=== PATIENT | female | born 1950 | race African-American/Black ===

== ENCOUNTER 2020-04-11 02:46 | Inpatient (IN) | payer MEDICARE, OTHER ==
[~2020-04-11] VITALS: Ht 170.2 cm; Wt 105.5 kg
[2020-04-11] VITALS (34 sets, daily range): BP systolic 41–246; BP diastolic 31–94
[2020-04-11] MEDS ORDERED: fentaNYL PF VIAL 100 MCG/2 ML VIAL ONE (02:53)
[2020-04-11] MEDS ORDERED: HYDROmorphone 2 MG/ML VIAL ONE (02:57)
[2020-04-11] MEDS ORDERED: PROPOFOL 100 ML IV ONE (03:14)
[2020-04-11] MEDS ORDERED: EPINEPHrine VIAL 5 MG in IV NORMAL SALINE 250ML 250 ML IV PRN (03:15)
[2020-04-11] MEDS ORDERED: MIDAZOLAM 100mg/100ml NS BAG 100 ML IV ONE (03:45)
[2020-04-11] MEDS ORDERED: metroNIDAZOLE 500mg PREMIX 500 MG/100 ML BAG IV ONE (04:00)
[2020-04-11] MEDS ORDERED: PIP/TAZO PER PHARMACY MC PRN (04:00)
[2020-04-11] MEDS ORDERED: VANCOMYCIN PER PHARMACY MC PRN (04:00)
[2020-04-11] MEDS ORDERED: FUROSEMIDE 100 MG/10 ML VIAL. IVP ONE (04:15)
[2020-04-11] MEDS ORDERED: MAGNESIUM SULFATE 2GM 50 ML IV ONE (04:30)
[2020-04-11] MEDS ORDERED: DEXAMETHASONE SOD PHOS 20 MG/5 ML VIAL. IV ONE (04:30)
[2020-04-11 04:33] LABS: BASO # 0.1 x10^3/uL (0.0-0.2); BASO % 1 % (0-3); EOS # 0.1 x10^3/uL (0.0-0.7); EOS % 1 % (0-3); HEMATOCRIT 37.7 % (36.0-47.0); HEMOGLOBIN 12.2 g/dL (12.0-15.5); LYMPH # 3.7 x10^3/uL (1.0-4.8); LYMPH % 25 % (24-48); MEAN CORPUSCULAR HEMOGLOBIN 28 pg (25-35); MEAN CORPUSCULAR HGB CONC 33 g/dL (31-37); MEAN CORPUSCULAR VOLUME 87 fL (79-100); MONO # 0.7 x10^3/uL (0.0-1.1); MONO % 5 % (0-9); NEUT # 10.3 x10^3/uL (1.8-7.7); NEUT % 69 % (31-73); PLATELET COUNT 240 x10^3/uL (140-400); RED BLOOD COUNT 4.32 x10^6/uL (3.50-5.40); RED CELL DISTRIBUTION WIDTH 14.2 % (11.5-14.5); WHITE BLOOD COUNT 14.9 x10^3/uL (4.0-11.0)
--- NOTE | 2020-04-11 04:39 | RAD ---
EXAM: XR CHEST 1V 04/11/2020 3:49 AM CLINICAL INDICATION: Status post intubation, post code COMPARISON: None TECHNIQUE: AP supine view the chest FINDINGS: Endotracheal tube terminates 4.5 cm above the ioana. Nasogastric tube terminates in the g astric fundus with the sidehole in the distal esophagus heart is normal in size. There are bilateral consolidative airspace opacities, greatest in the lung bases and greater on the right. No pneumothora x. No acute osseous abnormality. Surgical clips are in the left chest wall. IMPRESSION: 1. Appropriate position of nasogastric tube. 2. High termination of nasogastric tube with sidehole in the distal esophagus, consider advancing 5 c m. 3. Bilateral consolidations throughout the lungs, greater on the right. Small right pleural effusion also possible. Electronically signed by: Henrietta Wood MD (04/11/2020 4:36 AM) [id number]
[2020-04-11 04:40] LABS: PROTHROMBIN TIME PATIENT 15.9 SEC (11.7-14.0)
[2020-04-11 04:45] LABS: ACETAMIN < 2 mcg/ml (10-30); SALIC < 2.8 mg/dL (2.8-20.0)
[2020-04-11 04:52] LABS: CALCIUM 8.7 mg/dL (8.5-10.1); CREATININE 1.8 mg/dL (0.6-1.0); GFR 33.8; POTASSIUM 3.7 mmol/L (3.5-5.1)
[2020-04-11 04:58] LABS: BILIRUBIN,URINE NEGATIVE (NEG); CLARITY,URINE CLEAR; COLOR,URINE YELLOW; NITRITE,URINE NEGATIVE (NEG); PROTEIN,URINE NEGATIVE (NEG-TRACE); UROBILINOGEN,URINE 0.2 mg/dL (0.2 mg/dL)
[2020-04-11 05:00] LABS: BASE EXCESS COOX -8 mmol/L (-3-3); CORRECTED PCO2 COOX 52 mmHg; CORRECTED PH COOX 7.21; CORRECTED PO2 COOX 47 mmHg; HCO3 COOX 21 mmol/L (21-28); METHEMOGLOBIN 0.4 % (0.0-1.9); OXYHEMOGLOBIN 73.1 %; SAT O2 COOX 73 % (92-99)
[2020-04-11] MEDS ORDERED: VANCOMYCIN 1.75 GM in IV NORMAL SALINE 500ML BAG 500 ML IV ONE (05:00)
[2020-04-11] MEDS ORDERED: PIPERACILLIN/TAZOBACTAM 3.375 GM in IV NORMAL SALINE 50ML 50 ML IV ONE (05:00)
[2020-04-11 05:01] LABS: PCO2 COOX 54 mmHg (35-46); PO2 COOX 49 mmHg (65-108)
[2020-04-11 05:04] LABS: AMORPHOUS SEDIMENT,UR PRESENT /HPF; BACTERIA,URINE 0 /HPF (0-FEW); BARBITURATES NEG (NEG); BENZODIAZEPINES NEG (NEG); CANNABINOIDS NEG (NEG); COCAINE NEG (NEG); METHADONE NEG (NEG); OPIATES NEG (NEG); PHENCYCLIDINE NEG (NEG); RBC,URINE RARE /HPF (0-2); WBC,URINE OCC /HPF (0-4)
[2020-04-11 05:05] LABS: AMPHETAMINE/METHAMPHETAMINE NEG (NEG)
[2020-04-11 05:08] LABS: ALBUMIN 2.8 g/dL (3.4-5.0); DIRECT BILIRUBIN 0.4 mg/dL (0.0-0.2); MAGNESIUM 2.1 mg/dL (1.8-2.4); TOTAL PROTEIN 5.8 g/dL (6.4-8.2)
[2020-04-11] MEDS ORDERED: SUCCINYLCHOLINE 200 MG/10 ML VIAL. IV ONE (06:15)
[2020-04-11] MEDS ORDERED: fentaNYL PF VIAL 100 MCG/2 ML VIAL IVP ONE (06:15)
[2020-04-11] MEDS ORDERED: ETOMIDATE 20 MG/10 ML VIAL. IV ONE (06:15)
[2020-04-11] MEDS ORDERED: HYDROmorphone 2 MG/ML VIAL IVP ONE (06:15)
[2020-04-11 06:16] LABS: BASE EXCESS ABG -5 mmol/L (-3-3); CORRECTED PCO2 ABG 45 mmHg; CORRECTED PO2 ABG 76 mmHg; HCO3 ABG 22 mmol/L (21-28); PCO2 ABG 47 mmHg (35-46); PO2 ABG 81 mmHg (65-108); SAT O2 ABG 94 % (92-99)
[2020-04-11 06:17] LABS: FIO2 ABG 100
[2020-04-11] MEDS ORDERED: POLYVINYL ALCOHOL 1.4% OPHTH SOLUTION 15ML BOTTLE. OU PRN (07:00)
[2020-04-11] MEDS ORDERED: fentaNYL PF VIAL 100 MCG/2 ML VIAL IV ONE ×2 (07:00→07:15)
[2020-04-11] MEDS ORDERED: PROPOFOL 100 ML IV PRN ×2 (07:00→07:15)
[2020-04-11] MEDS ORDERED: MIDAZOLAM 100mg/100ml NS BAG 100 ML IV PRN ×2 (07:15→17:30)
[2020-04-11] MEDS ORDERED: NOREPINEPHRINE VIAL 32 MG in IV D5W 250ML IV PRN (07:15)
--- NOTE | 2020-04-11 07:29 | RAD ---
STUDY: CT head and cervical spine without contrast INDICATION: Cardiopulmonary resuscitation. COMPARISON: None. TECHNIQUE: Axial CT imaging through the head and cervical spine without the use of intravenous contra st. Sagittal and coronal reformats were obtained. One or more of the following individualized dose reduction techniques were utilized for this examinat ion: 1. Automated exposure control 2. Adjustment of the mA and/or kV according to patient size 3. Use of iterative reconstruction technique. FINDINGS: CT head: Mild study degradation on account of motion. Interpretation is also made difficult due to a generaliz ed thick calvarium. No acute intracranial hemorrhage is identified. No large area of ahn-white matter differentiation lo ss is readily apparent taking the above into consideration. Symmetric lateral ventricles without vent riculomegaly. No midline shift. There is the suggestion of patchy white matter hypoattenuation which is nonspecific but most frequent ly seen in the setting of chronic microvascular ischemic change. Diffusely thickened calvarium without a superimposed focal osseous abnormality or depressed calvarial fracture. No layering fluid within the visualized paranasal sinuses. CT cervical spine: Endotracheal and orogastric intubation. Mild motion degradation as well as beam attenuation related t o patient body habitus. No acute fracture is identified or traumatic malalignment. Straightening of cervical lordosis. Grade 1 anterolisthesis of C4 on C5. Multilevel discogenic arthro sis and prominent ventral osteophyte formation. Uncovertebral joint hypertrophy, disc osteophyte comp osmar formation and facet arthrosis to varying extent of multiple levels. Facet arthrosis is most prono unced on the right at C2-C3 and C3-C4 and on the left at C4-C5. At least moderate central canal steno sis at several levels felt to be greatest at C6-C7. Osseous neural foraminal encroachment ranging fro m mild to severe. Asymmetric prominence of the left thyroid lobe which exhibits ill-defined hypoattenuation relative to the right. It is difficult to discretely measure a nodule but presumable a nodule or nodules measuri ng greater than 1.5 cm. Infiltrates at the lung apices. IMPRESSION: CT head: 1. Motion degradation as well as beam attenuation from a generalized thick calvarium. Taking this in to consideration no acute intracranial abnormality by CT. 2. Nonspecific white matter findings no most often on account of chronic microvascular ischemic monique ge. CT cervical spine: 1. No acute fracture or traumatic malalignment. 2. Advanced multilevel degenerative changes with at least moderate central canal stenosis at several levels, appearing greatest at C6-C7, and osseous neural foraminal encroachment throughout ranging fr om mild to severe. 3. Subsolid infiltrates at both lung apices with relative subpleural sparing. The appearance is nons pecific but based on the small portion of the lungs that are imaged, alveolar edema is the leading co nsideration. 4. Asymmetric prominence of the left thyroid lobe presumably with a nodule or nodules measuring over 1.5 cm. Eventual nonemergent ultrasound would allow for better characterization. Electronically signed by: GUIDO ATKINS MD (04/11/2020 7:27 AM) [id number]
[2020-04-11] MEDS ORDERED: EPINEPHrine VIAL 10 MG in IV NORMAL SALINE 250ML IV PRN (07:30)
[2020-04-11] MEDS ORDERED: MAGNESIUM SULFATE 1GM 100 ML IV ONE (07:30)
[2020-04-11 07:45] LABS: BASE EXCESS ABG -5 mmol/L (-3-3); HCO3 ABG 24 mmol/L (21-28); PO2 ABG 71 mmHg (65-108); SAT O2 ABG 88 % (92-99)
[2020-04-11 07:46] LABS: PCO2 ABG 62 mmHg (35-46)
[2020-04-11 07:47] LABS: FIO2 ABG 100
[2020-04-11] MEDS: busPIRone 10 MG TABLET. NG SCH ×2 (08:00→15:30)
--- NOTE | 2020-04-11 08:13 | EKG ---
[facility] [address] [place] [address] Test Date: 2020-04-11 Test Time: 08:07:18 Pat Name: CHELSEY MASTERS Department: Room: 114 1 Gender: F Family Services Specialist: KAMILAH : 1950 Requested By: TRAVIS WATKINS Order Number: [id number] Reading MD: Jacob Pollard Measurements Intervals [place] Rate: 77 P: 64 OK: 226 QRS: 121 QRSD: 176 T: -14 QT: 410 QTc: 466 Interpretive Statements SINUS RHYTHM PROLONGED OK INTERVAL LEFT ATRIAL ABNORMALITY ABNORMAL RIGHT AXIS DEVIATION RIGHT BUNDLE BRANCH BLOCK ABNORMAL ECG RI6.02 No previous ECG available for comparison Electronically Signed On 04-11-2020 9:22:48 STAFF DEVELOPMENT COORDINATOR RN by Jacob Pollard
[2020-04-11 08:14] LABS: BASO % 0 % (0-3); EOS % 0 % (0-3); HEMATOCRIT 38.9 % (36.0-47.0); HEMOGLOBIN 12.8 g/dL (12.0-15.5); LYMPH % 6 % (24-48); MEAN CORPUSCULAR HEMOGLOBIN 28 pg (25-35); MEAN CORPUSCULAR HGB CONC 33 g/dL (31-37); MEAN CORPUSCULAR VOLUME 86 fL (79-100); MONO # 0.8 x10^3/uL (0.0-1.1); MONO % 4 % (0-9); NEUT # 16.3 x10^3/uL (1.8-7.7); NEUT % 90 % (31-73); PLATELET COUNT 251 x10^3/uL (140-400); RED BLOOD COUNT 4.52 x10^6/uL (3.50-5.40); RED CELL DISTRIBUTION WIDTH 14.2 % (11.5-14.5); WHITE BLOOD COUNT 18.2 x10^3/uL (4.0-11.0)
--- NOTE | 2020-04-11 08:51 | RAD ---
EXAM: CT Chest without IV contrast INDICATION: Reason: s/p cpr / Spl. Instructions: / History: TECHNIQUE: Multi-detector row CT images were acquired from the thoracic inlet through the upper abdo men without the use of IV contrast. Sagittal and coronal images were acquired from the transaxial anjel a. All CT scans performed at this facility utilize dose optimization techniques as appropriate to the exam, including the following: Automated exposure control and adjustment of the mA and/or KV accordi ng to patient size (this includes techniques or standardized protocols for targeted exams where dose is indication/reason for exam). COMPARISON: 04/11/2020 chest x-ray FINDINGS: The absence of IV contrast limits evaluation of soft tissue pathology. CARDIOVASCULAR: Unremarkable MEDIASTINUM & YUSUF: Patient is intubated with the ET tube terminating 2.9 cm above the ioana. Enteri c tube passes below the diaphragms. Mild reactive lymph nodes are present including 9 mm prevascular node. No bulky adenopathy or mass identified. LUNGS: Near confluent consolidation in the bilateral lower lobes and patchy consolidation in the bila teral upper lobes with subpleural sparing is apparent. PLEURAL SPACE: No pleural effusions or pneumothorax. OSSEOUS & SOFT TISSUE: Postsurgical changes from a left lumpectomy and left axillary raffi dissection or present. There is cortical interruption in the sternal body that could reflect motion artifact gi tera similar offset at the skin surface but below that is a lucency through the sternal body that coul d represent a nondisplaced sternal fracture. ABDOMEN: The visualized portions of the upper abdomen are unremarkable. IMPRESSION: 1. Satisfactory endotracheal intubation with no pneumothorax. 2. Near confluent bilateral airspace opacities with subpleural sparing at the apices. Query pulmonary edema or ARDS. 3. Nondisplaced acute sternal fracture. Electronically signed by: Aleena Kirk MD (04/11/2020 8:48 AM) [id number]
[2020-04-11] MEDS ORDERED: PANTOPRAZOLE IV PUSH 40 MG VIAL. IVP SCH (09:00)
--- NOTE | 2020-04-11 09:14 | PDOC2 ---
NEUROLOGY CONSULT Date of Service DOS: DATE: 04/11/20 TIME: 09:08 Reason for Consult Reason for Consult: Anoxic encephalopathy Referring Physician Referring Physician: Dr. Littlejohn Source Source: Caregiver (Son), Chart review History of Present Illness History of Present Illness The patient is a 70-year-old right-handed female who became unresponsive this morning. She was found to be in third-degree atrioventricular block. She was intubated and that was on hypothermia. She was just in [facility] for heart problems, they were going to put an event monitor in, the son says. She has never had a stroke, seizure, or head injury. At baseline she lives with her son and [id number], cannot drive, but prefers not to, does a little bit of cooking and cleaning and takes care of her finances. She sometimes uses a cane. She has had some loss of memory over the last few years. Past Medical History Cardiovascular: CAD, HTN, Hyperlipidemia Past Surgical History Past Surgical History: No pertinent history Family History Family History: No pertinent hx Social History Social History , no tobacco, occasional alcohol, retired Current Medications Current Medications Current Medications Fentanyl Citrate (Fentanyl 2ml Vial) 100 mcg STK-MED ONCE .ROUTE ; Start 04/11/20 at 02:53; Stop 04/11/20 at 02:53; Status DC Hydromorphone HCl (Dilaudid) 2 mg STK-MED ONCE .ROUTE ; Start 04/11/20 at 02:57; Stop 04/11/20 at 02:57; Status DC Epinephrine HCl 5 mg/Sodium Chloride 255 ml @ 22.208 mls/ hr CONT PRN IV SEE I/O RECORD; Start 04/11/20 at 03:15; Stop 04/11/20 at 09:00; Status DC Propofol 100 ml @ As Directed STK-MED ONCE IV ; Start 04/11/20 at 03:14; Stop 04/11/20 at 03:14; Status DC Midazolam HCl 100 ml @ 1 mls/hr 1X ONCE IV ; Start 04/11/20 at 03:45; Stop 04/15/20 at 07:44 Piperacillin Sod/ Tazobactam Sod (Zosyn Per Pharmacy) 1 each PRN DAILY PRN MC SEE COMMENTS; Start 04/11/20 at 04:00 Vancomycin HCl (Vanco Per Pharmacy) 1 each PRN DAILY PRN MC SEE COMMENTS; Start 04/11/20 at 04:00 Metronidazole 100 ml @ 100 mls/hr 1X ONCE IV ; Start 04/11/20 at 04:30; Stop 04/11/20 at 05:29; Status DC Dexamethasone Sodium Phosphate (Decadron) 10 mg 1X ONCE IV Last administered on 04/11/20at 04:54; Start 04/11/20 at 04:30; Stop 04/11/20 at 04:31; Status DC Magnesium Sulfate 50 ml @ 25 mls/hr 1X ONCE IV Last administered on 04/11/20at 04:58; Start 04/11/20 at 04:30; Stop 04/11/20 at 06:30; Status DC Furosemide (Lasix) 100 mg 1X ONCE IVP Last administered on 04/11/20at 04:32; Start 04/11/20 at 04:15; Stop 04/11/20 at 04:27; Status DC Vancomycin HCl 1.75 gm/Sodium Chloride 500 ml @ 250 mls/hr 1X ONCE IV ; Start 04/11/20 at 05:00; Stop 04/11/20 at 06:59; Status DC Piperacillin Sod/ Tazobactam Sod 3.375 gm/Sodium Chloride 50 ml @ 100 mls/hr 1X ONCE IV Last administered on 04/11/20at 05:43; Start 04/11/20 at 05:00; Stop 04/11/20 at 05:29; Status DC Dopamine HCl/ Dextrose 250 ml @ 19.561 mls/ hr CONT PRN IV SEE I/O RECORD Last administered on 04/11/20at 03:30; Start 04/11/20 at 06:15 Hydromorphone HCl (Dilaudid) 2 mg 1X ONCE IVP ; Start 04/11/20 at 06:15; Stop 04/11/20 at 06:27; Status DC Fentanyl Citrate (Fentanyl 2ml Vial) 100 mcg 1X ONCE IVP ; Start 04/11/20 at 06:15; Stop 04/11/20 at 06:27; Status DC Etomidate (Amidate) 20 mg 1X ONCE IV Last administered on 04/11/20at 03:12; St art 04/11/20 at 06:15; Stop 04/11/20 at 06:27; Status DC Succinylcholine Chloride (Anectine) 100 mg 1X ONCE IV Last administered on 04/11/20at 03:13; Start 04/11/20 at 06:15; Stop 04/11/20 at 06:27; Status DC Piperacillin Sod/ Tazobactam Sod 2.25 gm/Sodium Chloride 50 ml @ 100 mls/hr Q6HRS IV ; Start 04/11/20 at 12:00 Fentanyl Citrate (Fentanyl 2ml Vial) 100 mcg 1X ONCE IV ; Start 04/11/20 at 07:00; Stop 04/11/20 at 07:30; Status DC Magnesium Sulfate/ Dextrose 100 ml @ 100 mls/hr 1X ONCE IV ; Start 04/11/20 at 07:30; Stop 04/11/20 at 08:29; Status DC Buspirone HCl (Buspar) 30 mg Q8H NG ; Start 04/11/20 at 08:00; Stop 04/13/20 at 00:01 Acetaminophen (Tylenol) 650 mg Q4H NG ; Start 04/11/20 at 07:00 Glycerin/ Hypromellose/ Polyethylene (Artificial Tears) 1 drop Q6HRS OU ; Start 04/11/20 at 12:00 Glycerin/ Hypromellose/ Polyethylene (Artificial Tears) 1 drop PRN Q15MIN PRN OU DRY EYE; Start 04/11/20 at 07:00 Pantoprazole Sodium (PROTONIX VIAL for IV PUSH) 40 mg DAILY IVP ; Start 04/11/20 at 09:00; Stop 04/11/20 at 07:31; Status DC Fentanyl Citrate 30 ml @ 2.5 mls/hr CONT PRN IV PER PROTOCOL.; Start 04/11/20 at 07:00 Propofol 100 ml @ 6.258 mls/ hr CONT PRN IV PER PROTOCOL.; Start 04/11/20 at 07:00 Norepinephrine Bitartrate 32 mg/ Dextrose 250 ml @ 4.889 mls/ hr CONT PRN IV SEE I/O RECORD; Start 04/11/20 at 07:15 Fentanyl Citrate (Fentanyl 2ml Vial) 100 mcg 1X ONCE IV ; Start 04/11/20 at 07:15; Stop 04/11/20 at 07:30; Status DC Heparin Sodium (Porcine) (Heparin Sodium) 5,000 unit BID SQ ; Start 04/11/20 at 09:00 Pantoprazole Sodium (PROTONIX VIAL for IV PUSH) 40 mg DAILY IVP ; Start 04/11/20 at 09:00 Fentanyl Citrate 30 ml @ 0 mls/hr CONT PRN IV PER PROTOCOL.; Start 04/11/20 at 07:15; Stop 04/11/20 at 07:31; Status DC Propofol 100 ml @ 0 mls/hr CONT PRN IV PER PROTOCOL.; Start 04/11/20 at 07:15; Stop 04/11/20 at 07:31; Status DC Midazolam HCl 100 ml @ 2 mls/hr CONT PRN IV PER PROTOCOL; Start 04/11/20 at 07:15 Epinephrine HCl 10 mg/Sodium Chloride 250 ml @ 15.645 mls/ hr CONT PRN IV SEE I/O RECORD; Start 04/11/20 at 07:30 Metronidazole (FLAGYL 500Mmg PREMIX) 500 mg STK-MED ONCE IV ; Start 04/11/20 at 04:00; Stop 04/11/20 at 08:43; Status DC Allergies Allergies: Coded Allergies: Unable to Assess (Unverified , 04/11/20) ROS Review of System Negative for fever, chills, weight loss, shortness of breath, chest pain, indigestion, hematochezia, melena, and dysuria. Full 14-point review of systems is negative. Physical Exam Physical Examination General: Well-developed, well-nourished black female in no acute distress HEENT: Normocephalic andatraumatic. Temporal arteriespulsatile and nontender. Neck: Supple without bruit, no meningismus Musculoskeletal: Stability:see neurologic. Gait exam:see neurologic. Tone:see neurologic.Strength:see neurologic. Neurological: Mental Status:Intubated and sedated on hypothermia, not responsive. Cranial Nerves:Pupils reactive reactive to light, slight spontaneous movement of the left eye, otherwise no extraocular movements. There is no facial asymmetry. All other cranial related problems are negative except as mentioned before.Reflexes:1+ and symmetric with silent plantar responses. Motor:No response to pain. Coordination and gait:Untestable. Sensory:Untestable. Vitals VITALS Vital Signs Date Time Temp Pulse Resp B/P (MAP) Pulse Ox O2 Delivery O2 Flow Rate FiO2 04/11/20 03:59 81 Ventilator 04/11/20 02:50 97.1 66 168/108 (128) 15.0 97.1 Labs Labs Laboratory Tests Test 04/11/20 03:26 04/11/20 03:50 04/11/20 04:20 04/11/20 04:25 Glucose (Fingerstick) 126 mg/dL (70-99) O2 Saturation 73 % (92-99) Arterial Blood pH 7.20 (7.35-7.45) Arterial Blood pH (Temp corrected) 7.21 Arterial Blood pCO2 at Patient Temp 54 mmHg (35-46) Arterial Blood pCO2 (Temp correct) 52 mmHg Arterial Blood pO2 at Patient Temp 49 mmHg (65-108) Arterial Blood pO2 (Temp corrected) 47 mmHg Arterial Blood HCO3 21 mmol/L (21-28) Arterial Blood Base Excess -8 mmol/L (-3-3) Oxyhemoglobin 73.1 % Methemoglobin 0.4 % (0.0-1.9) Carbon Monoxide, Quantitative 0.0 % (0.0-1.9) FiO2 100 White Blood Count 14.9 x10^3/uL (4.0-11.0) Red Blood Count 4.32 x10^6/uL (3.50-5.40) Hemoglobin 12.2 g/dL (12.0-15.5) Hematocrit 37.7 % (36.0-47.0) Mean Corpuscular Volume 87 fL (79-100) Mean Corpuscular Hemoglobin 28 pg (25-35) Mean Corpuscular Hemoglobin Concent 33 g/dL (31-37) Red Cell Distribution Width 14.2 % (11.5-14.5) Platelet Count 240 x10^3/uL (140-400) Neutrophils (%) (Auto) 69 % (31-73) Lymphocytes (%) (Auto) 25 % (24-48) Monocytes (%) (Auto) 5 % (0-9) Eosinophils (%) (Auto) 1 % (0-3) Basophils (%) (Auto) 1 % (0-3) Neutrophils # (Auto) 10.3 x10^3/uL (1.8-7.7) Lymphocytes # (Auto) 3.7 x10^3/uL (1.0-4.8) Monocytes # (Auto) 0.7 x10^3/uL (0.0-1.1) Eosinophils # (Auto) 0.1 x10^3/uL (0.0-0.7) Basophils # (Auto) 0.1 x10^3/uL (0.0-0.2) Prothrombin Time 15.9 SEC (11.7-14.0) Prothromb Time International Ratio 1.3 (0.8-1.1) Activated Partial Thromboplast Time 37 SEC (24-38) Sodium Level 150 mmol/L (136-145) Potassium Level 3.7 mmol/L (3.5-5.1) Chloride Level 109 mmol/L (98-107) Carbon Dioxide Level 27 mmol/L (21-32) Anion Gap 14 (6-14) Blood Urea Nitrogen 19 mg/dL (7-20) Creatinine 1.8 mg/dL (0.6-1.0) Estimated GFR (Cockcroft-Gault) 33.8 Glucose Level 215 mg/dL (70-99) Lactic Acid Level 5.0 mmol/L (0.4-2.0) Calcium Level 8.7 mg/dL (8.5-10.1) Phosphorus Level 6.6 mg/dL (2.6-4.7) Magnesium Level 2.1 mg/dL (1.8-2.4) Total Bilirubin 1.0 mg/dL (0.2-1.0) Direct Bilirubin 0.4 mg/dL (0.0-0.2) Aspartate Amino Transf (AST/SGOT) 504 U/L (15-37) Alanine Aminotransferase (ALT/SGPT) 336 U/L (14-59) Alkaline Phosphatase 96 U/L (46-116) Ammonia < 10 mcmol/L (11-34) Creatine Kinase 169 U/L (26-192) Troponin I Quantitative 0.047 ng/mL (0.000-0.055) TI-[id number]-Type Natriuretic Peptide 4134 pg/mL (0-124) Total Protein 5.8 g/dL (6.4-8.2) Albumin 2.8 g/dL (3.4-5.0) Thyroid Stimulating Hormone (TSH) 3.523 uIU/mL (0.358-3.74) Salicylates Level < 2.8 mg/dL (2.8-20.0) Salicylate Last Dose Date Salicylate Last Dose Time Acetaminophen Level < 2 mcg/ml (10-30) Acetaminophen Last Dose Date Acetaminophen Last Dose Time Urine Collection Type Unknown Urine Color Yellow Urine Clarity Clear Urine pH 6.0 (<5.0-8.0) Urine Specific [place] 1.015 (1.000-1.030) Urine Protein Negative mg/dL (NEG-TRACE) Urine Glucose (UA) Negative mg/dL (NEG) Urine Ketones (Stick) Negative mg/dL (NEG) Urine Blood Negative (NEG) Urine Nitrite Negative (NEG) Urine Bilirubin Negative (NEG) Urine Urobilinogen Dipstick 0.2 mg/dL (0.2 mg/dL) Urine Leukocyte Esterase Negative (NEG) Urine RBC Rare /HPF (0-2) Urine WBC Occ /HPF (0-4) Urine Squamous Epithelial Cells Few /LPF Urine Amorphous Sediment Present /HPF Urine Bacteria 0 /HPF (0-FEW) Urine Mucus Slight /LPF Urine Opiates Screen Neg (NEG) Urine Methadone Screen Neg (NEG) Urine Barbiturates Neg (NEG) Urine Phencyclidine Screen Neg (NEG) Urine Amphetamine/Methamphetamine Neg (NEG) Urine Benzodiazepines Screen Neg (NEG) Urine Cocaine Screen Neg (NEG) Urine Cannabinoids Screen Neg (NEG) Urine Ethyl Alcohol Neg (NEG) Test 04/11/20 05:28 04/11/20 05:30 04/11/20 07:30 04/11/20 07:50 O2 Saturation 94 % (92-99) 88 % (92-99) Arterial Blood pH 7.29 (7.35-7.45) 7.21 (7.35-7.45) Arterial Blood pH (Temp corrected) 7.30 Arterial Blood pCO2 at Patient Temp 47 mmHg (35-46) 62 mmHg (35-46) Arterial Blood pCO2 (Temp correct) 45 mmHg Arterial Blood pO2 at Patient Temp 81 mmHg (65-108) 71 mmHg (65-108) Arterial Blood pO2 (Temp corrected) 76 mmHg Arterial Blood HCO3 22 mmol/L (21-28) 24 mmol/L (21-28) Arterial Blood Base Excess -5 mmol/L (-3-3) -5 mmol/L (-3-3) FiO2 100 100 SARS-CoV-2 Antigen (Rapid) Negative (NEGATIVE) White Blood Count 18.2 x10^3/uL (4.0-11.0) Red Blood Count 4.52 x10^6/uL (3.50-5.40) Hemoglobin 12.8 g/dL (12.0-15.5) Hematocrit 38.9 % (36.0-47.0) Mean Corpuscular Volume 86 fL (79-100) Mean Corpuscular Hemoglobin 28 pg (25-35) Mean Corpuscular Hemoglobin Concent 33 g/dL (31-37) Red Cell Distribution Width 14.2 % (11.5-14.5) Platelet Count 251 x10^3/uL (140-400) Neutrophils (%) (Auto) 90 % (31-73) Lymphocytes (%) (Auto) 6 % (24-48) Monocytes (%) (Auto) 4 % (0-9) Eosinophils (%) (Auto) 0 % (0-3) Basophils (%) (Auto) 0 % (0-3) Neutrophils # (Auto) 16.3 x10^3/uL (1.8-7.7) Lymphocytes # (Auto) 1.0 x10^3/uL (1.0-4.8) Monocytes # (Auto) 0.8 x10^3/uL (0.0-1.1) Eosinophils # (Auto) 0.0 x10^3/uL (0.0-0.7) Basophils # (Auto) 0.0 x10^3/uL (0.0-0.2) Lactic Acid Level 3.4 mmol/L (0.4-2.0) Troponin I Quantitative 0.255 ng/mL (0.000-0.055) Laboratory Tests Test 04/11/20 03:26 04/11/20 03:50 04/11/20 04:20 04/11/20 04:25 Glucose (Fingerstick) 126 mg/dL (70-99) O2 Saturation 73 % (92-99) Arterial Blood pH 7.20 (7.35-7.45) Arterial Blood pH (Temp corrected) 7.21 Arterial Blood pCO2 at Patient Temp 54 mmHg (35-46) Arterial Blood pCO2 (Temp correct) 52 mmHg Arterial Blood pO2 at Patient Temp 49 mmHg (65-108) Arterial Blood pO2 (Temp corrected) 47 mmHg Arterial Blood HCO3 21 mmol/L (21-28) Arterial Blood Base Excess -8 mmol/L (-3-3) Oxyhemoglobin 73.1 % Methemoglobin 0.4 % (0.0-1.9) Carbon Monoxide, Quantitative 0.0 % (0.0-1.9) FiO2 100 White Blood Count 14.9 x10^3/uL (4.0-11.0) Red Blood Count 4.32 x10^6/uL (3.50-5.40) Hemoglobin 12.2 g/dL (12.0-15.5) Hematocrit 37.7 % (36.0-47.0) Mean Corpuscular Volume 87 fL (79-100) Mean Corpuscular Hemoglobin 28 pg (25-35) Mean Corpuscular Hemoglobin Concent 33 g/dL (31-37) Red Cell Distribution Width 14.2 % (11.5-14.5) Platelet Count 240 x10^3/uL (140-400) Neutrophils (%) (Auto) 69 % (31-73) Lymphocytes (%) (Auto) 25 % (24-48) Monocytes (%) (Auto) 5 % (0-9) Eosinophils (%) (Auto) 1 % (0-3) Basophils (%) (Auto) 1 % (0-3) Neutrophils # (Auto) 10.3 x10^3/uL (1.8-7.7) Lymphocytes # (Auto) 3.7 x10^3/uL (1.0-4.8) Monocytes # (Auto) 0.7 x10^3/uL (0.0-1.1) Eosinophils # (Auto) 0.1 x10^3/uL (0.0-0.7) Basophils # (Auto) 0.1 x10^3/uL (0.0-0.2) Prothrombin Time 15.9 SEC (11.7-14.0) Prothromb Time International Ratio 1.3 (0.8-1.1) Activated Partial Thromboplast Time 37 SEC (24-38) Sodium Level 150 mmol/L (136-145) Potassium Level 3.7 mmol/L (3.5-5.1) Chloride Level 109 mmol/L (98-107) Carbon Dioxide Level 27 mmol/L (21-32) Anion Gap 14 (6-14) Blood Urea Nitrogen 19 mg/dL (7-20) Creatinine 1.8 mg/dL (0.6-1.0) Estimated GFR (Cockcroft-Gault) 33.8 Glucose Level 215 mg/dL (70-99) Lactic Acid Level 5.0 mmol/L (0.4-2.0) Calcium Level 8.7 mg/dL (8.5-10.1) Phosphorus Level 6.6 mg/dL (2.6-4.7) Magnesium Level 2.1 mg/dL (1.8-2.4) Total Bilirubin 1.0 mg/dL (0.2-1.0) Direct Bilirubin 0.4 mg/dL (0.0-0.2) Aspartate Amino Transf (AST/SGOT) 504 U/L (15-37) Alanine Aminotransferase (ALT/SGPT) 336 U/L (14-59) Alkaline Phosphatase 96 U/L (46-116) Ammonia < 10 mcmol/L (11-34) Creatine Kinase 169 U/L (26-192) Troponin I Quantitative 0.047 ng/mL (0.000-0.055) XM-[id number]-Type Natriuretic Peptide 4134 pg/mL (0-124) Total Protein 5.8 g/dL (6.4-8.2) Albumin 2.8 g/dL (3.4-5.0) Thyroid Stimulating Hormone (TSH) 3.523 uIU/mL (0.358-3.74) Salicylates Level < 2.8 mg/dL (2.8-20.0) Salicylate Last Dose Date Salicylate Last Dose Time Acetaminophen Level < 2 mcg/ml (10-30) Acetaminophen Last Dose Date Acetaminophen Last Dose Time Urine Collection Type Unknown Urine Color Yellow Urine Clarity Clear Urine pH 6.0 (<5.0-8.0) Urine Specific [place] 1.015 (1.000-1.030) Urine Protein Negative mg/dL (NEG-TRACE) Urine Glucose (UA) Negative mg/dL (NEG) Urine Ketones (Stick) Negative mg/dL (NEG) Urine Blood Negative (NEG) Urine Nitrite Negative (NEG) Urine Bilirubin Negative (NEG) Urine Urobilinogen Dipstick 0.2 mg/dL (0.2 mg/dL) Urine Leukocyte Esterase Negative (NEG) Urine RBC Rare /HPF (0-2) Urine WBC Occ /HPF (0-4) Urine Squamous Epithelial Cells Few /LPF Urine Amorphous Sediment Present /HPF Urine Bacteria 0 /HPF (0-FEW) Urine Mucus Slight /LPF Urine Opiates Screen Neg (NEG) Urine Methadone Screen Neg (NEG) Urine Barbiturates Neg (NEG) Urine Phencyclidine Screen Neg (NEG) Urine Amphetamine/Methamphetamine Neg (NEG) Urine Benzodiazepines Screen Neg (NEG) Urine Cocaine Screen Neg (NEG) Urine Cannabinoids Screen Neg (NEG) Urine Ethyl Alcohol Neg (NEG) Test 04/11/20 05:28 04/11/20 05:30 04/11/20 07:30 04/11/20 07:50 O2 Saturation 94 % (92-99) 88 % (92-99) Arterial Blood pH 7.29 (7.35-7.45) 7.21 (7.35-7.45) Arterial Blood pH (Temp corrected) 7.30 Arterial Blood pCO2 at Patient Temp 47 mmHg (35-46) 62 mmHg (35-46) Arterial Blood pCO2 (Temp correct) 45 mmHg Arterial Blood pO2 at Patient Temp 81 mmHg (65-108) 71 mmHg (65-108) Arterial Blood pO2 (Temp corrected) 76 mmHg Arterial Blood HCO3 22 mmol/L (21-28) 24 mmol/L (21-28) Arterial Blood Base Excess -5 mmol/L (-3-3) -5 mmol/L (-3-3) FiO2 100 100 SARS-CoV-2 Antigen (Rapid) Negative (NEGATIVE) White Blood Count 18.2 x10^3/uL (4.0-11.0) Red Blood Count 4.52 x10^6/uL (3.50-5.40) Hemoglobin 12.8 g/dL (12.0-15.5) Hematocrit 38.9 % (36.0-47.0) Mean Corpuscular Volume 86 fL (79-100) Mean Corpuscular Hemoglobin 28 pg (25-35) Mean Corpuscular Hemoglobin Concent 33 g/dL (31-37) Red Cell Distribution Width 14.2 % (11.5-14.5) Platelet Count 251 x10^3/uL (140-400) Neutrophils (%) (Auto) 90 % (31-73) Lymphocytes (%) (Auto) 6 % (24-48) Monocytes (%) (Auto) 4 % (0-9) Eosinophils (%) (Auto) 0 % (0-3) Basophils (%) (Auto) 0 % (0-3) Neutrophils # (Auto) 16.3 x10^3/uL (1.8-7.7) Lymphocytes # (Auto) 1.0 x10^3/uL (1.0-4.8) Monocytes # (Auto) 0.8 x10^3/uL (0.0-1.1) Eosinophils # (Auto) 0.0 x10^3/uL (0.0-0.7) Basophils # (Auto) 0.0 x10^3/uL (0.0-0.2) Lactic Acid Level 3.4 mmol/L (0.4-2.0) Troponin I Quantitative 0.255 ng/mL (0.000-0.055) Images Images STUDY: CT head and cervical spine without contrast CT head: Mild study degradation on account of motion. Interpretation is also made difficult due to a generalized thick calvarium. No acute intracranial hemorrhage is identified. No large area of ahn-white matter differentiation loss is readily apparent taking the above into consideration. Symmetric lateral ventricles without ventriculomegaly. No midline shift. There is the suggestion of patchy white matter hypoattenuation which is nonspecific but most frequently seen in the setting of chronic microvascular ischemic change. Diffusely thickened calvarium without a superimposed focal osseous abnormality or depressed calvarial fracture. No layering fluid within the visualized paranasal sinuses. CT cervical spine: Endotracheal and orogastric intubation. Mild motion degradation as well as beam attenuation related to patient body habitus. No acute fracture is identified or traumatic malalignment. Straightening of cervical lordosis. Grade 1 anterolisthesis of C4 on C5. Multilevel discogenic arthrosis and prominent ventral osteophyte formation. Uncovertebral joint hypertrophy, disc osteophyte complex formation and facet arthrosis to varying extent of multiple levels. Facet arthrosis is most pronounced on the right at C2-C3 and C3-C4 and on the left at C4-C5. At least moderate central canal stenosis at several levels felt to be greatest at C6-C7. Osseous neural foraminal encroachment ranging from mild to severe. Asymmetric prominence of the left thyroid lobe which exhibits ill-defined hypoattenuation relative to the right. It is difficult to discretely measure a nodule but presumable a nodule or nodules measuring greater than 1.5 cm. Infiltrates at the lung apices. IMPRESSION: CT head: 1. Motion degradation as well as beam attenuation from a generalized thick calvarium. Taking this into consideration no acute intracranial abnormality by CT. 2. Nonspecific white matter findings no most often on account of chronic microvascular ischemic change. CT cervical spine: 1. No acute fracture or traumatic malalignment. 2. Advanced multilevel degenerative changes with at least moderate central canal stenosis at several levels, appearing greatest at C6-C7, and osseous neural foraminal encroachment throughout ranging from mild to severe. 3. Subsolid infiltrates at both lung apices with relative subpleural sparing. The appearance is nonspecific but based on the small portion of the lungs that are imaged, alveolar edema is the leading consideration. 4. Asymmetric prominence of the left thyroid lobe presumably with a nodule or nodules measuring over 1.5 cm. Eventual nonemergent ultrasound would allow for better characterization. Assessment/Plan Assessment/Plan Impression: Anoxic encephalopathy, still in the midst of hypothermia protocol, cannot comment on any prognosis. Third-degree atrioventricular block Recommendations: She will not be rewarmed until tomorrow morning, there will probably not be a valid neurological exam until 04/13, I will have Dr. Metcalf check the patient then. Discussed with patient's son. Thank you for letting me help with the patient's care. CAMDEN TUCKER MD Apr 11, 2020 09:14
[2020-04-11 09:29] LABS: ALBUMIN 3.1 g/dL (3.4-5.0); CALCIUM 8.9 mg/dL (8.5-10.1); CREATININE 2.1 mg/dL (0.6-1.0); GFR 28.3; MAGNESIUM 2.8 mg/dL (1.8-2.4); PHOSPHORUS 7.3 mg/dL (2.6-4.7); POTASSIUM 3.4 mmol/L (3.5-5.1); TOTAL BILIRUBIN 1.3 mg/dL (0.2-1.0); TOTAL PROTEIN 6.2 g/dL (6.4-8.2)
--- NOTE | 2020-04-11 09:45 | PDOC2 ---
EBER CANALES OFFICE EQUIPMENT MECHANIC 04/11/20 0945: CARDIAC CONSULT DATE OF CONSULT Date of Consult DATE: 04/11/20 TIME: 09:21 REASON FOR CONSULT Reason for Consult: 3RD DEGREE HEART BLOCK REFERRING PHYSICIAN Referring Physician: [facility] SOURCE Source: Caregiver (son), Chart review HISTORY OF PRESENT ILLNESS HISTORY OF PRESENT ILLNESS This is a 70 yo female admitted for dizziness and fall. Pt was in the bathroom and was dizzy, fell but no apparent injury. She was able to crawl and call 911 and was noted with HR in the 20s at home on 3rd degree heart block. External pacer was then initiated. She was in ER and was still able to communicate with staff when she went to asystole and was given epi, HCO3, and Calcium. 7 min to ROSC. Her rhythm was 3rd degree heart block after ROSC at 30-40s. She is currently intubated with vent and her BP is in the 200 with dopamine and epinephrine and currently and back to SR. I talked to her son but the history is limited. He did tell me that he had passing out spells before and sometimes waking up and she is already on the floor. She just moved from [place] with her son and was being seen by [facility] cardiology and holter was pending for next week. She takes metoprolol along with norvasc and losartan as her BP meds. Other meds are unknown at this time. She is also a [employer]. There was no reported complains of chest pain or shortness of breath but just intermittent dizziness. No past hx of CAD, CVA, VTE nor any known arrhythmias. No DM. PAST MEDICAL HISTORY Past Medical History HTN, syncope, multiple presyncopal events, breast CA PAST SURGICAL HISTORY Past Surgical History: Other (lumpectomy) FAMILY HISTORY Family History: Family History Unknown SOCIAL HISTORY Smoke: No ALCOHOL: none Drugs: None Lives: with Family CURRENT MEDICATIONS CURRENT MEDICATIONS Current Medications Medications (Trade) Dose Ordered Sig/Marlyn Route PRN Reason Start Time Stop Time Status Last Admin Dose Admin Dexamethasone Sodium Phosphate (Decadron) 10 mg 1X ONCE IV 04/11/20 04:30 04/11/20 04:31 DC 04/11/20 04:54 Magnesium Sulfate 50 ml @ 25 mls/hr 1X ONCE IV 04/11/20 04:30 04/11/20 06:30 DC 04/11/20 04:58 Furosemide (Lasix) 100 mg 1X ONCE IVP 04/11/20 04:15 04/11/20 04:27 DC 04/11/20 04:32 Piperacillin Sod/ Tazobactam Sod 3.375 gm/Sodium Chloride 50 ml @ 100 mls/hr 1X ONCE IV 04/11/20 05:00 04/11/20 05:29 DC 04/11/20 05:43 Dopamine HCl/ Dextrose 250 ml @ 19.561 mls/ hr CONT PRN IV SEE I/O RECORD 04/11/20 06:15 04/11/20 03:30 Etomidate (Amidate) 20 mg 1X ONCE IV 04/11/20 06:15 04/11/20 06:27 DC 04/11/20 03:12 Succinylcholine Chloride (Anectine) 100 mg 1X ONCE IV 04/11/20 06:15 04/11/20 06:27 DC 04/11/20 03:13 ALLERGIES ALLERGIES: Coded Allergies: Unable to Assess (Unverified , 04/11/20) ROS Review of System unreliable, see HPI PHYSICAL EXAM General: Other (sedated) HEENT: Atraumatic, Mucous membr. moist/pink Lungs: Other (intubated with vent) Heart: Regular rate (SR with RBBB and first degree AV block) Abdomen: Soft, Other (obese) Skin: No breakdown, No significant lesion Psych/Mental Status: Other (sedated) MUSCULOSKELETAL: Osteoarthritic changes both hands VITALS/I&O VITALS/I&O: Vital Signs Date Time Temp Pulse Resp B/P (MAP) Pulse Ox O2 Delivery O2 Flow Rate FiO2 04/11/20 03:59 81 Ventilator 04/11/20 02:50 97.1 66 168/108 (128) 15.0 97.1 I & O 04/10/20 04/10/20 04/11/20 15:00 23:00 07:00 Intake Total 100 ml Balance 100 ml LABS Lab: Laboratory Tests Test 04/11/20 03:26 04/11/20 03:50 04/11/20 04:20 04/11/20 04:25 Glucose (Fingerstick) 126 mg/dL (70-99) H O2 Saturation 73 % (92-99) L Arterial Blood pH 7.20 (7.35-7.45) *L Arterial Blood pH (Temp corrected) 7.21 Arterial Blood pCO2 at Patient Temp 54 mmHg (35-46) H Arterial Blood pCO2 (Temp correct) 52 mmHg Arterial Blood pO2 at Patient Temp 49 mmHg (65-108) *L Arterial Blood pO2 (Temp corrected) 47 mmHg Arterial Blood HCO3 21 mmol/L (21-28) Arterial Blood Base Excess -8 mmol/L (-3-3) L Oxyhemoglobin 73.1 % Methemoglobin 0.4 % (0.0-1.9) Carbon Monoxide, Quantitative 0.0 % (0.0-1.9) FiO2 100 White Blood Count 14.9 x10^3/uL (4.0-11.0) H Red Blood Count 4.32 x10^6/uL (3.50-5.40) Hemoglobin 12.2 g/dL (12.0-15.5) Hematocrit 37.7 % (36.0-47.0) Mean Corpuscular Volume 87 fL (79-100) Mean Corpuscular Hemoglobin 28 pg (25-35) Mean Corpuscular Hemoglobin Concent 33 g/dL (31-37) Red Cell Distribution Width 14.2 % (11.5-14.5) Platelet Count 240 x10^3/uL (140-400) Neutrophils (%) (Auto) 69 % (31-73) Lymphocytes (%) (Auto) 25 % (24-48) Monocytes (%) (Auto) 5 % (0-9) Eosinophils (%) (Auto) 1 % (0-3) Basophils (%) (Auto) 1 % (0-3) Neutrophils # (Auto) 10.3 x10^3/uL (1.8-7.7) H Lymphocytes # (Auto) 3.7 x10^3/uL (1.0-4.8) Monocytes # (Auto) 0.7 x10^3/uL (0.0-1.1) Eosinophils # (Auto) 0.1 x10^3/uL (0.0-0.7) Basophils # (Auto) 0.1 x10^3/uL (0.0-0.2) Prothrombin Time 15.9 SEC (11.7-14.0) H Prothrombin Time INR 1.3 (0.8-1.1) H Activated Partial Thromboplast Time 37 SEC (24-38) Sodium Level 150 mmol/L (136-145) H Potassium Level 3.7 mmol/L (3.5-5.1) Chloride Level 109 mmol/L (98-107) H Carbon Dioxide Level 27 mmol/L (21-32) Anion Gap 14 (6-14) Blood Urea Nitrogen 19 mg/dL (7-20) Creatinine 1.8 mg/dL (0.6-1.0) H Estimated GFR (Cockcroft-Gault) 33.8 Glucose Level 215 mg/dL (70-99) H Lactic Acid Level 5.0 mmol/L (0.4-2.0) *H Calcium Level 8.7 mg/dL (8.5-10.1) Phosphorus Level 6.6 mg/dL (2.6-4.7) H Magnesium Level 2.1 mg/dL (1.8-2.4) Total Bilirubin 1.0 mg/dL (0.2-1.0) Direct Bilirubin 0.4 mg/dL (0.0-0.2) H Aspartate Amino Transferase (AST) 504 U/L (15-37) H Alanine Aminotransferase (ALT) 336 U/L (14-59) H Alkaline Phosphatase 96 U/L (46-116) Ammonia < 10 mcmol/L (11-34) L Creatine Kinase 169 U/L (26-192) Troponin I Quantitative 0.047 ng/mL (0.000-0.055) SP-Cdg-S-Type Natriuretic Peptide 4134 pg/mL (0-124) H Total Protein 5.8 g/dL (6.4-8.2) L Albumin 2.8 g/dL (3.4-5.0) L Thyroid Stimulating Hormone (TSH) 3.523 uIU/mL (0.358-3.74) Salicylates Level < 2.8 mg/dL (2.8-20.0) L Salicylate Last Dose Date Salicylate Last Dose Time Acetaminophen Level < 2 mcg/ml (10-30) L Acetaminophen Last Dose Date Acetaminophen Last Dose Time Urine Collection Type Unknown Urine Color Yellow Urine Clarity Clear Urine pH 6.0 (<5.0-8.0) Urine Specific [place] 1.015 (1.000-1.030) Urine Protein Negative mg/dL (NEG-TRACE) Urine Glucose (UA) Negative mg/dL (NEG) Urine Ketones (Stick) Negative mg/dL (NEG) Urine Blood Negative (NEG) Urine Nitrite Negative (NEG) Urine Bilirubin Negative (NEG) Urine Urobilinogen Dipstick 0.2 mg/dL (0.2 mg/dL) Urine Leukocyte Esterase Negative (NEG) Urine RBC Rare /HPF (0-2) Urine WBC Occ /HPF (0-4) Urine Squamous Epithelial Cells Few /LPF Urine Amorphous Sediment Present /HPF Urine Bacteria 0 /HPF (0-FEW) Urine Mucus Slight /LPF Urine Opiates Screen Neg (NEG) Urine Methadone Screen Neg (NEG) Urine Barbiturates Neg (NEG) Urine Phencyclidine Screen Neg (NEG) Urine Amphetamine/Methamphetamine Neg (NEG) Urine Benzodiazepines Screen Neg (NEG) Urine Cocaine Screen Neg (NEG) Urine Cannabinoids Screen Neg (NEG) Urine Ethyl Alcohol Neg (NEG) Test 04/11/20 05:28 04/11/20 05:30 04/11/20 07:30 04/11/20 07:50 O2 Saturation 94 % (92-99) 88 % (92-99) L Arterial Blood pH 7.29 (7.35-7.45) L 7.21 (7.35-7.45) L Arterial Blood pH (Temp corrected) 7.30 Arterial Blood pCO2 at Patient Temp 47 mmHg (35-46) H 62 mmHg (35-46) *H Arterial Blood pCO2 (Temp correct) 45 mmHg Arterial Blood pO2 at Patient Temp 81 mmHg (65-108) 71 mmHg (65-108) Arterial Blood pO2 (Temp corrected) 76 mmHg Arterial Blood HCO3 22 mmol/L (21-28) 24 mmol/L (21-28) Arterial Blood Base Excess -5 mmol/L (-3-3) L -5 mmol/L (-3-3) L FiO2 100 100 SARS-CoV-2 Antigen (Rapid) Negative (NEGATIVE) White Blood Count 18.2 x10^3/uL (4.0-11.0) H Red Blood Count 4.52 x10^6/uL (3.50-5.40) Hemoglobin 12.8 g/dL (12.0-15.5) Hematocrit 38.9 % (36.0-47.0) Mean Corpuscular Volume 86 fL (79-100) Mean Corpuscular Hemoglobin 28 pg (25-35) Mean Corpuscular Hemoglobin Concent 33 g/dL (31-37) Red Cell Distribution Width 14.2 % (11.5-14.5) Platelet Count 251 x10^3/uL (140-400) Neutrophils (%) (Auto) 90 % (31-73) H Lymphocytes (%) (Auto) 6 % (24-48) L Monocytes (%) (Auto) 4 % (0-9) Eosinophils (%) (Auto) 0 % (0-3) Basophils (%) (Auto) 0 % (0-3) Neutrophils # (Auto) 16.3 x10^3/uL (1.8-7.7) H Lymphocytes # (Auto) 1.0 x10^3/uL (1.0-4.8) Monocytes # (Auto) 0.8 x10^3/uL (0.0-1.1) Eosinophils # (Auto) 0.0 x10^3/uL (0.0-0.7) Basophils # (Auto) 0.0 x10^3/uL (0.0-0.2) Platelet Estimate Pending Lactic Acid Level 3.4 mmol/L (0.4-2.0) H Troponin I Quantitative 0.255 ng/mL (0.000-0.055) Laboratory Tests 04/11/20 04:20 04/11/20 07:50 Laboratory Tests 04/11/20 04:20 ASSESSMENT/PLAN ASSESSMENT/PLAN 1. Presyncope with fall: due to bradyarrhythmia. Rapid covid-19 is negative 2. Third degree heart block: now back in SR with RBBB, first degree AV block 3. Cardiopulmonary arrest: occurred in ED noted with asystole, received ACLS. 7 min to ROSK 4. Nondisplaced sternal fracture: likely from CPR 5. HTN urgency 6. ANA 7. Shock liver 8. Acute CHF with possible diastolic dysfunction 9. Acute respiratory failure due to above 10. Protestant 11. NSTEMI: 0.2, demand mediated with above culprits 12. Obesity 13. Hyperglycemia Recommendations 1. Pt apparently has been having syncopal spells before and has been intermittent presyncopal event due for holter next week at [facility]. She takes metoprolol at home. Will obtain records to [facility] and [facility] 2. No pacing needed currently. Will DC epinephrine given her high BP and will continue low dose dopamine. 3. No AV raffi blocking agents. Obtain TTE. Recheck lytes. 4. Will need PPM possibly COMMAND AND CONTROL SYSTEMS INTEGRATOR-P pending TTE. Await echo. Discussed with son risks and benefits in regards to PPM and agreeable to proceed 5. Vent support per pulmonary 6. No need for lasix at this time currently having significant UOP. 7. Will provide with hydralazine if BP remains elevated LILIBETH VÁZQUEZ MD 04/12/20 0919: CARDIAC CONSULT ASSESSMENT/PLAN ASSESSMENT/PLAN Patient seen and examined 04/11/20. Agree with SURGICAL INSTRUMENTS INSPECTOR's assessment and plan. Patient with recurrent syncope found to be in complete heart block and TCP'd She is presently in SR, intubated. Rapid covid negative. Agree with continuing low dose dopamine for chronotropic support and wean epineph off 2D echo showed normal LV systolic function Slight trop elevation prob demand ischemia - will consider ischemic eval as outpatient Plan permanent pacemaker implantation on tuesday Thank you for your consultation EBER CANALES APRN Apr 11, 2020 09:45 LILIBETH VÁZQUEZ MD Apr 12, 2020 09:19
[2020-04-11 09:56] LABS: CALCIUM 9.4 mg/dL (8.5-10.1); CREATININE 1.7 mg/dL (0.6-1.0); GFR 36.1; POTASSIUM 3.6 mmol/L (3.5-5.1)
[2020-04-11] MEDS ORDERED: POTASSIUM CHLORIDE 20MEQ 100 ML IV ONE (10:00)
[2020-04-11 10:04] LABS: % BANDS 1 % (0-9); % LYMPHS 9 % (24-48); % MONOS 5 % (0-10); % SEGS 85 % (35-66); PLT ESTIMATE ADEQUATE (ADEQUATE)
--- NOTE | 2020-04-11 10:36 | PDOC1 ---
History and Physical Date of Admission Date of Admission DATE: 04/11/20 TIME: 10:33 Identification/Chief Complaint Chief Complaint cardiac arrest Source Source: Caregiver, Chart review History of Present Illness History of Present Illness Ms. Javed is a 70-year-old female, that collapsed at home and brought to the ER. Coded in EMS, complete heart block in ER, resusication and now hypothermia protocol, She was at [facility] for heart problems, this week, some event monit or planned, no pacer planned, poss 2nd degree block or other. At baseline she lives with her son and [id number], cannot drive, but prefers not to, does a little bit of cooking and cleaning and takes care of her finances. some cognitive decline noted previously Past Medical History Cardiovascular: CAD, HTN, Hyperlipidemia Past Surgical History Past Surgical History: Other (lumpectomy) Family History Family History: Family History Unknown Social History Smoke: No ALCOHOL: none Drugs: None Current Medications Current Medications Current Medications Fentanyl Citrate (Fentanyl 2ml Vial) 100 mcg STK-MED ONCE .ROUTE ; Start 04/11/20 at 02:53; Stop 04/11/20 at 02:53; Status DC Hydromorphone HCl (Dilaudid) 2 mg STK-MED ONCE .ROUTE ; Start 04/11/20 at 02:57; Stop 04/11/20 at 02:57; Status DC Epinephrine HCl 5 mg/Sodium Chloride 255 ml @ 22.208 mls/ hr CONT PRN IV SEE I/O RECORD; Start 04/11/20 at 03:15; Stop 04/11/20 at 09:00; Status DC Propofol 100 ml @ As Directed STK-MED ONCE IV ; Start 04/11/20 at 03:14; Stop 04/11/20 at 03:14; Status DC Midazolam HCl 100 ml @ 1 mls/hr 1X ONCE IV ; Start 04/11/20 at 03:45; Stop 04/15/20 at 07:44 Piperacillin Sod/ Tazobactam Sod (Zosyn Per Pharmacy) 1 each PRN DAILY PRN MC SEE COMMENTS; Start 04/11/20 at 04:00 Vancomycin HCl (Vanco Per Pharmacy) 1 each PRN DAILY PRN MC SEE COMMENTS; Start 04/11/20 at 04:00 Metronidazole 100 ml @ 100 mls/hr 1X ONCE IV ; Start 04/11/20 at 04:30; Stop 04/11/20 at 05:29; Status DC Dexamethasone Sodium Phosphate (Decadron) 10 mg 1X ONCE IV Last administered on 04/11/20at 04:54; Start 04/11/20 at 04:30; Stop 04/11/20 at 04:31; Status DC Magnesium Sulfate 50 ml @ 25 mls/hr 1X ONCE IV Last administered on 04/11/20at 04:58; Start 04/11/20 at 04:30; Stop 04/11/20 at 06:30; Status DC Furosemide (Lasix) 100 mg 1X ONCE IVP Last administered on 04/11/20at 04:32; Start 04/11/20 at 04:15; Stop 04/11/20 at 04:27; Status DC Vancomycin HCl 1.75 gm/Sodium Chloride 500 ml @ 250 mls/hr 1X ONCE IV ; Start 04/11/20 at 05:00; Stop 04/11/20 at 06:59; Status DC Piperacillin Sod/ Tazobactam Sod 3.375 gm/Sodium Chloride 50 ml @ 100 mls/hr 1X ONCE IV Last administered on 04/11/20at 05:43; Start 04/11/20 at 05:00; Stop 04/11/20 at 05:29; Status DC Dopamine HCl/ Dextrose 250 ml @ 19.561 mls/ hr CONT PRN IV SEE I/O RECORD Last administered on 04/11/20at 03:30; Start 04/11/20 at 06:15 Hydromorphone HCl (Dilaudid) 2 mg 1X ONCE IVP ; Start 04/11/20 at 06:15; Stop 04/11/20 at 06:27; Status DC Fentanyl Citrate (Fentanyl 2ml Vial) 100 mcg 1X ONCE IVP ; Start 04/11/20 at 06 :15; Stop 04/11/20 at 06:27; Status DC Etomidate (Amidate) 20 mg 1X ONCE IV Last administered on 04/11/20at 03:12; Start 04/11/20 at 06:15; Stop 04/11/20 at 06:27; Status DC Succinylcholine Chloride (Anectine) 100 mg 1X ONCE IV Last administered on at 03:13; Start 04/11/20 at 06:15; Stop 04/11/20 at 06:27; Status DC Piperacillin Sod/ Tazobactam Sod 2.25 gm/Sodium Chloride 50 ml @ 100 mls/hr Q6HRS IV ; Start 04/11/20 at 12:00 Fentanyl Citrate (Fentanyl 2ml Vial) 100 mcg 1X ONCE IV ; Start 04/11/20 at 07:00; Stop 04/11/20 at 07:30; Status DC Magnesium Sulfate/ Dextrose 100 ml @ 100 mls/hr 1X ONCE IV ; Start 04/11/20 at 07:30; Stop 04/11/20 at 08:29; Status DC Buspirone HCl (Buspar) 30 mg Q8H NG ; Start 04/11/20 at 08:00; Stop 04/13/20 at 00:01 Acetaminophen (Tylenol) 650 mg Q4H NG ; Start 04/11/20 at 07:00 Glycerin/ Hypromellose/ Polyethylene (Artificial Tears) 1 drop Q6HRS OU ; Start 04/11/20 at 12:00 Glycerin/ Hypromellose/ Polyethylene (Artificial Tears) 1 drop PRN Q15MIN PRN OU DRY EYE; Start 04/11/20 at 07:00 Pantoprazole Sodium (PROTONIX VIAL for IV PUSH) 40 mg DAILY IVP ; Start 04/11/20 at 09:00; Stop 04/11/20 at 07:31; Status DC Fentanyl Citrate 30 ml @ 2.5 mls/hr CONT PRN IV PER PROTOCOL.; Start 04/11/20 at 07:00 Propofol 100 ml @ 6.258 mls/ hr CONT PRN IV PER PROTOCOL.; Start 04/11/20 at 07:00 Norepinephrine Bitartrate 32 mg/ Dextrose 250 ml @ 4.889 mls/ hr CONT PRN IV SEE I/O RECORD; Start 04/11/20 at 07:15 Fentanyl Citrate (Fentanyl 2ml Vial) 100 mcg 1X ONCE IV ; Start 04/11/20 at 07:15; Stop 04/11/20 at 07:30; Status DC Heparin Sodium (Porcine) (Heparin Sodium) 5,000 unit BID SQ ; Start 04/11/20 at 09:00 Pantoprazole Sodium (PROTONIX VIAL for IV PUSH) 40 mg DAILY IVP ; Start 04/11/20 at 09:00 Fentanyl Citrate 30 ml @ 0 mls/hr CONT PRN IV PER PROTOCOL.; Start 04/11/20 at 07:15; Stop 04/11/20 at 07:31; Status DC Propofol 100 ml @ 0 mls/hr CONT PRN IV PER PROTOCOL.; Start 04/11/20 at 07:15; Stop 04/11/20 at 07:31; Status DC Midazolam HCl 100 ml @ 2 mls/hr CONT PRN IV PER PROTOCOL; Start 04/11/20 at 07:15 Epinephrine HCl 10 mg/Sodium Chloride 250 ml @ 15.645 mls/ hr CONT PRN IV SEE I/O RECORD; Start 04/11/20 at 07:30 Metronidazole (FLAGYL 500Mmg PREMIX) 500 mg STK-MED ONCE IV ; Start 04/11/20 at 04:00; Stop 04/11/20 at 08:43; Status DC Sodium Chloride 1,000 ml @ 75 mls/hr [id number] IV ; Start 04/11/20 at 09:15 Potassium Chloride/Water 100 ml @ 100 mls/hr 1X ONCE IV ; Start 04/11/20 at 10:00; Stop 04/11/20 at 10:59 Allergies Allergies: Coded Allergies: Unable to Assess (Unverified , 04/11/20) ROS Review of System intubated, sedated, unable Physical Exam General: Other (intubated, sedated, on vent, ) HEENT: Atraumatic, PERRLA Lungs: Clear to auscultation Heart: RRR, no murmurs Abdomen: Soft Extremities: No cyanosis, No edema Skin: No significant lesion Neuro: Other Psych/Mental Status: Other Vitals Vitals Vital Signs Date Time Temp Pulse Resp B/P (MAP) Pulse Ox O2 Delivery O2 Flow Rate FiO2 04/11/20 06:51 70 238/168 (191) Ventilator 04/11/20 05:17 43 04/11/20 04:46 93 04/11/20 04:27 97.1 97.1 04/11/20 02:50 15.0 Labs Labs Laboratory Tests Test 04/11/20 03:26 04/11/20 03:50 04/11/20 04:20 04/11/20 04:25 Glucose (Fingerstick) 126 mg/dL (70-99) O2 Saturation 73 % (92-99) Arterial Blood pH 7.20 (7.35-7.45) Arterial Blood pH (Temp corrected) 7.21 Arterial Blood pCO2 at Patient Temp 54 mmHg (35-46) Arterial Blood pCO2 (Temp correct) 52 mmHg Arterial Blood pO2 at Patient Temp 49 mmHg (65-108) Arterial Blood pO2 (Temp corrected) 47 mmHg Arterial Blood HCO3 21 mmol/L (21-28) Arterial Blood Base Excess -8 mmol/L (-3-3) Oxyhemoglobin 73.1 % Methemoglobin 0.4 % (0.0-1.9) Carbon Monoxide, Quantitative 0.0 % (0.0-1.9) FiO2 100 White Blood Count 14.9 x10^3/uL (4.0-11.0) Red Blood Count 4.32 x10^6/uL (3.50-5.40) Hemoglobin 12.2 g/dL (12.0-15.5) Hematocrit 37.7 % (36.0-47.0) Mean Corpuscular Volume 87 fL (79-100) Mean Corpuscular Hemoglobin 28 pg (25-35) Mean Corpuscular Hemoglobin Concent 33 g/dL (31-37) Red Cell Distribution Width 14.2 % (11.5-14.5) Platelet Count 240 x10^3/uL (140-400) Neutrophils (%) (Auto) 69 % (31-73) Lymphocytes (%) (Auto) 25 % (24-48) Monocytes (%) (Auto) 5 % (0-9) Eosinophils (%) (Auto) 1 % (0-3) Basophils (%) (Auto) 1 % (0-3) Neutrophils # (Auto) 10.3 x10^3/uL (1.8-7.7) Lymphocytes # (Auto) 3.7 x10^3/uL (1.0-4.8) Monocytes # (Auto) 0.7 x10^3/uL (0.0-1.1) Eosinophils # (Auto) 0.1 x10^3/uL (0.0-0.7) Basophils # (Auto) 0.1 x10^3/uL (0.0-0.2) Prothrombin Time 15.9 SEC (11.7-14.0) Prothromb Time International Ratio 1.3 (0.8-1.1) Activated Partial Thromboplast Time 37 SEC (24-38) Sodium Level 149 mmol/L (136-145) Potassium Level 3.6 mmol/L (3.5-5.1) Chloride Level 110 mmol/L (98-107) Carbon Dioxide Level 26 mmol/L (21-32) Anion Gap 13 (6-14) Blood Urea Nitrogen 21 mg/dL (7-20) Creatinine 1.7 mg/dL (0.6-1.0) Estimated GFR (Cockcroft-Gault) 36.1 Glucose Level 217 mg/dL (70-99) Lactic Acid Level 5.0 mmol/L (0.4-2.0) Calcium Level 9.4 mg/dL (8.5-10.1) Phosphorus Level 6.6 mg/dL (2.6-4.7) Magnesium Level 2.1 mg/dL (1.8-2.4) Total Bilirubin 1.0 mg/dL (0.2-1.0) Direct Bilirubin 0.4 mg/dL (0.0-0.2) Aspartate Amino Transf (AST/SGOT) 504 U/L (15-37) Alanine Aminotransferase (ALT/SGPT) 336 U/L (14-59) Alkaline Phosphatase 96 U/L (46-116) Ammonia < 10 mcmol/L (11-34) Creatine Kinase 169 U/L (26-192) Troponin I Quantitative 0.047 ng/mL (0.000-0.055) WI-Pvi-[id number]-Type Natriuretic Peptide 4134 pg/mL (0-124) Total Protein 5.8 g/dL (6.4-8.2) Albumin 2.8 g/dL (3.4-5.0) Thyroid Stimulating Hormone (TSH) 3.523 uIU/mL (0.358-3.74) Salicylates Level < 2.8 mg/dL (2.8-20.0) Salicylate Last Dose Date Salicylate Last Dose Time Acetaminophen Level < 2 mcg/ml (10-30) Acetaminophen Last Dose Date Acetaminophen Last Dose Time Urine Collection Type Unknown Urine Color Yellow Urine Clarity Clear Urine pH 6.0 (<5.0-8.0) Urine Specific [place] 1.015 (1.000-1.030) Urine Protein Negative mg/dL (NEG-TRACE) Urine Glucose (UA) Negative mg/dL (NEG) Urine Ketones (Stick) Negative mg/dL (NEG) Urine Blood Negative (NEG) Urine Nitrite Negative (NEG) Urine Bilirubin Negative (NEG) Urine Urobilinogen Dipstick 0.2 mg/dL (0.2 mg/dL) Urine Leukocyte Esterase Negative (NEG) Urine RBC Rare /HPF (0-2) Urine WBC Occ /HPF (0-4) Urine Squamous Epithelial Cells Few /LPF Urine Amorphous Sediment Present /HPF Urine Bacteria 0 /HPF (0-FEW) Urine Mucus Slight /LPF Urine Opiates Screen Neg (NEG) Urine Methadone Screen Neg (NEG) Urine Barbiturates Neg (NEG) Urine Phencyclidine Screen Neg (NEG) Urine Amphetamine/Methamphetamine Neg (NEG) Urine Benzodiazepines Screen Neg (NEG) Urine Cocaine Screen Neg (NEG) Urine Cannabinoids Screen Neg (NEG) Urine Ethyl Alcohol Neg (NEG) Test 04/11/20 05:28 04/11/20 05:30 04/11/20 07:30 04/11/20 07:50 O2 Saturation 94 % (92-99) 88 % (92-99) Arterial Blood pH 7.29 (7.35-7.45) 7.21 (7.35-7.45) Arterial Blood pH (Temp corrected) 7.30 Arterial Blood pCO2 at Patient Temp 47 mmHg (35-46) 62 mmHg (35-46) Arterial Blood pCO2 (Temp correct) 45 mmHg Arterial Blood pO2 at Patient Temp 81 mmHg (65-108) 71 mmHg (65-108) Arterial Blood pO2 (Temp corrected) 76 mmHg Arterial Blood HCO3 22 mmol/L (21-28) 24 mmol/L (21-28) Arterial Blood Base Excess -5 mmol/L (-3-3) -5 mmol/L (-3-3) FiO2 100 100 SARS-CoV-2 Antigen (Rapid) Negative (NEGATIVE) White Blood Count 18.2 x10^3/uL (4.0-11.0) Red Blood Count 4.52 x10^6/uL (3.50-5.40) Hemoglobin 12.8 g/dL (12.0-15.5) Hematocrit 38.9 % (36.0-47.0) Mean Corpuscular Volume 86 fL (79-100) Mean Corpuscular Hemoglobin 28 pg (25-35) Mean Corpuscular Hemoglobin Concent 33 g/dL (31-37) Red Cell Distribution Width 14.2 % (11.5-14.5) Platelet Count 251 x10^3/uL (140-400) Neutrophils (%) (Auto) 90 % (31-73) Lymphocytes (%) (Auto) 6 % (24-48) Monocytes (%) (Auto) 4 % (0-9) Eosinophils (%) (Auto) 0 % (0-3) Basophils (%) (Auto) 0 % (0-3) Neutrophils # (Auto) 16.3 x10^3/uL (1.8-7.7) Lymphocytes # (Auto) 1.0 x10^3/uL (1.0-4.8) Monocytes # (Auto) 0.8 x10^3/uL (0.0-1.1) Eosinophils # (Auto) 0.0 x10^3/uL (0.0-0.7) Basophils # (Auto) 0.0 x10^3/uL (0.0-0.2) Segmented Neutrophils % 85 % (35-66) Band Neutrophils % 1 % (0-9) Lymphocytes % 9 % (24-48) Monocytes % 5 % (0-10) Platelet Estimate Adequate (ADEQUATE) Sodium Level 149 mmol/L (136-145) Potassium Level 3.4 mmol/L (3.5-5.1) Chloride Level 109 mmol/L (98-107) Carbon Dioxide Level 25 mmol/L (21-32) Anion Gap 15 (6-14) Blood Urea Nitrogen 22 mg/dL (7-20) Creatinine 2.1 mg/dL (0.6-1.0) Estimated GFR (Cockcroft-Gault) 28.3 BUN/Creatinine Ratio 10 (6-20) Glucose Level 173 mg/dL (70-99) Lactic Acid Level 3.4 mmol/L (0.4-2.0) Calcium Level 8.9 mg/dL (8.5-10.1) Phosphorus Level 7.3 mg/dL (2.6-4.7) Magnesium Level 2.8 mg/dL (1.8-2.4) Total Bilirubin 1.3 mg/dL (0.2-1.0) Aspartate Amino Transf (AST/SGOT) 624 U/L (15-37) Alanine Aminotransferase (ALT/SGPT) 407 U/L (14-59) Alkaline Phosphatase 94 U/L (46-116) Creatine Kinase 243 U/L (26-192) Troponin I Quantitative 0.255 ng/mL (0.000-0.055) Total Protein 6.2 g/dL (6.4-8.2) Albumin 3.1 g/dL (3.4-5.0) Albumin/Globulin Ratio 1.0 (1.0-1.7) Laboratory Tests Test 04/11/20 03:26 04/11/20 03:50 04/11/20 04:20 04/11/20 04:25 Glucose (Fingerstick) 126 mg/dL (70-99) O2 Saturation 73 % (92-99) Arterial Blood pH 7.20 (7.35-7.45) Arterial Blood pH (Temp corrected) 7.21 Arterial Blood pCO2 at Patient Temp 54 mmHg (35-46) Arterial Blood pCO2 (Temp correct) 52 mmHg Arterial Blood pO2 at Patient Temp 49 mmHg (65-108) Arterial Blood pO2 (Temp corrected) 47 mmHg Arterial Blood HCO3 21 mmol/L (21-28) Arterial Blood Base Excess -8 mmol/L (-3-3) Oxyhemoglobin 73.1 % Methemoglobin 0.4 % (0.0-1.9) Carbon Monoxide, Quantitative 0.0 % (0.0-1.9) FiO2 100 White Blood Count 14.9 x10^3/uL (4.0-11.0) Red Blood Count 4.32 x10^6/uL (3.50-5.40) Hemoglobin 12.2 g/dL (12.0-15.5) Hematocrit 37.7 % (36.0-47.0) Mean Corpuscular Volume 87 fL (79-100) Mean Corpuscular Hemoglobin 28 pg (25-35) Mean Corpuscular Hemoglobin Concent 33 g/dL (31-37) Red Cell Distribution Width 14.2 % (11.5-14.5) Platelet Count 240 x10^3/uL (140-400) Neutrophils (%) (Auto) 69 % (31-73) Lymphocytes (%) (Auto) 25 % (24-48) Monocytes (%) (Auto) 5 % (0-9) Eosinophils (%) (Auto) 1 % (0-3) Basophils (%) (Auto) 1 % (0-3) Neutrophils # (Auto) 10.3 x10^3/uL (1.8-7.7) Lymphocytes # (Auto) 3.7 x10^3/uL (1.0-4.8) Monocytes # (Auto) 0.7 x10^3/uL (0.0-1.1) Eosinophils # (Auto) 0.1 x10^3/uL (0.0-0.7) Basophils # (Auto) 0.1 x10^3/uL (0.0-0.2) Prothrombin Time 15.9 SEC (11.7-14.0) Prothromb Time International Ratio 1.3 (0.8-1.1) Activated Partial Thromboplast Time 37 SEC (24-38) Sodium Level 149 mmol/L (136-145) Potassium Level 3.6 mmol/L (3.5-5.1) Chloride Level 110 mmol/L (98-107) Carbon Dioxide Level 26 mmol/L (21-32) Anion Gap 13 (6-14) Blood Urea Nitrogen 21 mg/dL (7-20) Creatinine 1.7 mg/dL (0.6-1.0) Estimated GFR (Cockcroft-Gault) 36.1 Glucose Level 217 mg/dL (70-99) Lactic Acid Level 5.0 mmol/L (0.4-2.0) Calcium Level 9.4 mg/dL (8.5-10.1) Phosphorus Level 6.6 mg/dL (2.6-4.7) Magnesium Level 2.1 mg/dL (1.8-2.4) Total Bilirubin 1.0 mg/dL (0.2-1.0) Direct Bilirubin 0.4 mg/dL (0.0-0.2) Aspartate Amino Transf (AST/SGOT) 504 U/L (15-37) Alanine Aminotransferase (ALT/SGPT) 336 U/L (14-59) Alkaline Phosphatase 96 U/L (46-116) Ammonia < 10 mcmol/L (11-34) Creatine Kinase 169 U/L (26-192) Troponin I Quantitative 0.047 ng/mL (0.000-0.055) PU-[id number]-Type Natriuretic Peptide 4134 pg/mL (0-124) Total Protein 5.8 g/dL (6.4-8.2) Albumin 2.8 g/dL (3.4-5.0) Thyroid Stimulating Hormone (TSH) 3.523 uIU/mL (0.358-3.74) Salicylates Level < 2.8 mg/dL (2.8-20.0) Salicylate Last Dose Date Salicylate Last Dose Time Acetaminophen Level < 2 mcg/ml (10-30) Acetaminophen Last Dose Date Acetaminophen Last Dose Time Urine Collection Type Unknown Urine Color Yellow Urine Clarity Clear Urine pH 6.0 (<5.0-8.0) Urine Specific [place] 1.015 (1.000-1.030) Urine Protein Negative mg/dL (NEG-TRACE) Urine Glucose (UA) Negative mg/dL (NEG) Urine Ketones (Stick) Negative mg/dL (NEG) Urine Blood Negative (NEG) Urine Nitrite Negative (NEG) Urine Bilirubin Negative (NEG) Urine Urobilinogen Dipstick 0.2 mg/dL (0.2 mg/dL) Urine Leukocyte Esterase Negative (NEG) Urine RBC Rare /HPF (0-2) Urine WBC Occ /HPF (0-4) Urine Squamous Epithelial Cells Few /LPF Urine Amorphous Sediment Present /HPF Urine Bacteria 0 /HPF (0-FEW) Urine Mucus Slight /LPF Urine Opiates Screen Neg (NEG) Urine Methadone Screen Neg (NEG) Urine Barbiturates Neg (NEG) Urine Phencyclidine Screen Neg (NEG) Urine Amphetamine/Methamphetamine Neg (NEG) Urine Benzodiazepines Screen Neg (NEG) Urine Cocaine Screen Neg (NEG) Urine Cannabinoids Screen Neg (NEG) Urine Ethyl Alcohol Neg (NEG) Test 04/11/20 05:28 04/11/20 05:30 04/11/20 07:30 04/11/20 07:50 O2 Saturation 94 % (92-99) 88 % (92-99) Arterial Blood pH 7.29 (7.35-7.45) 7.21 (7.35-7.45) Arterial Blood pH (Temp corrected) 7.30 Arterial Blood pCO2 at Patient Temp 47 mmHg (35-46) 62 mmHg (35-46) Arterial Blood pCO2 (Temp correct) 45 mmHg Arterial Blood pO2 at Patient Temp 81 mmHg (65-108) 71 mmHg (65-108) Arterial Blood pO2 (Temp corrected) 76 mmHg Arterial Blood HCO3 22 mmol/L (21-28) 24 mmol/L (21-28) Arterial Blood Base Excess -5 mmol/L (-3-3) -5 mmol/L (-3-3) FiO2 100 100 SARS-CoV-2 Antigen (Rapid) Negative (NEGATIVE) White Blood Count 18.2 x10^3/uL (4.0-11.0) Red Blood Count 4.52 x10^6/uL (3.50-5.40) Hemoglobin 12.8 g/dL (12.0-15.5) Hematocrit 38.9 % (36.0-47.0) Mean Corpuscular Volume 86 fL (79-100) Mean Corpuscular Hemoglobin 28 pg (25-35) Mean Corpuscular Hemoglobin Concent 33 g/dL (31-37) Red Cell Distribution Width 14.2 % (11.5-14.5) Platelet Count 251 x10^3/uL (140-400) Neutrophils (%) (Auto) 90 % (31-73) Lymphocytes (%) (Auto) 6 % (24-48) Monocytes (%) (Auto) 4 % (0-9) Eosinophils (%) (Auto) 0 % (0-3) Basophils (%) (Auto) 0 % (0-3) Neutrophils # (Auto) 16.3 x10^3/uL (1.8-7.7) Lymphocytes # (Auto) 1.0 x10^3/uL (1.0-4.8) Monocytes # (Auto) 0.8 x10^3/uL (0.0-1.1) Eosinophils # (Auto) 0.0 x10^3/uL (0.0-0.7) Basophils # (Auto) 0.0 x10^3/uL (0.0-0.2) Segmented Neutrophils % 85 % (35-66) Band Neutrophils % 1 % (0-9) Lymphocytes % 9 % (24-48) Monocytes % 5 % (0-10) Platelet Estimate Adequate (ADEQUATE) Sodium Level 149 mmol/L (136-145) Potassium Level 3.4 mmol/L (3.5-5.1) Chloride Level 109 mmol/L (98-107) Carbon Dioxide Level 25 mmol/L (21-32) Anion Gap 15 (6-14) Blood Urea Nitrogen 22 mg/dL (7-20) Creatinine 2.1 mg/dL (0.6-1.0) Estimated GFR (Cockcroft-Gault) 28.3 BUN/Creatinine Ratio 10 (6-20) Glucose Level 173 mg/dL (70-99) Lactic Acid Level 3.4 mmol/L (0.4-2.0) Calcium Level 8.9 mg/dL (8.5-10.1) Phosphorus Level 7.3 mg/dL (2.6-4.7) Magnesium Level 2.8 mg/dL (1.8-2.4) Total Bilirubin 1.3 mg/dL (0.2-1.0) Aspartate Amino Transf (AST/SGOT) 624 U/L (15-37) Alanine Aminotransferase (ALT/SGPT) 407 U/L (14-59) Alkaline Phosphatase 94 U/L (46-116) Creatine Kinase 243 U/L (26-192) Troponin I Quantitative 0.255 ng/mL (0.000-0.055) Total Protein 6.2 g/dL (6.4-8.2) Albumin 3.1 g/dL (3.4-5.0) Albumin/Globulin Ratio 1.0 (1.0-1.7) VTE Prophylaxis Ordered VTE Prophylaxis Devices: No VTE Pharmacological Prophylaxi: Yes Assessment/Plan Assessment/Plan cardiac arrest in complete heart block admit to ICU, intubated, sedated CV consult consider pacer, in irreg afib, rate about 70 now, more stable acute renal failure, vasomotor admit to ICU, about 30 minutes Justifications for Admission Other Justification NEL HDEZ MD Apr 11, 2020 10:36
[2020-04-11] MEDS ORDERED: POTASSIUM CHLORIDE 20 MEQ TABLET.ER. PO SCH (10:45)
[2020-04-11] MEDS ORDERED: ELECTROLYTE (ICU) PROTOCOL. MC PRN (10:45)
[2020-04-11] MEDS ORDERED: POTASSIUM CHLORIDE 20 MEQ TABLET.ER. PO ONE (10:45)
[2020-04-11] MEDS ORDERED: FUROSEMIDE 40 MG/4 ML VIAL. IVP ONE (11:00)
--- NOTE | 2020-04-11 11:09 | CARD ---
MR#: [id number] Date of Study: 04/11/2020 Ordering Physician: EBER CANALES, Referring Physician: EBER CANALES, Tech: Adelia Cueva APPROVED REPORT EXAM: Two-dimensional and M-mode echocardiogram with Doppler and color Doppler. Other Information Quality : GoodHR: 66bpm INDICATION Cardiac Arrest 2D DIMENSIONS RVDd2.5 (2.9-3.5cm)Left Atrium(2D)3.1 (1.6-4.0cm) IVSd1.3 (0.7-1.1cm)Aortic Root(2D)2.8 (2.0-3.7cm) LVDd4.6 (3.9-5.9cm)LVOT Diameter2.0 (1.8-2.4cm) PWd1.1 (0.7-1.1cm)LVDs2.7 (2.5-4.0cm) FS (%) 41.1 %SV69.8 ml LVEF(%)72.0 (>50%) Aortic Valve AoV Peak Moise.137.3cm/sAoV VTI25.1cm AO Peak GR.7.5mmHgLVOT VTI 20.27cm AO Mean GR.4mmHgAI P 1/2 Mera034gd Mitral Valve MV E Iepsdbve60.5cm/sMV E Peak Gr.3mmHg MV DECEL [id number] A Wemaashs77.3cm/s MV E Mean Gr.2mmHgE/A Ratio0.8 TDI Lateral E' P. V6.44cm/sMedial E' P. V4.12cm/s E/Lateral E'10.2E/Medial E'15.9 Tricuspid Valve TR P. [id number]/sRAP [id number] TR Peak Gr.[id number] Pulmonary Vein S1 Jktodbtt45.1cm/sS2 Puikojlk90.81cm/s D2 Gordbnax58.8cm/s LEFT VENTRICLE The left ventricle is normal size. There is mild to moderate concentric left ventricular hypertrophy. The left ventricular systolic function is normal. The Ejection Fraction is 50-55%. Septal motion con sistent with conduction abnormality. Transmitral Doppler flow pattern is Grade I-abnormal relaxation pattern. RIGHT VENTRICLE The right ventricle is borderline dilated. There is normal right ventricular wall thickness. The righ t ventricular systolic function is normal. ATRIA The left atrium size is normal. The right atrium size is normal. The interatrial septum is intact wit h no evidence for an atrial septal defect or patent foramen ovale as noted on 2-D or Doppler imaging. AORTIC VALVE The aortic valve is thickened but opens well. Doppler and Color Flow revealed mild aortic regurgitati on. There is no significant aortic valvular stenosis. Calculated aortic valve area is 2.26 cm2 with m aximum pressure gradient of 9 mmHg and mean pressure gradient of 5 mmHg. MITRAL VALVE The mitral valve is normal in structure and function. There is no evidence of mitral valve prolapse. There is no mitral valve stenosis. Doppler and Color Flow revealed no mitral valve regurgitation note d. TRICUSPID VALVE The tricuspid valve is normal in structure and function. Doppler and Color Flow revealed trace tricus pid regurgitation with an estimated PAP of 31 mmHg. There is no tricuspid valve stenosis. PULMONIC VALVE The pulmonic valve is not well visualized. Doppler and Color Flow revealed trace pulmonic valvular re gurgitation. GREAT VESSELS The aortic root is normal in size. The IVC is normal in size and collapses >50% with inspiration. PERICARDIAL EFFUSION There is no evidence of significant pericardial effusion. Critical Notification Critical Value: No <Conclusion> The left ventricular systolic function is normal. The Ejection Fraction is 50-55%. Transmitral Doppler flow pattern is Grade I-abnormal relaxation pattern. Mild aortic regurgitation. Trace tricuspid regurgitation with an estimated PAP of 31 mmHg. There is no evidence of significant pericardial effusion. Signed by : Jacob Pollard, Electronically Approved : 04/11/2020 11:09:17
--- NOTE | 2020-04-11 11:10 | NUR ---
[id number] 70 y/o post arrest from ER to ICU 114. Hypothermia initiated w ice pacs from ER removed. Reported to be in 3 degree block in the ER then PEA w external pacer placed prior to transport to ICU. Set on demand 80 w MA 100 . 100% functioning pacer on life-lisa observed. ON palpation per Yossi RN only every 2nd or 3rd beat is palpable . Hypotensive on monitor w SBP 140 initially then dropped to 50 per auto NBP after transfer /monitoring. Epinephrine max at 0.7 mcg/kg min (210ml/H0 after weight adjustment .Levo ( quadruple strength) started at 0.5 mcg/kg/min -23.7 ml/H . Dopamine restarted 7mcg/kg/min See flow sheet fro specifics. STAT a-line placement per Dr Ray-accurate readings w titration of pressors as indicated . Blood glucose monitoring initiated. No insulin drip at this time Dr Pollard to unit. Transfer report lacked pertinent information. elephant keeper Yossi w open line of communication and connection for ER and Atul . Vasquez Ty to unit w visit per protocol until PCR Covid resulted ( note 'rapid" was negative). Son assisted w admission questions. He is uncertain of current meds -will check ER for patient med list Dr Allen in/ Vent changes per order after blood gas review. K replaced #2 bag Mg not given per this RN -Result are 2.8. Specifics continued on flow sheets.
--- NOTE | 2020-04-11 11:10 | CONS ---
DATE OF CONSULTATION: 04/11/2020 PULMONARY CONSULTATION ATTENDING PHYSICIAN: Boyd Villar MD REASON FOR CONSULTATION: Respiratory failure, cardiac arrest. HISTORY OF PRESENT ILLNESS: The patient is a 70-year-old female who has a history of multiple presyncopal events in the past, history of breast cancer. She was found in the bathroom after she felt dizzy and fell. There was no obvious injury. She was able to crawl and called 911. When the EMS arrived, her heart rate was in the 20s. She was noted to be in third-degree heart block. External pacemaker was initiated. In the ER, she was able to communicate, but then went into asystole and given epinephrine, bicarbonate, calcium, and also had CPR. She had 7 minutes of ACLS before she had return of spontaneous circulation. The patient was intubated. She initially was started on dopamine and epi; however, her blood pressure went significantly high as a result it was discontinued. The patient underwent CT of the chest, which was reviewed by me. There were diffuse alveolar infiltrates. No significant pleural effusion. There was nondisplaced acute sternal fracture. No pneumothorax seen. She is currently on assist control mode. Her ABGs showed a pH of 7.21, pCO2 of 62 and a pO2 of 71 on 100% FiO2. I have been asked to see her for further evaluation. She is on hypothermic protocol. PAST MEDICAL HISTORY: Hypertension, syncope, multiple presyncopal events and breast cancer. PAST SURGICAL HISTORY: Lumpectomy. FAMILY HISTORY: Unknown. SOCIAL HISTORY: Nonsmoker. ALLERGIES: Not available. CURRENT MEDICATIONS: Include Zosyn, PPI, heparin for DVT prophylaxis. She is also on vancomycin. PHYSICAL EXAMINATION: GENERAL: She is intubated and sedated. VITAL SIGNS: Blood pressure had been as high as 238 and now in the 160s. Pulse ox is 96%. Afebrile. NECK: Supple. LUNGS: With diminished breath sounds. CARDIOVASCULAR: With a regular rate. ABDOMEN: Soft. EXTREMITIES: With trace pitting edema. LABORATORY DATA: Reviewed. COVID negative. Toxicology screen negative. INR 1.3. White cell count 18.2, hemoglobin 12.8 and platelets are 251. IMPRESSION: 1. Acute hypoxic and hypercapnic respiratory failure secondary to cardiac arrest with complete heart block. She also has diffuse bilateral alveolar infiltrates, likely cardiogenic pulmonary edema, but cannot exclude aspiration pneumonia. 2. COVID negative. 3. Abnormal CT chest with diffuse alveolar infiltrates highly likely cardiogenic pulmonary edema. 4. Status post cardiac arrest with 7 minutes of ACLS protocol. She had complete heart block, now has an external pacemaker. 5. Acute kidney injury. 6. Abnormal liver function tests, likely from shock liver. 7. COVID-19 negative. 8. Leukocytosis, likely reactive, but currently on empiric antibiotics. 9. Hypernatremia. RECOMMENDATIONS: 1. We will continue with present assist control mode. I will increase the PEEP to 8 and slowly wean FiO2. 2. P.r.n. IV Lasix to see an improvement in oxygenation. 3. Continue empiric antibiotics. 4. Cardiology recommendation. 5. Deep venous thrombosis prophylaxis with heparin. 6. Stress ulcer prophylaxis. 7. Follow the hypothermic protocol. 8. Prognosis is guarded. Total critical care time of 39 minutes including review of the chart, labs values and imaging studies. Discussed with RN and RT. RODNEY MICHEL MD DR: BRIDGET/brian JOB#: [id number] / [id number]
[2020-04-11] MEDS ORDERED: POLYVINYL ALCOHOL 1.4% OPHTH SOLUTION 15ML BOTTLE. OU SCH (12:00)
[2020-04-11] MEDS ORDERED: SODIUM BICARB ADULT 8.4% 50 MEQ/50 ML DISP.SYRIN. ONE (12:00)
[2020-04-11] MEDS ORDERED: DOPamine 400MG/250ML PREMIX 400 MG/250 ML BAG IV ONE (12:00)
[2020-04-11] MEDS ORDERED: EPINEPHrine SYRINGE 1 MG/10 ML SYRINGE ONE (12:00)
[2020-04-11] MEDS ORDERED: CALCIUM CHLORIDE 1,000 MG/10 ML DISP.SYRIN ONE (12:00)
[2020-04-11] MEDS: IV 1/2 NORMAL SALINE 1,000 ML IV SCH (13:00)
--- NOTE | 2020-04-11 13:13 | NUR ---
Juliet carbajal placed in the ER prior to transport Addendum: 04/11/20 at 1314 by Emelina Landaverde RN Amended: Links added.
[2020-04-11] MEDS: PIPERACILLIN/TAZOBACTAM 2.25 GM in IV NORMAL SALINE 50ML 50 ML IV SCH ×3 (13:30→23:44)
[2020-04-11] MEDS: HEPARIN for SUB-Q USE 5,000 UNIT/ML VIAL. SQ SCH ×2 (13:31→20:37)
[2020-04-11] MEDS: ACETAMINOPHEN 650 MG/20.3 ML SOLUTION. NG SCH ×3 (13:36→15:29)
[2020-04-11] MEDS: PANTOPRAZOLE IV PUSH 40 MG VIAL. IVP SCH (13:37)
--- NOTE | 2020-04-11 14:11 | NUR ---
SS following for discharge planning. SS reviewed pt chart and discussed with pt RN. Pt is from home with son and is currently on the vent at 90%. Pt on IV Zosyn and IV Zyvox. Dopamine and Lasix. COVID19 negative. Pt on Hypothermia protocol. Not stable. SS will continue to follow for discharge planning.
[2020-04-11] MEDS ORDERED: METOPROLOL IV PUSH 5 MG/5 ML VIAL. IVP PRN (14:45)
[2020-04-11] MEDS ORDERED: METOPROLOL IV PUSH 5 MG/5 ML VIAL. IVP ONE (14:45)
[2020-04-11] MEDS ORDERED: ENALAPRILAT 1.25 MG/ML VIAL. IVP PRN (15:15)
[2020-04-11] MEDS: hydrALAZINE 20 MG/ML VIAL. IVP PRN ×2 (18:53→23:06)
--- NOTE | 2020-04-11 19:07 | NUR ---
[id number] meds from ER non administered by this nurse. Hypn eligio at shift leeanna pickens givesn per order
--- NOTE | 2020-04-11 19:14 | NUR ---
1900 Hydralazine w overt decrease in BPsuccessful in bringing pressure down
[2020-04-12] VITALS (28 sets, daily range): BP systolic 96–214; BP diastolic 40–83
[2020-04-12] MEDS: MIDAZOLAM 100mg/100ml NS BAG 100 ML IV PRN (01:30)
[2020-04-12 05:01] LABS: BASE EXCESS ABG 10 mmol/L (-3-3); HCO3 ABG 30 mmol/L (21-28); PCO2 ABG 27 mmHg (35-46); PO2 ABG 246 mmHg (65-108); SAT O2 ABG 99 % (92-99)
[2020-04-12 05:02] LABS: FIO2 ABG 50
--- NOTE | 2020-04-12 05:27 | PDOC ---
PULMONARY PROGRESS NOTES DATE: 04/12/20 TIME: 05:23 Subjective on vent sedated fentanyl versed off sedation follows commands mod ett secretion Vitals Vital Signs Date Time Temp Pulse Resp B/P (MAP) Pulse Ox O2 Delivery O2 Flow Rate FiO2 04/12/20 04:15 100 04/12/20 04:10 Ventilator 04/12/20 04:00 99.1 80 26 145/63 (90) 99.1 Comments sedated pn vent HEENT: Other Lungs: Crackles Cardiovascular: S1, S2 Abdomen: Soft, Non-tender Extremities: Other Skin: Warm Labs Laboratory Tests Test 04/11/20 03:26 04/11/20 03:50 04/11/20 04:20 04/11/20 04:25 Glucose (Fingerstick) 126 mg/dL (70-99) O2 Saturation 73 % (92-99) Arterial Blood pH 7.20 (7.35-7.45) Arterial Blood pH (Temp corrected) 7.21 Arterial Blood pCO2 at Patient Temp 54 mmHg (35-46) Arterial Blood pCO2 (Temp correct) 52 mmHg Arterial Blood pO2 at Patient Temp 49 mmHg (65-108) Arterial Blood pO2 (Temp corrected) 47 mmHg Arterial Blood HCO3 21 mmol/L (21-28) Arterial Blood Base Excess -8 mmol/L (-3-3) Oxyhemoglobin 73.1 % Methemoglobin 0.4 % (0.0-1.9) Carbon Monoxide, Quantitative 0.0 % (0.0-1.9) FiO2 100 White Blood Count 14.9 x10^3/uL (4.0-11.0) Red Blood Count 4.32 x10^6/uL (3.50-5.40) Hemoglobin 12.2 g/dL (12.0-15.5) Hematocrit 37.7 % (36.0-47.0) Mean Corpuscular Volume 87 fL (79-100) Mean Corpuscular Hemoglobin 28 pg (25-35) Mean Corpuscular Hemoglobin Concent 33 g/dL (31-37) Red Cell Distribution Width 14.2 % (11.5-14.5) Platelet Count 240 x10^3/uL (140-400) Neutrophils (%) (Auto) 69 % (31-73) Lymphocytes (%) (Auto) 25 % (24-48) Monocytes (%) (Auto) 5 % (0-9) Eosinophils (%) (Auto) 1 % (0-3) Basophils (%) (Auto) 1 % (0-3) Neutrophils # (Auto) 10.3 x10^3/uL (1.8-7.7) Lymphocytes # (Auto) 3.7 x10^3/uL (1.0-4.8) Monocytes # (Auto) 0.7 x10^3/uL (0.0-1.1) Eosinophils # (Auto) 0.1 x10^3/uL (0.0-0.7) Basophils # (Auto) 0.1 x10^3/uL (0.0-0.2) Prothrombin Time 15.9 SEC (11.7-14.0) Prothromb Time International Ratio 1.3 (0.8-1.1) Activated Partial Thromboplast Time 37 SEC (24-38) Sodium Level 149 mmol/L (136-145) Potassium Level 3.6 mmol/L (3.5-5.1) Chloride Level 110 mmol/L (98-107) Carbon Dioxide Level 26 mmol/L (21-32) Anion Gap 13 (6-14) Blood Urea Nitrogen 21 mg/dL (7-20) Creatinine 1.7 mg/dL (0.6-1.0) Estimated GFR (Cockcroft-Gault) 36.1 Glucose Level 217 mg/dL (70-99) Lactic Acid Level 5.0 mmol/L (0.4-2.0) Calcium Level 9.4 mg/dL (8.5-10.1) Phosphorus Level 6.6 mg/dL (2.6-4.7) Magnesium Level 2.1 mg/dL (1.8-2.4) Total Bilirubin 1.0 mg/dL (0.2-1.0) Direct Bilirubin 0.4 mg/dL (0.0-0.2) Aspartate Amino Transf (AST/SGOT) 504 U/L (15-37) Alanine Aminotransferase (ALT/SGPT) 336 U/L (14-59) Alkaline Phosphatase 96 U/L (46-116) Ammonia < 10 mcmol/L (11-34) Creatine Kinase 169 U/L (26-192) Troponin I Quantitative 0.047 ng/mL (0.000-0.055) TT-Ocn-G-Type Natriuretic Peptide 4134 pg/mL (0-124) Total Protein 5.8 g/dL (6.4-8.2) Albumin 2.8 g/dL (3.4-5.0) Thyroid Stimulating Hormone (TSH) 3.523 uIU/mL (0.358-3.74) Salicylates Level < 2.8 mg/dL (2.8-20.0) Salicylate Last Dose Date Salicylate Last Dose Time Acetaminophen Level < 2 mcg/ml (10-30) Acetaminophen Last Dose Date Acetaminophen Last Dose Time Urine Collection Type Unknown Urine Color Yellow Urine Clarity Clear Urine pH 6.0 (<5.0-8.0) Urine Specific [place] 1.015 (1.000-1.030) Urine Protein Negative mg/dL (NEG-TRACE) Urine Glucose (UA) Negative mg/dL (NEG) Urine Ketones (Stick) Negative mg/dL (NEG) Urine Blood Negative (NEG) Urine Nitrite Negative (NEG) Urine Bilirubin Negative (NEG) Urine Urobilinogen Dipstick 0.2 mg/dL (0.2 mg/dL) Urine Leukocyte Esterase Negative (NEG) Urine RBC Rare /HPF (0-2) Urine WBC Occ /HPF (0-4) Urine Squamous Epithelial Cells Few /LPF Urine Amorphous Sediment Present /HPF Urine Bacteria 0 /HPF (0-FEW) Urine Mucus Slight /LPF Urine Opiates Screen Neg (NEG) Urine Methadone Screen Neg (NEG) Urine Barbiturates Neg (NEG) Urine Phencyclidine Screen Neg (NEG) Urine Amphetamine/Methamphetamine Neg (NEG) Urine Benzodiazepines Screen Neg (NEG) Urine Cocaine Screen Neg (NEG) Urine Cannabinoids Screen Neg (NEG) Urine Ethyl Alcohol Neg (NEG) Test 04/11/20 04:53 04/11/20 05:28 04/11/20 05:30 04/11/20 07:30 Coronavirus (PCR) Not detected (Not Detected) O2 Saturation 94 % (92-99) 88 % (92-99) Arterial Blood pH 7.29 (7.35-7.45) 7.21 (7.35-7.45) Arterial Blood pH (Temp corrected) 7.30 Arterial Blood pCO2 at Patient Temp 47 mmHg (35-46) 62 mmHg (35-46) Arterial Blood pCO2 (Temp correct) 45 mmHg Arterial Blood pO2 at Patient Temp 81 mmHg (65-108) 71 mmHg (65-108) Arterial Blood pO2 (Temp corrected) 76 mmHg Arterial Blood HCO3 22 mmol/L (21-28) 24 mmol/L (21-28) Arterial Blood Base Excess -5 mmol/L (-3-3) -5 mmol/L (-3-3) FiO2 100 100 SARS-CoV-2 Antigen (Rapid) Negative (NEGATIVE) Test 04/11/20 07:50 04/11/20 09:50 04/11/20 10:32 04/11/20 18:30 White Blood Count 18.2 x10^3/uL (4.0-11.0) Red Blood Count 4.52 x10^6/uL (3.50-5.40) Hemoglobin 12.8 g/dL (12.0-15.5) Hematocrit 38.9 % (36.0-47.0) Mean Corpuscular Volume 86 fL (79-100) Mean Corpuscular Hemoglobin 28 pg (25-35) Mean Corpuscular Hemoglobin Concent 33 g/dL (31-37) Red Cell Distribution Width 14.2 % (11.5-14.5) Platelet Count 251 x10^3/uL (140-400) Neutrophils (%) (Auto) 90 % (31-73) Lymphocytes (%) (Auto) 6 % (24-48) Monocytes (%) (Auto) 4 % (0-9) Eosinophils (%) (Auto) 0 % (0-3) Basophils (%) (Auto) 0 % (0-3) Neutrophils # (Auto) 16.3 x10^3/uL (1.8-7.7) Lymphocytes # (Auto) 1.0 x10^3/uL (1.0-4.8) Monocytes # (Auto) 0.8 x10^3/uL (0.0-1.1) Eosinophils # (Auto) 0.0 x10^3/uL (0.0-0.7) Basophils # (Auto) 0.0 x10^3/uL (0.0-0.2) Segmented Neutrophils % 85 % (35-66) Band Neutrophils % 1 % (0-9) Lymphocytes % 9 % (24-48) Monocytes % 5 % (0-10) Platelet Estimate Adequate (ADEQUATE) Sodium Level 149 mmol/L (136-145) Potassium Level 3.4 mmol/L (3.5-5.1) Chloride Level 109 mmol/L (98-107) Carbon Dioxide Level 25 mmol/L (21-32) Anion Gap 15 (6-14) Blood Urea Nitrogen 22 mg/dL (7-20) Creatinine 2.1 mg/dL (0.6-1.0) Estimated GFR (Cockcroft-Gault) 28.3 BUN/Creatinine Ratio 10 (6-20) Glucose Level 173 mg/dL (70-99) Lactic Acid Level 3.4 mmol/L (0.4-2.0) Calcium Level 8.9 mg/dL (8.5-10.1) Phosphorus Level 7.3 mg/dL (2.6-4.7) Magnesium Level 2.8 mg/dL (1.8-2.4) Total Bilirubin 1.3 mg/dL (0.2-1.0) Aspartate Amino Transf (AST/SGOT) 624 U/L (15-37) Alanine Aminotransferase (ALT/SGPT) 407 U/L (14-59) Alkaline Phosphatase 94 U/L (46-116) Creatine Kinase 243 U/L (26-192) Troponin I Quantitative 0.255 ng/mL (0.000-0.055) Total Protein 6.2 g/dL (6.4-8.2) Albumin 3.1 g/dL (3.4-5.0) Albumin/Globulin Ratio 1.0 (1.0-1.7) Glucose (Fingerstick) 115 mg/dL (70-99) 109 mg/dL (70-99) 131 mg/dL (70-99) Test 04/12/20 03:49 O2 Saturation 99 % (92-99) Arterial Blood pH 7.67 (7.35-7.45) Arterial Blood pCO2 at Patient Temp 27 mmHg (35-46) Arterial Blood pO2 at Patient Temp 246 mmHg (65-108) Arterial Blood HCO3 30 mmol/L (21-28) Arterial Blood Base Excess 10 mmol/L (-3-3) FiO2 50 Laboratory Tests Test 04/11/20 05:28 04/11/20 05:30 04/11/20 07:30 04/11/20 07:50 O2 Saturation 94 % (92-99) 88 % (92-99) Arterial Blood pH 7.29 (7.35-7.45) 7.21 (7.35-7.45) Arterial Blood pH (Temp corrected) 7.30 Arterial Blood pCO2 at Patient Temp 47 mmHg (35-46) 62 mmHg (35-46) Arterial Blood pCO2 (Temp correct) 45 mmHg Arterial Blood pO2 at Patient Temp 81 mmHg (65-108) 71 mmHg (65-108) Arterial Blood pO2 (Temp corrected) 76 mmHg Arterial Blood HCO3 22 mmol/L (21-28) 24 mmol/L (21-28) Arterial Blood Base Excess -5 mmol/L (-3-3) -5 mmol/L (-3-3) FiO2 100 100 SARS-CoV-2 Antigen (Rapid) Negative (NEGATIVE) White Blood Count 18.2 x10^3/uL (4.0-11.0) Red Blood Count 4.52 x10^6/uL (3.50-5.40) Hemoglobin 12.8 g/dL (12.0-15.5) Hematocrit 38.9 % (36.0-47.0) Mean Corpuscular Volume 86 fL (79-100) Mean Corpuscular Hemoglobin 28 pg (25-35) Mean Corpuscular Hemoglobin Concent 33 g/dL (31-37) Red Cell Distribution Width 14.2 % (11.5-14.5) Platelet Count 251 x10^3/uL (140-400) Neutrophils (%) (Auto) 90 % (31-73) Lymphocytes (%) (Auto) 6 % (24-48) Monocytes (%) (Auto) 4 % (0-9) Eosinophils (%) (Auto) 0 % (0-3) Basophils (%) (Auto) 0 % (0-3) Neutrophils # (Auto) 16.3 x10^3/uL (1.8-7.7) Lymphocytes # (Auto) 1.0 x10^3/uL (1.0-4.8) Monocytes # (Auto) 0.8 x10^3/uL (0.0-1.1) Eosinophils # (Auto) 0.0 x10^3/uL (0.0-0.7) Basophils # (Auto) 0.0 x10^3/uL (0.0-0.2) Segmented Neutrophils % 85 % (35-66) Band Neutrophils % 1 % (0-9) Lymphocytes % 9 % (24-48) Monocytes % 5 % (0-10) Platelet Estimate Adequate (ADEQUATE) Sodium Level 149 mmol/L (136-145) Potassium Level 3.4 mmol/L (3.5-5.1) Chloride Level 109 mmol/L (98-107) Carbon Dioxide Level 25 mmol/L (21-32) Anion Gap 15 (6-14) Blood Urea Nitrogen 22 mg/dL (7-20) Creatinine 2.1 mg/dL (0.6-1.0) Estimated GFR (Cockcroft-Gault) 28.3 BUN/Creatinine Ratio 10 (6-20) Glucose Level 173 mg/dL (70-99) Lactic Acid Level 3.4 mmol/L (0.4-2.0) Calcium Level 8.9 mg/dL (8.5-10.1) Phosphorus Level 7.3 mg/dL (2.6-4.7) Magnesium Level 2.8 mg/dL (1.8-2.4) Total Bilirubin 1.3 mg/dL (0.2-1.0) Aspartate Amino Transf (AST/SGOT) 624 U/L (15-37) Alanine Aminotransferase (ALT/SGPT) 407 U/L (14-59) Alkaline Phosphatase 94 U/L (46-116) Creatine Kinase 243 U/L (26-192) Troponin I Quantitative 0.255 ng/mL (0.000-0.055) Total Protein 6.2 g/dL (6.4-8.2) Albumin 3.1 g/dL (3.4-5.0) Albumin/Globulin Ratio 1.0 (1.0-1.7) Test 04/11/20 09:50 04/11/20 10:32 04/11/20 18:30 04/12/20 03:49 Glucose (Fingerstick) 115 mg/dL (70-99) 109 mg/dL (70-99) 131 mg/dL (70-99) O2 Saturation 99 % (92-99) Arterial Blood pH 7.67 (7.35-7.45) Arterial Blood pCO2 at Patient Temp 27 mmHg (35-46) Arterial Blood pO2 at Patient Temp 246 mmHg (65-108) Arterial Blood HCO3 30 mmol/L (21-28) Arterial Blood Base Excess 10 mmol/L (-3-3) FiO2 [address] of chest reviewed 1. Satisfactory endotracheal intubation with no pneumothorax. 2. Near confluent bilateral airspace opacities with subpleural sparing at the apices. Query pulmonary edema or ARDS. 3. Nondisplaced acute sternal fracture. Impression . IMPRESSION: 1. Acute hypoxic and hypercapnic respiratory failure secondary to cardiac arrest with complete heart block. She also has diffuse bilateral alveolar infiltrates, likely cardiogenic pulmonary edema, but cannot exclude aspiration pneumonia. 2. COVID negative. 3. Abnormal CT chest with diffuse alveolar infiltrates highly likely cardiogenic pulmonary edema. 4. Status post cardiac arrest with 7 minutes of ACLS protocol. She had complete heart block, now has an external pacemaker. 5. Acute kidney injury. 6. Abnormal liver function tests, likely from shock liver. 7. COVID-19 negative. 8. Leukocytosis, likely reactive, but currently on empiric antibiotics. 9. Hypernatremia. Plan . RECOMMENDATIONS: 1. cont vent support setting reviewed abg reviewed rr to 18 peep to 5 fi02 40% decrease sedation sbt when awake 2. P.r.n. IV Lasix to see an improvement in oxygenation. 3. Continue empiric antibiotics. covid19 neg 4. Cardiology recommendation. 5. Deep venous thrombosis prophylaxis with heparin. 6. Stress ulcer prophylaxis. 7. no hypothermia protocol as she was awake discussed w rn rt critically ill cct 30 min no overlap DAGOBERTO CAZARES MD Apr 12, 2020 05:27
[2020-04-12] MEDS: PIPERACILLIN/TAZOBACTAM 2.25 GM in IV NORMAL SALINE 50ML 50 ML IV SCH ×4 (05:51→23:50)
[2020-04-12] MEDS: PANTOPRAZOLE IV PUSH 40 MG VIAL. IVP SCH (07:45)
[2020-04-12] MEDS: hydrALAZINE 20 MG/ML VIAL. IVP PRN ×2 (07:45→23:13)
[2020-04-12] MEDS: IV 1/2 NORMAL SALINE 1,000 ML IV SCH (08:08)
[2020-04-12 08:44] LABS: BASE EXCESS ABG 6 mmol/L (-3-3); HCO3 ABG 27 mmol/L (21-28); PCO2 ABG 31 mmHg (35-46); PO2 ABG 145 mmHg (65-108); SAT O2 ABG 99 % (92-99)
[2020-04-12 08:48] LABS: FIO2 ABG 40
[2020-04-12] MEDS ORDERED: MAGNESIUM SULFATE 4GM 100 ML IV SCH (09:00)
--- NOTE | 2020-04-12 14:05 | PDOC ---
PROGRESS NOTES Date of Service: DATE: 04/12/20 TIME: 14:00 Chief Complaint Chief Complaint syncope and fall, , was pulseless in complete heart block asystolic the ER, CPR for 7 min intubated, sedated now in afib, acute diastolic CHF acute renal failure, vasomotor HTN urgency Obesity, BMI 33 History of Present Illness History of Present Illness CV following, no b-blockers HTN emergency yesterday afternooon vent support CV team discussing pacemaker placemetn with [facility], plan PPM tuesday Vitals Vitals Vital Signs Date Time Temp Pulse Resp B/P (MAP) Pulse Ox O2 Delivery O2 Flow Rate FiO2 04/12/20 13:03 87 184/54 04/12/20 12:34 99 Ventilator 04/12/20 10:30 26 04/12/20 09:00 98.4 98.4 Physical Exam General: Other (intubated, sedated, on vent, ) Heart: Regular rate (SR with RBBB and first degree AV block) Abdomen: Soft Extremities: No cyanosis, No edema Skin: No rashes, No breakdown, No significant lesion Labs LABS Laboratory Tests Test 04/11/20 15:19 04/11/20 18:30 04/12/20 03:49 04/12/20 08:40 Glucose (Fingerstick) 148 mg/dL (70-99) 131 mg/dL (70-99) O2 Saturation 99 % (92-99) 99 % (92-99) Arterial Blood pH 7.67 (7.35-7.45) 7.57 (7.35-7.45) Arterial Blood pCO2 at Patient Temp 27 mmHg (35-46) 31 mmHg (35-46) Arterial Blood pO2 at Patient Temp 246 mmHg (65-108) 145 mmHg (65-108) Arterial Blood HCO3 30 mmol/L (21-28) 27 mmol/L (21-28) Arterial Blood Base Excess 10 mmol/L (-3-3) 6 mmol/L (-3-3) FiO2 50 40 Assessment and Plan Assessmemt and Plan ECHO <Conclusion> The left ventricular systolic function is normal. The Ejection Fraction is 50-55%. Transmitral Doppler flow pattern is Grade I-abnormal relaxation pattern. Mild aortic regurgitation. Trace tricuspid regurgitation with an estimated PAP of 31 mmHg. There is no evidence of significant pericardial effusion. Comment Review of Relevant I have reviewed the following items donn (where applicable) has been applied. Labs Laboratory Tests Test 04/11/20 03:26 04/11/20 03:50 04/11/20 04:20 04/11/20 04:25 Glucose (Fingerstick) 126 mg/dL (70-99) O2 Saturation 73 % (92-99) Arterial Blood pH 7.20 (7.35-7.45) Arterial Blood pH (Temp corrected) 7.21 Arterial Blood pCO2 at Patient Temp 54 mmHg (35-46) Arterial Blood pCO2 (Temp correct) 52 mmHg Arterial Blood pO2 at Patient Temp 49 mmHg (65-108) Arterial Blood pO2 (Temp corrected) 47 mmHg Arterial Blood HCO3 21 mmol/L (21-28) Arterial Blood Base Excess -8 mmol/L (-3-3) Oxyhemoglobin 73.1 % Methemoglobin 0.4 % (0.0-1.9) Carbon Monoxide, Quantitative 0.0 % (0.0-1.9) FiO2 100 White Blood Count 14.9 x10^3/uL (4.0-11.0) Red Blood Count 4.32 x10^6/uL (3.50-5.40) Hemoglobin 12.2 g/dL (12.0-15.5) Hematocrit 37.7 % (36.0-47.0) Mean Corpuscular Volume 87 fL (79-100) Mean Corpuscular Hemoglobin 28 pg (25-35) Mean Corpuscular Hemoglobin Concent 33 g/dL (31-37) Red Cell Distribution Width 14.2 % (11.5-14.5) Platelet Count 240 x10^3/uL (140-400) Neutrophils (%) (Auto) 69 % (31-73) Lymphocytes (%) (Auto) 25 % (24-48) Monocytes (%) (Auto) 5 % (0-9) Eosinophils (%) (Auto) 1 % (0-3) Basophils (%) (Auto) 1 % (0-3) Neutrophils # (Auto) 10.3 x10^3/uL (1.8-7.7) Lymphocytes # (Auto) 3.7 x10^3/uL (1.0-4.8) Monocytes # (Auto) 0.7 x10^3/uL (0.0-1.1) Eosinophils # (Auto) 0.1 x10^3/uL (0.0-0.7) Basophils # (Auto) 0.1 x10^3/uL (0.0-0.2) Prothrombin Time 15.9 SEC (11.7-14.0) Prothromb Time International Ratio 1.3 (0.8-1.1) Activated Partial Thromboplast Time 37 SEC (24-38) Sodium Level 149 mmol/L (136-145) Potassium Level 3.6 mmol/L (3.5-5.1) Chloride Level 110 mmol/L (98-107) Carbon Dioxide Level 26 mmol/L (21-32) Anion Gap 13 (6-14) Blood Urea Nitrogen 21 mg/dL (7-20) Creatinine 1.7 mg/dL (0.6-1.0) Estimated GFR (Cockcroft-Gault) 36.1 Glucose Level 217 mg/dL (70-99) Lactic Acid Level 5.0 mmol/L (0.4-2.0) Calcium Level 9.4 mg/dL (8.5-10.1) Phosphorus Level 6.6 mg/dL (2.6-4.7) Magnesium Level 2.1 mg/dL (1.8-2.4) Total Bilirubin 1.0 mg/dL (0.2-1.0) Direct Bilirubin 0.4 mg/dL (0.0-0.2) Aspartate Amino Transf (AST/SGOT) 504 U/L (15-37) Alanine Aminotransferase (ALT/SGPT) 336 U/L (14-59) Alkaline Phosphatase 96 U/L (46-116) Ammonia < 10 mcmol/L (11-34) Creatine Kinase 169 U/L (26-192) Troponin I Quantitative 0.047 ng/mL (0.000-0.055) FW-Dyu-P-Type Natriuretic Peptide 4134 pg/mL (0-124) Total Protein 5.8 g/dL (6.4-8.2) Albumin 2.8 g/dL (3.4-5.0) Thyroid Stimulating Hormone (TSH) 3.523 uIU/mL (0.358-3.74) Salicylates Level < 2.8 mg/dL (2.8-20.0) Salicylate Last Dose Date Salicylate Last Dose Time Acetaminophen Level < 2 mcg/ml (10-30) Acetaminophen Last Dose Date Acetaminophen Last Dose Time Urine Collection Type Unknown Urine Color Yellow Urine Clarity Clear Urine pH 6.0 (<5.0-8.0) Urine Specific Lynn 1.015 (1.000-1.030) Urine Protein Negative mg/dL (NEG-TRACE) Urine Glucose (UA) Negative mg/dL (NEG) Urine Ketones (Stick) Negative mg/dL (NEG) Urine Blood Negative (NEG) Urine Nitrite Negative (NEG) Urine Bilirubin Negative (NEG) Urine Urobilinogen Dipstick 0.2 mg/dL (0.2 mg/dL) Urine Leukocyte Esterase Negative (NEG) Urine RBC Rare /HPF (0-2) Urine WBC Occ /HPF (0-4) Urine Squamous Epithelial Cells Few /LPF Urine Amorphous Sediment Present /HPF Urine Bacteria 0 /HPF (0-FEW) Urine Mucus Slight /LPF Urine Opiates Screen Neg (NEG) Urine Methadone Screen Neg (NEG) Urine Barbiturates Neg (NEG) Urine Phencyclidine Screen Neg (NEG) Urine Amphetamine/Methamphetamine Neg (NEG) Urine Benzodiazepines Screen Neg (NEG) Urine Cocaine Screen Neg (NEG) Urine Cannabinoids Screen Neg (NEG) Urine Ethyl Alcohol Neg (NEG) Test 04/11/20 04:53 04/11/20 05:28 04/11/20 05:30 04/11/20 07:30 Coronavirus (PCR) Not detected (Not Detected) O2 Saturation 94 % (92-99) 88 % (92-99) Arterial Blood pH 7.29 (7.35-7.45) 7.21 (7.35-7.45) Arterial Blood pH (Temp corrected) 7.30 Arterial Blood pCO2 at Patient Temp 47 mmHg (35-46) 62 mmHg (35-46) Arterial Blood pCO2 (Temp correct) 45 mmHg Arterial Blood pO2 at Patient Temp 81 mmHg (65-108) 71 mmHg (65-108) Arterial Blood pO2 (Temp corrected) 76 mmHg Arterial Blood HCO3 22 mmol/L (21-28) 24 mmol/L (21-28) Arterial Blood Base Excess -5 mmol/L (-3-3) -5 mmol/L (-3-3) FiO2 100 100 SARS-CoV-2 Antigen (Rapid) Negative (NEGATIVE) Test 04/11/20 07:50 04/11/20 09:50 04/11/20 10:32 04/11/20 15:19 White Blood Count 18.2 x10^3/uL (4.0-11.0) Red Blood Count 4.52 x10^6/uL (3.50-5.40) Hemoglobin 12.8 g/dL (12.0-15.5) Hematocrit 38.9 % (36.0-47.0) Mean Corpuscular Volume 86 fL (79-100) Mean Corpuscular Hemoglobin 28 pg (25-35) Mean Corpuscular Hemoglobin Concent 33 g/dL (31-37) Red Cell Distribution Width 14.2 % (11.5-14.5) Platelet Count 251 x10^3/uL (140-400) Neutrophils (%) (Auto) 90 % (31-73) Lymphocytes (%) (Auto) 6 % (24-48) Monocytes (%) (Auto) 4 % (0-9) Eosinophils (%) (Auto) 0 % (0-3) Basophils (%) (Auto) 0 % (0-3) Neutrophils # (Auto) 16.3 x10^3/uL (1.8-7.7) Lymphocytes # (Auto) 1.0 x10^3/uL (1.0-4.8) Monocytes # (Auto) 0.8 x10^3/uL (0.0-1.1) Eosinophils # (Auto) 0.0 x10^3/uL (0.0-0.7) Basophils # (Auto) 0.0 x10^3/uL (0.0-0.2) Segmented Neutrophils % 85 % (35-66) Band Neutrophils % 1 % (0-9) Lymphocytes % 9 % (24-48) Monocytes % 5 % (0-10) Platelet Estimate Adequate (ADEQUATE) Sodium Level 149 mmol/L (136-145) Potassium Level 3.4 mmol/L (3.5-5.1) Chloride Level 109 mmol/L (98-107) Carbon Dioxide Level 25 mmol/L (21-32) Anion Gap 15 (6-14) Blood Urea Nitrogen 22 mg/dL (7-20) Creatinine 2.1 mg/dL (0.6-1.0) Estimated GFR (Cockcroft-Gault) 28.3 BUN/Creatinine Ratio 10 (6-20) Glucose Level 173 mg/dL (70-99) Lactic Acid Level 3.4 mmol/L (0.4-2.0) Calcium Level 8.9 mg/dL (8.5-10.1) Phosphorus Level 7.3 mg/dL (2.6-4.7) Magnesium Level 2.8 mg/dL (1.8-2.4) Total Bilirubin 1.3 mg/dL (0.2-1.0) Aspartate Amino Transf (AST/SGOT) 624 U/L (15-37) Alanine Aminotransferase (ALT/SGPT) 407 U/L (14-59) Alkaline Phosphatase 94 U/L (46-116) Creatine Kinase 243 U/L (26-192) Troponin I Quantitative 0.255 ng/mL (0.000-0.055) Total Protein 6.2 g/dL (6.4-8.2) Albumin 3.1 g/dL (3.4-5.0) Albumin/Globulin Ratio 1.0 (1.0-1.7) Glucose (Fingerstick) 115 mg/dL (70-99) 109 mg/dL (70-99) 148 mg/dL (70-99) Test 04/11/20 18:30 04/12/20 03:49 04/12/20 08:40 Glucose (Fingerstick) 131 mg/dL (70-99) O2 Saturation 99 % (92-99) 99 % (92-99) Arterial Blood pH 7.67 (7.35-7.45) 7.57 (7.35-7.45) Arterial Blood pCO2 at Patient Temp 27 mmHg (35-46) 31 mmHg (35-46) Arterial Blood pO2 at Patient Temp 246 mmHg (65-108) 145 mmHg (65-108) Arterial Blood HCO3 30 mmol/L (21-28) 27 mmol/L (21-28) Arterial Blood Base Excess 10 mmol/L (-3-3) 6 mmol/L (-3-3) FiO2 50 40 Laboratory Tests Test 04/11/20 15:19 04/11/20 18:30 04/12/20 03:49 04/12/20 08:40 Glucose (Fingerstick) 148 mg/dL (70-99) 131 mg/dL (70-99) O2 Saturation 99 % (92-99) 99 % (92-99) Arterial Blood pH 7.67 (7.35-7.45) 7.57 (7.35-7.45) Arterial Blood pCO2 at Patient Temp 27 mmHg (35-46) 31 mmHg (35-46) Arterial Blood pO2 at Patient Temp 246 mmHg (65-108) 145 mmHg (65-108) Arterial Blood HCO3 30 mmol/L (21-28) 27 mmol/L (21-28) Arterial Blood Base Excess 10 mmol/L (-3-3) 6 mmol/L (-3-3) FiO2 50 40 Microbiology 04/11/20 Blood Culture - Preliminary, Resulted NO GROWTH AFTER 1 DAY Medications Current Medications Fentanyl Citrate (Fentanyl 2ml Vial) 100 mcg STK-MED ONCE .ROUTE ; Start 04/11/20 at 02:53; Stop 04/11/20 at 02:53; Status DC Hydromorphone HCl (Dilaudid) 2 mg STK-MED ONCE .ROUTE ; Start 04/11/20 at 02:57; Stop 04/11/20 at 02:57; Status DC Epinephrine HCl 5 mg/Sodium Chloride 255 ml @ 22.208 mls/ hr CONT PRN IV SEE I/O RECORD; Start 04/11/20 at 03:15; Stop 04/11/20 at 09:00; Status DC Propofol 100 ml @ As Directed STK-MED ONCE IV ; Start 04/11/20 at 03:14; Stop 04/11/20 at 03:14; Status DC Midazolam HCl 100 ml @ 1 mls/hr 1X ONCE IV Last administered on 04/11/20at 11: 04; Start 04/11/20 at 03:45; Stop 04/12/20 at 00:39; Status DC Piperacillin Sod/ Tazobactam Sod (Zosyn Per Pharmacy) 1 each PRN DAILY PRN MC SEE COMMENTS; Start 04/11/20 at 04:00 Vancomycin HCl (Vanco Per Pharmacy) 1 each PRN DAILY PRN MC SEE COMMENTS; Start 04/11/20 at 04:00; Stop 04/11/20 at 13:35; Status DC Metronidazole 100 ml @ 100 mls/hr 1X ONCE IV ; Start 04/11/20 at 04:30; Stop 04/11/20 at 05:29; Status DC Dexamethasone Sodium Phosphate (Decadron) 10 mg 1X ONCE IV Last administered on 04/11/20at 04:54; Start 04/11/20 at 04:30; Stop 04/11/20 at 04:31; Status DC Magnesium Sulfate 50 ml @ 25 mls/hr 1X ONCE IV Last administered on 04/11/20at 04:58; Start 04/11/20 at 04:30; Stop 04/11/20 at 19:14; Status DC Furosemide (Lasix) 100 mg 1X ONCE IVP Last administered on 04/11/20at 04:32; Start 04/11/20 at 04:15; Stop 04/11/20 at 04:27; Status DC Vancomycin HCl 1.75 gm/Sodium Chloride 500 ml @ 250 mls/hr 1X ONCE IV ; Start 04/11/20 at 05:00; Stop 04/11/20 at 06:59; Status DC Piperacillin Sod/ Tazobactam Sod 3.375 gm/Sodium Chloride 50 ml @ 100 mls/hr 1X ONCE IV Last administered on 04/11/20at 05:43; Start 04/11/20 at 05:00; Stop 04/11/20 at 05:29; Status DC Dopamine HCl/ Dextrose 250 ml @ 19.561 mls/ hr CONT PRN IV SEE I/O RECORD Last administered on 04/12/20at 06:09; Start 04/11/20 at 06:15 Hydromorphone HCl (Dilaudid) 2 mg 1X ONCE IVP ; Start 04/11/20 at 06:15; Stop 04/11/20 at 06:27; Status DC Fentanyl Citrate (Fentanyl 2ml Vial) 100 mcg 1X ONCE IVP ; Start 04/11/20 at 06:15; Stop 04/11/20 at 06:27; Status DC Etomidate (Amidate) 20 mg 1X ONCE IV Last administered on 04/11/20at 03:12; Start 04/11/20 at 06:15; Stop 04/11/20 at 06:27; Status DC Succinylcholine Chloride (Anectine) 100 mg 1X ONCE IV Last administered on 04/11/20at 03:13; Start 04/11/20 at 06:15; Stop 04/11/20 at 06:27; Status DC Piperacillin Sod/ Tazobactam Sod 2.25 gm/Sodium Chloride 50 ml @ 100 mls/hr Q6HRS IV Last administered on 04/12/20at 13:01; Start 04/11/20 at 12:00 Fentanyl Citrate (Fentanyl 2ml Vial) 100 mcg 1X ONCE IV ; Start 04/11/20 at 07:00; Stop 04/11/20 at 19:40; Status DC Magnesium Sulfate/ Dextrose 100 ml @ 100 mls/hr 1X ONCE IV ; Start 04/11/20 at 07:30; Stop 04/11/20 at 14:52; Status DC Buspirone HCl (Buspar) 30 mg Q8H NG Last administered on 04/11/20at 15:30; Start 04/11/20 at 08:00; Stop 04/11/20 at 19:40; Status DC Acetaminophen (Tylenol) 650 mg Q4H NG Last administered on 04/11/20at 15:29; Start 04/11/20 at 07:00; Stop 04/11/20 at 19:40; Status DC Glycerin/ Hypromellose/ Polyethylene (Artificial Tears) 1 drop Q6HRS OU Last administered on 04/11/20at 13:30; Start 04/11/20 at 12:00; Stop 04/11/20 at 19:40; Status DC Glycerin/ Hypromellose/ Polyethylene (Artificial Tears) 1 drop PRN Q15MIN PRN OU DRY EYE; Start 04/11/20 at 07:00; Stop 04/11/20 at 19:40; Status DC Pantoprazole Sodium (PROTONIX VIAL for IV PUSH) 40 mg DAILY IVP ; Start 04/11/20 at 09:00; Stop 04/11/20 at 07:31; Status DC Fentanyl Citrate 30 ml @ 2.5 mls/hr CONT PRN IV PER PROTOCOL. Last administered on 04/12/20at 03:47; Start 04/11/20 at 07:00 Propofol 100 ml @ 6.258 mls/ hr CONT PRN IV PER PROTOCOL.; Start 04/11/20 at 07:00 Norepinephrine Bitartrate 32 mg/ Dextrose 250 ml @ 4.889 mls/ hr CONT PRN IV SEE I/O RECORD; Start 04/11/20 at 07:15 Fentanyl Citrate (Fentanyl 2ml Vial) 100 mcg 1X ONCE IV ; Start 04/11/20 at 07:15; Stop 04/11/20 at 07:30; Status DC Heparin Sodium (Porcine) (Heparin Sodium) 5,000 unit BID SQ Last administered on 04/11/20at 20:37; Start 04/11/20 at 09:00 Pantoprazole Sodium (PROTONIX VIAL for IV PUSH) 40 mg DAILY IVP Last administered on 04/12/20at 07:45; Start 04/11/20 at 09:00 Fentanyl Citrate 30 ml @ 0 mls/hr CONT PRN IV PER PROTOCOL.; Start 04/11/20 at 07:15; Stop 04/11/20 at 07:31; Status DC Propofol 100 ml @ 0 mls/hr CONT PRN IV PER PROTOCOL.; Start 04/11/20 at 07:15; Stop 04/11/20 at 07:31; Status DC Midazolam HCl 100 ml @ 2 mls/hr CONT PRN IV PER PROTOCOL; Start 04/11/20 at 07:15; Status Cancel Epinephrine HCl 10 mg/Sodium Chloride 250 ml @ 15.645 mls/ hr CONT PRN IV SEE I/O RECORD; Start 04/11/20 at 07:30 Metronidazole (FLAGYL 500Mmg PREMIX) 500 mg STK-MED ONCE IV ; Start 04/11/20 at 04:00; Stop 04/11/20 at 08:43; Status DC Sodium Chloride 1,000 ml @ 10 mls/hr Q24H IV Last administered on 04/12/20at 08:08; Start 04/11/20 at 09:15 Potassium Chloride/Water 100 ml @ 100 mls/hr 1X ONCE IV Last administered on 04/11/20at 13:27; Start 04/11/20 at 10:00; Stop 04/11/20 at 10:59; Status DC Potassium Chloride (Klor-Con) 40 meq 1X ONCE PO ; Start 04/11/20 at 10:45; Stop 04/11/20 at 10:46; Status UNV Potassium Chloride (Klor-Con) 40 meq Q2H PO ; Start 04/11/20 at 10:45; Stop 04/11/20 at 12:46; Status UNV Magnesium Sulfate 100 ml @ 50 mls/hr DAILY IV ; Start 04/12/20 at 09:00; Stop 04/15/20 at 08:59; Status UNV Info (Icu Electrolyte Protocol) 1 ea CONT PRN PRN MC PER PROTOCOL; Start 04/11/20 at 10:45 Furosemide (Lasix) 40 mg 1X ONCE IVP Last administered on 04/11/20at 13:29; Start 04/11/20 at 11:00; Stop 04/11/20 at 11:01; Status DC Linezolid/Dextrose 300 ml @ 300 mls/hr Q12HR IV Last administered on 04/12/20at 07:46; Start 04/11/20 at 14:00 Metoprolol Tartrate (Lopressor Vial) 5 mg 1X ONCE IVP ; Start 04/11/20 at 14: 45; Stop 04/11/20 at 14:52; Status DC Metoprolol Tartrate (Lopressor Vial) 5 mg PRN Q5MIN PRN IVP TACHYCARDIA; Start 04/11/20 at 14:45; Stop 04/11/20 at 14:52; Status DC Enalaprilat (Vasotec Inj) 1.25 mg PRN Q6HRS PRN IVP HYPERTENSION; Start 04/11/20 at 15:15; Stop 04/11/20 at 19:14; Status DC Amlodipine Besylate (Norvasc) 5 mg DAILY PO Last administered on 04/12/20at 13:03; Start 04/12/20 at 09:00 Amlodipine Besylate (Norvasc) 5 mg 1X ONCE PO ; Start 04/11/20 at 15:15; Stop 04/11/20 at 15:16; Status Cancel Amlodipine Besylate (Norvasc) 10 mg 1X ONCE NG Last administered on 04/11/20at 15:28; Start 04/11/20 at 15:15; Stop 04/11/20 at 15:18; Status DC Calcium Chloride (Calcium Chloride) 1,000 mg STK-MED ONCE .ROUTE ; Start 04/11/20 at 12:00; Stop 04/11/20 at 16:17; Status DC Epinephrine HCl (EPINEPHrine SYRINGE) 2 mg STK-MED ONCE .ROUTE ; Start 04/11/20 at 12:00; Stop 04/11/20 at 16:17; Status DC Sodium Bicarbonate (Sodium Bicarb Adult 8.4% Syr) 100 meq STK-MED ONCE .ROUTE ; Start 04/11/20 at 12:00; Stop 04/11/20 at 16:17; Status DC Dopamine HCl/ Dextrose (DOPamine 400MG/ 250ML PREMIX) 400 mg STK-MED ONCE IV ; Start 04/11/20 at 12:00; Stop 04/11/20 at 16:17; Status DC Midazolam HCl 100 ml @ 0 mls/hr CONT PRN IV SEE I/O RECORD; Start 04/11/20 at 17:30; Status Cancel Hydralazine HCl (Apresoline Inj) 10 mg PRN Q4HRS PRN IVP ELEVATED BP, SEE COMMENTS Last administered on 04/12/20at 07:45; Start 04/11/20 at 18:45 Midazolam HCl 100 ml @ 1 mls/hr CONT PRN IV SEE I/O RECORD Last administered on 04/12/20at 01:30; Start 04/12/20 at 00:30 Vitals/I & O Vital Sign - Last 24 Hours 04/11/20 04/11/20 04/11/20 04/11/20 14:30 15:00 15:28 15:30 Temp 97.0 97.0 Pulse 68 72 67 66 Resp B/P (MAP) 214/88 (130) 246/94 (144) 200/83 212/82 (125) 198/86 (123) 199/89 (125) Pulse Ox 100 100 100 04/11/20 04/11/20 04/11/20 04/11/20 16:00 16:11 16:30 16:45 Temp 97.0 97.0 Pulse 64 62 60 Resp B/P (MAP) 204/80 (121) 202/80 (120) 110/60 (77) 178/83 (114) 196/83 (120) 99/52 (68) Pulse Ox 100 96 100 100 O2 Delivery Ventilator 04/11/20 04/11/20 04/11/20 04/11/20 16:57 17:29 17:30 18:00 Temp 97.7 97.0 97.7 97.0 Pulse 60 62 Resp B/P (MAP) 162/70 (100) 202/78 (119) 208/81 (123) 157/66 (96) 163/74 (103) 192/76 (114) Pulse Ox 100 90 100 100 04/11/20 04/11/20 04/11/20 04/11/20 18:53 19:00 20:00 20:11 Temp 97.0 96.6 97.0 96.6 Pulse 61 63 66 B/P (MAP) 200/73 148/55 (86) 157/61 (93) Pulse Ox 100 100 100 O2 Delivery Ventilator Ventilator Ventilator 04/11/20 04/11/20 04/11/20 04/11/20 21:00 22:00 23:00 23:06 Temp 96.8 97.0 97.3 96.8 97.0 97.3 Pulse 63 64 72 70 Resp B/P (MAP) 166/63 (97) 163/64 (97) 186/76 (112) 186/76 Pulse Ox 100 100 100 O2 Delivery Ventilator Ventilator Ventilator 04/12/20 04/12/20 04/12/20 04/12/20 00:00 00:00 01:00 02:00 Temp 97.8 97.8 Pulse 74 71 73 Resp B/P (MAP) 132/43 (72) 128/49 (75) 139/54 (82) Pulse Ox 100 100 100 100 O2 Delivery Ventilator Ventilator Ventilator Ventilator 04/12/20 04/12/20 04/12/20 04/12/20 03:00 04:00 04:10 04:15 Temp 99.1 99.1 Pulse 74 80 B/P (MAP) 130/53 (78) 145/63 (90) Pulse Ox 100 100 100 100 O2 Delivery Ventilator Ventilator Ventilator 04/12/20 04/12/20 04/12/20 04/12/20 05:00 06:00 07:00 07:30 Temp 98.2 98.2 Pulse 76 75 87 72 Resp B/P (MAP) 167/61 (96) 105/45 (65) 201/69 (113) 194/68 (110) 180/72 (108) Pulse Ox 100 100 100 100 O2 Delivery Ventilator Ventilator Ventilator Ventilator 04/12/20 04/12/20 04/12/20 04/12/20 07:45 07:49 08:00 08:30 Pulse 70 77 88 86 B/P (MAP) 181/65 191/76 185/72 (109) 96/40 (58) Pulse Ox 100 100 O2 Delivery Ventilator Ventilator 04/12/20 04/12/20 04/12/20 04/12/20 08:35 09:00 09:30 10:00 Temp 98.4 98.4 Pulse 90 90 91 Resp B/P (MAP) 164/52 (89) 186/60 (102) 190/62 (104) 172/83 (112) Pulse Ox 99 98 98 99 O2 Delivery Ventilator Ventilator Ventilator Ventilator 04/12/20 04/12/20 04/12/20 10:30 12:34 13:03 Pulse 92 87 Resp B/P (MAP) 174/70 (104) 184/54 Pulse Ox 100 99 O2 Delivery Ventilator Ventilator Intake and Output 04/11/20 04/11/20 04/12/20 15:00 23:00 07:00 Intake Total 0 ml 0 ml 203.7 ml Output Total 3500 ml 4715 ml 445 ml Balance -3500 ml -4715 ml -241.3 ml Justicifation of Admission Dx: Justifications for Admission: Justification of Admission Dx: Yes (cardiac arrest) NEL HDEZ MD Apr 12, 2020 14:05
[2020-04-12] MEDS: HEPARIN for SUB-Q USE 5,000 UNIT/ML VIAL. SQ SCH ×2 (14:53→21:09)
--- NOTE | 2020-04-12 15:00 | PDOC ---
PROGRESS NOTES Date of Service DATE: 04/12/20 TIME: 14:57 Subjective Subjective Patient seen and examined Objective Objective Vital Signs Date Time Temp Pulse Resp B/P (MAP) Pulse Ox O2 Delivery O2 Flow Rate FiO2 04/12/20 13:59 90 24 176/64 (101) 99 Ventilator 04/12/20 13:00 97.9 97.9 04/11/20 02:50 15.0 Intake and Output 04/12/20 07:00 Intake Total 203.7 ml Output Total 8660 ml Balance -8456.3 ml Intake Oral 0 ml IV Total 203.7 ml Output Urine Total 8660 ml Physical Exam Abdomen: Normal bowel sounds Heart: Regular rate General: Other (Intubated) Lungs: Other (Mildly decreased breath sounds) Assessment Assessment 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 Tentatively plan pacemaker on Tuesday. Cardiopulmonary arrest: occurred in ED noted with asystole, received ACLS. 7 min to ROSK Nondisplaced sternal fracture: likely from CPR HTN urgency. Improving today. ANA. Monitoring lab Acute CHF with possible diastolic dysfunction. Echo with intact LV systolic function. Acute respiratory failure. Remains on a ventilator. Followed by pulmonary. NSTEMI: 0.2, demand mediated with above culprits Comment Review of Relevant I have reviewed the following items donn (where applicable) has been applied. Labs Laboratory Tests Test 04/11/20 03:26 04/11/20 03:50 04/11/20 04:20 04/11/20 04:25 Glucose (Fingerstick) 126 mg/dL (70-99) O2 Saturation 73 % (92-99) Arterial Blood pH 7.20 (7.35-7.45) Arterial Blood pH (Temp corrected) 7.21 Arterial Blood pCO2 at Patient Temp 54 mmHg (35-46) Arterial Blood pCO2 (Temp correct) 52 mmHg Arterial Blood pO2 at Patient Temp 49 mmHg (65-108) Arterial Blood pO2 (Temp corrected) 47 mmHg Arterial Blood HCO3 21 mmol/L (21-28) Arterial Blood Base Excess -8 mmol/L (-3-3) Oxyhemoglobin 73.1 % Methemoglobin 0.4 % (0.0-1.9) Carbon Monoxide, Quantitative 0.0 % (0.0-1.9) FiO2 100 White Blood Count 14.9 x10^3/uL (4.0-11.0) Red Blood Count 4.32 x10^6/uL (3.50-5.40) Hemoglobin 12.2 g/dL (12.0-15.5) Hematocrit 37.7 % (36.0-47.0) Mean Corpuscular Volume 87 fL (79-100) Mean Corpuscular Hemoglobin 28 pg (25-35) Mean Corpuscular Hemoglobin Concent 33 g/dL (31-37) Red Cell Distribution Width 14.2 % (11.5-14.5) Platelet Count 240 x10^3/uL (140-400) Neutrophils (%) (Auto) 69 % (31-73) Lymphocytes (%) (Auto) 25 % (24-48) Monocytes (%) (Auto) 5 % (0-9) Eosinophils (%) (Auto) 1 % (0-3) Basophils (%) (Auto) 1 % (0-3) Neutrophils # (Auto) 10.3 x10^3/uL (1.8-7.7) Lymphocytes # (Auto) 3.7 x10^3/uL (1.0-4.8) Monocytes # (Auto) 0.7 x10^3/uL (0.0-1.1) Eosinophils # (Auto) 0.1 x10^3/uL (0.0-0.7) Basophils # (Auto) 0.1 x10^3/uL (0.0-0.2) Prothrombin Time 15.9 SEC (11.7-14.0) Prothromb Time International Ratio 1.3 (0.8-1.1) Activated Partial Thromboplast Time 37 SEC (24-38) Sodium Level 149 mmol/L (136-145) Potassium Level 3.6 mmol/L (3.5-5.1) Chloride Level 110 mmol/L (98-107) Carbon Dioxide Level 26 mmol/L (21-32) Anion Gap 13 (6-14) Blood Urea Nitrogen 21 mg/dL (7-20) Creatinine 1.7 mg/dL (0.6-1.0) Estimated GFR (Cockcroft-Gault) 36.1 Glucose Level 217 mg/dL (70-99) Lactic Acid Level 5.0 mmol/L (0.4-2.0) Calcium Level 9.4 mg/dL (8.5-10.1) Phosphorus Level 6.6 mg/dL (2.6-4.7) Magnesium Level 2.1 mg/dL (1.8-2.4) Total Bilirubin 1.0 mg/dL (0.2-1.0) Direct Bilirubin 0.4 mg/dL (0.0-0.2) Aspartate Amino Transf (AST/SGOT) 504 U/L (15-37) Alanine Aminotransferase (ALT/SGPT) 336 U/L (14-59) Alkaline Phosphatase 96 U/L (46-116) Ammonia < 10 mcmol/L (11-34) Creatine Kinase 169 U/L (26-192) Troponin I Quantitative 0.047 ng/mL (0.000-0.055) [id number]-Type Natriuretic Peptide 4134 pg/mL (0-124) Total Protein 5.8 g/dL (6.4-8.2) Albumin 2.8 g/dL (3.4-5.0) Thyroid Stimulating Hormone (TSH) 3.523 uIU/mL (0.358-3.74) Salicylates Level < 2.8 mg/dL (2.8-20.0) Salicylate Last Dose Date Salicylate Last Dose Time Acetaminophen Level < 2 mcg/ml (10-30) Acetaminophen Last Dose Date Acetaminophen Last Dose Time Urine Collection Type Unknown Urine Color Yellow Urine Clarity Clear Urine pH 6.0 (<5.0-8.0) Urine Specific Fitzpatrick 1.015 (1.000-1.030) Urine Protein Negative mg/dL (NEG-TRACE) Urine Glucose (UA) Negative mg/dL (NEG) Urine Ketones (Stick) Negative mg/dL (NEG) Urine Blood Negative (NEG) Urine Nitrite Negative (NEG) Urine Bilirubin Negative (NEG) Urine Urobilinogen Dipstick 0.2 mg/dL (0.2 mg/dL) Urine Leukocyte Esterase Negative (NEG) Urine RBC Rare /HPF (0-2) Urine WBC Occ /HPF (0-4) Urine Squamous Epithelial Cells Few /LPF Urine Amorphous Sediment Present /HPF Urine Bacteria 0 /HPF (0-FEW) Urine Mucus Slight /LPF Urine Opiates Screen Neg (NEG) Urine Methadone Screen Neg (NEG) Urine Barbiturates Neg (NEG) Urine Phencyclidine Screen Neg (NEG) Urine Amphetamine/Methamphetamine Neg (NEG) Urine Benzodiazepines Screen Neg (NEG) Urine Cocaine Screen Neg (NEG) Urine Cannabinoids Screen Neg (NEG) Urine Ethyl Alcohol Neg (NEG) Test 04/11/20 04:53 04/11/20 05:28 04/11/20 05:30 04/11/20 07:30 Coronavirus (PCR) Not detected (Not Detected) O2 Saturation 94 % (92-99) 88 % (92-99) Arterial Blood pH 7.29 (7.35-7.45) 7.21 (7.35-7.45) Arterial Blood pH (Temp corrected) 7.30 Arterial Blood pCO2 at Patient Temp 47 mmHg (35-46) 62 mmHg (35-46) Arterial Blood pCO2 (Temp correct) 45 mmHg Arterial Blood pO2 at Patient Temp 81 mmHg (65-108) 71 mmHg (65-108) Arterial Blood pO2 (Temp corrected) 76 mmHg Arterial Blood HCO3 22 mmol/L (21-28) 24 mmol/L (21-28) Arterial Blood Base Excess -5 mmol/L (-3-3) -5 mmol/L (-3-3) FiO2 100 100 SARS-CoV-2 Antigen (Rapid) Negative (NEGATIVE) Test 04/11/20 07:50 04/11/20 09:50 04/11/20 10:32 04/11/20 15:19 White Blood Count 18.2 x10^3/uL (4.0-11.0) Red Blood Count 4.52 x10^6/uL (3.50-5.40) Hemoglobin 12.8 g/dL (12.0-15.5) Hematocrit 38.9 % (36.0-47.0) Mean Corpuscular Volume 86 fL (79-100) Mean Corpuscular Hemoglobin 28 pg (25-35) Mean Corpuscular Hemoglobin Concent 33 g/dL (31-37) Red Cell Distribution Width 14.2 % (11.5-14.5) Platelet Count 251 x10^3/uL (140-400) Neutrophils (%) (Auto) 90 % (31-73) Lymphocytes (%) (Auto) 6 % (24-48) Monocytes (%) (Auto) 4 % (0-9) Eosinophils (%) (Auto) 0 % (0-3) Basophils (%) (Auto) 0 % (0-3) Neutrophils # (Auto) 16.3 x10^3/uL (1.8-7.7) Lymphocytes # (Auto) 1.0 x10^3/uL (1.0-4.8) Monocytes # (Auto) 0.8 x10^3/uL (0.0-1.1) Eosinophils # (Auto) 0.0 x10^3/uL (0.0-0.7) Basophils # (Auto) 0.0 x10^3/uL (0.0-0.2) Segmented Neutrophils % 85 % (35-66) Band Neutrophils % 1 % (0-9) Lymphocytes % 9 % (24-48) Monocytes % 5 % (0-10) Platelet Estimate Adequate (ADEQUATE) Sodium Level 149 mmol/L (136-145) Potassium Level 3.4 mmol/L (3.5-5.1) Chloride Level 109 mmol/L (98-107) Carbon Dioxide Level 25 mmol/L (21-32) Anion Gap 15 (6-14) Blood Urea Nitrogen 22 mg/dL (7-20) Creatinine 2.1 mg/dL (0.6-1.0) Estimated GFR (Cockcroft-Gault) 28.3 BUN/Creatinine Ratio 10 (6-20) Glucose Level 173 mg/dL (70-99) Lactic Acid Level 3.4 mmol/L (0.4-2.0) Calcium Level 8.9 mg/dL (8.5-10.1) Phosphorus Level 7.3 mg/dL (2.6-4.7) Magnesium Level 2.8 mg/dL (1.8-2.4) Total Bilirubin 1.3 mg/dL (0.2-1.0) Aspartate Amino Transf (AST/SGOT) 624 U/L (15-37) Alanine Aminotransferase (ALT/SGPT) 407 U/L (14-59) Alkaline Phosphatase 94 U/L (46-116) Creatine Kinase 243 U/L (26-192) Troponin I Quantitative 0.255 ng/mL (0.000-0.055) Total Protein 6.2 g/dL (6.4-8.2) Albumin 3.1 g/dL (3.4-5.0) Albumin/Globulin Ratio 1.0 (1.0-1.7) Glucose (Fingerstick) 115 mg/dL (70-99) 109 mg/dL (70-99) 148 mg/dL (70-99) Test 04/11/20 18:30 04/12/20 03:49 04/12/20 08:40 Glucose (Fingerstick) 131 mg/dL (70-99) O2 Saturation 99 % (92-99) 99 % (92-99) Arterial Blood pH 7.67 (7.35-7.45) 7.57 (7.35-7.45) Arterial Blood pCO2 at Patient Temp 27 mmHg (35-46) 31 mmHg (35-46) Arterial Blood pO2 at Patient Temp 246 mmHg (65-108) 145 mmHg (65-108) Arterial Blood HCO3 30 mmol/L (21-28) 27 mmol/L (21-28) Arterial Blood Base Excess 10 mmol/L (-3-3) 6 mmol/L (-3-3) FiO2 50 40 Laboratory Tests Test 04/11/20 15:19 04/11/20 18:30 04/12/20 03:49 04/12/20 08:40 Glucose (Fingerstick) 148 mg/dL (70-99) 131 mg/dL (70-99) O2 Saturation 99 % (92-99) 99 % (92-99) Arterial Blood pH 7.67 (7.35-7.45) 7.57 (7.35-7.45) Arterial Blood pCO2 at Patient Temp 27 mmHg (35-46) 31 mmHg (35-46) Arterial Blood pO2 at Patient Temp 246 mmHg (65-108) 145 mmHg (65-108) Arterial Blood HCO3 30 mmol/L (21-28) 27 mmol/L (21-28) Arterial Blood Base Excess 10 mmol/L (-3-3) 6 mmol/L (-3-3) FiO2 50 40 Microbiology 04/11/20 Blood Culture - Preliminary, Resulted NO GROWTH AFTER 1 DAY Medications Current Medications Fentanyl Citrate (Fentanyl 2ml Vial) 100 mcg STK-MED ONCE .ROUTE ; Start 04/11/20 at 02:53; Stop 04/11/20 at 02:53; Status DC Hydromorphone HCl (Dilaudid) 2 mg STK-MED ONCE .ROUTE ; Start 04/11/20 at 02:57; Stop 04/11/20 at 02:57; Status DC Epinephrine HCl 5 mg/Sodium Chloride 255 ml @ 22.208 mls/ hr CONT PRN IV SEE I /O RECORD; Start 04/11/20 at 03:15; Stop 04/11/20 at 09:00; Status DC Propofol 100 ml @ As Directed STK-MED ONCE IV ; Start 04/11/20 at 03:14; Stop 04/11/20 at 03:14; Status DC Midazolam HCl 100 ml @ 1 mls/hr 1X ONCE IV Last administered on 04/11/20at 11:04; Start 04/11/20 at 03:45; Stop 04/12/20 at 00:39; Status DC Piperacillin Sod/ Tazobactam Sod (Zosyn Per Pharmacy) 1 each PRN DAILY PRN MC SEE COMMENTS; Start 04/11/20 at 04:00 Vancomycin HCl (Vanco Per Pharmacy) 1 each PRN DAILY PRN MC SEE COMMENTS; Start 04/11/20 at 04:00; Stop 04/11/20 at 13:35; Status DC Metronidazole 100 ml @ 100 mls/hr 1X ONCE IV ; Start 04/11/20 at 04:30; Stop 04/11/20 at 05:29; Status DC Dexamethasone Sodium Phosphate (Decadron) 10 mg 1X ONCE IV Last administered on 04/11/20at 04:54; Start 04/11/20 at 04:30; Stop 04/11/20 at 04:31; Status DC Magnesium Sulfate 50 ml @ 25 mls/hr 1X ONCE IV Last administered on 04/11/20at 04:58; Start 04/11/20 at 04:30; Stop 04/11/20 at 19:14; Status DC Furosemide (Lasix) 100 mg 1X ONCE IVP Last administered on 04/11/20at 04:32; Start 04/11/20 at 04:15; Stop 04/11/20 at 04:27; Status DC Vancomycin HCl 1.75 gm/Sodium Chloride 500 ml @ 250 mls/hr 1X ONCE IV ; Start 04/11/20 at 05:00; Stop 04/11/20 at 06:59; Status DC Piperacillin Sod/ Tazobactam Sod 3.375 gm/Sodium Chloride 50 ml @ 100 mls/hr 1X ONCE IV Last administered on 04/11/20at 05:43; Start 04/11/20 at 05:00; Stop 04/11/20 at 05:29; Status DC Dopamine HCl/ Dextrose 250 ml @ 19.561 mls/ hr CONT PRN IV SEE I/O RECORD Last administered on 04/12/20at 06:09; Start 04/11/20 at 06:15 Hydromorphone HCl (Dilaudid) 2 mg 1X ONCE IVP ; Start 04/11/20 at 06:15; Stop 04/11/20 at 06:27; Status DC Fentanyl Citrate (Fentanyl 2ml Vial) 100 mcg 1X ONCE IVP ; Start 04/11/20 at 06:15; Stop 04/11/20 at 06:27; Status DC Etomidate (Amidate) 20 mg 1X ONCE IV Last administered on 04/11/20at 03:12; Start 04/11/20 at 06:15; Stop 04/11/20 at 06:27; Status DC Succinylcholine Chloride (Anectine) 100 mg 1X ONCE IV Last administered on 04/11/20at 03:13; Start 04/11/20 at 06:15; Stop 04/11/20 at 06:27; Status DC Piperacillin Sod/ Tazobactam Sod 2.25 gm/Sodium Chloride 50 ml @ 100 mls/hr Q6HRS IV Last administered on 04/12/20at 13:01; Start 04/11/20 at 12:00 Fentanyl Citrate (Fentanyl 2ml Vial) 100 mcg 1X ONCE IV ; Start 04/11/20 at 07:00; Stop 04/11/20 at 19:40; Status DC Magnesium Sulfate/ Dextrose 100 ml @ 100 mls/hr 1X ONCE IV ; Start 04/11/20 at 07:30; Stop 04/11/20 at 14:52; Status DC Buspirone HCl (Buspar) 30 mg Q8H NG Last administered on 04/11/20at 15:30; Start 04/11/20 at 08:00; Stop 04/11/20 at 19:40; Status DC Acetaminophen (Tylenol) 650 mg Q4H NG Last administered on 04/11/20at 15:29; Start 04/11/20 at 07:00; Stop 04/11/20 at 19:40; Status DC Glycerin/ Hypromellose/ Polyethylene (Artificial Tears) 1 drop Q6HRS OU Last administered on 04/11/20at 13:30; Start 04/11/20 at 12:00; Stop 04/11/20 at 19:40; Status DC Glycerin/ Hypromellose/ Polyethylene (Artificial Tears) 1 drop PRN Q15MIN PRN OU DRY EYE; Start 04/11/20 at 07:00; Stop 04/11/20 at 19:40; Status DC Pantoprazole Sodium (PROTONIX VIAL for IV PUSH) 40 mg DAILY IVP ; Start 04/11/20 at 09:00; Stop 04/11/20 at 07:31; Status DC Fentanyl Citrate 30 ml @ 2.5 mls/hr CONT PRN IV PER PROTOCOL. Last administered on 04/12/20at 03:47; Start 04/11/20 at 07:00 Propofol 100 ml @ 6.258 mls/ hr CONT PRN IV PER PROTOCOL.; Start 04/11/20 at 07:00 Norepinephrine Bitartrate 32 mg/ Dextrose 250 ml @ 4.889 mls/ hr CONT PRN IV SEE I/O RECORD; Start 04/11/20 at 07:15 Fentanyl Citrate (Fentanyl 2ml Vial) 100 mcg 1X ONCE IV ; Start 04/11/20 at 07:15; Stop 04/11/20 at 07:30; Status DC Heparin Sodium (Porcine) (Heparin Sodium) 5,000 unit BID SQ Last administered on 04/12/20at 14:53; Start 04/11/20 at 09:00 Pantoprazole Sodium (PROTONIX VIAL for IV PUSH) 40 mg DAILY IVP Last administered on 04/12/20at 07:45; Start 04/11/20 at 09:00 Fentanyl Citrate 30 ml @ 0 mls/hr CONT PRN IV PER PROTOCOL.; Start 04/11/20 at 07:15; Stop 04/11/20 at 07:31; Status DC Propofol 100 ml @ 0 mls/hr CONT PRN IV PER PROTOCOL.; Start 04/11/20 at 07:15; Stop 04/11/20 at 07:31; Status DC Midazolam HCl 100 ml @ 2 mls/hr CONT PRN IV PER PROTOCOL; Start 04/11/20 at 07:15; Status Cancel Epinephrine HCl 10 mg/Sodium Chloride 250 ml @ 15.645 mls/ hr CONT PRN IV SEE I/O RECORD; Start 04/11/20 at 07:30 Metronidazole (FLAGYL 500Mmg PREMIX) 500 mg STK-MED ONCE IV ; Start 04/11/20 at 04:00; Stop 04/11/20 at 08:43; Status DC Sodium Chloride 1,000 ml @ 10 mls/hr Q24H IV Last administered on 04/12/20at 08:08; Start 04/11/20 at 09:15 Potassium Chloride/Water 100 ml @ 100 mls/hr 1X ONCE IV Last administered on 04/11/20at 13:27; Start 04/11/20 at 10:00; Stop 04/11/20 at 10:59; Status DC Potassium Chloride (Klor-Con) 40 meq 1X ONCE PO ; Start 04/11/20 at 10:45; Stop 04/11/20 at 10:46; Status UNV Potassium Chloride (Klor-Con) 40 meq Q2H PO ; Start 04/11/20 at 10:45; Stop 04/11/20 at 12:46; Status UNV Magnesium Sulfate 100 ml @ 50 mls/hr DAILY IV ; Start 04/12/20 at 09:00; Stop 04/15/20 at 08:59; Status UNV Info (Icu Electrolyte Protocol) 1 ea CONT PRN PRN MC PER PROTOCOL; Start 04/11/20 at 10:45 Furosemide (Lasix) 40 mg 1X ONCE IVP Last administered on 04/11/20at 13:29; Start 04/11/20 at 11:00; Stop 04/11/20 at 11:01; Status DC Linezolid/Dextrose 300 ml @ 300 mls/hr Q12HR IV Last administered on 04/12/20at 07:46; Start 04/11/20 at 14:00 Metoprolol Tartrate (Lopressor Vial) 5 mg 1X ONCE IVP ; Start 04/11/20 at 14:45; Stop 04/11/20 at 14:52; Status DC Metoprolol Tartrate (Lopressor Vial) 5 mg PRN Q5MIN PRN IVP TACHYCARDIA; Start 04/11/20 at 14:45; Stop 04/11/20 at 14:52; Status DC Enalaprilat (Vasotec Inj) 1.25 mg PRN Q6HRS PRN IVP HYPERTENSION; Start 1 at 15:15; Stop 04/11/20 at 19:14; Status DC Amlodipine Besylate (Norvasc) 5 mg DAILY PO Last administered on 04/12/20at 13:03; Start 04/12/20 at 09:00 Amlodipine Besylate (Norvasc) 5 mg 1X ONCE PO ; Start 04/11/20 at 15:15; Stop 04/11/20 at 15:16; Status Cancel Amlodipine Besylate (Norvasc) 10 mg 1X ONCE NG Last administered on 04/11/20at 15:28; Start 04/11/20 at 15:15; Stop 04/11/20 at 15:18; Status DC Calcium Chloride (Calcium Chloride) 1,000 mg STK-MED ONCE .ROUTE ; Start 04/11/20 at 12:00; Stop 04/11/20 at 16:17; Status DC Epinephrine HCl (EPINEPHrine SYRINGE) 2 mg STK-MED ONCE .ROUTE ; Start 04/11/20 at 12:00; Stop 04/11/20 at 16:17; Status DC Sodium Bicarbonate (Sodium Bicarb Adult 8.4% Syr) 100 meq STK-MED ONCE .ROUTE ; Start 04/11/20 at 12:00; Stop 04/11/20 at 16:17; Status DC Dopamine HCl/ Dextrose (DOPamine 400MG/ 250ML PREMIX) 400 mg STK-MED ONCE IV ; Start 04/11/20 at 12:00; Stop 04/11/20 at 16:17; Status DC Midazolam HCl 100 ml @ 0 mls/hr CONT PRN IV SEE I/O RECORD; Start 04/11/20 at 17:30; Status Cancel Hydralazine HCl (Apresoline Inj) 10 mg PRN Q4HRS PRN IVP ELEVATED BP, SEE COMMENTS Last administered on 04/12/20at 07:45; Start 04/11/20 at 18:45 Midazolam HCl 100 ml @ 1 mls/hr CONT PRN IV SEE I/O RECORD Last administered on 04/12/20at 01:30; Start 04/12/20 at 00:30 Vitals/I & O Vital Sign - Last 24 Hours 04/11/20 04/11/20 04/11/20 04/11/20 15:00 15:28 15:30 16:00 Temp 97.0 97.0 97.0 97.0 Pulse 72 67 66 64 Resp B/P (MAP) 246/94 (144) 200/83 212/82 (125) 204/80 (121) 198/86 (123) 199/89 (125) 178/83 (114) Pulse Ox 100 100 100 04/11/20 04/11/20 04/11/20 04/11/20 16:11 16:30 16:45 16:57 Temp 97.7 97.7 Pulse 62 60 60 Resp B/P (MAP) 202/80 (120) 110/60 (77) 162/70 (100) 196/83 (120) 99/52 (68) 157/66 (96) Pulse Ox 96 100 100 100 O2 Delivery Ventilator 04/11/20 04/11/20 04/11/20 04/11/20 17:29 17:30 18:00 18:53 Temp 97.0 97.0 Pulse 62 61 B/P (MAP) 202/78 (119) 208/81 (123) 200/73 163/74 (103) 192/76 (114) Pulse Ox 90 100 100 04/11/20 04/11/20 04/11/20 04/11/20 19:00 20:00 20:11 21:00 Temp 97.0 96.6 96.8 97.0 96.6 96.8 Pulse 63 66 63 B/P (MAP) 148/55 (86) 157/61 (93) 166/63 (97) Pulse Ox 100 100 100 100 O2 Delivery Ventilator Ventilator Ventilator Ventilator 04/11/20 04/11/20 04/11/20 04/12/20 22:00 23:00 23:06 00:00 Temp 97.0 97.3 97.8 97.0 97.3 97.8 Pulse 64 72 70 74 Resp B/P (MAP) 163/64 (97) 186/76 (112) 186/76 132/43 (72) Pulse Ox 100 100 100 O2 Delivery Ventilator Ventilator Ventilator 04/12/20 04/12/20 04/12/20 04/12/20 00:00 01:00 02:00 03:00 Pulse 71 73 74 Resp B/P (MAP) 128/49 (75) 139/54 (82) 130/53 (78) Pulse Ox 100 100 100 100 O2 Delivery Ventilator Ventilator Ventilator Ventilator 04/12/20 04/12/20 04/12/20 04/12/20 04:00 04:10 04:15 05:00 Temp 99.1 99.1 Pulse 80 76 Resp B/P (MAP) 145/63 (90) 167/61 (96) Pulse Ox 100 100 100 100 O2 Delivery Ventilator Ventilator Ventilator 04/12/20 04/12/20 04/12/20 04/12/20 06:00 07:00 07:30 07:45 Temp 98.2 98.2 Pulse 75 87 72 70 Resp B/P (MAP) 105/45 (65) 201/69 (113) 194/68 (110) 181/65 180/72 (108) Pulse Ox 100 100 100 O2 Delivery Ventilator Ventilator Ventilator 04/12/20 04/12/20 04/12/20 04/12/20 07:49 08:00 08:30 08:35 Pulse 77 88 86 B/P (MAP) 191/76 185/72 (109) 96/40 (58) Pulse Ox 100 100 99 O2 Delivery Ventilator Ventilator Ventilator 04/12/20 04/12/20 04/12/20 04/12/20 09:00 09:30 10:00 10:30 Temp 98.4 98.4 Pulse 90 90 91 92 Resp B/P (MAP) 164/52 (89) 186/60 (102) 190/62 (104) 174/70 (104) 172/83 (112) Pulse Ox 98 98 99 100 O2 Delivery Ventilator Ventilator Ventilator Ventilator 04/12/20 04/12/20 04/12/20 04/12/20 11:00 12:00 12:34 13:00 Temp 97.9 97.9 Pulse 86 88 86 Resp B/P (MAP) 198/60 (106) 214/66 (115) 188/54 (98) Pulse Ox 100 100 99 99 O2 Delivery Ventilator Ventilator Ventilator Ventilator 04/12/20 04/12/20 13:03 13:59 Pulse 87 90 Resp B/P (MAP) 184/54 176/64 (101) Pulse Ox 99 O2 Delivery Ventilator Intake and Output 04/11/20 04/11/20 04/12/20 15:00 23:00 07:00 Intake Total 0 ml 0 ml 203.7 ml Output Total 3500 ml 4715 ml 445 ml Balance -3500 ml -4715 ml -241.3 ml Justifications for Admission Other Justification GEENA WILL MD Apr 12, 2020 15:00
[2020-04-13] VITALS (24 sets, daily range): BP systolic 121–194; BP diastolic 45–64
[2020-04-13] MEDS: MIDAZOLAM 100mg/100ml NS BAG 100 ML IV PRN ×2 (03:56→18:07)
[2020-04-13 06:01] LABS: BASO % 0 % (0-3); EOS % 0 % (0-3); HEMATOCRIT 34.2 % (36.0-47.0); HEMOGLOBIN 11.4 g/dL (12.0-15.5); LYMPH # 1.6 x10^3/uL (1.0-4.8); LYMPH % 15 % (24-48); MEAN CORPUSCULAR HEMOGLOBIN 28 pg (25-35); MEAN CORPUSCULAR HGB CONC 33 g/dL (31-37); MEAN CORPUSCULAR VOLUME 85 fL (79-100); MONO # 0.7 x10^3/uL (0.0-1.1); MONO % 6 % (0-9); NEUT # 8.9 x10^3/uL (1.8-7.7); NEUT % 79 % (31-73); PLATELET COUNT 191 x10^3/uL (140-400); RED BLOOD COUNT 4.02 x10^6/uL (3.50-5.40); WHITE BLOOD COUNT 11.3 x10^3/uL (4.0-11.0)
[2020-04-13] MEDS: PIPERACILLIN/TAZOBACTAM 2.25 GM in IV NORMAL SALINE 50ML 50 ML IV SCH ×3 (06:02→17:43)
[2020-04-13 06:06] LABS: ALBUMIN 2.8 g/dL (3.4-5.0); CALCIUM 8.3 mg/dL (8.5-10.1); CREATININE 1.3 mg/dL (0.6-1.0); GFR 49.1; TOTAL BILIRUBIN 1.8 mg/dL (0.2-1.0); TOTAL PROTEIN 5.6 g/dL (6.4-8.2)
[2020-04-13 06:12] LABS: POTASSIUM 2.9 mmol/L (3.5-5.1)
[2020-04-13] MEDS: POTASSIUM CHLORIDE 20MEQ 100 ML IV SCH ×4 (06:32→09:20)
[2020-04-13] MEDS: IV 1/2 NORMAL SALINE 1,000 ML IV SCH (08:27)
[2020-04-13] MEDS: PANTOPRAZOLE IV PUSH 40 MG VIAL. IVP SCH (09:00)
[2020-04-13] MEDS: HEPARIN for SUB-Q USE 5,000 UNIT/ML VIAL. SQ SCH ×2 (09:00→21:01)
[2020-04-13 09:24] LABS: BASE EXCESS ABG 7 mmol/L (-3-3); HCO3 ABG 32 mmol/L (21-28); PCO2 ABG 49 mmHg (35-46); PO2 ABG 127 mmHg (65-108); SAT O2 ABG 98 % (92-99)
[2020-04-13 09:25] LABS: FIO2 ABG 50
[2020-04-13] MEDS: hydrALAZINE 20 MG/ML VIAL. IVP PRN (09:50)
--- NOTE | 2020-04-13 10:40 | RAD ---
AP abdomen 04/13/2020. Reason for exam: Distention. NG tube reaches the distal stomach. There is a right femoral catheter with its tip probably in the [facility] common iliac vein. A metallic probe enters the lower pelvis and could be in the rectum or bladder . The gas pattern shows no obstruction. There is only mild colonic stool and gas visible. IMPRESSION: Nonobstructive gas pattern. Electronically signed by: Saravanan Duran Jr., MD (04/13/2020 10:38 AM) [id number]
--- NOTE | 2020-04-13 10:49 | PDOC ---
PULMONARY PROGRESS NOTES DATE: 04/13/20 TIME: 10:47 Subjective on vent sedated fentanyl versed off sedation follows commands mod ett secretion Vitals Vital Signs Date Time Temp Pulse Resp B/P (MAP) Pulse Ox O2 Delivery O2 Flow Rate FiO2 04/13/20 10:00 85 12 158/57 (90) 99 Ventilator 04/13/20 08:00 98.6 98.6 04/12/20 17:57 15.0 Comments sedated on vent ros unable to obtain HEENT: Other (nc at perrl nose clear orally intubated neck no lad no thyromegaly) Lungs: Crackles Cardiovascular: S1, S2 Abdomen: Soft, Non-tender Extremities: Other Skin: Warm Labs Laboratory Tests Test 04/11/20 15:19 04/11/20 18:30 04/12/20 03:49 04/12/20 08:40 Glucose (Fingerstick) 148 mg/dL (70-99) 131 mg/dL (70-99) O2 Saturation 99 % (92-99) 99 % (92-99) Arterial Blood pH 7.67 (7.35-7.45) 7.57 (7.35-7.45) Arterial Blood pCO2 at Patient Temp 27 mmHg (35-46) 31 mmHg (35-46) Arterial Blood pO2 at Patient Temp 246 mmHg (65-108) 145 mmHg (65-108) Arterial Blood HCO3 30 mmol/L (21-28) 27 mmol/L (21-28) Arterial Blood Base Excess 10 mmol/L (-3-3) 6 mmol/L (-3-3) FiO2 50 40 Test 04/13/20 05:45 04/13/20 09:15 White Blood Count 11.3 x10^3/uL (4.0-11.0) Red Blood Count 4.02 x10^6/uL (3.50-5.40) Hemoglobin 11.4 g/dL (12.0-15.5) Hematocrit 34.2 % (36.0-47.0) Mean Corpuscular Volume 85 fL (79-100) Mean Corpuscular Hemoglobin 28 pg (25-35) Mean Corpuscular Hemoglobin Concent 33 g/dL (31-37) Red Cell Distribution Width 14.0 % (11.5-14.5) Platelet Count 191 x10^3/uL (140-400) Neutrophils (%) (Auto) 79 % (31-73) Lymphocytes (%) (Auto) 15 % (24-48) Monocytes (%) (Auto) 6 % (0-9) Eosinophils (%) (Auto) 0 % (0-3) Basophils (%) (Auto) 0 % (0-3) Neutrophils # (Auto) 8.9 x10^3/uL (1.8-7.7) Lymphocytes # (Auto) 1.6 x10^3/uL (1.0-4.8) Monocytes # (Auto) 0.7 x10^3/uL (0.0-1.1) Eosinophils # (Auto) 0.0 x10^3/uL (0.0-0.7) Basophils # (Auto) 0.0 x10^3/uL (0.0-0.2) Sodium Level 148 mmol/L (136-145) Potassium Level 2.9 mmol/L (3.5-5.1) Chloride Level 107 mmol/L (98-107) Carbon Dioxide Level 32 mmol/L (21-32) Anion Gap 9 (6-14) Blood Urea Nitrogen 26 mg/dL (7-20) Creatinine 1.3 mg/dL (0.6-1.0) Estimated GFR (Cockcroft-Gault) 49.1 BUN/Creatinine Ratio 20 (6-20) Glucose Level 108 mg/dL (70-99) Calcium Level 8.3 mg/dL (8.5-10.1) Total Bilirubin 1.8 mg/dL (0.2-1.0) Aspartate Amino Transf (AST/SGOT) 67 U/L (15-37) Alanine Aminotransferase (ALT/SGPT) 185 U/L (14-59) Alkaline Phosphatase 64 U/L (46-116) Total Protein 5.6 g/dL (6.4-8.2) Albumin 2.8 g/dL (3.4-5.0) Albumin/Globulin Ratio 1.0 (1.0-1.7) O2 Saturation 98 % (92-99) Arterial Blood pH 7.43 (7.35-7.45) Arterial Blood pCO2 at Patient Temp 49 mmHg (35-46) Arterial Blood pO2 at Patient Temp 127 mmHg (65-108) Arterial Blood HCO3 32 mmol/L (21-28) Arterial Blood Base Excess 7 mmol/L (-3-3) FiO2 50 Laboratory Tests Test 04/13/20 05:45 04/13/20 09:15 White Blood Count 11.3 x10^3/uL (4.0-11.0) Red Blood Count 4.02 x10^6/uL (3.50-5.40) Hemoglobin 11.4 g/dL (12.0-15.5) Hematocrit 34.2 % (36.0-47.0) Mean Corpuscular Volume 85 fL (79-100) Mean Corpuscular Hemoglobin 28 pg (25-35) Mean Corpuscular Hemoglobin Concent 33 g/dL (31-37) Red Cell Distribution Width 14.0 % (11.5-14.5) Platelet Count 191 x10^3/uL (140-400) Neutrophils (%) (Auto) 79 % (31-73) Lymphocytes (%) (Auto) 15 % (24-48) Monocytes (%) (Auto) 6 % (0-9) Eosinophils (%) (Auto) 0 % (0-3) Basophils (%) (Auto) 0 % (0-3) Neutrophils # (Auto) 8.9 x10^3/uL (1.8-7.7) Lymphocytes # (Auto) 1.6 x10^3/uL (1.0-4.8) Monocytes # (Auto) 0.7 x10^3/uL (0.0-1.1) Eosinophils # (Auto) 0.0 x10^3/uL (0.0-0.7) Basophils # (Auto) 0.0 x10^3/uL (0.0-0.2) Sodium Level 148 mmol/L (136-145) Potassium Level 2.9 mmol/L (3.5-5.1) Chloride Level 107 mmol/L (98-107) Carbon Dioxide Level 32 mmol/L (21-32) Anion Gap 9 (6-14) Blood Urea Nitrogen 26 mg/dL (7-20) Creatinine 1.3 mg/dL (0.6-1.0) Estimated GFR (Cockcroft-Gault) 49.1 BUN/Creatinine Ratio 20 (6-20) Glucose Level 108 mg/dL (70-99) Calcium Level 8.3 mg/dL (8.5-10.1) Total Bilirubin 1.8 mg/dL (0.2-1.0) Aspartate Amino Transf (AST/SGOT) 67 U/L (15-37) Alanine Aminotransferase (ALT/SGPT) 185 U/L (14-59) Alkaline Phosphatase 64 U/L (46-116) Total Protein 5.6 g/dL (6.4-8.2) Albumin 2.8 g/dL (3.4-5.0) Albumin/Globulin Ratio 1.0 (1.0-1.7) O2 Saturation 98 % (92-99) Arterial Blood pH 7.43 (7.35-7.45) Arterial Blood pCO2 at Patient Temp 49 mmHg (35-46) Arterial Blood pO2 at Patient Temp 127 mmHg (65-108) Arterial Blood HCO3 32 mmol/L (21-28) Arterial Blood Base Excess 7 mmol/L (-3-3) FiO2 [address] of chest reviewed 1. Satisfactory endotracheal intubation with no pneumothorax. 2. Near confluent bilateral airspace opacities with subpleural sparing at the apices. Query pulmonary edema or ARDS. 3. Nondisplaced acute sternal fracture. Impression . IMPRESSION: 1. Acute hypoxic and hypercapnic respiratory failure secondary to cardiac arrest with complete heart block. She also has diffuse bilateral alveolar infiltrates, likely cardiogenic pulmonary edema, but cannot exclude aspiration pneumonia. 2. COVID negative. 3. Abnormal CT chest with diffuse alveolar infiltrates highly likely cardiogenic pulmonary edema. 4. Status post cardiac arrest with 7 minutes of ACLS protocol. She had complete heart block, now has an external pacemaker. 5. Acute kidney injury. 6. Abnormal liver function tests, likely from shock liver. 7. COVID-19 negative. 8. Leukocytosis, likely reactive, but currently on empiric antibiotics. 9. Hypernatremia. Plan . RECOMMENDATIONS: 1. cont vent support setting reviewed abg reviewed 5 fi02 30% if ok w cardiology decrease sedation sbt when awake 2. P.r.n. IV Lasix to see an improvement in oxygenation. 3. Continue empiric antibiotics. covid19 neg 4. Cardiology recommendation. 5. Deep venous thrombosis prophylaxis with heparin. 6. Stress ulcer prophylaxis. 7. no hypothermia protocol as she was awake discussed w DAGOBERTO Ramirez MD Apr 13, 2020 10:49
[2020-04-13] MEDS: AMINO AC 3%/ELECTROLYTE/GLYCER 1,000 ML IV SCH (12:27)
[2020-04-13] MEDS: METOCLOPRAMIDE HCL 10 MG/2 ML VIAL. IVP SCH (12:27)
--- NOTE | 2020-04-13 13:49 | PDOC ---
PROGRESS NOTES Date of Service DATE: 04/13/20 TIME: 13:47 Subjective Subjective Patient seen and examined Objective Objective Vital Signs Date Time Temp Pulse Resp B/P (MAP) Pulse Ox O2 Delivery O2 Flow Rate FiO2 04/13/20 13:00 79 12 176/53 (94) 100 Ventilator 04/13/20 12:00 98.1 98.1 04/12/20 17:57 15.0 Intake and Output 04/13/20 07:00 Intake Total 1224.5 ml Output Total 1230 ml Balance -5.5 ml Intake Oral 60 ml IV Total 1164.5 ml Output Urine Total 1230 ml Physical Exam Abdomen: Normal bowel sounds Heart: Regular rate General: Other (Intubated) Lungs: Other (Mildly decreased breath sounds) Assessment Assessment 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 Tentatively plan pacemaker tomorrow. Cardiopulmonary arrest: occurred in ED noted with asystole, received ACLS. 7 min to ROSK Nondisplaced sternal fracture: likely from CPR HTN urgency. Improving today. ANA. Monitoring lab Acute CHF with possible diastolic dysfunction. Echo with intact LV systolic function. Acute respiratory failure. Remains on a ventilator. Followed by pulmonary. NSTEMI: 0.2, demand mediated with above culprits Comment Review of Relevant I have reviewed the following items donn (where applicable) has been applied. Labs Laboratory Tests Test 04/11/20 15:19 04/11/20 18:30 04/12/20 03:49 04/12/20 08:40 Glucose (Fingerstick) 148 mg/dL (70-99) 131 mg/dL (70-99) O2 Saturation 99 % (92-99) 99 % (92-99) Arterial Blood pH 7.67 (7.35-7.45) 7.57 (7.35-7.45) Arterial Blood pCO2 at Patient Temp 27 mmHg (35-46) 31 mmHg (35-46) Arterial Blood pO2 at Patient Temp 246 mmHg (65-108) 145 mmHg (65-108) Arterial Blood HCO3 30 mmol/L (21-28) 27 mmol/L (21-28) Arterial Blood Base Excess 10 mmol/L (-3-3) 6 mmol/L (-3-3) FiO2 50 40 Test 04/13/20 05:45 04/13/20 09:15 White Blood Count 11.3 x10^3/uL (4.0-11.0) Red Blood Count 4.02 x10^6/uL (3.50-5.40) Hemoglobin 11.4 g/dL (12.0-15.5) Hematocrit 34.2 % (36.0-47.0) Mean Corpuscular Volume 85 fL (79-100) Mean Corpuscular Hemoglobin 28 pg (25-35) Mean Corpuscular Hemoglobin Concent 33 g/dL (31-37) Red Cell Distribution Width 14.0 % (11.5-14.5) Platelet Count 191 x10^3/uL (140-400) Neutrophils (%) (Auto) 79 % (31-73) Lymphocytes (%) (Auto) 15 % (24-48) Monocytes (%) (Auto) 6 % (0-9) Eosinophils (%) (Auto) 0 % (0-3) Basophils (%) (Auto) 0 % (0-3) Neutrophils # (Auto) 8.9 x10^3/uL (1.8-7.7) Lymphocytes # (Auto) 1.6 x10^3/uL (1.0-4.8) Monocytes # (Auto) 0.7 x10^3/uL (0.0-1.1) Eosinophils # (Auto) 0.0 x10^3/uL (0.0-0.7) Basophils # (Auto) 0.0 x10^3/uL (0.0-0.2) Sodium Level 148 mmol/L (136-145) Potassium Level 2.9 mmol/L (3.5-5.1) Chloride Level 107 mmol/L (98-107) Carbon Dioxide Level 32 mmol/L (21-32) Anion Gap 9 (6-14) Blood Urea Nitrogen 26 mg/dL (7-20) Creatinine 1.3 mg/dL (0.6-1.0) Estimated GFR (Cockcroft-Gault) 49.1 BUN/Creatinine Ratio 20 (6-20) Glucose Level 108 mg/dL (70-99) Calcium Level 8.3 mg/dL (8.5-10.1) Total Bilirubin 1.8 mg/dL (0.2-1.0) Aspartate Amino Transf (AST/SGOT) 67 U/L (15-37) Alanine Aminotransferase (ALT/SGPT) 185 U/L (14-59) Alkaline Phosphatase 64 U/L (46-116) Total Protein 5.6 g/dL (6.4-8.2) Albumin 2.8 g/dL (3.4-5.0) Albumin/Globulin Ratio 1.0 (1.0-1.7) O2 Saturation 98 % (92-99) Arterial Blood pH 7.43 (7.35-7.45) Arterial Blood pCO2 at Patient Temp 49 mmHg (35-46) Arterial Blood pO2 at Patient Temp 127 mmHg (65-108) Arterial Blood HCO3 32 mmol/L (21-28) Arterial Blood Base Excess 7 mmol/L (-3-3) FiO2 50 Laboratory Tests Test 04/13/20 05:45 04/13/20 09:15 White Blood Count 11.3 x10^3/uL (4.0-11.0) Red Blood Count 4.02 x10^6/uL (3.50-5.40) Hemoglobin 11.4 g/dL (12.0-15.5) Hematocrit 34.2 % (36.0-47.0) Mean Corpuscular Volume 85 fL (79-100) Mean Corpuscular Hemoglobin 28 pg (25-35) Mean Corpuscular Hemoglobin Concent 33 g/dL (31-37) Red Cell Distribution Width 14.0 % (11.5-14.5) Platelet Count 191 x10^3/uL (140-400) Neutrophils (%) (Auto) 79 % (31-73) Lymphocytes (%) (Auto) 15 % (24-48) Monocytes (%) (Auto) 6 % (0-9) Eosinophils (%) (Auto) 0 % (0-3) Basophils (%) (Auto) 0 % (0-3) Neutrophils # (Auto) 8.9 x10^3/uL (1.8-7.7) Lymphocytes # (Auto) 1.6 x10^3/uL (1.0-4.8) Monocytes # (Auto) 0.7 x10^3/uL (0.0-1.1) Eosinophils # (Auto) 0.0 x10^3/uL (0.0-0.7) Basophils # (Auto) 0.0 x10^3/uL (0.0-0.2) Sodium Level 148 mmol/L (136-145) Potassium Level 2.9 mmol/L (3.5-5.1) Chloride Level 107 mmol/L (98-107) Carbon Dioxide Level 32 mmol/L (21-32) Anion Gap 9 (6-14) Blood Urea Nitrogen 26 mg/dL (7-20) Creatinine 1.3 mg/dL (0.6-1.0) Estimated GFR (Cockcroft-Gault) 49.1 BUN/Creatinine Ratio 20 (6-20) Glucose Level 108 mg/dL (70-99) Calcium Level 8.3 mg/dL (8.5-10.1) Total Bilirubin 1.8 mg/dL (0.2-1.0) Aspartate Amino Transf (AST/SGOT) 67 U/L (15-37) Alanine Aminotransferase (ALT/SGPT) 185 U/L (14-59) Alkaline Phosphatase 64 U/L (46-116) Total Protein 5.6 g/dL (6.4-8.2) Albumin 2.8 g/dL (3.4-5.0) Albumin/Globulin Ratio 1.0 (1.0-1.7) O2 Saturation 98 % (92-99) Arterial Blood pH 7.43 (7.35-7.45) Arterial Blood pCO2 at Patient Temp 49 mmHg (35-46) Arterial Blood pO2 at Patient Temp 127 mmHg (65-108) Arterial Blood HCO3 32 mmol/L (21-28) Arterial Blood Base Excess 7 mmol/L (-3-3) FiO2 50 Microbiology 04/11/20 Blood Culture - Preliminary, Resulted NO GROWTH AFTER 2 DAYS Medications Current Medications Fentanyl Citrate (Fentanyl 2ml Vial) 100 mcg STK-MED ONCE .ROUTE ; Start 04/11/20 at 02:53; Stop 04/11/20 at 02:53; Status DC Hydromorphone HCl (Dilaudid) 2 mg STK-MED ONCE .ROUTE ; Start 04/11/20 at 02:57; Stop 04/11/20 at 02:57; Status DC Epinephrine HCl 5 mg/Sodium Chloride 255 ml @ 22.208 mls/ hr CONT PRN IV SEE I/O RECORD; Start 04/11/20 at 03:15; Stop 04/11/20 at 09:00; Status DC Propofol 100 ml @ As Directed STK-MED ONCE IV ; Start 04/11/20 at 03:14; Stop 04/11/20 at 03:14; Status DC Midazolam HCl 100 ml @ 1 mls/hr 1X ONCE IV Last administered on 04/11/20at 11:04; Start 04/11/20 at 03:45; Stop 04/12/20 at 00:39; Status DC Piperacillin Sod/ Tazobactam Sod (Zosyn Per Pharmacy) 1 each PRN DAILY PRN MC SEE COMMENTS; Start 04/11/20 at 04:00 Vancomycin HCl (Vanco Per Pharmacy) 1 each PRN DAILY PRN MC SEE COMMENTS; Start 04/11/20 at 04:00; Stop 04/11/20 at 13:35; Status DC Metronidazole 100 ml @ 100 mls/hr 1X ONCE IV ; Start 04/11/20 at 04:30; Stop 04/11/20 at 05:29; Status DC Dexamethasone Sodium Phosphate (Decadron) 10 mg 1X ONCE IV Last administered on 04/11/20at 04:54; Start 04/11/20 at 04:30; Stop 04/11/20 at 04:31; Status DC Magnesium Sulfate 50 ml @ 25 mls/hr 1X ONCE IV Last administered on 04/11/20at 04:58; Start 04/11/20 at 04:30; Stop 04/11/20 at 19:14; Status DC Furosemide (Lasix) 100 mg 1X ONCE IVP Last administered on 04/11/20at 04:32; Start 04/11/20 at 04:15; Stop 04/11/20 at 04:27; Status DC Vancomycin HCl 1.75 gm/Sodium Chloride 500 ml @ 250 mls/hr 1X ONCE IV ; Start 04/11/20 at 05:00; Stop 04/11/20 at 06:59; Status DC Piperacillin Sod/ Tazobactam Sod 3.375 gm/Sodium Chloride 50 ml @ 100 mls/hr 1X ONCE IV Last administered on 04/11/20at 05:43; Start 04/11/20 at 05:00; Stop 04/11/20 at 05:29; Status DC Dopamine HCl/ Dextrose 250 ml @ 19.561 mls/ hr CONT PRN IV SEE I/O RECORD Last administered on 04/13/20at 07:22; Start 04/11/20 at 06:15 Hydromorphone HCl (Dilaudid) 2 mg 1X ONCE IVP ; Start 04/11/20 at 06:15; Stop 04/11/20 at 06:27; Status DC Fentanyl Citrate (Fentanyl 2ml Vial) 100 mcg 1X ONCE IVP ; Start 04/11/20 at 06:15; Stop 04/11/20 at 06:27; Status DC Etomidate (Amidate) 20 mg 1X ONCE IV Last administered on 04/11/20at 03:12; Start 04/11/20 at 06:15; Stop 04/11/20 at 06:27; Status DC Succinylcholine Chloride (Anectine) 100 mg 1X ONCE IV Last administered on 04/11/20at 03:13; Start 04/11/20 at 06:15; Stop 04/11/20 at 06:27; Status DC Piperacillin Sod/ Tazobactam Sod 2.25 gm/Sodium Chloride 50 ml @ 100 mls/hr Q6HRS IV Last administered on 04/13/20at 12:23; Start 04/11/20 at 12:00 Fentanyl Citrate (Fentanyl 2ml Vial) 100 mcg 1X ONCE IV ; Start 04/11/20 at 07:00; Stop 04/11/20 at 19:40; Status DC Magnesium Sulfate/ Dextrose 100 ml @ 100 mls/hr 1X ONCE IV ; Start 04/11/20 at 07:30; Stop 04/11/20 at 14:52; Status DC Buspirone HCl (Buspar) 30 mg Q8H NG Last administered on 04/11/20at 15:30; Start 04/11/20 at 08:00; Stop 04/11/20 at 19:40; Status DC Acetaminophen (Tylenol) 650 mg Q4H NG Last administered on 04/11/20at 15:29; Start 04/11/20 at 07:00; Stop 04/11/20 at 19:40; Status DC Glycerin/ Hypromellose/ Polyethylene (Artificial Tears) 1 drop Q6HRS OU Last administered on 04/11/20at 13:30; Start 04/11/20 at 12:00; Stop 04/11/20 at 19:40; Status DC Glycerin/ Hypromellose/ Polyethylene (Artificial Tears) 1 drop PRN Q15MIN PRN OU DRY EYE; Start 04/11/20 at 07:00; Stop 04/11/20 at 19:40; Status DC Pantoprazole Sodium (PROTONIX VIAL for IV PUSH) 40 mg DAILY IVP ; Start 04/11/20 at 09:00; Stop 04/11/20 at 07:31; Status DC Fentanyl Citrate 30 ml @ 2.5 mls/hr CONT PRN IV PER PROTOCOL. Last administered on 04/13/20at 10:41; Start 04/11/20 at 07:00 Propofol 100 ml @ 6.258 mls/ hr CONT PRN IV PER PROTOCOL.; Start 04/11/20 at 07:00 Norepinephrine Bitartrate 32 mg/ Dextrose 250 ml @ 4.889 mls/ hr CONT PRN IV SEE I/O RECORD; Start 04/11/20 at 07:15 Fentanyl Citrate (Fentanyl 2ml Vial) 100 mcg 1X ONCE IV ; Start 04/11/20 at 07:15; Stop 04/11/20 at 07:30; Status DC Heparin Sodium (Porcine) (Heparin Sodium) 5,000 unit BID SQ Last administered on 04/13/20at 09:00; Start 04/11/20 at 09:00 Pantoprazole Sodium (PROTONIX VIAL for IV PUSH) 40 mg DAILY IVP Last administ ered on 04/13/20at 09:00; Start 04/11/20 at 09:00 Fentanyl Citrate 30 ml @ 0 mls/hr CONT PRN IV PER PROTOCOL.; Start 04/11/20 at 07:15; Stop 04/11/20 at 07:31; Status DC Propofol 100 ml @ 0 mls/hr CONT PRN IV PER PROTOCOL.; Start 04/11/20 at 07:15; Stop 04/11/20 at 07:31; Status DC Midazolam HCl 100 ml @ 2 mls/hr CONT PRN IV PER PROTOCOL; Start 04/11/20 at 07:15; Status Cancel Epinephrine HCl 10 mg/Sodium Chloride 250 ml @ 15.645 mls/ hr CONT PRN IV SEE I/O RECORD; Start 04/11/20 at 07:30 Metronidazole (FLAGYL 500Mmg PREMIX) 500 mg STK-MED ONCE IV ; Start 04/11/20 at 04:00; Stop 04/11/20 at 08:43; Status DC Sodium Chloride 1,000 ml @ 10 mls/hr Q24H IV Last administered on 04/13/20at 08:27; Start 04/11/20 at 09:15 Potassium Chloride/Water 100 ml @ 100 mls/hr 1X ONCE IV Last administered on 04/11/20at 13:27; Start 04/11/20 at 10:00; Stop 04/11/20 at 10:59; Status DC Potassium Chloride (Klor-Con) 40 meq 1X ONCE PO ; Start 04/11/20 at 10:45; Stop 04/11/20 at 10:46; Status UNV Potassium Chloride (Klor-Con) 40 meq Q2H PO ; Start 04/11/20 at 10:45; Stop 04/11/20 at 12:46; Status UNV Magnesium Sulfate 100 ml @ 50 mls/hr DAILY IV ; Start 04/12/20 at 09:00; Stop 04/15/20 at 08:59; Status UNV Info (Icu Electrolyte Protocol) 1 ea CONT PRN PRN MC PER PROTOCOL; Start 04/11/20 at 10:45 Furosemide (Lasix) 40 mg 1X ONCE IVP Last administered on 04/11/20at 13:29; Start 04/11/20 at 11:00; Stop 04/11/20 at 11:01; Status DC Linezolid/Dextrose 300 ml @ 300 mls/hr Q12HR IV Last administered on 04/13/20at 08:45; Start 04/11/20 at 14:00 Metoprolol Tartrate (Lopressor Vial) 5 mg 1X ONCE IVP ; Start 04/11/20 at 14:45; Stop 04/11/20 at 14:52; Status DC Metoprolol Tartrate (Lopressor Vial) 5 mg PRN Q5MIN PRN IVP TACHYCARDIA; Start 04/11/20 at 14:45; Stop 04/11/20 at 14:52; Status DC Enalaprilat (Vasotec Inj) 1.25 mg PRN Q6HRS PRN IVP HYPERTENSION; Start 04/11/20 at 15:15; Stop 04/11/20 at 19:14; Status DC Amlodipine Besylate (Norvasc) 5 mg DAILY PO Last administered on 04/12/20at 13:03; Start 04/12/20 at 09:00 Amlodipine Besylate (Norvasc) 5 mg 1X ONCE PO ; Start 04/11/20 at 15:15; Stop 04/11/20 at 15:16; Status Cancel Amlodipine Besylate (Norvasc) 10 mg 1X ONCE NG Last administered on 04/11/20at 15:28; Start 04/11/20 at 15:15; Stop 04/11/20 at 15:18; Status DC Calcium Chloride (Calcium Chloride) 1,000 mg STK-MED ONCE .ROUTE ; Start 04/11/20 at 12:00; Stop 04/11/20 at 16:17; Status DC Epinephrine HCl (EPINEPHrine SYRINGE) 2 mg STK-MED ONCE .ROUTE ; Start 04/11/20 at 12:00; Stop 04/11/20 at 16:17; Status DC Sodium Bicarbonate (Sodium Bicarb Adult 8.4% Syr) 100 meq STK-MED ONCE .ROUTE ; Start 04/11/20 at 12:00; Stop 04/11/20 at 16:17; Status DC Dopamine HCl/ Dextrose (DOPamine 400MG/ 250ML PREMIX) 400 mg STK-MED ONCE IV ; Start 04/11/20 at 12:00; Stop 04/11/20 at 16:17; Status DC Midazolam HCl 100 ml @ 0 mls/hr CONT PRN IV SEE I/O RECORD; Start 04/11/20 at 17:30; Status Cancel Hydralazine HCl (Apresoline Inj) 10 mg PRN Q4HRS PRN IVP ELEVATED BP, SEE COMMENTS Last administered on 04/13/20at 09:50; Start 04/11/20 at 18:45 Midazolam HCl 100 ml @ 1 mls/hr CONT PRN IV SEE I/O RECORD Last administered on 04/13/20at 03:56; Start 04/12/20 at 00:30 Potassium Chloride/Water 100 ml @ 100 mls/hr Q1H IV Last administered on 04/13/20at 09:20; Start 04/13/20 at 06:30; Stop 04/13/20 at 10:29; Status DC Amino Acids/ Glycerin/ Electrolytes 1,000 ml @ 80 mls/hr [id number] IV Last administered on 04/13/20at 12:27; Start 04/13/20 at 10:15 Metoclopramide HCl (Reglan Vial) 10 mg DAILY IVP Last administered on 04/13/20at 12:27; Start 04/13/20 at 10:15 Vitals/I & O Vital Sign - Last 24 Hours 04/12/20 04/12/20 04/12/20 04/12/20 13:59 15:00 16:00 16:00 Pulse 90 Resp B/P (MAP) 176/64 (101) 133/65 (87) 157/64 (95) Pulse Ox 99 99 99 100 O2 Delivery Ventilator Ventilator Ventilator Ventilator 04/12/20 04/12/20 04/12/20 04/12/20 17:00 17:57 18:00 19:00 Temp 98.0 98.0 Pulse 79 Resp 12 B/P (MAP) 153/65 (94) 171/66 (101) 157/58 (91) Pulse Ox 99 100 99 99 O2 Delivery Ventilator Ventilator Ventilator O2 Flow Rate 15.0 04/12/20 04/12/20 04/12/20 04/12/20 20:00 20:02 21:00 22:00 Temp 98.4 98.4 Pulse 80 77 89 Resp 12 12 12 B/P (MAP) 161/57 (91) 159/60 (93) 184/72 (109) Pulse Ox 99 100 99 99 O2 Delivery Ventilator Ventilator Ventilator Ventilator 04/12/20 04/12/20 04/13/20 04/13/20 23:00 23:13 00:00 00:00 Temp 98.7 98.7 Pulse 81 82 95 Resp 12 12 B/P (MAP) 194/71 (112) 193/77 123/53 (76) Pulse Ox 99 99 99 O2 Delivery Ventilator Ventilator Ventilator 04/13/20 04/13/20 04/13/20 04/13/20 01:00 02:00 03:00 04:00 Temp 98.6 98.6 Pulse 79 81 78 79 Resp 12 12 12 12 B/P (MAP) 147/52 (83) 153/55 (87) 152/56 (88) 156/55 (88) Pulse Ox 99 100 100 100 O2 Delivery Ventilator Ventilator Ventilator Ventilator 04/13/20 04/13/20 04/13/20 04/13/20 05:00 05:33 06:00 07:00 Pulse 76 76 73 Resp 12 12 12 B/P (MAP) 148/55 (86) 159/56 (90) 153/59 (90) Pulse Ox 100 99 100 100 O2 Delivery Ventilator Ventilator Ventilator Ventilator 04/13/20 04/13/20 04/13/20 04/13/20 08:00 08:09 09:00 09:50 Temp 98.6 98.6 Pulse 87 88 102 Resp 12 12 B/P (MAP) 158/49 (85) 160/49 (86) 179/59 Pulse Ox 99 99 99 O2 Delivery Ventilator Ventilator Ventilator 04/13/20 04/13/20 04/13/20 04/13/20 10:00 11:00 12:00 12:10 Temp 98.1 98.1 Pulse 85 91 90 Resp 12 12 12 B/P (MAP) 158/57 (90) 178/54 (95) 175/53 (93) Pulse Ox 99 99 99 99 O2 Delivery Ventilator Ventilator Ventilator Ventilator 04/13/20 04/13/20 12:24 13:00 Pulse 79 Resp 12 12 B/P (MAP) 176/53 (94) Pulse Ox 99 100 O2 Delivery Ventilator Ventilator Intake and Output 04/12/20 04/12/20 04/13/20 15:00 23:00 07:00 Intake Total 110 ml 745 ml 369.5 ml Output Total 630 ml 300 ml 300 ml Balance -520 ml 445 ml 69.5 ml Justifications for Admission Other Justification GEENA WILL MD Apr 13, 2020 13:49
--- NOTE | 2020-04-13 15:19 | PDOC ---
PROGRESS NOTES Date of Service: DATE: 04/13/20 TIME: 15:18 Chief Complaint Chief Complaint syncope and fall, , was pulseless in complete heart block asystolic the ER, CPR for 7 min intubated, sedated now in afib, acute diastolic CHF acute renal failure, vasomotor HTN urgency Obesity, BMI 33 History of Present Illness History of Present Illness 04/13,. doing well on vent, could wean, might be leaving on until Pacemaker placed tomorrow looks stable CV following, no b-blockers HTN emergency yesterday afternon vent support CV team discussing pacemaker placemetn with [facility], plan PPM tuesday Vitals Vitals Vital Signs Date Time Temp Pulse Resp B/P (MAP) Pulse Ox O2 Delivery O2 Flow Rate FiO2 04/13/20 14:00 83 12 166/45 (85) 100 Ventilator 04/13/20 12:00 98.1 98.1 04/12/20 17:57 15.0 Physical Exam General: Other (Intubated) Heart: Regular rate Lungs: Crackles Abdomen: Normal bowel sounds Extremities: No cyanosis, No edema Skin: No rashes, No breakdown, No significant lesion Labs LABS Laboratory Tests Test 04/13/20 05:45 04/13/20 09:15 White Blood Count 11.3 x10^3/uL (4.0-11.0) Red Blood Count 4.02 x10^6/uL (3.50-5.40) Hemoglobin 11.4 g/dL (12.0-15.5) Hematocrit 34.2 % (36.0-47.0) Mean Corpuscular Volume 85 fL (79-100) Mean Corpuscular Hemoglobin 28 pg (25-35) Mean Corpuscular Hemoglobin Concent 33 g/dL (31-37) Red Cell Distribution Width 14.0 % (11.5-14.5) Platelet Count 191 x10^3/uL (140-400) Neutrophils (%) (Auto) 79 % (31-73) Lymphocytes (%) (Auto) 15 % (24-48) Monocytes (%) (Auto) 6 % (0-9) Eosinophils (%) (Auto) 0 % (0-3) Basophils (%) (Auto) 0 % (0-3) Neutrophils # (Auto) 8.9 x10^3/uL (1.8-7.7) Lymphocytes # (Auto) 1.6 x10^3/uL (1.0-4.8) Monocytes # (Auto) 0.7 x10^3/uL (0.0-1.1) Eosinophils # (Auto) 0.0 x10^3/uL (0.0-0.7) Basophils # (Auto) 0.0 x10^3/uL (0.0-0.2) Sodium Level 148 mmol/L (136-145) Potassium Level 2.9 mmol/L (3.5-5.1) Chloride Level 107 mmol/L (98-107) Carbon Dioxide Level 32 mmol/L (21-32) Anion Gap 9 (6-14) Blood Urea Nitrogen 26 mg/dL (7-20) Creatinine 1.3 mg/dL (0.6-1.0) Estimated GFR (Cockcroft-Gault) 49.1 BUN/Creatinine Ratio 20 (6-20) Glucose Level 108 mg/dL (70-99) Calcium Level 8.3 mg/dL (8.5-10.1) Total Bilirubin 1.8 mg/dL (0.2-1.0) Aspartate Amino Transf (AST/SGOT) 67 U/L (15-37) Alanine Aminotransferase (ALT/SGPT) 185 U/L (14-59) Alkaline Phosphatase 64 U/L (46-116) Total Protein 5.6 g/dL (6.4-8.2) Albumin 2.8 g/dL (3.4-5.0) Albumin/Globulin Ratio 1.0 (1.0-1.7) O2 Saturation 98 % (92-99) Arterial Blood pH 7.43 (7.35-7.45) Arterial Blood pCO2 at Patient Temp 49 mmHg (35-46) Arterial Blood pO2 at Patient Temp 127 mmHg (65-108) Arterial Blood HCO3 32 mmol/L (21-28) Arterial Blood Base Excess 7 mmol/L (-3-3) FiO2 50 Comment Review of Relevant I have reviewed the following items donn (where applicable) has been applied. Labs Laboratory Tests Test 04/11/20 18:30 04/12/20 03:49 04/12/20 08:40 04/13/20 05:45 Glucose (Fingerstick) 131 mg/dL (70-99) O2 Saturation 99 % (92-99) 99 % (92-99) Arterial Blood pH 7.67 (7.35-7.45) 7.57 (7.35-7.45) Arterial Blood pCO2 at Patient Temp 27 mmHg (35-46) 31 mmHg (35-46) Arterial Blood pO2 at Patient Temp 246 mmHg (65-108) 145 mmHg (65-108) Arterial Blood HCO3 30 mmol/L (21-28) 27 mmol/L (21-28) Arterial Blood Base Excess 10 mmol/L (-3-3) 6 mmol/L (-3-3) FiO2 50 40 White Blood Count 11.3 x10^3/uL (4.0-11.0) Red Blood Count 4.02 x10^6/uL (3.50-5.40) Hemoglobin 11.4 g/dL (12.0-15.5) Hematocrit 34.2 % (36.0-47.0) Mean Corpuscular Volume 85 fL (79-100) Mean Corpuscular Hemoglobin 28 pg (25-35) Mean Corpuscular Hemoglobin Concent 33 g/dL (31-37) Red Cell Distribution Width 14.0 % (11.5-14.5) Platelet Count 191 x10^3/uL (140-400) Neutrophils (%) (Auto) 79 % (31-73) Lymphocytes (%) (Auto) 15 % (24-48) Monocytes (%) (Auto) 6 % (0-9) Eosinophils (%) (Auto) 0 % (0-3) Basophils (%) (Auto) 0 % (0-3) Neutrophils # (Auto) 8.9 x10^3/uL (1.8-7.7) Lymphocytes # (Auto) 1.6 x10^3/uL (1.0-4.8) Monocytes # (Auto) 0.7 x10^3/uL (0.0-1.1) Eosinophils # (Auto) 0.0 x10^3/uL (0.0-0.7) Basophils # (Auto) 0.0 x10^3/uL (0.0-0.2) Sodium Level 148 mmol/L (136-145) Potassium Level 2.9 mmol/L (3.5-5.1) Chloride Level 107 mmol/L (98-107) Carbon Dioxide Level 32 mmol/L (21-32) Anion Gap 9 (6-14) Blood Urea Nitrogen 26 mg/dL (7-20) Creatinine 1.3 mg/dL (0.6-1.0) Estimated GFR (Cockcroft-Gault) 49.1 BUN/Creatinine Ratio 20 (6-20) Glucose Level 108 mg/dL (70-99) Calcium Level 8.3 mg/dL (8.5-10.1) Total Bilirubin 1.8 mg/dL (0.2-1.0) Aspartate Amino Transf (AST/SGOT) 67 U/L (15-37) Alanine Aminotransferase (ALT/SGPT) 185 U/L (14-59) Alkaline Phosphatase 64 U/L (46-116) Total Protein 5.6 g/dL (6.4-8.2) Albumin 2.8 g/dL (3.4-5.0) Albumin/Globulin Ratio 1.0 (1.0-1.7) Test 04/13/20 09:15 O2 Saturation 98 % (92-99) Arterial Blood pH 7.43 (7.35-7.45) Arterial Blood pCO2 at Patient Temp 49 mmHg (35-46) Arterial Blood pO2 at Patient Temp 127 mmHg (65-108) Arterial Blood HCO3 32 mmol/L (21-28) Arterial Blood Base Excess 7 mmol/L (-3-3) FiO2 50 Laboratory Tests Test 04/13/20 05:45 04/13/20 09:15 White Blood Count 11.3 x10^3/uL (4.0-11.0) Red Blood Count 4.02 x10^6/uL (3.50-5.40) Hemoglobin 11.4 g/dL (12.0-15.5) Hematocrit 34.2 % (36.0-47.0) Mean Corpuscular Volume 85 fL (79-100) Mean Corpuscular Hemoglobin 28 pg (25-35) Mean Corpuscular Hemoglobin Concent 33 g/dL (31-37) Red Cell Distribution Width 14.0 % (11.5-14.5) Platelet Count 191 x10^3/uL (140-400) Neutrophils (%) (Auto) 79 % (31-73) Lymphocytes (%) (Auto) 15 % (24-48) Monocytes (%) (Auto) 6 % (0-9) Eosinophils (%) (Auto) 0 % (0-3) Basophils (%) (Auto) 0 % (0-3) Neutrophils # (Auto) 8.9 x10^3/uL (1.8-7.7) Lymphocytes # (Auto) 1.6 x10^3/uL (1.0-4.8) Monocytes # (Auto) 0.7 x10^3/uL (0.0-1.1) Eosinophils # (Auto) 0.0 x10^3/uL (0.0-0.7) Basophils # (Auto) 0.0 x10^3/uL (0.0-0.2) Sodium Level 148 mmol/L (136-145) Potassium Level 2.9 mmol/L (3.5-5.1) Chloride Level 107 mmol/L (98-107) Carbon Dioxide Level 32 mmol/L (21-32) Anion Gap 9 (6-14) Blood Urea Nitrogen 26 mg/dL (7-20) Creatinine 1.3 mg/dL (0.6-1.0) Estimated GFR (Cockcroft-Gault) 49.1 BUN/Creatinine Ratio 20 (6-20) Glucose Level 108 mg/dL (70-99) Calcium Level 8.3 mg/dL (8.5-10.1) Total Bilirubin 1.8 mg/dL (0.2-1.0) Aspartate Amino Transf (AST/SGOT) 67 U/L (15-37) Alanine Aminotransferase (ALT/SGPT) 185 U/L (14-59) Alkaline Phosphatase 64 U/L (46-116) Total Protein 5.6 g/dL (6.4-8.2) Albumin 2.8 g/dL (3.4-5.0) Albumin/Globulin Ratio 1.0 (1.0-1.7) O2 Saturation 98 % (92-99) Arterial Blood pH 7.43 (7.35-7.45) Arterial Blood pCO2 at Patient Temp 49 mmHg (35-46) Arterial Blood pO2 at Patient Temp 127 mmHg (65-108) Arterial Blood HCO3 32 mmol/L (21-28) Arterial Blood Base Excess 7 mmol/L (-3-3) FiO2 50 Microbiology 04/11/20 Blood Culture - Preliminary, Resulted NO GROWTH AFTER 2 DAYS Medications Current Medications Fentanyl Citrate (Fentanyl 2ml Vial) 100 mcg STK-MED ONCE .ROUTE ; Start 04/11/20 at 02:53; Stop 04/11/20 at 02:53; Status DC Hydromorphone HCl (Dilaudid) 2 mg STK-MED ONCE .ROUTE ; Start 04/11/20 at 02:57; Stop 04/11/20 at 02:57; Status DC Epinephrine HCl 5 mg/Sodium Chloride 255 ml @ 22.208 mls/ hr CONT PRN IV SEE I/O RECORD; Start 04/11/20 at 03:15; Stop 04/11/20 at 09:00; Status DC Propofol 100 ml @ As Directed STK-MED ONCE IV ; Start 04/11/20 at 03:14; Stop 04/11/20 at 03:14; Status DC Midazolam HCl 100 ml @ 1 mls/hr 1X ONCE IV Last administered on 04/11/20at 11:04; Start 04/11/20 at 03:45; Stop 04/12/20 at 00:39; Status DC Piperacillin Sod/ Tazobactam Sod (Zosyn Per Pharmacy) 1 each PRN DAILY PRN MC SEE COMMENTS; Start 04/11/20 at 04:00 Vancomycin HCl (Vanco Per Pharmacy) 1 each PRN DAILY PRN MC SEE COMMENTS; Start 04/11/20 at 04:00; Stop 04/11/20 at 13:35; Status DC Metronidazole 100 ml @ 100 mls/hr 1X ONCE IV ; Start 04/11/20 at 04:30; Stop 04/11/20 at 05:29; Status DC Dexamethasone Sodium Phosphate (Decadron) 10 mg 1X ONCE IV Last administered on 04/11/20at 04:54; Start 04/11/20 at 04:30; Stop 04/11/20 at 04:31; Status DC Magnesium Sulfate 50 ml @ 25 mls/hr 1X ONCE IV Last administered on 04/11/20at 04:58; Start 04/11/20 at 04:30; Stop 04/11/20 at 19:14; Status DC Furosemide (Lasix) 100 mg 1X ONCE IVP Last administered on 04/11/20at 04:32; Start 04/11/20 at 04:15; Stop 04/11/20 at 04:27; Status DC Vancomycin HCl 1.75 gm/Sodium Chloride 500 ml @ 250 mls/hr 1X ONCE IV ; Start 04/11/20 at 05:00; Stop 04/11/20 at 06:59; Status DC Piperacillin Sod/ Tazobactam Sod 3.375 gm/Sodium Chloride 50 ml @ 100 mls/hr 1X ONCE IV Last administered on 04/11/20at 05:43; Start 04/11/20 at 05:00; Stop 04/11/20 at 05:29; Status DC Dopamine HCl/ Dextrose 250 ml @ 19.561 mls/ hr CONT PRN IV SEE I/O RECORD Last administered on 04/13/20at 07:22; Start 04/11/20 at 06:15 Hydromorphone HCl (Dilaudid) 2 mg 1X ONCE IVP ; Start 04/11/20 at 06:15; Stop 04/11/20 at 06:27; Status DC Fentanyl Citrate (Fentanyl 2ml Vial) 100 mcg 1X ONCE IVP ; Start 04/11/20 at 06:15; Stop 04/11/20 at 06:27; Status DC Etomidate (Amidate) 20 mg 1X ONCE IV Last administered on 04/11/20at 03:12; Start 04/11/20 at 06:15; Stop 04/11/20 at 06:27; Status DC Succinylcholine Chloride (Anectine) 100 mg 1X ONCE IV Last administered on 04/11/20at 03:13; Start 04/11/20 at 06:15; Stop 04/11/20 at 06:27; Status DC Piperacillin Sod/ Tazobactam Sod 2.25 gm/Sodium Chloride 50 ml @ 100 mls/hr Q6HRS IV Last administered on 04/13/20at 12:23; Start 04/11/20 at 12:00 Fentanyl Citrate (Fentanyl 2ml Vial) 100 mcg 1X ONCE IV ; Start 04/11/20 at 07:00; Stop 04/11/20 at 19:40; Status DC Magnesium Sulfate/ Dextrose 100 ml @ 100 mls/hr 1X ONCE IV ; Start 04/11/20 at 07:30; Stop 04/11/20 at 14:52; Status DC Buspirone HCl (Buspar) 30 mg Q8H NG Last administered on 04/11/20at 15:30; Start 04/11/20 at 08:00; Stop 04/11/20 at 19:40; Status DC Acetaminophen (Tylenol) 650 mg Q4H NG Last administered on 04/11/20at 15:29; Start 04/11/20 at 07:00; Stop 04/11/20 at 19:40; Status DC Glycerin/ Hypromellose/ Polyethylene (Artificial Tears) 1 drop Q6HRS OU Last administered on 04/11/20at 13:30; Start 04/11/20 at 12:00; Stop 04/11/20 at 19:40; Status DC Glycerin/ Hypromellose/ Polyethylene (Artificial Tears) 1 drop PRN Q15MIN PRN OU DRY EYE; Start 04/11/20 at 07:00; Stop 04/11/20 at 19:40; Status DC Pantoprazole Sodium (PROTONIX VIAL for IV PUSH) 40 mg DAILY IVP ; Start 04/11/20 at 09:00; Stop 04/11/20 at 07:31; Status DC Fentanyl Citrate 30 ml @ 2.5 mls/hr CONT PRN IV PER PROTOCOL. Last administered on 04/13/20at 10:41; Start 04/11/20 at 07:00 Propofol 100 ml @ 6.258 mls/ hr CONT PRN IV PER PROTOCOL.; Start 04/11/20 at 07:00 Norepinephrine Bitartrate 32 mg/ Dextrose 250 ml @ 4.889 mls/ hr CONT PRN IV SEE I/O RECORD; Start 04/11/20 at 07:15 Fentanyl Citrate (Fentanyl 2ml Vial) 100 mcg 1X ONCE IV ; Start 04/11/20 at 0 7:15; Stop 04/11/20 at 07:30; Status DC Heparin Sodium (Porcine) (Heparin Sodium) 5,000 unit BID SQ Last administered on 04/13/20at 09:00; Start 04/11/20 at 09:00 Pantoprazole Sodium (PROTONIX VIAL for IV PUSH) 40 mg DAILY IVP Last administered on 04/13/20at 09:00; Start 04/11/20 at 09:00 Fentanyl Citrate 30 ml @ 0 mls/hr CONT PRN IV PER PROTOCOL.; Start 04/11/20 at 07:15; Stop 04/11/20 at 07:31; Status DC Propofol 100 ml @ 0 mls/hr CONT PRN IV PER PROTOCOL.; Start 04/11/20 at 07:15; Stop 04/11/20 at 07:31; Status DC Midazolam HCl 100 ml @ 2 mls/hr CONT PRN IV PER PROTOCOL; Start 04/11/20 at 07:15; Status Cancel Epinephrine HCl 10 mg/Sodium Chloride 250 ml @ 15.645 mls/ hr CONT PRN IV SEE I/O RECORD; Start 04/11/20 at 07:30 Metronidazole (FLAGYL 500Mmg PREMIX) 500 mg STK-MED ONCE IV ; Start 04/11/20 at 04:00; Stop 04/11/20 at 08:43; Status DC Sodium Chloride 1,000 ml @ 10 mls/hr Q24H IV Last administered on 04/13/20at 08:27; Start 04/11/20 at 09:15 Potassium Chloride/Water 100 ml @ 100 mls/hr 1X ONCE IV Last administered on 04/11/20at 13:27; Start 04/11/20 at 10:00; Stop 04/11/20 at 10:59; Status DC Potassium Chloride (Klor-Con) 40 meq 1X ONCE PO ; Start 04/11/20 at 10:45; Stop 04/11/20 at 10:46; Status UNV Potassium Chloride (Klor-Con) 40 meq Q2H PO ; Start 04/11/20 at 10:45; Stop 04/11/20 at 12:46; Status UNV Magnesium Sulfate 100 ml @ 50 mls/hr DAILY IV ; Start 04/12/20 at 09:00; Stop 04/15/20 at 08:59; Status UNV Info (Icu Electrolyte Protocol) 1 ea CONT PRN PRN MC PER PROTOCOL; Start at 10:45 Furosemide (Lasix) 40 mg 1X ONCE IVP Last administered on 04/11/20at 13:29; Start 04/11/20 at 11:00; Stop 04/11/20 at 11:01; Status DC Linezolid/Dextrose 300 ml @ 300 mls/hr Q12HR IV Last administered on 04/13/20at 08:45; Start 04/11/20 at 14:00 Metoprolol Tartrate (Lopressor Vial) 5 mg 1X ONCE IVP ; Start 04/11/20 at 14:45; Stop 04/11/20 at 14:52; Status DC Metoprolol Tartrate (Lopressor Vial) 5 mg PRN Q5MIN PRN IVP TACHYCARDIA; Start 04/11/20 at 14:45; Stop 04/11/20 at 14:52; Status DC Enalaprilat (Vasotec Inj) 1.25 mg PRN Q6HRS PRN IVP HYPERTENSION; Start 04/11/20 at 15:15; Stop 04/11/20 at 19:14; Status DC Amlodipine Besylate (Norvasc) 5 mg DAILY PO Last administered on 04/12/20at 13:03; Start 04/12/20 at 09:00 Amlodipine Besylate (Norvasc) 5 mg 1X ONCE PO ; Start 04/11/20 at 15:15; Stop 04/11/20 at 15:16; Status Cancel Amlodipine Besylate (Norvasc) 10 mg 1X ONCE NG Last administered on 04/11/20at 15:28; Start 04/11/20 at 15:15; Stop 04/11/20 at 15:18; Status DC Calcium Chloride (Calcium Chloride) 1,000 mg STK-MED ONCE .ROUTE ; Start 04/11/20 at 12:00; Stop 04/11/20 at 16:17; Status DC Epinephrine HCl (EPINEPHrine SYRINGE) 2 mg STK-MED ONCE .ROUTE ; Start 04/11/20 at 12:00; Stop 04/11/20 at 16:17; Status DC Sodium Bicarbonate (Sodium Bicarb Adult 8.4% Syr) 100 meq STK-MED ONCE .ROUTE ; Start 04/11/20 at 12:00; Stop 04/11/20 at 16:17; Status DC Dopamine HCl/ Dextrose (DOPamine 400MG/ 250ML PREMIX) 400 mg STK-MED ONCE IV ; Start 04/11/20 at 12:00; Stop 04/11/20 at 16:17; Status DC Midazolam HCl 100 ml @ 0 mls/hr CONT PRN IV SEE I/O RECORD; Start 04/11/20 at 17:30; Status Cancel Hydralazine HCl (Apresoline Inj) 10 mg PRN Q4HRS PRN IVP ELEVATED BP, SEE COMMENTS Last administered on 04/13/20at 09:50; Start 04/11/20 at 18:45 Midazolam HCl 100 ml @ 1 mls/hr CONT PRN IV SEE I/O RECORD Last administered on 04/13/20at 03:56; Start 04/12/20 at 00:30 Potassium Chloride/Water 100 ml @ 100 mls/hr Q1H IV Last administered on 04/13/20at 09:20; Start 04/13/20 at 06:30; Stop 04/13/20 at 10:29; Status DC Amino Acids/ Glycerin/ Electrolytes 1,000 ml @ 80 mls/hr [id number] IV Last administered on 04/13/20at 12:27; Start 04/13/20 at 10:15 Metoclopramide HCl (Reglan Vial) 10 mg DAILY IVP Last administered on 04/13/20at 12:27; Start 04/13/20 at 10:15 Vitals/I & O Vital Sign - Last 24 Hours 04/12/20 04/12/20 04/12/20 04/12/20 16:00 16:00 17:00 17:57 Temp 98.0 98.0 Resp 24 B/P (MAP) 157/64 (95) 153/65 (94) Pulse Ox 99 100 99 100 O2 Delivery Ventilator Ventilator Ventilator O2 Flow Rate 15.0 04/12/20 04/12/20 04/12/20 04/12/20 18:00 19:00 20:00 20:02 Temp 98.4 98.4 Pulse 79 80 Resp 24 12 12 B/P (MAP) 171/66 (101) 157/58 (91) 161/57 (91) Pulse Ox 99 99 99 100 O2 Delivery Ventilator Ventilator Ventilator Ventilator 04/12/20 04/12/20 04/12/20 04/12/20 21:00 22:00 23:00 23:13 Pulse 77 89 81 82 Resp 12 12 12 B/P (MAP) 159/60 (93) 184/72 (109) 194/71 (112) 193/77 Pulse Ox 99 99 99 O2 Delivery Ventilator Ventilator Ventilator 04/13/20 04/13/20 04/13/20 04/13/20 00:00 00:00 01:00 02:00 Temp 98.7 98.7 Pulse 95 79 81 Resp 12 12 12 B/P (MAP) 123/53 (76) 147/52 (83) 153/55 (87) Pulse Ox 99 99 99 100 O2 Delivery Ventilator Ventilator Ventilator Ventilator 1/04/13/20 04/13/20 04/13/20 03:00 04:00 05:00 05:33 Temp 98.6 98.6 Pulse 78 79 76 Resp 12 12 12 B/P (MAP) 152/56 (88) 156/55 (88) 148/55 (86) Pulse Ox 100 100 100 99 O2 Delivery Ventilator Ventilator Ventilator Ventilator 04/13/20 04/13/20 04/13/20 04/13/20 06:00 07:00 08:00 08:09 Temp 98.6 98.6 Pulse 76 73 87 Resp 12 12 12 B/P (MAP) 159/56 (90) 153/59 (90) 158/49 (85) Pulse Ox 100 100 99 99 O2 Delivery Ventilator Ventilator Ventilator Ventilator 04/13/20 04/13/20 04/13/20 04/13/20 09:00 09:50 10:00 11:00 Pulse 88 102 85 91 Resp 12 12 12 B/P (MAP) 160/49 (86) 179/59 158/57 (90) 178/54 (95) Pulse Ox 99 99 99 O2 Delivery Ventilator Ventilator Ventilator 04/13/20 04/13/20 04/13/20 04/13/20 12:00 12:10 12:24 13:00 Temp 98.1 98.1 Pulse 90 79 Resp 12 12 12 B/P (MAP) 175/53 (93) 176/53 (94) Pulse Ox 99 99 99 100 O2 Delivery Ventilator Ventilator Ventilator Ventilator 04/13/20 14:00 Pulse 83 Resp 12 B/P (MAP) 166/45 (85) Pulse Ox 100 O2 Delivery Ventilator Intake and Output 04/12/20 04/12/20 04/13/20 15:00 23:00 07:00 Intake Total 110 ml 745 ml 369.5 ml Output Total 630 ml 300 ml 300 ml Balance -520 ml 445 ml 69.5 ml Justicifation of Admission Dx: Justifications for Admission: Justification of Admission Dx: Yes (cardiac arrest) NEL HDEZ MD Apr 13, 2020 15:19
--- NOTE | 2020-04-13 19:51 | PDOC ---
PROGRESS NOTES DOS: DATE: 04/13/20 TIME: 19:49 Plan Anoxic encephalopathy, AV ventricular block Intubated sedated, congestive heart failure, hypertensive urgency Pacemaker planned. Continue medical management. Continue medical management. Subjective Intubated sedated Objective Vital Signs Date Time Temp Pulse Resp B/P (MAP) Pulse Ox O2 Delivery O2 Flow Rate FiO2 04/13/20 18:00 80 12 149/46 (80) 99 Ventilator 04/13/20 16:00 98.4 98.4 04/12/20 17:57 15.0 Intake and Output 04/13/20 06:59 Intake Total 1224.5 ml Output Total 1255 ml Balance -30.5 ml Intake Oral 60 ml IV Total 1164.5 ml Output Urine Total 1255 ml PHYSICAL EXAM PHYSICAL EXAMINATION: General: intubated sedated HEENT: Normal cephalic and non traumatic. Neck: No lymphadenopathy. No resistance. Cardiac: S1, S2, regular rate and rhythm. Pulmonary: On vent. Abdomen: Bowel sounds are normal. NEUROLOGICAL EXAMINATION: On vent. Pupils + reaction to light stimuli. CN: No acute findings. Neck: No resistance Muscle Tone normal Muscle Strength: minimal movements noted to stimuli DTR: 1-2 Sensory: minimal movements noted to stimuli Plantar Reflex: down Cerebellar Signs: Not able Gait: Not able Review of Relevant I have reviewed the following items donn (where applicable) has been applied. Labs Laboratory Tests Test 04/12/20 03:49 04/12/20 08:40 04/13/20 05:45 04/13/20 09:15 O2 Saturation 99 % (92-99) 99 % (92-99) 98 % (92-99) Arterial Blood pH 7.67 (7.35-7.45) 7.57 (7.35-7.45) 7.43 (7.35-7.45) Arterial Blood pCO2 at Patient Temp 27 mmHg (35-46) 31 mmHg (35-46) 49 mmHg (35-46) Arterial Blood pO2 at Patient Temp 246 mmHg (65-108) 145 mmHg (65-108) 127 mmHg (65-108) Arterial Blood HCO3 30 mmol/L (21-28) 27 mmol/L (21-28) 32 mmol/L (21-28) Arterial Blood Base Excess 10 mmol/L (-3-3) 6 mmol/L (-3-3) 7 mmol/L (-3-3) FiO2 50 40 50 White Blood Count 11.3 x10^3/uL (4.0-11.0) Red Blood Count 4.02 x10^6/uL (3.50-5.40) Hemoglobin 11.4 g/dL (12.0-15.5) Hematocrit 34.2 % (36.0-47.0) Mean Corpuscular Volume 85 fL (79-100) Mean Corpuscular Hemoglobin 28 pg (25-35) Mean Corpuscular Hemoglobin Concent 33 g/dL (31-37) Red Cell Distribution Width 14.0 % (11.5-14.5) Platelet Count 191 x10^3/uL (140-400) Neutrophils (%) (Auto) 79 % (31-73) Lymphocytes (%) (Auto) 15 % (24-48) Monocytes (%) (Auto) 6 % (0-9) Eosinophils (%) (Auto) 0 % (0-3) Basophils (%) (Auto) 0 % (0-3) Neutrophils # (Auto) 8.9 x10^3/uL (1.8-7.7) Lymphocytes # (Auto) 1.6 x10^3/uL (1.0-4.8) Monocytes # (Auto) 0.7 x10^3/uL (0.0-1.1) Eosinophils # (Auto) 0.0 x10^3/uL (0.0-0.7) Basophils # (Auto) 0.0 x10^3/uL (0.0-0.2) Sodium Level 148 mmol/L (136-145) Potassium Level 2.9 mmol/L (3.5-5.1) Chloride Level 107 mmol/L (98-107) Carbon Dioxide Level 32 mmol/L (21-32) Anion Gap 9 (6-14) Blood Urea Nitrogen 26 mg/dL (7-20) Creatinine 1.3 mg/dL (0.6-1.0) Estimated GFR (Cockcroft-Gault) 49.1 BUN/Creatinine Ratio 20 (6-20) Glucose Level 108 mg/dL (70-99) Calcium Level 8.3 mg/dL (8.5-10.1) Total Bilirubin 1.8 mg/dL (0.2-1.0) Aspartate Amino Transf (AST/SGOT) 67 U/L (15-37) Alanine Aminotransferase (ALT/SGPT) 185 U/L (14-59) Alkaline Phosphatase 64 U/L (46-116) Total Protein 5.6 g/dL (6.4-8.2) Albumin 2.8 g/dL (3.4-5.0) Albumin/Globulin Ratio 1.0 (1.0-1.7) Laboratory Tests Test 04/13/20 05:45 04/13/20 09:15 White Blood Count 11.3 x10^3/uL (4.0-11.0) Red Blood Count 4.02 x10^6/uL (3.50-5.40) Hemoglobin 11.4 g/dL (12.0-15.5) Hematocrit 34.2 % (36.0-47.0) Mean Corpuscular Volume 85 fL (79-100) Mean Corpuscular Hemoglobin 28 pg (25-35) Mean Corpuscular Hemoglobin Concent 33 g/dL (31-37) Red Cell Distribution Width 14.0 % (11.5-14.5) Platelet Count 191 x10^3/uL (140-400) Neutrophils (%) (Auto) 79 % (31-73) Lymphocytes (%) (Auto) 15 % (24-48) Monocytes (%) (Auto) 6 % (0-9) Eosinophils (%) (Auto) 0 % (0-3) Basophils (%) (Auto) 0 % (0-3) Neutrophils # (Auto) 8.9 x10^3/uL (1.8-7.7) Lymphocytes # (Auto) 1.6 x10^3/uL (1.0-4.8) Monocytes # (Auto) 0.7 x10^3/uL (0.0-1.1) Eosinophils # (Auto) 0.0 x10^3/uL (0.0-0.7) Basophils # (Auto) 0.0 x10^3/uL (0.0-0.2) Sodium Level 148 mmol/L (136-145) Potassium Level 2.9 mmol/L (3.5-5.1) Chloride Level 107 mmol/L (98-107) Carbon Dioxide Level 32 mmol/L (21-32) Anion Gap 9 (6-14) Blood Urea Nitrogen 26 mg/dL (7-20) Creatinine 1.3 mg/dL (0.6-1.0) Estimated GFR (Cockcroft-Gault) 49.1 BUN/Creatinine Ratio 20 (6-20) Glucose Level 108 mg/dL (70-99) Calcium Level 8.3 mg/dL (8.5-10.1) Total Bilirubin 1.8 mg/dL (0.2-1.0) Aspartate Amino Transf (AST/SGOT) 67 U/L (15-37) Alanine Aminotransferase (ALT/SGPT) 185 U/L (14-59) Alkaline Phosphatase 64 U/L (46-116) Total Protein 5.6 g/dL (6.4-8.2) Albumin 2.8 g/dL (3.4-5.0) Albumin/Globulin Ratio 1.0 (1.0-1.7) O2 Saturation 98 % (92-99) Arterial Blood pH 7.43 (7.35-7.45) Arterial Blood pCO2 at Patient Temp 49 mmHg (35-46) Arterial Blood pO2 at Patient Temp 127 mmHg (65-108) Arterial Blood HCO3 32 mmol/L (21-28) Arterial Blood Base Excess 7 mmol/L (-3-3) FiO2 50 Microbiology 04/11/20 Blood Culture - Preliminary, Resulted NO GROWTH AFTER 2 DAYS Medications Current Medications Fentanyl Citrate (Fentanyl 2ml Vial) 100 mcg STK-MED ONCE .ROUTE ; Start 04/11/20 at 02:53; Stop 04/11/20 at 02:53; Status DC Hydromorphone HCl (Dilaudid) 2 mg STK-MED ONCE .ROUTE ; Start 04/11/20 at 02:57; Stop 04/11/20 at 02:57; Status DC Epinephrine HCl 5 mg/Sodium Chloride 255 ml @ 22.208 mls/ hr CONT PRN IV SEE I/O RECORD; Start 04/11/20 at 03:15; Stop 04/11/20 at 09:00; Status DC Propofol 100 ml @ As Directed STK-MED ONCE IV ; Start 04/11/20 at 03:14; Stop 04/11/20 at 03:14; Status DC Midazolam HCl 100 ml @ 1 mls/hr 1X ONCE IV Last administered on 04/11/20at 11:04; Start 04/11/20 at 03:45; Stop 04/12/20 at 00:39; Status DC Piperacillin Sod/ Tazobactam Sod (Zosyn Per Pharmacy) 1 each PRN DAILY PRN MC SEE COMMENTS; Start 04/11/20 at 04:00 Vancomycin HCl (Vanco Per Pharmacy) 1 each PRN DAILY PRN MC SEE COMMENTS; Start 04/11/20 at 04:00; Stop 04/11/20 at 13:35; Status DC Metronidazole 100 ml @ 100 mls/hr 1X ONCE IV ; Start 04/11/20 at 04:30; Stop 04/11/20 at 05:29; Status DC Dexamethasone Sodium Phosphate (Decadron) 10 mg 1X ONCE IV Last administered on 04/11/20at 04:54; Start 04/11/20 at 04:30; Stop 04/11/20 at 04:31; Status DC Magnesium Sulfate 50 ml @ 25 mls/hr 1X ONCE IV Last administered on 04/11/20at 04:58; Start 04/11/20 at 04:30; Stop 04/11/20 at 19:14; Status DC Furosemide (Lasix) 100 mg 1X ONCE IVP Last administered on 04/11/20at 04:32; Start 04/11/20 at 04:15; Stop 04/11/20 at 04:27; Status DC Vancomycin HCl 1.75 gm/Sodium Chloride 500 ml @ 250 mls/hr 1X ONCE IV ; Start 04/11/20 at 05:00; Stop 04/11/20 at 06:59; Status DC Piperacillin Sod/ Tazobactam Sod 3.375 gm/Sodium Chloride 50 ml @ 100 mls/hr 1X ONCE IV Last administered on 04/11/20at 05:43; Start 04/11/20 at 05:00; Stop 04/11/20 at 05:29; Status DC Dopamine HCl/ Dextrose 250 ml @ 19.561 mls/ hr CONT PRN IV SEE I/O RECORD Last administered on 04/13/20at 07:22; Start 04/11/20 at 06:15 Hydromorphone HCl (Dilaudid) 2 mg 1X ONCE IVP ; Start 04/11/20 at 06:15; Stop 04/11/20 at 06:27; Status DC Fentanyl Citrate (Fentanyl 2ml Vial) 100 mcg 1X ONCE IVP ; Start 04/11/20 at 06:15; Stop 04/11/20 at 06:27; Status DC Etomidate (Amidate) 20 mg 1X ONCE IV Last administered on 04/11/20at 03:12; Start 04/11/20 at 06:15; Stop 04/11/20 at 06:27; Status DC Succinylcholine Chloride (Anectine) 100 mg 1X ONCE IV Last administered on 04/11/20at 03:13; Start 04/11/20 at 06:15; Stop 04/11/20 at 06:27; Status DC Piperacillin Sod/ Tazobactam Sod 2.25 gm/Sodium Chloride 50 ml @ 100 mls/hr Q6HRS IV Last administered on 04/13/20at 17:43; Start 04/11/20 at 12:00 Fentanyl Citrate (Fentanyl 2ml Vial) 100 mcg 1X ONCE IV ; Start 04/11/20 at 07:00; Stop 04/11/20 at 19:40; Status DC Magnesium Sulfate/ Dextrose 100 ml @ 100 mls/hr 1X ONCE IV ; Start 04/11/20 at 07:30; Stop 04/11/20 at 14:52; Status DC Buspirone HCl (Buspar) 30 mg Q8H NG Last administered on 04/11/20at 15:30; Start 04/11/20 at 08:00; Stop 04/11/20 at 19:40; Status DC Acetaminophen (Tylenol) 650 mg Q4H NG Last administered on 04/11/20at 15:29; Start 04/11/20 at 07:00; Stop 04/11/20 at 19:40; Status DC Glycerin/ Hypromellose/ Polyethylene (Artificial Tears) 1 drop Q6HRS OU Last administered on 04/11/20at 13:30; Start 04/11/20 at 12:00; Stop 04/11/20 at 19:40; Status DC Glycerin/ Hypromellose/ Polyethylene (Artificial Tears) 1 drop PRN Q15MIN PRN OU DRY EYE; Start 04/11/20 at 07:00; Stop 04/11/20 at 19:40; Status DC Pantoprazole Sodium (PROTONIX VIAL for IV PUSH) 40 mg DAILY IVP ; Start 04/11/20 at 09:00; Stop 04/11/20 at 07:31; Status DC Fentanyl Citrate 30 ml @ 2.5 mls/hr CONT PRN IV PER PROTOCOL. Last administered on 04/13/20at 10:41; Start 04/11/20 at 07:00 Propofol 100 ml @ 6.258 mls/ hr CONT PRN IV PER PROTOCOL.; Start 04/11/20 at 07:00 Norepinephrine Bitartrate 32 mg/ Dextrose 250 ml @ 4.889 mls/ hr CONT PRN IV SEE I/O RECORD; Start 04/11/20 at 07:15 Fentanyl Citrate (Fentanyl 2ml Vial) 100 mcg 1X ONCE IV ; Start 04/11/20 at 07:15; Stop 04/11/20 at 07:30; Status DC Heparin Sodium (Porcine) (Heparin Sodium) 5,000 unit BID SQ Last administered on 04/13/20at 09:00; Start 04/11/20 at 09:00 Pantoprazole Sodium (PROTONIX VIAL for IV PUSH) 40 mg DAILY IVP Last administered on 04/13/20at 09:00; Start 04/11/20 at 09:00 Fentanyl Citrate 30 ml @ 0 mls/hr CONT PRN IV PER PROTOCOL.; Start 04/11/20 at 07:15; Stop 04/11/20 at 07:31; Status DC Propofol 100 ml @ 0 mls/hr CONT PRN IV PER PROTOCOL.; Start 04/11/20 at 07:15; Stop 04/11/20 at 07:31; Status DC Midazolam HCl 100 ml @ 2 mls/hr CONT PRN IV PER PROTOCOL; Start 04/11/20 at 07:15; Status Cancel Epinephrine HCl 10 mg/Sodium Chloride 250 ml @ 15.645 mls/ hr CONT PRN IV SEE I/O RECORD; Start 04/11/20 at 07:30 Metronidazole (FLAGYL 500Mmg PREMIX) 500 mg STK-MED ONCE IV ; Start 04/11/20 at 04:00; Stop 04/11/20 at 08:43; Status DC Sodium Chloride 1,000 ml @ 10 mls/hr Q24H IV Last administered on 04/13/20at 08:27; Start 04/11/20 at 09:15 Potassium Chloride/Water 100 ml @ 100 mls/hr 1X ONCE IV Last administered on 04/11/20at 13:27; Start 04/11/20 at 10:00; Stop 04/11/20 at 10:59; Status DC Potassium Chloride (Klor-Con) 40 meq 1X ONCE PO ; Start 04/11/20 at 10:45; Stop 04/11/20 at 10:46; Status UNV Potassium Chloride (Klor-Con) 40 meq Q2H PO ; Start 04/11/20 at 10:45; Stop 04/11/20 at 12:46; Status UNV Magnesium Sulfate 100 ml @ 50 mls/hr DAILY IV ; Start 04/12/20 at 09:00; Stop 04/15/20 at 08:59; Status UNV Info (Icu Electrolyte Protocol) 1 ea CONT PRN PRN MC PER PROTOCOL; Start 04/11/20 at 10:45 Furosemide (Lasix) 40 mg 1X ONCE IVP Last administered on 04/11/20at 13:29; Start 04/11/20 at 11:00; Stop 04/11/20 at 11:01; Status DC Linezolid/Dextrose 300 ml @ 300 mls/hr Q12HR IV Last administered on 04/13/20at 08:45; Start 04/11/20 at 14:00 Metoprolol Tartrate (Lopressor Vial) 5 mg 1X ONCE IVP ; Start 04/11/20 at 14:45; Stop 04/11/20 at 14:52; Status DC Metoprolol Tartrate (Lopressor Vial) 5 mg PRN Q5MIN PRN IVP TACHYCARDIA; Start 04/11/20 at 14:45; Stop 04/11/20 at 14:52; Status DC Enalaprilat (Vasotec Inj) 1.25 mg PRN Q6HRS PRN IVP HYPERTENSION; Start 04/11/20 at 15:15; Stop 04/11/20 at 19:14; Status DC Amlodipine Besylate (Norvasc) 5 mg DAILY PO Last administered on 04/12/20at 13:03; Start 04/12/20 at 09:00 Amlodipine Besylate (Norvasc) 5 mg 1X ONCE PO ; Start 04/11/20 at 15:15; Stop 04/11/20 at 15:16; Status Cancel Amlodipine Besylate (Norvasc) 10 mg 1X ONCE NG Last administered on 04/11/20at 15:28; Start 04/11/20 at 15:15; Stop 04/11/20 at 15:18; Status DC Calcium Chloride (Calcium Chloride) 1,000 mg STK-MED ONCE .ROUTE ; Start 04/11/20 at 12:00; Stop 04/11/20 at 16:17; Status DC Epinephrine HCl (EPINEPHrine SYRINGE) 2 mg STK-MED ONCE .ROUTE ; Start 04/11/20 at 12:00; Stop 04/11/20 at 16:17; Status DC Sodium Bicarbonate (Sodium Bicarb Adult 8.4% Syr) 100 meq STK-MED ONCE .ROUTE ; Start 04/11/20 at 12:00; Stop 04/11/20 at 16:17; Status DC Dopamine HCl/ Dextrose (DOPamine 400MG/ 250ML PREMIX) 400 mg STK-MED ONCE IV ; Start 04/11/20 at 12:00; Stop 04/11/20 at 16:17; Status DC Midazolam HCl 100 ml @ 0 mls/hr CONT PRN IV SEE I/O RECORD; Start 04/11/20 at 17:30; Status Cancel Hydralazine HCl (Apresoline Inj) 10 mg PRN Q4HRS PRN IVP ELEVATED BP, SEE COMMENTS Last administered on 04/13/20at 09:50; Start 04/11/20 at 18:45 Midazolam HCl 100 ml @ 1 mls/hr CONT PRN IV SEE I/O RECORD Last administered on 04/13/20at 18:07; Start 04/12/20 at 00:30 Potassium Chloride/Water 100 ml @ 100 mls/hr Q1H IV Last administered on 04/13/20at 09:20; Start 04/13/20 at 06:30; Stop 04/13/20 at 10:29; Status DC Amino Acids/ Glycerin/ Electrolytes 1,000 ml @ 80 mls/hr [id number] IV Last administered on 04/13/20at 12:27; Start 04/13/20 at 10:15 Metoclopramide HCl (Reglan Vial) 10 mg DAILY IVP Last administered on 04/13/20at 12:27; Start 04/13/20 at 10:15 Vitals/I & O Vital Sign - Last 24 Hours 04/12/20 04/12/20 04/12/20 04/12/20 20:00 20:02 21:00 22:00 Temp 98.4 98.4 Pulse 80 77 89 Resp 12 12 B/P (MAP) 161/57 (91) 159/60 (93) 184/72 (109) Pulse Ox 99 100 99 99 O2 Delivery Ventilator Ventilator Ventilator Ventilator 04/12/20 04/12/20 04/13/20 04/13/20 23:00 23:13 00:00 00:00 Temp 98.7 98.7 Pulse 81 82 95 Resp 12 12 B/P (MAP) 194/71 (112) 193/77 123/53 (76) Pulse Ox 99 99 99 O2 Delivery Ventilator Ventilator Ventilator 04/13/20 04/13/20 04/13/20 04/13/20 01:00 02:00 03:00 04:00 Temp 98.6 98.6 Pulse 79 81 78 79 Resp 12 03 01 12 B/P (MAP) 147/52 (83) 153/55 (87) 152/56 (88) 156/55 (88) Pulse Ox 99 100 100 100 O2 Delivery Ventilator Ventilator Ventilator Ventilator 04/13/20 04/13/20 04/13/20 04/13/20 05:00 05:33 06:00 07:00 Pulse 76 76 73 Resp 03 01 12 B/P (MAP) 148/55 (86) 159/56 (90) 153/59 (90) Pulse Ox 100 99 100 100 O2 Delivery Ventilator Ventilator Ventilator Ventilator 04/13/20 04/13/20 04/13/20 04/13/20 08:00 08:09 09:00 09:50 Temp 98.6 98.6 Pulse 87 88 102 Resp 12 B/P (MAP) 158/49 (85) 160/49 (86) 179/59 Pulse Ox 99 99 99 O2 Delivery Ventilator Ventilator Ventilator 04/13/20 04/13/20 04/13/20 04/13/20 10:00 11:00 12:00 12:10 Temp 98.1 98.1 Pulse 85 91 90 Resp 12 12 B/P (MAP) 158/57 (90) 178/54 (95) 175/53 (93) Pulse Ox 99 99 99 99 O2 Delivery Ventilator Ventilator Ventilator Ventilator 04/13/20 04/13/20 04/13/20 04/13/20 12:24 13:00 14:00 15:00 Pulse 79 83 84 Resp 12 12 12 12 B/P (MAP) 176/53 (94) 166/45 (85) 142/49 (80) Pulse Ox 99 100 100 100 O2 Delivery Ventilator Ventilator Ventilator Ventilator 04/13/20 04/13/20 04/13/20 04/13/20 16:00 16:15 17:00 18:00 Temp 98.4 98.4 Pulse 84 84 80 Resp 12 12 12 B/P (MAP) 135/47 (76) 140/48 (78) 149/46 (80) Pulse Ox 100 99 99 99 O2 Delivery Ventilator Ventilator Ventilator Ventilator Intake and Output 04/12/20 04/12/20 04/13/20 14:59 22:59 06:59 Intake Total 110 ml 745 ml 369.5 ml Output Total 660 ml 285 ml 310 ml Balance -550 ml 460 ml 59.5 ml Justicifation of Admission Dx: Justifications for Admission: Justification of Admission Dx: Yes (cardiac arrest) RODNEY GASCA MD Apr 13, 2020 19:50
[2020-04-14] VITALS (26 sets, daily range): BP systolic 103–176; BP diastolic 42–62
[2020-04-14] MEDS: PIPERACILLIN/TAZOBACTAM 2.25 GM in IV NORMAL SALINE 50ML 50 ML IV SCH ×4 (00:25→19:24)
[2020-04-14] MEDS: hydrALAZINE 20 MG/ML VIAL. IVP PRN (00:29)
[2020-04-14] MEDS: AMINO AC 3%/ELECTROLYTE/GLYCER 1,000 ML IV SCH ×2 (02:48→11:15)
[2020-04-14 05:38] LABS: BASO % 0 % (0-3); EOS # 0.1 x10^3/uL (0.0-0.7); EOS % 1 % (0-3); HEMATOCRIT 32.6 % (36.0-47.0); HEMOGLOBIN 11.1 g/dL (12.0-15.5); LYMPH # 1.5 x10^3/uL (1.0-4.8); LYMPH % 15 % (24-48); MEAN CORPUSCULAR HEMOGLOBIN 29 pg (25-35); MEAN CORPUSCULAR HGB CONC 34 g/dL (31-37); MEAN CORPUSCULAR VOLUME 85 fL (79-100); MONO # 0.7 x10^3/uL (0.0-1.1); MONO % 8 % (0-9); NEUT # 7.2 x10^3/uL (1.8-7.7); NEUT % 76 % (31-73); PLATELET COUNT 165 x10^3/uL (140-400); RED BLOOD COUNT 3.82 x10^6/uL (3.50-5.40); RED CELL DISTRIBUTION WIDTH 14.2 % (11.5-14.5); WHITE BLOOD COUNT 9.4 x10^3/uL (4.0-11.0)
[2020-04-14] MEDS ORDERED: BACITRACIN 50,000 UNIT in IV NORMAL SALINE 250ML 250 ML IRR ONE (06:00)
[2020-04-14 06:16] LABS: ALBUMIN 2.3 g/dL (3.4-5.0); ALBUMIN/GLOBULIN RATIO 0.6 (1.0-1.7); CALCIUM 8.4 mg/dL (8.5-10.1); CREATININE 0.9 mg/dL (0.6-1.0); GFR 75.1; POTASSIUM 3.7 mmol/L (3.5-5.1); TOTAL BILIRUBIN 1.5 mg/dL (0.2-1.0); TOTAL PROTEIN 5.9 g/dL (6.4-8.2)
[2020-04-14] MEDS: MIDAZOLAM 100mg/100ml NS BAG 100 ML IV PRN (06:41)
--- NOTE | 2020-04-14 07:51 | NUR ---
Call from technology lab teacher "permanent pacer " placement. Call larry gaitan 2 RN phone permission obtained
[2020-04-14 08:01] LABS: BASE EXCESS ABG 7 mmol/L (-3-3); HCO3 ABG 32 mmol/L (21-28); PCO2 ABG 47 mmHg (35-46); PO2 ABG 111 mmHg (65-108); SAT O2 ABG 98 % (92-99)
[2020-04-14 08:03] LABS: FIO2 ABG 30
[2020-04-14] MEDS: METOCLOPRAMIDE HCL 10 MG/2 ML VIAL. IVP SCH (08:19)
[2020-04-14] MEDS: PANTOPRAZOLE IV PUSH 40 MG VIAL. IVP SCH (08:30)
[2020-04-14] MEDS: HEPARIN for SUB-Q USE 5,000 UNIT/ML VIAL. SQ SCH ×2 (09:00→20:39)
[2020-04-14] MEDS ORDERED: LIDOCAINE 2%/EPI 1:100,000 20 ML VIAL. ONE (09:01)
[2020-04-14] MEDS: IV 1/2 NORMAL SALINE 1,000 ML IV SCH (09:15)
--- NOTE | 2020-04-14 09:43 | PDOC ---
MODERATE SEDATION ASSESSMENT RISKS/ALTERNATIVES Risks/Alternatives Risks and alternatives of this type of sedation and procedure discussed with: RISK/ALTERNATIVES: Patient H & P ON CHART H & P H & P on chart and reviewed for co-morbid conditions and appropriate labs. H&P ON CHART: Yes STATUS PREG STATUS ASSESSED: N/A MEDS/ALLERGIES REVIEWED Meds/Allergies Reviewed Medications and Allergies including time and route of recently administered narcotics and sedatives. MEDS/ALLERGIES REVIEWED: Yes ASA RATING ASA RATING: III AIRWAY ASSESSMENT Airway Assessment Airway patency, oral function limitations, presence of caps, crowns, dentures, partials, and ability to extend neck assessed. AIRWAY ASSESSMENT: Yes MALLAMPATI SCORE MALLAMPATI SCORE: II PRE-SEDATION ASSESSMENT PRE-SEDATION ASSESSMENT: Yes LILIBETH VÁZQUEZ MD Apr 14, 2020 09:43
[2020-04-14] MEDS ORDERED: LIDOCAINE 1%/EPI 1:100,000 20 ML VIAL. INJ ONE (10:00)
--- NOTE | 2020-04-14 10:08 | NUR ---
[id number] Unsuccessful attempt to start #2 opposite side IV . To laboratory engineer ,bagged/monitored.
--- NOTE | 2020-04-14 10:58 | CARD ---
MR#: [id number] Date of Study: 04/14/2020 Ordering Physician: LILIBETH POLLARD, Referring Physician: LILIBETH POLLARD, Tech: APPROVED REPORT PROCEDURES Implantation of Biotronik dual-chamber permanent pacemaker fl time: 3.0 mins dose: 8 gycm2 moderate sedation: 104 MINS Estimated blood loss: 10 ml INDICATIONS Complete heart block with symptomatic bradycardia and syncope After explaining the risk, benefits and alternative options, informed consent was obtained from torito gaona's family since she was intubated. She was brought to the cardiac [facility] and her left chest and shoulder were prepped and draped in the usual fashion. 30 cc of 2% lidocaine was infiltrated into th e skin and subcutaneous tissues for local anesthesia. Venous access was obtained in the left subclav kimani vein and 9 and 7 Maced[place] sheaths inserted. A Biotronik bipolar active fixation right ventricular lead model Solia, serial #[id number] was advance d under fluoroscopic guidance and the tip was positioned in the right ventricular apex. Following th is, a Biotronik bipolar active fixation right atrial lead model Solia, serial #[id number] was position ed in the right atrial appendage under fluoroscopic guidance. The leads were secured into place and were attached to a Biotronik dual-chamber permanent pacemaker generator model Edora 8 DR-T, serial #[id number]. This was placed in the pocket that was subsequently closed in 3 layers. Hemostasis was sec ured. The right ventricular lead showed a sensing amplitude of 7 mV, impedance of 605 ohms and a threshold of 0.5 V. The right atrial lead showed a sensing amplitude of 2.4 mV, impedance of 450 ohms and a th reshold of 0.8. Patient tolerated the procedure well. There were no immediate complications. CONCLUSION Successful implantation of Biotronik dual-chamber permanent pacemaker for complete heart block and se humphrey symptomatic bradycardia. Signed by : Lilibeth Pollard, Electronically Approved : 04/14/2020 10:58:07
--- NOTE | 2020-04-14 11:02 | PDOC ---
PROGRESS NOTES Date of Service DATE: 04/14/20 TIME: 10:58 Assessment Anoxic encephalopathy AV ventricular block, congestive heart failure, hypertensive urgency Plan EEG would not be helpful No need for repeat head CT Note pacemaker plans Continue medical management. Subjective None Objective Vital Signs Date Time Temp Pulse Resp B/P (MAP) Pulse Ox O2 Delivery O2 Flow Rate FiO2 04/14/20 10:27 85 16 95 Ventilator 04/14/20 08:26 15.0 04/14/20 08:20 122/45 04/14/20 08:00 97.9 97.9 Intake and Output 04/14/20 07:00 Intake Total 1622 ml Output Total 1115 ml Balance 507 ml Intake Oral 0 ml IV Total 1622 ml Output Urine Total 1115 ml PHYSICAL EXAM Intubated sedated PERRL. EOMI. CN: no focal findings. Muscle tone: normal. Muscle strength: Minimal withdrawal to pain DTR: 1+ Plantar reflex: Silent Gait: not examined in bed. Sensory exam: Not cooperative. Cerebellar: Not cooperative Review of Relevant I have reviewed the following items donn (where applicable) has been applied. Labs Laboratory Tests Test 04/13/20 05:45 04/13/20 09:15 04/14/20 05:00 04/14/20 07:58 White Blood Count 11.3 x10^3/uL (4.0-11.0) 9.4 x10^3/uL (4.0-11.0) Red Blood Count 4.02 x10^6/uL (3.50-5.40) 3.82 x10^6/uL (3.50-5.40) Hemoglobin 11.4 g/dL (12.0-15.5) 11.1 g/dL (12.0-15.5) Hematocrit 34.2 % (36.0-47.0) 32.6 % (36.0-47.0) Mean Corpuscular Volume 85 fL (79-100) 85 fL (79-100) Mean Corpuscular Hemoglobin 28 pg (25-35) 29 pg (25-35) Mean Corpuscular Hemoglobin Concent 33 g/dL (31-37) 34 g/dL (31-37) Red Cell Distribution Width 14.0 % (11.5-14.5) 14.2 % (11.5-14.5) Platelet Count 191 x10^3/uL (140-400) 165 x10^3/uL (140-400) Neutrophils (%) (Auto) 79 % (31-73) 76 % (31-73) Lymphocytes (%) (Auto) 15 % (24-48) 15 % (24-48) Monocytes (%) (Auto) 6 % (0-9) 8 % (0-9) Eosinophils (%) (Auto) 0 % (0-3) 1 % (0-3) Basophils (%) (Auto) 0 % (0-3) 0 % (0-3) Neutrophils # (Auto) 8.9 x10^3/uL (1.8-7.7) 7.2 x10^3/uL (1.8-7.7) Lymphocytes # (Auto) 1.6 x10^3/uL (1.0-4.8) 1.5 x10^3/uL (1.0-4.8) Monocytes # (Auto) 0.7 x10^3/uL (0.0-1.1) 0.7 x10^3/uL (0.0-1.1) Eosinophils # (Auto) 0.0 x10^3/uL (0.0-0.7) 0.1 x10^3/uL (0.0-0.7) Basophils # (Auto) 0.0 x10^3/uL (0.0-0.2) 0.0 x10^3/uL (0.0-0.2) Sodium Level 148 mmol/L (136-145) 144 mmol/L (136-145) Potassium Level 2.9 mmol/L (3.5-5.1) 3.7 mmol/L (3.5-5.1) Chloride Level 107 mmol/L (98-107) 107 mmol/L (98-107) Carbon Dioxide Level 32 mmol/L (21-32) 31 mmol/L (21-32) Anion Gap 9 (6-14) 6 (6-14) Blood Urea Nitrogen 26 mg/dL (7-20) 24 mg/dL (7-20) Creatinine 1.3 mg/dL (0.6-1.0) 0.9 mg/dL (0.6-1.0) Estimated GFR (Cockcroft-Gault) 49.1 75.1 BUN/Creatinine Ratio 20 (6-20) 27 (6-20) Glucose Level 108 mg/dL (70-99) 105 mg/dL (70-99) Calcium Level 8.3 mg/dL (8.5-10.1) 8.4 mg/dL (8.5-10.1) Total Bilirubin 1.8 mg/dL (0.2-1.0) 1.5 mg/dL (0.2-1.0) Aspartate Amino Transf (AST/SGOT) 67 U/L (15-37) 33 U/L (15-37) Alanine Aminotransferase (ALT/SGPT) 185 U/L (14-59) 119 U/L (14-59) Alkaline Phosphatase 64 U/L (46-116) 53 U/L (46-116) Total Protein 5.6 g/dL (6.4-8.2) 5.9 g/dL (6.4-8.2) Albumin 2.8 g/dL (3.4-5.0) 2.3 g/dL (3.4-5.0) Albumin/Globulin Ratio 1.0 (1.0-1.7) 0.6 (1.0-1.7) O2 Saturation 98 % (92-99) 98 % (92-99) Arterial Blood pH 7.43 (7.35-7.45) 7.45 (7.35-7.45) Arterial Blood pCO2 at Patient Temp 49 mmHg (35-46) 47 mmHg (35-46) Arterial Blood pO2 at Patient Temp 127 mmHg (65-108) 111 mmHg (65-108) Arterial Blood HCO3 32 mmol/L (21-28) 32 mmol/L (21-28) Arterial Blood Base Excess 7 mmol/L (-3-3) 7 mmol/L (-3-3) FiO2 50 30 Magnesium Level 2.1 mg/dL (1.8-2.4) Laboratory Tests Test 04/14/20 05:00 04/14/20 07:58 White Blood Count 9.4 x10^3/uL (4.0-11.0) Red Blood Count 3.82 x10^6/uL (3.50-5.40) Hemoglobin 11.1 g/dL (12.0-15.5) Hematocrit 32.6 % (36.0-47.0) Mean Corpuscular Volume 85 fL (79-100) Mean Corpuscular Hemoglobin 29 pg (25-35) Mean Corpuscular Hemoglobin Concent 34 g/dL (31-37) Red Cell Distribution Width 14.2 % (11.5-14.5) Platelet Count 165 x10^3/uL (140-400) Neutrophils (%) (Auto) 76 % (31-73) Lymphocytes (%) (Auto) 15 % (24-48) Monocytes (%) (Auto) 8 % (0-9) Eosinophils (%) (Auto) 1 % (0-3) Basophils (%) (Auto) 0 % (0-3) Neutrophils # (Auto) 7.2 x10^3/uL (1.8-7.7) Lymphocytes # (Auto) 1.5 x10^3/uL (1.0-4.8) Monocytes # (Auto) 0.7 x10^3/uL (0.0-1.1) Eosinophils # (Auto) 0.1 x10^3/uL (0.0-0.7) Basophils # (Auto) 0.0 x10^3/uL (0.0-0.2) Sodium Level 144 mmol/L (136-145) Potassium Level 3.7 mmol/L (3.5-5.1) Chloride Level 107 mmol/L (98-107) Carbon Dioxide Level 31 mmol/L (21-32) Anion Gap 6 (6-14) Blood Urea Nitrogen 24 mg/dL (7-20) Creatinine 0.9 mg/dL (0.6-1.0) Estimated GFR (Cockcroft-Gault) 75.1 BUN/Creatinine Ratio 27 (6-20) Glucose Level 105 mg/dL (70-99) Calcium Level 8.4 mg/dL (8.5-10.1) Magnesium Level 2.1 mg/dL (1.8-2.4) Total Bilirubin 1.5 mg/dL (0.2-1.0) Aspartate Amino Transf (AST/SGOT) 33 U/L (15-37) Alanine Aminotransferase (ALT/SGPT) 119 U/L (14-59) Alkaline Phosphatase 53 U/L (46-116) Total Protein 5.9 g/dL (6.4-8.2) Albumin 2.3 g/dL (3.4-5.0) Albumin/Globulin Ratio 0.6 (1.0-1.7) O2 Saturation 98 % (92-99) Arterial Blood pH 7.45 (7.35-7.45) Arterial Blood pCO2 at Patient Temp 47 mmHg (35-46) Arterial Blood pO2 at Patient Temp 111 mmHg (65-108) Arterial Blood HCO3 32 mmol/L (21-28) Arterial Blood Base Excess 7 mmol/L (-3-3) FiO2 30 Microbiology 04/11/20 Blood Culture - Preliminary, Resulted NO GROWTH AFTER 3 DAYS Medications Current Medications Fentanyl Citrate (Fentanyl 2ml Vial) 100 mcg STK-MED ONCE .ROUTE ; Start 04/11/20 at 02:53; Stop 04/11/20 at 02:53; Status DC Hydromorphone HCl (Dilaudid) 2 mg STK-MED ONCE .ROUTE ; Start 04/11/20 at 02:57; Stop 04/11/20 at 02:57; Status DC Epinephrine HCl 5 mg/Sodium Chloride 255 ml @ 22.208 mls/ hr CONT PRN IV SEE I/O RECORD; Start 04/11/20 at 03:15; Stop 04/11/20 at 09:00; Status DC Propofol 100 ml @ As Directed STK-MED ONCE IV ; Start 04/11/20 at 03:14; Stop 04/11/20 at 03:14; Status DC Midazolam HCl 100 ml @ 1 mls/hr 1X ONCE IV Last administered on 04/11/20at 11:04; Start 04/11/20 at 03:45; Stop 04/12/20 at 00:39; Status DC Piperacillin Sod/ Tazobactam Sod (Zosyn Per Pharmacy) 1 each PRN DAILY PRN MC SEE COMMENTS; Start 04/11/20 at 04:00 Vancomycin HCl (Vanco Per Pharmacy) 1 each PRN DAILY PRN MC SEE COMMENTS; Start 04/11/20 at 04:00; Stop 04/11/20 at 13:35; Status DC Metronidazole 100 ml @ 100 mls/hr 1X ONCE IV ; Start 04/11/20 at 04:30; Stop 04/11/20 at 05:29; Status DC Dexamethasone Sodium Phosphate (Decadron) 10 mg 1X ONCE IV Last administered on 04/11/20at 04:54; Start 04/11/20 at 04:30; Stop 04/11/20 at 04:31; Status DC Magnesium Sulfate 50 ml @ 25 mls/hr 1X ONCE IV Last administered on 04/11/20at 04:58; Start 04/11/20 at 04:30; Stop 04/11/20 at 19:14; Status DC Furosemide (Lasix) 100 mg 1X ONCE IVP Last administered on 04/11/20at 04:32; Start 04/11/20 at 04:15; Stop 04/11/20 at 04:27; Status DC Vancomycin HCl 1.75 gm/Sodium Chloride 500 ml @ 250 mls/hr 1X ONCE IV ; Start 04/11/20 at 05:00; Stop 04/11/20 at 06:59; Status DC Piperacillin Sod/ Tazobactam Sod 3.375 gm/Sodium Chloride 50 ml @ 100 mls/hr 1X ONCE IV Last administered on 04/11/20at 05:43; Start 04/11/20 at 05:00; Stop 04/11/20 at 05:29; Status DC Dopamine HCl/ Dextrose 250 ml @ 19.561 mls/ hr CONT PRN IV SEE I/O RECORD Last administered on 04/13/20at 07:22; Start 04/11/20 at 06:15 Hydromorphone HCl (Dilaudid) 2 mg 1X ONCE IVP ; Start 04/11/20 at 06:15; Stop 04/11/20 at 06:27; Status DC Fentanyl Citrate (Fentanyl 2ml Vial) 100 mcg 1X ONCE IVP ; Start 04/11/20 at 06:15; Stop 04/11/20 at 06:27; Status DC Etomidate (Amidate) 20 mg 1X ONCE IV Last administered on 04/11/20at 03:12; Start 04/11/20 at 06:15; Stop 04/11/20 at 06:27; Status DC Succinylcholine Chloride (Anectine) 100 mg 1X ONCE IV Last administered on 04/11/20at 03:13; Start 04/11/20 at 06:15; Stop 04/11/20 at 06:27; Status DC Piperacillin Sod/ Tazobactam Sod 2.25 gm/Sodium Chloride 50 ml @ 100 mls/hr Q6HRS IV Last administered on 04/14/20at 05:42; Start 04/11/20 at 12:00 Fentanyl Citrate (Fentanyl 2ml Vial) 100 mcg 1X ONCE IV ; Start 04/11/20 at 07:00; Stop 04/11/20 at 19:40; Status DC Magnesium Sulfate/ Dextrose 100 ml @ 100 mls/hr 1X ONCE IV ; Start 04/11/20 at 07:30; Stop 04/11/20 at 14:52; Status DC Buspirone HCl (Buspar) 30 mg Q8H NG Last administered on 04/11/20at 15:30; Start 04/11/20 at 08:00; Stop 04/11/20 at 19:40; Status DC Acetaminophen (Tylenol) 650 mg Q4H NG Last administered on 04/11/20at 15:29; Start 04/11/20 at 07:00; Stop 04/11/20 at 19:40; Status DC Glycerin/ Hypromellose/ Polyethylene (Artificial Tears) 1 drop Q6HRS OU Last administered on 04/11/20at 13:30; Start 04/11/20 at 12:00; Stop 04/11/20 at 19:40; Status DC Glycerin/ Hypromellose/ Polyethylene (Artificial Tears) 1 drop PRN Q15MIN PRN OU DRY EYE; Start 04/11/20 at 07:00; Stop 04/11/20 at 19:40; Status DC Pantoprazole Sodium (PROTONIX VIAL for IV PUSH) 40 mg DAILY IVP ; Start 04/11/20 at 09:00; Stop 04/11/20 at 07:31; Status DC Fentanyl Citrate 30 ml @ 2.5 mls/hr CONT PRN IV PER PROTOCOL. Last administered on 04/14/20at 06:42; Start 04/11/20 at 07:00 Propofol 100 ml @ 6.258 mls/ hr CONT PRN IV PER PROTOCOL.; Start 04/11/20 at 07:00 Norepinephrine Bitartrate 32 mg/ Dextrose 250 ml @ 4.889 mls/ hr CONT PRN IV SEE I/O RECORD; Start 04/11/20 at 07:15 Fentanyl Citrate (Fentanyl 2ml Vial) 100 mcg 1X ONCE IV ; Start 04/11/20 at 07:15; Stop 04/11/20 at 07:30; Status DC Heparin Sodium (Porcine) (Heparin Sodium) 5,000 unit BID SQ Last administered on 04/13/20at 21:01; Start 04/11/20 at 09:00 Pantoprazole Sodium (PROTONIX VIAL for IV PUSH) 40 mg DAILY IVP Last administered on 04/14/20at 08:30; Start 04/11/20 at 09:00 Fentanyl Citrate 30 ml @ 0 mls/hr CONT PRN IV PER PROTOCOL.; Start 04/11/20 at 07:15; Stop 04/11/20 at 07:31; Status DC Propofol 100 ml @ 0 mls/hr CONT PRN IV PER PROTOCOL.; Start 04/11/20 at 07:15; Stop 04/11/20 at 07:31; Status DC Midazolam HCl 100 ml @ 2 mls/hr CONT PRN IV PER PROTOCOL; Start 04/11/20 at 07:15; Status Cancel Epinephrine HCl 10 mg/Sodium Chloride 250 ml @ 15.645 mls/ hr CONT PRN IV SEE I/O RECORD; Start 04/11/20 at 07:30 Metronidazole (FLAGYL 500Mmg PREMIX) 500 mg STK-MED ONCE IV ; Start 04/11/20 at 04:00; Stop 04/11/20 at 08:43; Status DC Sodium Chloride 1,000 ml @ 10 mls/hr Q24H IV Last administered on 04/13/20at 08:27; Start 04/11/20 at 09:15 Potassium Chloride/Water 100 ml @ 100 mls/hr 1X ONCE IV Last administered on 04/11/20at 13:27; Start 04/11/20 at 10:00; Stop 04/11/20 at 10:59; Status DC Potassium Chloride (Klor-Con) 40 meq 1X ONCE PO ; Start 04/11/20 at 10:45; Stop 04/11/20 at 10:46; Status UNV Potassium Chloride (Klor-Con) 40 meq Q2H PO ; Start 04/11/20 at 10:45; Stop 04/11/20 at 12:46; Status UNV Magnesium Sulfate 100 ml @ 50 mls/hr DAILY IV ; Start 04/12/20 at 09:00; Stop 04/15/20 at 08:59; Status UNV Info (Icu Electrolyte Protocol) 1 ea CONT PRN PRN MC PER PROTOCOL; Start 04/11/20 at 10:45 Furosemide (Lasix) 40 mg 1X ONCE IVP Last administered on 04/11/20at 13:29; Start 04/11/20 at 11:00; Stop 04/11/20 at 11:01; Status DC Linezolid/Dextrose 300 ml @ 300 mls/hr Q12HR IV Last administered on 04/14/20at 08:18; Start 04/11/20 at 14:00 Metoprolol Tartrate (Lopressor Vial) 5 mg 1X ONCE IVP ; Start 04/11/20 at 14:45; Stop 04/11/20 at 14:52; Status DC Metoprolol Tartrate (Lopressor Vial) 5 mg PRN Q5MIN PRN IVP TACHYCARDIA; Start 04/11/20 at 14:45; Stop 04/11/20 at 14:52; Status DC Enalaprilat (Vasotec Inj) 1.25 mg PRN Q6HRS PRN IVP HYPERTENSION; Start 04/11/20 at 15:15; Stop 04/11/20 at 19:14; Status DC Amlodipine Besylate (Norvasc) 5 mg DAILY PO Last administered on 04/14/20at 08:20; Start 04/12/20 at 09:00 Amlodipine Besylate (Norvasc) 5 mg 1X ONCE PO ; Start 04/11/20 at 15:15; Stop 04/11/20 at 15:16; Status Cancel Amlodipine Besylate (Norvasc) 10 mg 1X ONCE NG Last administered on 04/11/20at 15:28; Start 04/11/20 at 15:15; Stop 04/11/20 at 15:18; Status DC Calcium Chloride (Calcium Chloride) 1,000 mg STK-MED ONCE .ROUTE ; Start 04/11/20 at 12:00; Stop 04/11/20 at 16:17; Status DC Epinephrine HCl (EPINEPHrine SYRINGE) 2 mg STK-MED ONCE .ROUTE ; Start 04/11/20 at 12:00; Stop 04/11/20 at 16:17; Status DC Sodium Bicarbonate (Sodium Bicarb Adult 8.4% Syr) 100 meq STK-MED ONCE .ROUTE ; Start 04/11/20 at 12:00; Stop 04/11/20 at 16:17; Status DC Dopamine HCl/ Dextrose (DOPamine 400MG/ 250ML PREMIX) 400 mg STK-MED ONCE IV ; Start 04/11/20 at 12:00; Stop 04/11/20 at 16:17; Status DC Midazolam HCl 100 ml @ 0 mls/hr CONT PRN IV SEE I/O RECORD; Start 04/11/20 at 17:30; Status Cancel Hydralazine HCl (Apresoline Inj) 10 mg PRN Q4HRS PRN IVP ELEVATED BP, SEE COMMENTS Last administered on 04/14/20at 00:29; Start 04/11/20 at 18:45 Midazolam HCl 100 ml @ 1 mls/hr CONT PRN IV SEE I/O RECORD Last administered on 04/14/20at 06:41; Start 04/12/20 at 00:30 Potassium Chloride/Water 100 ml @ 100 mls/hr Q1H IV Last administered on 04/13/20at 09:20; Start 04/13/20 at 06:30; Stop 04/13/20 at 10:29; Status DC Amino Acids/ Glycerin/ Electrolytes 1,000 ml @ 80 mls/hr [id number] IV Last administered on 04/14/20at 02:48; Start 04/13/20 at 10:15 Metoclopramide HCl (Reglan Vial) 10 mg DAILY IVP Last administered on 04/14/20at 08:19; Start 04/13/20 at 10:15 Bacitracin 76221 unit/Sodium Chloride 250 ml @ 250 mls/hr 1X ONCE IRR Last administered on 04/14/20at 06:00; Start 04/14/20 at 06:00; Stop 04/14/20 at 08:26; Status DC Lidocaine/ Epinephrine (LIDOCAINE 2%-EPI 1:100,000 multi-dose) 20 ml STK-MED ONCE .ROUTE ; Start 04/14/20 at 09:01; Stop 04/14/20 at 09:01; Status DC Lidocaine/ Epinephrine (LIDOCAINE 1%-EPI 1:100,000 Multi-Dose) 40 ml 1X ONCE INJ Last administered on 04/14/20at 10:00; Start 04/14/20 at 10:00; Stop 04/14/20 at 10:01; Status DC Oxycodone/ Acetaminophen (Percocet 5/325) 1 tab PRN Q4HRS PRN PO PAIN; Start 04/14/20 at 10:30 Vitals/I & O Vital Sign - Last 24 Hours 04/13/20 04/13/20 04/13/20 04/13/20 11:00 12:00 12:10 12:24 Temp 98.1 98.1 Pulse 91 90 Resp 12 12 12 B/P (MAP) 178/54 (95) 175/53 (93) Pulse Ox 99 99 99 99 O2 Delivery Ventilator Ventilator Ventilator Ventilator 04/13/20 04/13/20 04/13/20 04/13/20 13:00 14:00 15:00 16:00 Temp 98.4 98.4 Pulse 79 83 84 84 Resp 12 12 12 12 B/P (MAP) 176/53 (94) 166/45 (85) 142/49 (80) 135/47 (76) Pulse Ox 100 100 100 100 O2 Delivery Ventilator Ventilator Ventilator Ventilator 04/13/20 04/13/20 04/13/20 04/13/20 16:15 17:00 18:00 19:00 Pulse 84 80 74 Resp 12 12 12 B/P (MAP) 140/48 (78) 149/46 (80) 146/46 (79) Pulse Ox 99 99 99 99 O2 Delivery Ventilator Ventilator Ventilator Ventilator 04/13/20 04/13/20 04/13/20 04/13/20 19:52 20:00 20:00 21:00 Temp 99.3 99.3 Pulse 74 78 Resp 12 12 B/P (MAP) 148/46 (80) 190/60 (103) 121/50 (73) Pulse Ox 99 99 100 O2 Delivery Ventilator Ventilator Mechanical Ventilator Ventilator 04/13/20 04/13/20 04/13/20 04/14/20 22:00 23:00 23:59 00:00 Temp 98.4 98.4 Pulse 88 73 72 Resp 12 12 12 B/P (MAP) 194/64 (107) 174/57 (96) 176/58 (97) Pulse Ox 100 100 100 O2 Delivery Ventilator Ventilator Mechanical Ventilator Ventilator 04/14/20 04/14/20 04/14/20 04/14/20 00:29 00:37 01:00 02:00 Pulse 72 74 76 Resp 12 12 B/P (MAP) 191/79 114/42 (66) 136/49 (78) Pulse Ox 100 99 99 O2 Delivery Ventilator Ventilator Ventilator 04/14/20 04/14/20 04/14/20 04/14/20 03:00 04:00 04:00 05:00 Temp 97.9 97.9 Pulse 74 84 74 Resp 12 12 12 B/P (MAP) 142/50 (80) 158/52 (87) 160/54 (89) Pulse Ox 99 100 100 O2 Delivery Ventilator Mechanical Ventilator Ventilator Ventilator 04/14/20 04/14/20 04/14/20 04/14/20 05:15 06:00 06:42 07:00 Temp 97.5 97.5 Pulse 74 68 Resp 12 12 B/P (MAP) 166/56 (92) 134/48 (76) Pulse Ox 100 100 100 O2 Delivery Ventilator Ventilator Ventilator Ventilator 04/14/20 04/14/20 04/14/20 04/14/20 07:55 08:00 08:00 08:20 Temp 97.9 97.9 Pulse 68 75 Resp 12 B/P (MAP) 148/52 (84) 122/45 Pulse Ox 100 100 O2 Delivery Ventilator Ventilator Mechanical Ventilator 04/14/20 04/14/20 08:26 10:27 Pulse 85 Resp 16 Pulse Ox 100 95 O2 Delivery Ventilator O2 Flow Rate 15.0 Intake and Output 04/13/20 04/13/20 04/14/20 15:00 23:00 07:00 Intake Total 300 ml 1322 ml Output Total 455 ml 350 ml 310 ml Balance -455 ml -50 ml 1012 ml Justicifation of Admission Dx: Justifications for Admission: Justification of Admission Dx: Yes (cardiac arrest) CAMDEN TUCKER MD Apr 14, 2020 11:02
--- NOTE | 2020-04-14 12:28 | RAD ---
Exam performed: One view chest. Indication: Reason: 114 - Post pacemaker - RN to call / Spl. Instructions: / History: Date of Service: 04/14/2020 11:34 AM Comparison: None available. Single AP upright portable view chest findings: Cardiomediastinal silhouette is stable. There is interval placement of a bipolar pacemaker. Endotrach eal tube and feeding tubes are in similar position as previously. Haziness seen previously in both alessandra ngs is improved. No acute infiltrates, effusion or pneumothorax is detected. Multiple surgical clips are seen in the left axillary region. The bony structures are normal. Impression: Interval placement of a left-sided pacemaker with leads in size slightly position. No acute cardiopulmonary process is detected. Electronically signed by: Tri Domingo MD (04/14/2020 12:26 PM) [id number]
--- NOTE | 2020-04-14 12:39 | PDOC ---
PULMONARY PROGRESS NOTES DATE: 04/14/20 TIME: 12:35 Subjective Patient remains on ventilatory support Afebrile S/P permanent pacemaker No other concerns from nursing Vitals Vital Signs Date Time Temp Pulse Resp B/P (MAP) Pulse Ox O2 Delivery O2 Flow Rate FiO2 04/14/20 12:10 100 Ventilator 04/14/20 12:00 78 12 161/55 (90) 04/14/20 11:15 98.8 98.8 04/14/20 08:26 15.0 Comments sedated on vent ros unable to obtain HEENT: Other (nc at perrl nose clear orally intubated neck no lad no thyromegaly) Lungs: Crackles Cardiovascular: S1, S2 Abdomen: Soft, Non-tender Extremities: Other Skin: Warm Labs Laboratory Tests Test 04/13/20 05:45 04/13/20 09:15 04/14/20 05:00 04/14/20 07:58 White Blood Count 11.3 x10^3/uL (4.0-11.0) 9.4 x10^3/uL (4.0-11.0) Red Blood Count 4.02 x10^6/uL (3.50-5.40) 3.82 x10^6/uL (3.50-5.40) Hemoglobin 11.4 g/dL (12.0-15.5) 11.1 g/dL (12.0-15.5) Hematocrit 34.2 % (36.0-47.0) 32.6 % (36.0-47.0) Mean Corpuscular Volume 85 fL (79-100) 85 fL (79-100) Mean Corpuscular Hemoglobin 28 pg (25-35) 29 pg (25-35) Mean Corpuscular Hemoglobin Concent 33 g/dL (31-37) 34 g/dL (31-37) Red Cell Distribution Width 14.0 % (11.5-14.5) 14.2 % (11.5-14.5) Platelet Count 191 x10^3/uL (140-400) 165 x10^3/uL (140-400) Neutrophils (%) (Auto) 79 % (31-73) 76 % (31-73) Lymphocytes (%) (Auto) 15 % (24-48) 15 % (24-48) Monocytes (%) (Auto) 6 % (0-9) 8 % (0-9) Eosinophils (%) (Auto) 0 % (0-3) 1 % (0-3) Basophils (%) (Auto) 0 % (0-3) 0 % (0-3) Neutrophils # (Auto) 8.9 x10^3/uL (1.8-7.7) 7.2 x10^3/uL (1.8-7.7) Lymphocytes # (Auto) 1.6 x10^3/uL (1.0-4.8) 1.5 x10^3/uL (1.0-4.8) Monocytes # (Auto) 0.7 x10^3/uL (0.0-1.1) 0.7 x10^3/uL (0.0-1.1) Eosinophils # (Auto) 0.0 x10^3/uL (0.0-0.7) 0.1 x10^3/uL (0.0-0.7) Basophils # (Auto) 0.0 x10^3/uL (0.0-0.2) 0.0 x10^3/uL (0.0-0.2) Sodium Level 148 mmol/L (136-145) 144 mmol/L (136-145) Potassium Level 2.9 mmol/L (3.5-5.1) 3.7 mmol/L (3.5-5.1) Chloride Level 107 mmol/L (98-107) 107 mmol/L (98-107) Carbon Dioxide Level 32 mmol/L (21-32) 31 mmol/L (21-32) Anion Gap 9 (6-14) 6 (6-14) Blood Urea Nitrogen 26 mg/dL (7-20) 24 mg/dL (7-20) Creatinine 1.3 mg/dL (0.6-1.0) 0.9 mg/dL (0.6-1.0) Estimated GFR (Cockcroft-Gault) 49.1 75.1 BUN/Creatinine Ratio 20 (6-20) 27 (6-20) Glucose Level 108 mg/dL (70-99) 105 mg/dL (70-99) Calcium Level 8.3 mg/dL (8.5-10.1) 8.4 mg/dL (8.5-10.1) Total Bilirubin 1.8 mg/dL (0.2-1.0) 1.5 mg/dL (0.2-1.0) Aspartate Amino Transf (AST/SGOT) 67 U/L (15-37) 33 U/L (15-37) Alanine Aminotransferase (ALT/SGPT) 185 U/L (14-59) 119 U/L (14-59) Alkaline Phosphatase 64 U/L (46-116) 53 U/L (46-116) Total Protein 5.6 g/dL (6.4-8.2) 5.9 g/dL (6.4-8.2) Albumin 2.8 g/dL (3.4-5.0) 2.3 g/dL (3.4-5.0) Albumin/Globulin Ratio 1.0 (1.0-1.7) 0.6 (1.0-1.7) O2 Saturation 98 % (92-99) 98 % (92-99) Arterial Blood pH 7.43 (7.35-7.45) 7.45 (7.35-7.45) Arterial Blood pCO2 at Patient Temp 49 mmHg (35-46) 47 mmHg (35-46) Arterial Blood pO2 at Patient Temp 127 mmHg (65-108) 111 mmHg (65-108) Arterial Blood HCO3 32 mmol/L (21-28) 32 mmol/L (21-28) Arterial Blood Base Excess 7 mmol/L (-3-3) 7 mmol/L (-3-3) FiO2 50 30 Magnesium Level 2.1 mg/dL (1.8-2.4) Laboratory Tests Test 04/14/20 05:00 04/14/20 07:58 White Blood Count 9.4 x10^3/uL (4.0-11.0) Red Blood Count 3.82 x10^6/uL (3.50-5.40) Hemoglobin 11.1 g/dL (12.0-15.5) Hematocrit 32.6 % (36.0-47.0) Mean Corpuscular Volume 85 fL (79-100) Mean Corpuscular Hemoglobin 29 pg (25-35) Mean Corpuscular Hemoglobin Concent 34 g/dL (31-37) Red Cell Distribution Width 14.2 % (11.5-14.5) Platelet Count 165 x10^3/uL (140-400) Neutrophils (%) (Auto) 76 % (31-73) Lymphocytes (%) (Auto) 15 % (24-48) Monocytes (%) (Auto) 8 % (0-9) Eosinophils (%) (Auto) 1 % (0-3) Basophils (%) (Auto) 0 % (0-3) Neutrophils # (Auto) 7.2 x10^3/uL (1.8-7.7) Lymphocytes # (Auto) 1.5 x10^3/uL (1.0-4.8) Monocytes # (Auto) 0.7 x10^3/uL (0.0-1.1) Eosinophils # (Auto) 0.1 x10^3/uL (0.0-0.7) Basophils # (Auto) 0.0 x10^3/uL (0.0-0.2) Sodium Level 144 mmol/L (136-145) Potassium Level 3.7 mmol/L (3.5-5.1) Chloride Level 107 mmol/L (98-107) Carbon Dioxide Level 31 mmol/L (21-32) Anion Gap 6 (6-14) Blood Urea Nitrogen 24 mg/dL (7-20) Creatinine 0.9 mg/dL (0.6-1.0) Estimated GFR (Cockcroft-Gault) 75.1 BUN/Creatinine Ratio 27 (6-20) Glucose Level 105 mg/dL (70-99) Calcium Level 8.4 mg/dL (8.5-10.1) Magnesium Level 2.1 mg/dL (1.8-2.4) Total Bilirubin 1.5 mg/dL (0.2-1.0) Aspartate Amino Transf (AST/SGOT) 33 U/L (15-37) Alanine Aminotransferase (ALT/SGPT) 119 U/L (14-59) Alkaline Phosphatase 53 U/L (46-116) Total Protein 5.9 g/dL (6.4-8.2) Albumin 2.3 g/dL (3.4-5.0) Albumin/Globulin Ratio 0.6 (1.0-1.7) O2 Saturation 98 % (92-99) Arterial Blood pH 7.45 (7.35-7.45) Arterial Blood pCO2 at Patient Temp 47 mmHg (35-46) Arterial Blood pO2 at Patient Temp 111 mmHg (65-108) Arterial Blood HCO3 32 mmol/L (21-28) Arterial Blood Base Excess 7 mmol/L (-3-3) FiO2 [address] of chest reviewed 1. Satisfactory endotracheal intubation with no pneumothorax. 2. Near confluent bilateral airspace opacities with subpleural sparing at the apices. Query pulmonary edema or ARDS. 3. Nondisplaced acute sternal fracture. CXR Impression: Interval placement of a left-sided pacemaker with leads in size slightly position. No acute cardiopulmonary process is detected. Impression . IMPRESSION: 1. Acute hypoxic and hypercapnic respiratory failure secondary to cardiac arrest with complete heart block. She also has diffuse bilateral alveolar infiltrates, likely cardiogenic pulmonary edema, but cannot exclude aspiration pneumonia. 2. COVID negative. 3. Abnormal CT chest with diffuse alveolar infiltrates highly likely cardiogenic pulmonary edema. 4. Status post cardiac arrest with 7 minutes of ACLS protocol. She had complete heart block,----S/P PPM 5. Acute kidney injury. 6. Abnormal liver function tests, likely from shock liver. 7. COVID-19 negative. 8. Leukocytosis, likely reactive, but currently on empiric antibiotics. 9. Hypernatremia. Plan . RECOMMENDATIONS: Continue current vent support, currently FiO2 30% and a PEEP of 5, Due to a sedation vacation and plan for pressure support trial Follow cardiology recommendations now status post permanent pacemaker, diuresis De-escalate antibiotics, currently on Zosyn and Zyvox COVID-19 negative Hypertension per PCP Follow neurology recommendations Will need physical therapy/Occupational Therapy and speech therapy post extubation DVT/GI prophylaxis Discussed with RN and RT Critical care time 30 minutes reviewing diagnostics, lab work and discussing with the care team RODNEY MICHEL MD Apr 14, 2020 12:38
--- NOTE | 2020-04-14 13:18 | NUR ---
1200 Family at bedside. Informed on pacer placement w/o complications,suggestion for line change from groin and places and by whom to be done,as well as titration of sedation in preparation for extubation. Patient expectation explained to family members. VSS pst pacer. Sed meds both off. Does not follow commands at this time. Continue to monitor.
--- NOTE | 2020-04-14 14:15 | PDOC ---
[employer] PROGRESS NOTE Date of Service DOS: DATE: 04/14/20 TIME: 14:14 Chief Complaint Chief Complaint syncope and fall, , was pulseless in complete heart block asystolic the ER, CPR for 7 min intubated, sedated now in afib, acute diastolic CHF acute renal failure, vasomotor HTN urgency Obesity, BMI 33 History of Present Illness History of Present Illness 04/14/2020 No acute events overnight. Attempting to wean off of dopamine drip. Patient is currently heading towards the [facility] for pacemaker placement for third-degree AV block. Will attempt to wean off of sedation and next attempt to extubate after procedure.> 50% time spent in patient chart, labs, and imaging review and in discussion with RN and SW 04/13,. doing well on vent, could wean, might be leaving on until Pacemaker placed tomorrow looks stable CV following, no b-blockers HTN emergency yesterday afternooon vent support CV team discussing pacemaker placemetn with [facility], plan PPM tuesday Vitals/I&O Vitals/I&O: Vital Signs Date Time Temp Pulse Resp B/P (MAP) Pulse Ox O2 Delivery O2 Flow Rate FiO2 04/14/20 12:10 100 Ventilator 04/14/20 12:00 78 12 161/55 (90) 04/14/20 11:15 98.8 98.8 04/14/20 08:26 15.0 I & O 04/13/20 04/13/20 04/14/20 15:00 23:00 07:00 Intake Total 300 ml 1322 ml Output Total 455 ml 350 ml 310 ml Balance -455 ml -50 ml 1012 ml Physical Exam General: Other (Intubated) Heart: Regular rate Lungs: Crackles Abdomen: Normal bowel sounds Extremities: No cyanosis, No edema Skin: No rashes, No breakdown, No significant lesion Labs Labs: Laboratory Tests Test 04/14/20 05:00 04/14/20 07:58 White Blood Count 9.4 x10^3/uL (4.0-11.0) Red Blood Count 3.82 x10^6/uL (3.50-5.40) Hemoglobin 11.1 g/dL (12.0-15.5) Hematocrit 32.6 % (36.0-47.0) Mean Corpuscular Volume 85 fL (79-100) Mean Corpuscular Hemoglobin 29 pg (25-35) Mean Corpuscular Hemoglobin Concent 34 g/dL (31-37) Red Cell Distribution Width 14.2 % (11.5-14.5) Platelet Count 165 x10^3/uL (140-400) Neutrophils (%) (Auto) 76 % (31-73) Lymphocytes (%) (Auto) 15 % (24-48) Monocytes (%) (Auto) 8 % (0-9) Eosinophils (%) (Auto) 1 % (0-3) Basophils (%) (Auto) 0 % (0-3) Neutrophils # (Auto) 7.2 x10^3/uL (1.8-7.7) Lymphocytes # (Auto) 1.5 x10^3/uL (1.0-4.8) Monocytes # (Auto) 0.7 x10^3/uL (0.0-1.1) Eosinophils # (Auto) 0.1 x10^3/uL (0.0-0.7) Basophils # (Auto) 0.0 x10^3/uL (0.0-0.2) Sodium Level 144 mmol/L (136-145) Potassium Level 3.7 mmol/L (3.5-5.1) Chloride Level 107 mmol/L (98-107) Carbon Dioxide Level 31 mmol/L (21-32) Anion Gap 6 (6-14) Blood Urea Nitrogen 24 mg/dL (7-20) Creatinine 0.9 mg/dL (0.6-1.0) Estimated GFR (Cockcroft-Gault) 75.1 BUN/Creatinine Ratio 27 (6-20) Glucose Level 105 mg/dL (70-99) Calcium Level 8.4 mg/dL (8.5-10.1) Magnesium Level 2.1 mg/dL (1.8-2.4) Total Bilirubin 1.5 mg/dL (0.2-1.0) Aspartate Amino Transf (AST/SGOT) 33 U/L (15-37) Alanine Aminotransferase (ALT/SGPT) 119 U/L (14-59) Alkaline Phosphatase 53 U/L (46-116) Total Protein 5.9 g/dL (6.4-8.2) Albumin 2.3 g/dL (3.4-5.0) Albumin/Globulin Ratio 0.6 (1.0-1.7) O2 Saturation 98 % (92-99) Arterial Blood pH 7.45 (7.35-7.45) Arterial Blood pCO2 at Patient Temp 47 mmHg (35-46) Arterial Blood pO2 at Patient Temp 111 mmHg (65-108) Arterial Blood HCO3 32 mmol/L (21-28) Arterial Blood Base Excess 7 mmol/L (-3-3) FiO2 30 Comment Review of Relevant I have reviewed the following items donn (where applicable) has been applied. Medications: Current Medications Medications (Trade) Dose Ordered Sig/Marlyn Route PRN Reason Start Time Stop Time Status Last Admin Dose Admin Bacitracin 78502 unit/Sodium Chloride 250 ml @ 250 mls/hr 1X ONCE IRR 04/14/20 06:00 04/14/20 08:26 DC 04/14/20 06:00 Lidocaine/ Epinephrine (LIDOCAINE 1%-EPI 1:100,000 Multi-Dose) 40 ml 1X ONCE INJ 04/14/20 10:00 04/14/20 10:01 DC 04/14/20 10:00 Justifications for Admission Other Justification LEA GARCIA MD Apr 14, 2020 14:15
--- NOTE | 2020-04-14 16:08 | NUR ---
SW following today for discharge planning. Spoke with RN and reviewed chart. Pt remains on a ventilator and not medically stable.
--- NOTE | 2020-04-14 16:33 | EKG ---
[facility] [address] [place] [address] Test Date: 2020-04-11 Test Time: 02:57:02 Pat Name: CHELSEY MASTERS Department: Room: Gender: F Hand [employer]: : 1950 Requested By: TRAVIS WATKINS Order Number: [id number] Reading MD: Measurements Intervals Apex Rate: 34 P: 53 ID: [id number] QRS: -180 QRSD: 158 T: 132 QT: 608 QTc: 457 Interpretive Statements SINUS BRADYCARDIA PROLONGED ID INTERVAL ABNORMAL RIGHT SUPERIOR AXIS DEVIATION NON SPECIFIC INTRAVENTRICULAR BLOCK RIGHT VENTRICULAR HYPERTROPHY NON SPECIFIC QRS ABNORMALITY ABNORMAL ECG RI6.01 No previous ECG available for comparison
--- NOTE | 2020-04-14 21:13 | RAD ---
XR CHEST 1V Clinical History: Reason: verify PICC placement / Spl. Instructions: / History: Technique: AP view of the chest was obtained at 04/14/2020 8:38 PM. Comparison: 11:18 AM. Findings: The heart is top normal limits in size. The NG tube and left-sided pacemaker are again seen. There is an endotracheal tube with its tip in the mid trachea. The heart and pulmonary vessels appear normal. There has been interval placement of right PICC with its tip directed downward in the mid SVC. There is mild vague reticular opacities throughout the lungs bilaterally which could be chronic pulmonary f ibrosis. Impression: 1. Right PICC well-positioned. 2. Stable appearance of the chest. Electronically signed by: Mayur Ritchie III, MD (04/14/2020 9:10 PM) [facility]
--- NOTE | 2020-04-14 22:00 | NUR ---
SQ heparin non administered due to: pacemaker placed this AM, new PICC line inserted at 2100, and subsequent removal of femoral CL.
[2020-04-15] VITALS (26 sets, daily range): BP systolic 129–218; BP diastolic 52–99
[2020-04-15] MEDS: PIPERACILLIN/TAZOBACTAM 2.25 GM in IV NORMAL SALINE 50ML 50 ML IV SCH ×5 (00:20→23:56)
[2020-04-15] MEDS: AMINO AC 3%/ELECTROLYTE/GLYCER 1,000 ML IV SCH ×2 (04:41→16:15)
[2020-04-15] MEDS: hydrALAZINE 20 MG/ML VIAL. IVP PRN ×3 (06:02→16:14)
[2020-04-15] MEDS: oxyCODONE/APAP 5/325 1 TAB TABLET PO PRN (07:57)
[2020-04-15] MEDS: METOCLOPRAMIDE HCL 10 MG/2 ML VIAL. IVP SCH (07:57)
[2020-04-15] MEDS: PANTOPRAZOLE IV PUSH 40 MG VIAL. IVP SCH (07:57)
[2020-04-15] MEDS: HEPARIN for SUB-Q USE 5,000 UNIT/ML VIAL. SQ SCH ×2 (07:59→20:35)
--- NOTE | 2020-04-15 09:02 | RAD ---
XR CHEST 1V History: Reason: 1 day post pacemaker implantation / Spl. Instructions: / History: Comparison: April 14, 2020 Findings: Ill-defined opacities bilaterally diffusely, unchanged. No pleural effusion. No pneumothorax. Stable endotracheal tube, enteric tube and right PICC. Left-sided pacemaker, unchanged. Unchanged heart size . Postoperative changes left axilla. Impression: 1. Stable appearance of the chest compared to prior. Electronically signed by: Ever Vann DO (04/15/2020 8:59 AM) [id number]
[2020-04-15] MEDS: IV 1/2 NORMAL SALINE 1,000 ML IV SCH (09:15)
--- NOTE | 2020-04-15 09:31 | PDOC ---
PROGRESS NOTES Date of Service DATE: 04/15/20 TIME: 09:29 Assessment Anoxic encephalopathy AV ventricular block, status-post pacemaker, congestive heart failure, hypertensive urgency Plan EEG would not be helpful No need for repeat head CT Continue medical management. Subjective None. Nurse reports that patient seems to be feigning lack of responsiveness Objective Vital Signs Date Time Temp Pulse Resp B/P (MAP) Pulse Ox O2 Delivery O2 Flow Rate FiO2 04/15/20 08:56 98 Ventilator 04/15/20 08:00 92 12 200/99 (132) 04/15/20 08:00 98.2 98.2 04/14/20 08:26 15.0 Intake and Output 04/15/20 07:00 Intake Total 1772 ml Output Total 930 ml Balance 842 ml Intake Oral 0 ml IV Total 1772 ml Output Urine Total 930 ml PHYSICAL EXAM Intubated, off sedation, stirs a little to voice, may be feigning a lack of consciousness PERRL. EOMI. CN: no focal findings. Muscle tone: normal. Muscle strength: Minimal withdrawal to light pain DTR: 1+ Plantar reflex: Silent Gait: not examined in bed. Sensory exam: Not cooperative. Cerebellar: Not cooperative Review of Relevant I have reviewed the following items donn (where applicable) has been applied. Labs Laboratory Tests Test 04/14/20 05:00 04/14/20 07:58 White Blood Count 9.4 x10^3/uL (4.0-11.0) Red Blood Count 3.82 x10^6/uL (3.50-5.40) Hemoglobin 11.1 g/dL (12.0-15.5) Hematocrit 32.6 % (36.0-47.0) Mean Corpuscular Volume 85 fL (79-100) Mean Corpuscular Hemoglobin 29 pg (25-35) Mean Corpuscular Hemoglobin Concent 34 g/dL (31-37) Red Cell Distribution Width 14.2 % (11.5-14.5) Platelet Count 165 x10^3/uL (140-400) Neutrophils (%) (Auto) 76 % (31-73) Lymphocytes (%) (Auto) 15 % (24-48) Monocytes (%) (Auto) 8 % (0-9) Eosinophils (%) (Auto) 1 % (0-3) Basophils (%) (Auto) 0 % (0-3) Neutrophils # (Auto) 7.2 x10^3/uL (1.8-7.7) Lymphocytes # (Auto) 1.5 x10^3/uL (1.0-4.8) Monocytes # (Auto) 0.7 x10^3/uL (0.0-1.1) Eosinophils # (Auto) 0.1 x10^3/uL (0.0-0.7) Basophils # (Auto) 0.0 x10^3/uL (0.0-0.2) Sodium Level 144 mmol/L (136-145) Potassium Level 3.7 mmol/L (3.5-5.1) Chloride Level 107 mmol/L (98-107) Carbon Dioxide Level 31 mmol/L (21-32) Anion Gap 6 (6-14) Blood Urea Nitrogen 24 mg/dL (7-20) Creatinine 0.9 mg/dL (0.6-1.0) Estimated GFR (Cockcroft-Gault) 75.1 BUN/Creatinine Ratio 27 (6-20) Glucose Level 105 mg/dL (70-99) Calcium Level 8.4 mg/dL (8.5-10.1) Magnesium Level 2.1 mg/dL (1.8-2.4) Total Bilirubin 1.5 mg/dL (0.2-1.0) Aspartate Amino Transf (AST/SGOT) 33 U/L (15-37) Alanine Aminotransferase (ALT/SGPT) 119 U/L (14-59) Alkaline Phosphatase 53 U/L (46-116) Total Protein 5.9 g/dL (6.4-8.2) Albumin 2.3 g/dL (3.4-5.0) Albumin/Globulin Ratio 0.6 (1.0-1.7) O2 Saturation 98 % (92-99) Arterial Blood pH 7.45 (7.35-7.45) Arterial Blood pCO2 at Patient Temp 47 mmHg (35-46) Arterial Blood pO2 at Patient Temp 111 mmHg (65-108) Arterial Blood HCO3 32 mmol/L (21-28) Arterial Blood Base Excess 7 mmol/L (-3-3) FiO2 30 Microbiology 04/11/20 Blood Culture - Preliminary, Resulted NO GROWTH AFTER 4 DAYS Medications Current Medications Fentanyl Citrate (Fentanyl 2ml Vial) 100 mcg STK-MED ONCE .ROUTE ; Start 04/11/20 at 02:53; Stop 04/11/20 at 02:53; Status DC Hydromorphone HCl (Dilaudid) 2 mg STK-MED ONCE .ROUTE ; Start 04/11/20 at 02:57; Stop 04/11/20 at 02:57; Status DC Epinephrine HCl 5 mg/Sodium Chloride 255 ml @ 22.208 mls/ hr CONT PRN IV SEE I/O RECORD; Start 04/11/20 at 03:15; Stop 04/11/20 at 09:00; Status DC Propofol 100 ml @ As Directed STK-MED ONCE IV ; Start 04/11/20 at 03:14; Stop 04/11/20 at 03:14; Status DC Midazolam HCl 100 ml @ 1 mls/hr 1X ONCE IV Last administered on 04/11/20at 11:04; Start 04/11/20 at 03:45; Stop 04/12/20 at 00:39; Status DC Piperacillin Sod/ Tazobactam Sod (Zosyn Per Pharmacy) 1 each PRN DAILY PRN MC SEE COMMENTS; Start 04/11/20 at 04:00 Vancomycin HCl (Vanco Per Pharmacy) 1 each PRN DAILY PRN MC SEE COMMENTS; Start 04/11/20 at 04:00; Stop 04/11/20 at 13:35; Status DC Metronidazole 100 ml @ 100 mls/hr 1X ONCE IV ; Start 04/11/20 at 04:30; Stop 04/11/20 at 05:29; Status DC Dexamethasone Sodium Phosphate (Decadron) 10 mg 1X ONCE IV Last administered on 04/11/20at 04:54; Start 04/11/20 at 04:30; Stop 04/11/20 at 04:31; Status DC Magnesium Sulfate 50 ml @ 25 mls/hr 1X ONCE IV Last administered on 04/11/20at 04:58; Start 04/11/20 at 04:30; Stop 04/11/20 at 19:14; Status DC Furosemide (Lasix) 100 mg 1X ONCE IVP Last administered on 04/11/20at 04:32; Start 04/11/20 at 04:15; Stop 04/11/20 at 04:27; Status DC Vancomycin HCl 1.75 gm/Sodium Chloride 500 ml @ 250 mls/hr 1X ONCE IV ; Start 04/11/20 at 05:00; Stop 04/11/20 at 06:59; Status DC Piperacillin Sod/ Tazobactam Sod 3.375 gm/Sodium Chloride 50 ml @ 100 mls/hr 1X ONCE IV Last administered on 04/11/20at 05:43; Start 04/11/20 at 05:00; Stop 04/11/20 at 05:29; Status DC Dopamine HCl/ Dextrose 250 ml @ 19.561 mls/ hr CONT PRN IV SEE I/O RECORD Last administered on 04/13/20at 07:22; Start 04/11/20 at 06:15; Stop 04/14/20 at 18:24; Status DC Hydromorphone HCl (Dilaudid) 2 mg 1X ONCE IVP ; Start 04/11/20 at 06:15; Stop 04/11/20 at 06:27; Status DC Fentanyl Citrate (Fentanyl 2ml Vial) 100 mcg 1X ONCE IVP ; Start 04/11/20 at 06:15; Stop 04/11/20 at 06:27; Status DC Etomidate (Amidate) 20 mg 1X ONCE IV Last administered on 04/11/20at 03:12; Start 04/11/20 at 06:15; Stop 04/11/20 at 06:27; Status DC Succinylcholine Chloride (Anectine) 100 mg 1X ONCE IV Last administered on 04/11/20at 03:13; Start 04/11/20 at 06:15; Stop 04/11/20 at 06:27; Status DC Piperacillin Sod/ Tazobactam Sod 2.25 gm/Sodium Chloride 50 ml @ 100 mls/hr Q6HRS IV Last administered on 04/15/20at 06:01; Start 04/11/20 at 12:00 Fentanyl Citrate (Fentanyl 2ml Vial) 100 mcg 1X ONCE IV ; Start 04/11/20 at 07:00; Stop 04/11/20 at 19:40; Status DC Magnesium Sulfate/ Dextrose 100 ml @ 100 mls/hr 1X ONCE IV ; Start 04/11/20 at 07:30; Stop 04/11/20 at 14:52; Status DC Buspirone HCl (Buspar) 30 mg Q8H NG Last administered on 04/11/20at 15:30; Start 04/11/20 at 08:00; Stop 04/11/20 at 19:40; Status DC Acetaminophen (Tylenol) 650 mg Q4H NG Last administered on 04/11/20at 15:29; Start 04/11/20 at 07:00; Stop 04/11/20 at 19:40; Status DC Glycerin/ Hypromellose/ Polyethylene (Artificial Tears) 1 drop Q6HRS OU Last administered on 04/11/20at 13:30; Start 04/11/20 at 12:00; Stop 04/11/20 at 19:40; Status DC Glycerin/ Hypromellose/ Polyethylene (Artificial Tears) 1 drop PRN Q15MIN PRN OU DRY EYE; Start 04/11/20 at 07:00; Stop 04/11/20 at 19:40; Status DC Pantoprazole Sodium (PROTONIX VIAL for IV PUSH) 40 mg DAILY IVP ; Start 04/11/20 at 09:00; Stop 04/11/20 at 07:31; Status DC Fentanyl Citrate 30 ml @ 2.5 mls/hr CONT PRN IV PER PROTOCOL. Last administered on 04/14/20at 06:42; Start 04/11/20 at 07:00; Stop 04/14/20 at 18:24; Status DC Propofol 100 ml @ 6.258 mls/ hr CONT PRN IV PER PROTOCOL. Last administered on 04/14/20at 21:44; Start 04/11/20 at 07:00 Norepinephrine Bitartrate 32 mg/ Dextrose 250 ml @ 4.889 mls/ hr CONT PRN IV SEE I/O RECORD; Start 04/11/20 at 07:15; Stop 04/14/20 at 18:24; Status DC Fentanyl Citrate (Fentanyl 2ml Vial) 100 mcg 1X ONCE IV ; Start 04/11/20 at 07:15; Stop 04/11/20 at 07:30; Status DC Heparin Sodium (Porcine) (Heparin Sodium) 5,000 unit BID SQ Last administered on 04/15/20at 07:59; Start 04/11/20 at 09:00 Pantoprazole Sodium (PROTONIX VIAL for IV PUSH) 40 mg DAILY IVP Last administered on 04/15/20at 07:57; Start 04/11/20 at 09:00 Fentanyl Citrate 30 ml @ 0 mls/hr CONT PRN IV PER PROTOCOL.; Start 04/11/20 at 07:15; Stop 04/11/20 at 07:31; Status DC Propofol 100 ml @ 0 mls/hr CONT PRN IV PER PROTOCOL.; Start 04/11/20 at 07:15; Stop 04/11/20 at 07:31; Status DC Midazolam HCl 100 ml @ 2 mls/hr CONT PRN IV PER PROTOCOL; Start 04/11/20 at 07:15; Status Cancel Epinephrine HCl 10 mg/Sodium Chloride 250 ml @ 15.645 mls/ hr CONT PRN IV SEE I/O RECORD; Start 04/11/20 at 07:30; Stop 04/14/20 at 18:24; Status DC Metronidazole (FLAGYL 500Mmg PREMIX) 500 mg STK-MED ONCE IV ; Start 04/11/20 at 04:00; Stop 04/11/20 at 08:43; Status DC Sodium Chloride 1,000 ml @ 10 mls/hr Q24H IV Last administered on 04/13/20at 08:27; Start 04/11/20 at 09:15 Potassium Chloride/Water 100 ml @ 100 mls/hr 1X ONCE IV Last administered on 04/11/20at 13:27; Start 04/11/20 at 10:00; Stop 04/11/20 at 10:59; Status DC Potassium Chloride (Klor-Con) 40 meq 1X ONCE PO ; Start 04/11/20 at 10:45; Stop 04/11/20 at 10:46; Status UNV Potassium Chloride (Klor-Con) 40 meq Q2H PO ; Start 04/11/20 at 10:45; Stop 04/11/20 at 12:46; Status UNV Magnesium Sulfate 100 ml @ 50 mls/hr DAILY IV ; Start 04/12/20 at 09:00; Stop 04/15/20 at 08:59; Status UNV Info (Icu Electrolyte Protocol) 1 ea CONT PRN PRN MC PER PROTOCOL; Start 04/11/20 at 10:45 Furosemide (Lasix) 40 mg 1X ONCE IVP Last administered on 04/11/20at 13:29; Start 04/11/20 at 11:00; Stop 04/11/20 at 11:01; Status DC Linezolid/Dextrose 300 ml @ 300 mls/hr Q12HR IV Last administered on 04/14/20at 08:18; Start 04/11/20 at 14:00; Stop 04/14/20 at 12:48; Status DC Metoprolol Tartrate (Lopressor Vial) 5 mg 1X ONCE IVP ; Start 04/11/20 at 14: 45; Stop 04/11/20 at 14:52; Status DC Metoprolol Tartrate (Lopressor Vial) 5 mg PRN Q5MIN PRN IVP TACHYCARDIA; Start 04/11/20 at 14:45; Stop 04/11/20 at 14:52; Status DC Enalaprilat (Vasotec Inj) 1.25 mg PRN Q6HRS PRN IVP HYPERTENSION; Start 04/11/20 at 15:15; Stop 04/11/20 at 19:14; Status DC Amlodipine Besylate (Norvasc) 5 mg DAILY PO Last administered on 04/15/20at 07:56; Start 04/12/20 at 09:00 Amlodipine Besylate (Norvasc) 5 mg 1X ONCE PO ; Start 04/11/20 at 15:15; Stop 04/11/20 at 15:16; Status Cancel Amlodipine Besylate (Norvasc) 10 mg 1X ONCE NG Last administered on 04/11/20at 15:28; Start 04/11/20 at 15:15; Stop 04/11/20 at 15:18; Status DC Calcium Chloride (Calcium Chloride) 1,000 mg STK-MED ONCE .ROUTE ; Start 04/11/20 at 12:00; Stop 04/11/20 at 16:17; Status DC Epinephrine HCl (EPINEPHrine SYRINGE) 2 mg STK-MED ONCE .ROUTE ; Start 04/11/20 at 12:00; Stop 04/11/20 at 16:17; Status DC Sodium Bicarbonate (Sodium Bicarb Adult 8.4% Syr) 100 meq STK-MED ONCE .ROUTE ; Start 04/11/20 at 12:00; Stop 04/11/20 at 16:17; Status DC Dopamine HCl/ Dextrose (DOPamine 400MG/ 250ML PREMIX) 400 mg STK-MED ONCE IV ; Start 04/11/20 at 12:00; Stop 04/11/20 at 16:17; Status DC Midazolam HCl 100 ml @ 0 mls/hr CONT PRN IV SEE I/O RECORD; Start 04/11/20 at 17:30; Status Cancel Hydralazine HCl (Apresoline Inj) 10 mg PRN Q4HRS PRN IVP ELEVATED BP, SEE COMMENTS Last administered on 04/15/20at 06:02; Start 04/11/20 at 18:45 Midazolam HCl 100 ml @ 1 mls/hr CONT PRN IV SEE I/O RECORD Last administered on 04/14/20at 06:41; Start 04/12/20 at 00:30; Stop 04/14/20 at 18:24; Status DC Potassium Chloride/Water 100 ml @ 100 mls/hr Q1H IV Last administered on 04/13/20at 09:20; Start 04/13/20 at 06:30; Stop 04/13/20 at 10:29; Status DC Amino Acids/ Glycerin/ Electrolytes 1,000 ml @ 80 mls/hr [id number] IV Last administered on 04/15/20at 04:41; Start 04/13/20 at 10:15 Metoclopramide HCl (Reglan Vial) 10 mg DAILY IVP Last administered on 04/15/20at 07:57; Start 04/13/20 at 10:15 Bacitracin 17164 unit/Sodium Chloride 250 ml @ 250 mls/hr 1X ONCE IRR Last administered on 04/14/20at 06:00; Start 04/14/20 at 06:00; Stop 04/14/20 at 08:26; Status DC Lidocaine/ Epinephrine (LIDOCAINE 2%-EPI 1:100,000 multi-dose) 20 ml STK-MED ONCE .ROUTE ; Start 04/14/20 at 09:01; Stop 04/14/20 at 09:01; Status DC Lidocaine/ Epinephrine (LIDOCAINE 1%-EPI 1:100,000 Multi-Dose) 40 ml 1X ONCE INJ Last administered on 04/14/20at 10:00; Start 04/14/20 at 10:00; Stop 04/14/20 at 10:01; Status DC Oxycodone/ Acetaminophen (Percocet 5/325) 1 tab PRN Q4HRS PRN PO PAIN Last administered on 04/15/20at 07:57; Start 04/14/20 at 10:30 Vitals/I & O Vital Sign - Last 24 Hours 04/14/20 04/14/20 04/14/20 04/14/20 10:27 11:00 11:15 11:43 Temp 98.8 98.8 Pulse 85 78 80 79 Resp 16 12 12 12 B/P (MAP) 146/56 (86) 138/52 (80) 153/62 (92) Pulse Ox 95 99 99 99 O2 Delivery Ventilator Ventilator Ventilator Ventilator 04/14/20 04/14/20 04/14/20 04/14/20 12:00 12:04 12:10 12:30 Pulse 78 78 Resp 12 12 B/P (MAP) 161/55 (90) 162/56 (91) Pulse Ox 99 100 99 O2 Delivery Ventilator Mechanical Ventilator Ventilator Ventilator 04/14/20 04/14/20 04/14/20 04/14/20 13:00 13:30 14:00 14:01 Temp 98.3 98.3 Pulse 80 80 80 Resp 12 12 12 B/P (MAP) 160/56 (90) 164/56 (92) 167/58 (94) Pulse Ox 99 98 99 O2 Delivery Ventilator Ventilator Ventilator 04/14/20 04/14/20 04/14/20 04/14/20 15:52 16:00 16:00 17:00 Temp 99.7 99.7 Pulse 86 82 Resp 12 12 B/P (MAP) 158/50 (86) 162/54 (90) Pulse Ox 99 98 98 O2 Delivery Ventilator Mechanical Ventilator Ventilator Ventilator 04/14/20 04/14/20 04/14/20 04/14/20 18:00 19:00 19:30 20:00 Temp 99.3 99.3 Pulse 90 84 83 Resp 12 12 12 B/P (MAP) 156/54 (88) 142/50 (80) 152/51 (84) Pulse Ox 99 98 99 O2 Delivery Ventilator Ventilator Mechanical Ventilator Ventilator 04/14/20 04/14/20 04/14/20 04/14/20 20:10 21:00 22:00 23:00 Pulse 86 81 79 Resp 14 12 12 B/P (MAP) 164/56 (92) 147/53 (84) 121/51 (74) Pulse Ox 99 99 99 99 O2 Delivery Ventilator Ventilator Ventilator Ventilator 04/14/20 04/15/20 04/15/20 04/15/20 23:40 00:00 00:00 01:00 Temp 98.6 98.6 Pulse 88 82 Resp 12 12 B/P (MAP) 154/60 (91) 148/56 (86) Pulse Ox 99 99 99 O2 Delivery Ventilator Ventilator Mechanical Ventilator Ventilator 04/15/20 04/15/20 04/15/20 04/15/20 02:00 03:00 04:00 04:00 Temp 98.2 98.2 Pulse 79 86 88 Resp 12 12 12 B/P (MAP) 129/53 (78) 158/62 (94) 176/62 (100) Pulse Ox 99 99 99 O2 Delivery Ventilator Ventilator Ventilator Mechanical Ventilator 04/15/20 04/15/20 04/15/20 04/15/20 05:00 06:00 06:02 07:00 Pulse 84 78 90 81 Resp 12 12 12 B/P (MAP) 182/60 (100) 156/54 (88) 191/67 156/56 (89) Pulse Ox 99 99 99 O2 Delivery Ventilator Ventilator Ventilator 04/15/20 04/15/20 04/15/20 04/15/20 07:56 07:57 08:00 08:00 Temp 98.2 98.2 Pulse 92 94 92 Resp 12 12 B/P (MAP) 161/70 158/56 (90) 200/99 (132) Pulse Ox 99 98 98 O2 Delivery Ventilator Ventilator 04/15/20 08:56 Pulse Ox 98 O2 Delivery Ventilator Intake and Output 04/14/20 04/14/20 04/15/20 15:00 23:00 07:00 Intake Total 300 ml 900 ml 572 ml Output Total 380 ml 275 ml 275 ml Balance -80 ml 625 ml 297 ml Justicifation of Admission Dx: Justifications for Admission: Justification of Admission Dx: Yes (cardiac arrest) CAMDEN TUCKER MD Apr 15, 2020 09:30
[2020-04-15 09:58] LABS: BASE EXCESS ABG 4 mmol/L (-3-3); HCO3 ABG 29 mmol/L (21-28); PCO2 ABG 43 mmHg (35-46); PO2 ABG 101 mmHg (65-108); SAT O2 ABG 97 % (92-99)
[2020-04-15 10:00] LABS: FIO2 ABG 30/CPAP
--- NOTE | 2020-04-15 10:43 | NUR ---
[id number] Cpap 0900. 10/5 w O2 30%. Does respond at times to verbal command/ then NOT for others. Lethargic w responses. ABG 1 H on trial noted per Dr Aragon. Remain on CPAP,allow increased responsiveness repaet ABGS when more aware(POC at this time)
--- NOTE | 2020-04-15 10:54 | PDOC ---
PULMONARY PROGRESS NOTES DATE: 04/15/20 TIME: 10:51 Subjective Patient remains on ventilatory support Afebrile S/P permanent pacemaker No other concerns from nursing not awake yet, off sedation Vitals Vital Signs Date Time Temp Pulse Resp B/P (MAP) Pulse Ox O2 Delivery O2 Flow Rate FiO2 04/15/20 10:30 102 12 174/60 (98) 98 BiPAP/CPAP 04/15/20 09:00 15.0 04/15/20 08:00 98.2 98.2 Comments sedated on vent ros unable to obtain HEENT: Other (nc at perrl nose clear orally intubated neck no lad no thyromegaly) Lungs: Crackles Cardiovascular: S1, S2 Abdomen: Soft, Non-tender Extremities: Other Skin: Warm Labs Laboratory Tests Test 04/14/20 05:00 04/14/20 07:58 04/15/20 10:00 White Blood Count 9.4 x10^3/uL (4.0-11.0) Red Blood Count 3.82 x10^6/uL (3.50-5.40) Hemoglobin 11.1 g/dL (12.0-15.5) Hematocrit 32.6 % (36.0-47.0) Mean Corpuscular Volume 85 fL (79-100) Mean Corpuscular Hemoglobin 29 pg (25-35) Mean Corpuscular Hemoglobin Concent 34 g/dL (31-37) Red Cell Distribution Width 14.2 % (11.5-14.5) Platelet Count 165 x10^3/uL (140-400) Neutrophils (%) (Auto) 76 % (31-73) Lymphocytes (%) (Auto) 15 % (24-48) Monocytes (%) (Auto) 8 % (0-9) Eosinophils (%) (Auto) 1 % (0-3) Basophils (%) (Auto) 0 % (0-3) Neutrophils # (Auto) 7.2 x10^3/uL (1.8-7.7) Lymphocytes # (Auto) 1.5 x10^3/uL (1.0-4.8) Monocytes # (Auto) 0.7 x10^3/uL (0.0-1.1) Eosinophils # (Auto) 0.1 x10^3/uL (0.0-0.7) Basophils # (Auto) 0.0 x10^3/uL (0.0-0.2) Sodium Level 144 mmol/L (136-145) Potassium Level 3.7 mmol/L (3.5-5.1) Chloride Level 107 mmol/L (98-107) Carbon Dioxide Level 31 mmol/L (21-32) Anion Gap 6 (6-14) Blood Urea Nitrogen 24 mg/dL (7-20) Creatinine 0.9 mg/dL (0.6-1.0) Estimated GFR (Cockcroft-Gault) 75.1 BUN/Creatinine Ratio 27 (6-20) Glucose Level 105 mg/dL (70-99) Calcium Level 8.4 mg/dL (8.5-10.1) Magnesium Level 2.1 mg/dL (1.8-2.4) Total Bilirubin 1.5 mg/dL (0.2-1.0) Aspartate Amino Transf (AST/SGOT) 33 U/L (15-37) Alanine Aminotransferase (ALT/SGPT) 119 U/L (14-59) Alkaline Phosphatase 53 U/L (46-116) Total Protein 5.9 g/dL (6.4-8.2) Albumin 2.3 g/dL (3.4-5.0) Albumin/Globulin Ratio 0.6 (1.0-1.7) O2 Saturation 98 % (92-99) 97 % (92-99) Arterial Blood pH 7.45 (7.35-7.45) 7.45 (7.35-7.45) Arterial Blood pCO2 at Patient Temp 47 mmHg (35-46) 43 mmHg (35-46) Arterial Blood pO2 at Patient Temp 111 mmHg (65-108) 101 mmHg (65-108) Arterial Blood HCO3 32 mmol/L (21-28) 29 mmol/L (21-28) Arterial Blood Base Excess 7 mmol/L (-3-3) 4 mmol/L (-3-3) FiO2 30 30/cpap Laboratory Tests Test 04/15/20 10:00 O2 Saturation 97 % (92-99) Arterial Blood pH 7.45 (7.35-7.45) Arterial Blood pCO2 at Patient Temp 43 mmHg (35-46) Arterial Blood pO2 at Patient Temp 101 mmHg (65-108) Arterial Blood HCO3 29 mmol/L (21-28) Arterial Blood Base Excess 4 mmol/L (-3-3) FiO2 30/cpap Comments ct of chest reviewed 1. Satisfactory endotracheal intubation with no pneumothorax. 2. Near confluent bilateral airspace opacities with subpleural sparing at the apices. Query pulmonary edema or ARDS. 3. Nondisplaced acute sternal fracture. CXR Impression: Interval placement of a left-sided pacemaker with leads in size slightly position. No acute cardiopulmonary process is detected. Impression . IMPRESSION: 1. Acute hypoxic and hypercapnic respiratory failure secondary to cardiac arrest with complete heart block. She also has diffuse bilateral alveolar infiltrates, likely cardiogenic pulmonary edema, sig improved 2. COVID negative. 3. Abnormal CT chest with diffuse alveolar infiltrates highly likely cardiogenic pulmonary edema. 4. Status post cardiac arrest with 7 minutes of ACLS protocol. She had complete heart block,----S/P PPM 5. Acute kidney injury. 6. Abnormal liver function tests, likely from shock liver. 7. COVID-19 negative. 8. Leukocytosis, likely reactive, but currently on empiric antibiotics. 9. Hypernatremia. Plan . RECOMMENDATIONS: Continue current vent support, currently FiO2 30% and a PEEP of 5, pressure support trial, not ready to extubate, till more awake Follow cardiology recommendations now status post permanent pacemaker, diuresis De-escalate antibiotics, currently on Zosyn ,off Zyvox COVID-19 negative Hypertension per PCP Follow neurology recommendations Will need physical therapy/Occupational Therapy and speech therapy post extubation DVT/GI prophylaxis Discussed with RN and RT Critical care time 30 minutes reviewing diagnostics, lab work and discussing with the care team RODNEY MICHEL MD Apr 15, 2020 10:54
--- NOTE | 2020-04-15 11:19 | PDOC ---
[facility] PROGRESS NOTE Date of Service DOS: DATE: 04/15/20 TIME: 11:14 Chief Complaint Chief Complaint syncope and fall, , was pulseless in complete heart block Symptomatic bradycardia with third-degree AV block status post permanent pacemaker placement 04/14/2020 asystolic the ER, CPR for 7 min intubated, sedated now in afib, acute diastolic CHF acute renal failure, vasomotor HTN urgency Obesity, BMI 33 History of Present Illness History of Present Illness 04/15/2020 No acute events overnight. Afebrile. Sedation is currently off and currently intubated. Attempting to wean to extubate today. Vent settings currently at 450/50%/PEEP 5. > 50% time spent in patient chart, labs, and imaging review and in discussion with RN and ABI 04/14/2020 No acute events overnight. Attempting to wean off of dopamine drip. Patient is currently heading towards the [employer] for pacemaker placement for third-degree AV block. Will attempt to wean off of sedation and next attempt to extubate after procedure.> 50% time spent in patient chart, labs, and imaging review and in discussion with RN and ABI 04/13,. doing well on vent, could wean, might be leaving on until Pacemaker placed tomorrow looks stable CV following, no b-blockers HTN emergency yesterday afternon vent support CV team discussing pacemaker placemetn with nikky sofia PPM tuesday Vitals/I&O Vitals/I&O: Vital Signs Date Time Temp Pulse Resp B/P (MAP) Pulse Ox O2 Delivery O2 Flow Rate FiO2 04/15/20 10:30 102 12 174/60 (98) 98 BiPAP/CPAP 04/15/20 09:00 15.0 04/15/20 08:00 98.2 98.2 I & O 04/14/20 04/14/20 04/15/20 15:00 23:00 07:00 Intake Total 300 ml 900 ml 572 ml Output Total 380 ml 275 ml 325 ml Balance -80 ml 625 ml 247 ml Physical Exam General: Other (Intubated) Heart: Regular rate Lungs: Crackles Abdomen: Normal bowel sounds Extremities: No cyanosis, No edema Skin: No rashes, No breakdown, No significant lesion Labs Labs: Laboratory Tests Test 04/15/20 10:00 O2 Saturation 97 % (92-99) Arterial Blood pH 7.45 (7.35-7.45) Arterial Blood pCO2 at Patient Temp 43 mmHg (35-46) Arterial Blood pO2 at Patient Temp 101 mmHg (65-108) Arterial Blood HCO3 29 mmol/L (21-28) Arterial Blood Base Excess 4 mmol/L (-3-3) FiO2 30/cpap Comment Review of Relevant I have reviewed the following items donn (where applicable) has been applied. Justifications for Admission Other Justification LEA GARCIA MD Apr 15, 2020 11:19
[2020-04-15 15:13] LABS: BASE EXCESS ABG 4 mmol/L (-3-3); HCO3 ABG 28 mmol/L (21-28); PCO2 ABG 40 mmHg (35-46); PO2 ABG 102 mmHg (65-108); SAT O2 ABG 97 % (92-99)
[2020-04-15 15:17] LABS: FIO2 ABG 30% PS 10 PEEP 5
--- NOTE | 2020-04-15 15:26 | NUR ---
SS following for discharge planning. SS reviewed pt chart and discussed with pt RN. Pt is from home with family and is currently on the vent at 30%. COVID19 negative. Pt had pacemaker placed on 04/14/2020. Per RN, extubation today. Pt on PPN and IV Zosyn. SS will continue to follow for discharge planning.
--- NOTE | 2020-04-15 15:37 | PDOC ---
[facility] 04/15/20 1537: CARDIO Progress Notes Date and Time Date of Service 04/15/2020 Time of Evaluation 1300 Subjective Subjective: Other (off sedation , restless) Vitals Vitals Vital Signs Date Time Temp Pulse Resp B/P (MAP) Pulse Ox O2 Delivery O2 Flow Rate FiO2 04/15/20 13:07 98 Ventilator 04/15/20 10:30 102 12 174/60 (98) 04/15/20 09:00 15.0 04/15/20 08:00 98.2 98.2 Weight Weight [ ] Input and Output Intake and Output Intake and Output 04/15/20 07:00 Intake Total 1772 ml Output Total 980 ml Balance 792 ml Intake Oral 0 ml IV Total 1772 ml Output Urine Total 980 ml Laboratory Labs Laboratory Tests Test 04/15/20 10:00 04/15/20 15:10 O2 Saturation 97 % (92-99) 97 % (92-99) Arterial Blood pH 7.45 (7.35-7.45) 7.46 (7.35-7.45) Arterial Blood pCO2 at Patient Temp 43 mmHg (35-46) 40 mmHg (35-46) Arterial Blood pO2 at Patient Temp 101 mmHg (65-108) 102 mmHg (65-108) Arterial Blood HCO3 29 mmol/L (21-28) 28 mmol/L (21-28) Arterial Blood Base Excess 4 mmol/L (-3-3) 4 mmol/L (-3-3) FiO2 30/cpap 30% ps 10 peep 5 Microbiology Micro Microbiology 04/11/20 Blood Culture - Preliminary, Resulted NO GROWTH AFTER 4 DAYS Physical Exam HEENT: Neck Supple W Full Motion Chest: Symmetric LUNGS: Other (diminished bases) Heart: RRR (SR with RBBB) Abdomen: Other (obese) Extremities: Other (1+ bilateral LE pitting edema) Neurology: other (off sedation) Other Exams left chest surgical incision dry and intact with steri strips Assessment Assessment 1. Presyncope with fall: due to bradyarrhythmia. prior multiple syncope at home 2. Symptomatic third degree heart block: now back in SR with RBBB, first degree AV block 3. Cardiopulmonary arrest: occurred in ED noted with asystole, received ACLS. 7 min to ROSC 4. S/P PPM in situ: [employer]ot[employer]. No PTX. Repeat interrogation revealed normal functioning device 5. Nondisplaced sternal fracture: likely from CPR 5. HTN urgency: labile 6. ANA 7. Shock liver: better 8. Acute diastolic CHF: EF nml. compensated 9. Acute respiratory failure due to bradyarrhythmia 10. Mosque 11. NSTEMI: 0.2, demand mediated with above culprits 12. Obesity 13. Hyperglycemia: per PCP 14. Anoxic encephalopathy: off sedation, restless Recommendations 1. Increase norvasc. Start losartan per OG. Hydralazine IV PRN 2. Vent weaning in process 3. Supportive care. Justicifation of Admission Dx: Justifications for Admission: Justification of Admission Dx: Yes (cardiac arrest) LILIBETH VÁZQUEZ MD 04/15/202057: CARDIO Progress Notes Assessment Assessment Patient seen and examined. Agree with [employer]'s assessment and plan. s/p PPM yesterday for CHB, device check with normal function and CXR without any pneumothorax Agree with increasing norvasc dose and starting losartan for better BP control Continue vent management per pulm team EBER CANALES APRN Apr 15, 2020 15:37 LILIBETH VÁZQUEZ MD Apr 15, 2020 20:58
[2020-04-15] MEDS: LOSARTAN POTASSIUM 50 MG TABLET. PO SCH (16:00)
--- NOTE | 2020-04-15 16:55 | NUR ---
1400 Repeat ABGs. Patient aware ,awake,eye contact w nurse. Asked if "ready to get tube out" mouthed yes and nodded at same time. Family in with observation patient alert aware cognizant
[2020-04-15] MEDS ORDERED: fentaNYL PF VIAL 100 MCG/2 ML VIAL ONE ×2 (18:42→19:00)
[2020-04-15 21:27] LABS: BASE EXCESS ABG 4 mmol/L (-3-3); HCO3 ABG 28 mmol/L (21-28); PCO2 ABG 42 mmHg (35-46); PO2 ABG 70 mmHg (65-108); SAT O2 ABG 93 % (92-99)
[2020-04-15 21:28] LABS: FIO2 ABG 32/ 3LNC
[2020-04-16] VITALS (57 sets, daily range): BP systolic 126–194; BP diastolic 42–60
[2020-04-16] MEDS: fentaNYL PF VIAL 100 MCG/2 ML VIAL IVP PRN ×9 (00:07→20:57)
[2020-04-16] MEDS: AMINO AC 3%/ELECTROLYTE/GLYCER 1,000 ML IV SCH ×2 (03:33→16:31)
[2020-04-16] MEDS: PIPERACILLIN/TAZOBACTAM 2.25 GM in IV NORMAL SALINE 50ML 50 ML IV SCH (06:19)
[2020-04-16 06:29] LABS: BASO % 0 % (0-3); EOS # 0.1 x10^3/uL (0.0-0.7); EOS % 1 % (0-3); HEMATOCRIT 31.4 % (36.0-47.0); HEMOGLOBIN 10.7 g/dL (12.0-15.5); LYMPH # 1.2 x10^3/uL (1.0-4.8); LYMPH % 13 % (24-48); MEAN CORPUSCULAR HEMOGLOBIN 29 pg (25-35); MEAN CORPUSCULAR HGB CONC 34 g/dL (31-37); MEAN CORPUSCULAR VOLUME 84 fL (79-100); MONO # 0.6 x10^3/uL (0.0-1.1); MONO % 7 % (0-9); NEUT # 7.3 x10^3/uL (1.8-7.7); NEUT % 79 % (31-73); PLATELET COUNT 161 x10^3/uL (140-400); RED BLOOD COUNT 3.72 x10^6/uL (3.50-5.40); RED CELL DISTRIBUTION WIDTH 14.2 % (11.5-14.5); WHITE BLOOD COUNT 9.2 x10^3/uL (4.0-11.0)
[2020-04-16 06:35] LABS: CALCIUM 8.8 mg/dL (8.5-10.1); CREATININE 0.7 mg/dL (0.6-1.0); GFR 100.4; POTASSIUM 3.8 mmol/L (3.5-5.1)
[2020-04-16] MEDS: HEPARIN for SUB-Q USE 5,000 UNIT/ML VIAL. SQ SCH ×2 (08:48→20:36)
[2020-04-16] MEDS: PANTOPRAZOLE IV PUSH 40 MG VIAL. IVP SCH (08:49)
[2020-04-16] MEDS: LOSARTAN POTASSIUM 50 MG TABLET. PO SCH (09:00)
[2020-04-16] MEDS: IV 1/2 NORMAL SALINE 1,000 ML IV SCH (09:15)
--- NOTE | 2020-04-16 09:39 | PDOC ---
PROGRESS NOTES Date of Service DATE: 04/16/20 TIME: 09:38 Assessment Anoxic encephalopathy, improving AV ventricular block, status-post pacemaker, congestive heart failure, hypertensive urgency Plan No need for repeat head CT or EEG Continue medical management. Subjective None Objective Vital Signs Date Time Temp Pulse Resp B/P (MAP) Pulse Ox O2 Delivery O2 Flow Rate FiO2 04/16/20 09:25 97 Nasal Cannula 2.0 04/16/20 07:02 20 04/16/20 06:30 166/52 (90) 04/16/20 06:00 94 04/16/20 04:00 97.2 97.2 Intake and Output 04/16/20 07:00 Intake Total 2213 ml Output Total 1490 ml Balance 723 ml Intake Oral 100 ml IV Total 2113 ml Output Urine Total 1340 ml Gastric Drainage Total 150 ml PHYSICAL EXAM Alert, follows commands, knows name of hospital, month and year PERRL. EOMI. CN: no focal findings. Muscle tone: normal. Muscle strength: 3/5 DTR: 1+ Plantar reflex: Silent Gait: not examined in bed. Sensory exam: No focal findings No cerebellar findings out of proportion to weakness Review of Relevant I have reviewed the following items donn (where applicable) has been applied. Labs Laboratory Tests Test 04/15/20 10:00 04/15/20 15:10 04/15/20 21:25 04/16/20 06:00 O2 Saturation 97 % (92-99) 97 % (92-99) 93 % (92-99) Arterial Blood pH 7.45 (7.35-7.45) 7.46 (7.35-7.45) 7.44 (7.35-7.45) Arterial Blood pCO2 at Patient Temp 43 mmHg (35-46) 40 mmHg (35-46) 42 mmHg (35-46) Arterial Blood pO2 at Patient Temp 101 mmHg (65-108) 102 mmHg (65-108) 70 mmHg (65-108) Arterial Blood HCO3 29 mmol/L (21-28) 28 mmol/L (21-28) 28 mmol/L (21-28) Arterial Blood Base Excess 4 mmol/L (-3-3) 4 mmol/L (-3-3) 4 mmol/L (-3-3) FiO2 30/cpap 30% ps 10 peep 5 32/ 3lnc White Blood Count 9.2 x10^3/uL (4.0-11.0) Red Blood Count 3.72 x10^6/uL (3.50-5.40) Hemoglobin 10.7 g/dL (12.0-15.5) Hematocrit 31.4 % (36.0-47.0) Mean Corpuscular Volume 84 fL (79-100) Mean Corpuscular Hemoglobin 29 pg (25-35) Mean Corpuscular Hemoglobin Concent 34 g/dL (31-37) Red Cell Distribution Width 14.2 % (11.5-14.5) Platelet Count 161 x10^3/uL (140-400) Neutrophils (%) (Auto) 79 % (31-73) Lymphocytes (%) (Auto) 13 % (24-48) Monocytes (%) (Auto) 7 % (0-9) Eosinophils (%) (Auto) 1 % (0-3) Basophils (%) (Auto) 0 % (0-3) Neutrophils # (Auto) 7.3 x10^3/uL (1.8-7.7) Lymphocytes # (Auto) 1.2 x10^3/uL (1.0-4.8) Monocytes # (Auto) 0.6 x10^3/uL (0.0-1.1) Eosinophils # (Auto) 0.1 x10^3/uL (0.0-0.7) Basophils # (Auto) 0.0 x10^3/uL (0.0-0.2) Sodium Level 142 mmol/L (136-145) Potassium Level 3.8 mmol/L (3.5-5.1) Chloride Level 107 mmol/L (98-107) Carbon Dioxide Level 27 mmol/L (21-32) Anion Gap 8 (6-14) Blood Urea Nitrogen 22 mg/dL (7-20) Creatinine 0.7 mg/dL (0.6-1.0) Estimated GFR (Cockcroft-Gault) 100.4 Glucose Level 120 mg/dL (70-99) Calcium Level 8.8 mg/dL (8.5-10.1) Laboratory Tests Test 04/15/20 10:00 04/15/20 15:10 04/15/20 21:25 04/16/20 06:00 O2 Saturation 97 % (92-99) 97 % (92-99) 93 % (92-99) Arterial Blood pH 7.45 (7.35-7.45) 7.46 (7.35-7.45) 7.44 (7.35-7.45) Arterial Blood pCO2 at Patient Temp 43 mmHg (35-46) 40 mmHg (35-46) 42 mmHg (35-46) Arterial Blood pO2 at Patient Temp 101 mmHg (65-108) 102 mmHg (65-108) 70 mmHg (65-108) Arterial Blood HCO3 29 mmol/L (21-28) 28 mmol/L (21-28) 28 mmol/L (21-28) Arterial Blood Base Excess 4 mmol/L (-3-3) 4 mmol/L (-3-3) 4 mmol/L (-3-3) FiO2 30/cpap 30% ps 10 peep 5 32/ 3lnc White Blood Count 9.2 x10^3/uL (4.0-11.0) Red Blood Count 3.72 x10^6/uL (3.50-5.40) Hemoglobin 10.7 g/dL (12.0-15.5) Hematocrit 31.4 % (36.0-47.0) Mean Corpuscular Volume 84 fL (79-100) Mean Corpuscular Hemoglobin 29 pg (25-35) Mean Corpuscular Hemoglobin Concent 34 g/dL (31-37) Red Cell Distribution Width 14.2 % (11.5-14.5) Platelet Count 161 x10^3/uL (140-400) Neutrophils (%) (Auto) 79 % (31-73) Lymphocytes (%) (Auto) 13 % (24-48) Monocytes (%) (Auto) 7 % (0-9) Eosinophils (%) (Auto) 1 % (0-3) Basophils (%) (Auto) 0 % (0-3) Neutrophils # (Auto) 7.3 x10^3/uL (1.8-7.7) Lymphocytes # (Auto) 1.2 x10^3/uL (1.0-4.8) Monocytes # (Auto) 0.6 x10^3/uL (0.0-1.1) Eosinophils # (Auto) 0.1 x10^3/uL (0.0-0.7) Basophils # (Auto) 0.0 x10^3/uL (0.0-0.2) Sodium Level 142 mmol/L (136-145) Potassium Level 3.8 mmol/L (3.5-5.1) Chloride Level 107 mmol/L (98-107) Carbon Dioxide Level 27 mmol/L (21-32) Anion Gap 8 (6-14) Blood Urea Nitrogen 22 mg/dL (7-20) Creatinine 0.7 mg/dL (0.6-1.0) Estimated GFR (Cockcroft-Gault) 100.4 Glucose Level 120 mg/dL (70-99) Calcium Level 8.8 mg/dL (8.5-10.1) Microbiology 04/11/20 Blood Culture - Final, Complete NO GROWTH AFTER 5 DAYS Medications Current Medications Fentanyl Citrate (Fentanyl 2ml Vial) 100 mcg STK-MED ONCE .ROUTE ; Start 04/11/20 at 02:53; Stop 04/11/20 at 02:53; Status DC Hydromorphone HCl (Dilaudid) 2 mg STK-MED ONCE .ROUTE ; Start 04/11/20 at 02:57; Stop 04/11/20 at 02:57; Status DC Epinephrine HCl 5 mg/Sodium Chloride 255 ml @ 22.208 mls/ hr CONT PRN IV SEE I/O RECORD; Start 04/11/20 at 03:15; Stop 04/11/20 at 09:00; Status DC Propofol 100 ml @ As Directed STK-MED ONCE IV ; Start 04/11/20 at 03:14; Stop 04/11/20 at 03:14; Status DC Midazolam HCl 100 ml @ 1 mls/hr 1X ONCE IV Last administered on 04/11/20at 11:04; Start 04/11/20 at 03:45; Stop 04/12/20 at 00:39; Status DC Piperacillin Sod/ Tazobactam Sod (Zosyn Per Pharmacy) 1 each PRN DAILY PRN MC SEE COMMENTS; Start 04/11/20 at 04:00 Vancomycin HCl (Vanco Per Pharmacy) 1 each PRN DAILY PRN MC SEE COMMENTS; Start 04/11/20 at 04:00; Stop 04/11/20 at 13:35; Status DC Metronidazole 100 ml @ 100 mls/hr 1X ONCE IV ; Start 04/11/20 at 04:30; Stop 04/11/20 at 05:29; Status DC Dexamethasone Sodium Phosphate (Decadron) 10 mg 1X ONCE IV Last administered on 04/11/20at 04:54; Start 04/11/20 at 04:30; Stop 04/11/20 at 04:31; Status DC Magnesium Sulfate 50 ml @ 25 mls/hr 1X ONCE IV Last administered on 04/11/20at 04:58; Start 04/11/20 at 04:30; Stop 04/11/20 at 19:14; Status DC Furosemide (Lasix) 100 mg 1X ONCE IVP Last administered on 04/11/20at 04:32; Start 04/11/20 at 04:15; Stop 04/11/20 at 04:27; Status DC Vancomycin HCl 1.75 gm/Sodium Chloride 500 ml @ 250 mls/hr 1X ONCE IV ; Start 04/11/20 at 05:00; Stop 04/11/20 at 06:59; Status DC Piperacillin Sod/ Tazobactam Sod 3.375 gm/Sodium Chloride 50 ml @ 100 mls/hr 1X ONCE IV Last administered on 04/11/20at 05:43; Start 04/11/20 at 05:00; Stop 04/11/20 at 05:29; Status DC Dopamine HCl/ Dextrose 250 ml @ 19.561 mls/ hr CONT PRN IV SEE I/O RECORD Last administered on 04/13/20at 07:22; Start 04/11/20 at 06:15; Stop 04/14/20 at 18:24; Status DC Hydromorphone HCl (Dilaudid) 2 mg 1X ONCE IVP ; Start 04/11/20 at 06:15; Stop 04/11/20 at 06:27; Status DC Fentanyl Citrate (Fentanyl 2ml Vial) 100 mcg 1X ONCE IVP ; Start 04/11/20 at 06:15; Stop 04/11/20 at 06:27; Status DC Etomidate (Amidate) 20 mg 1X ONCE IV Last administered on 04/11/20at 03:12; Start 04/11/20 at 06:15; Stop 04/11/20 at 06:27; Status DC Succinylcholine Chloride (Anectine) 100 mg 1X ONCE IV Last administered on 04/11/20at 03:13; Start 04/11/20 at 06:15; Stop 04/11/20 at 06:27; Status DC Piperacillin Sod/ Tazobactam Sod 2.25 gm/Sodium Chloride 50 ml @ 100 mls/hr Q6HRS IV Last administered on 04/16/20at 06:19; Start 04/11/20 at 12:00 Fentanyl Citrate (Fentanyl 2ml Vial) 100 mcg 1X ONCE IV ; Start 04/11/20 at 07:00; Stop 04/11/20 at 19:40; Status DC Magnesium Sulfate/ Dextrose 100 ml @ 100 mls/hr 1X ONCE IV ; Start 04/11/20 at 07:30; Stop 04/11/20 at 14:52; Status DC Buspirone HCl (Buspar) 30 mg Q8H NG Last administered on 04/11/20at 15:30; Start 04/11/20 at 08:00; Stop 04/11/20 at 19:40; Status DC Acetaminophen (Tylenol) 650 mg Q4H NG Last administered on 04/11/20at 15:29; Start 04/11/20 at 07:00; Stop 04/11/20 at 19:40; Status DC Glycerin/ Hypromellose/ Polyethylene (Artificial Tears) 1 drop Q6HRS OU Last administered on 04/11/20at 13:30; Start 04/11/20 at 12:00; Stop 04/11/20 at 19:40; Status DC Glycerin/ Hypromellose/ Polyethylene (Artificial Tears) 1 drop PRN Q15MIN PRN OU DRY EYE; Start 04/11/20 at 07:00; Stop 04/11/20 at 19:40; Status DC Pantoprazole Sodium (PROTONIX VIAL for IV PUSH) 40 mg DAILY IVP ; Start 04/11/20 at 09:00; Stop 04/11/20 at 07:31; Status DC Fentanyl Citrate 30 ml @ 2.5 mls/hr CONT PRN IV PER PROTOCOL. Last administered on 04/14/20at 06:42; Start 04/11/20 at 07:00; Stop 04/14/20 at 18:24; Status DC Propofol 100 ml @ 6.258 mls/ hr CONT PRN IV PER PROTOCOL. Last administered on 04/14/20at 21:44; Start 04/11/20 at 07:00 Norepinephrine Bitartrate 32 mg/ Dextrose 250 ml @ 4.889 mls/ hr CONT PRN IV SEE I/O RECORD; Start 04/11/20 at 07:15; Stop 04/14/20 at 18:24; Status DC Fentanyl Citrate (Fentanyl 2ml Vial) 100 mcg 1X ONCE IV ; Start 04/11/20 at 07:15; Stop 04/11/20 at 07:30; Status DC Heparin Sodium (Porcine) (Heparin Sodium) 5,000 unit BID SQ Last administered on 04/16/20at 08:48; Start 04/11/20 at 09:00 Pantoprazole Sodium (PROTONIX VIAL for IV PUSH) 40 mg DAILY IVP Last administered on 04/16/20at 08:49; Start 04/11/20 at 09:00 Fentanyl Citrate 30 ml @ 0 mls/hr CONT PRN IV PER PROTOCOL.; Start 04/11/20 at 07:15; Stop 04/11/20 at 07:31; Status DC Propofol 100 ml @ 0 mls/hr CONT PRN IV PER PROTOCOL.; Start 04/11/20 at 07:15; Stop 04/11/20 at 07:31; Status DC Midazolam HCl 100 ml @ 2 mls/hr CONT PRN IV PER PROTOCOL; Start 04/11/20 at 07:15; Status Cancel Epinephrine HCl 10 mg/Sodium Chloride 250 ml @ 15.645 mls/ hr CONT PRN IV SEE I/O RECORD; Start 04/11/20 at 07:30; Stop 04/14/20 at 18:24; Status DC Metronidazole (FLAGYL 500Mmg PREMIX) 500 mg STK-MED ONCE IV ; Start 04/11/20 at 04:00; Stop 04/11/20 at 08:43; Status DC Sodium Chloride 1,000 ml @ 10 mls/hr Q24H IV Last administered on 04/13/20at 08:27; Start 04/11/20 at 09:15 Potassium Chloride/Water 100 ml @ 100 mls/hr 1X ONCE IV Last administered on 04/11/20at 13:27; Start 04/11/20 at 10:00; Stop 04/11/20 at 10:59; Status DC Potassium Chloride (Klor-Con) 40 meq 1X ONCE PO ; Start 04/11/20 at 10:45; Stop 04/11/20 at 10:46; Status UNV Potassium Chloride (Klor-Con) 40 meq Q2H PO ; Start 04/11/20 at 10:45; Stop 04/11/20 at 12:46; Status UNV Magnesium Sulfate 100 ml @ 50 mls/hr DAILY IV ; Start 04/12/20 at 09:00; Stop 04/15/20 at 08:59; Status UNV Info (Icu Electrolyte Protocol) 1 ea CONT PRN PRN MC PER PROTOCOL; Start 04/11/20 at 10:45 Furosemide (Lasix) 40 mg 1X ONCE IVP Last administered on 04/11/20at 13:29; Start 04/11/20 at 11:00; Stop 04/11/20 at 11:01; Status DC Linezolid/Dextrose 300 ml @ 300 mls/hr Q12HR IV Last administered on 04/14/20at 08:18; Start 04/11/20 at 14:00; Stop 04/14/20 at 12:48; Status DC Metoprolol Tartrate (Lopressor Vial) 5 mg 1X ONCE IVP ; Start 04/11/20 at 14:45; Stop 04/11/20 at 14:52; Status DC Metoprolol Tartrate (Lopressor Vial) 5 mg PRN Q5MIN PRN IVP TACHYCARDIA; Start 04/11/20 at 14:45; Stop 04/11/20 at 14:52; Status DC Enalaprilat (Vasotec Inj) 1.25 mg PRN Q6HRS PRN IVP HYPERTENSION; Start 04/11/20 at 15:15; Stop 04/11/20 at 19:14; Status DC Amlodipine Besylate (Norvasc) 5 mg DAILY PO Last administered on 04/15/20at 07:56; Start 04/12/20 at 09:00; Stop 04/15/20 at 15:31; Status DC Amlodipine Besylate (Norvasc) 5 mg 1X ONCE PO ; Start 04/11/20 at 15:15; Stop 04/11/20 at 15:16; Status Cancel Amlodipine Besylate (Norvasc) 10 mg 1X ONCE NG Last administered on 04/11/20at 15:28; Start 04/11/20 at 15:15; Stop 04/11/20 at 15:18; Status DC Calcium Chloride (Calcium Chloride) 1,000 mg STK-MED ONCE .ROUTE ; Start 04/11/20 at 12:00; Stop 04/11/20 at 16:17; Status DC Epinephrine HCl (EPINEPHrine SYRINGE) 2 mg STK-MED ONCE .ROUTE ; Start 04/11/20 at 12:00; Stop 04/11/20 at 16:17; Status DC Sodium Bicarbonate (Sodium Bicarb Adult 8.4% Syr) 100 meq STK-MED ONCE .ROUTE ; Start 04/11/20 at 12:00; Stop 04/11/20 at 16:17; Status DC Dopamine HCl/ Dextrose (DOPamine 400MG/ 250ML PREMIX) 400 mg STK-MED ONCE IV ; Start 04/11/20 at 12:00; Stop 04/11/20 at 16:17; Status DC Midazolam HCl 100 ml @ 0 mls/hr CONT PRN IV SEE I/O RECORD; Start 04/11/20 at 17:30; Status Cancel Hydralazine HCl (Apresoline Inj) 10 mg PRN Q4HRS PRN IVP ELEVATED BP, SEE COMMENTS Last administered on 04/15/20at 16:14; Start 04/11/20 at 18:45 Midazolam HCl 100 ml @ 1 mls/hr CONT PRN IV SEE I/O RECORD Last administered on 04/14/20at 06:41; Start 04/12/20 at 00:30; Stop 04/14/20 at 18:24; Status DC Potassium Chloride/Water 100 ml @ 100 mls/hr Q1H IV Last administered on 04/13/20at 09:20; Start 04/13/20 at 06:30; Stop 04/13/20 at 10:29; Status DC Amino Acids/ Glycerin/ Electrolytes 1,000 ml @ 80 mls/hr [id number] IV Last administered on 04/16/20at 03:33; Start 04/13/20 at 10:15 Metoclopramide HCl (Reglan Vial) 10 mg DAILY IVP Last administered on 04/15/20at 07:57; Start 04/13/20 at 10:15 Bacitracin [id number] unit/Sodium Chloride 250 ml @ 250 mls/hr 1X ONCE IRR Last administered on 04/14/20at 06:00; Start 04/14/20 at 06:00; Stop 04/14/20 at 08:26; Status DC Lidocaine/ Epinephrine (LIDOCAINE 2%-EPI 1:100,000 multi-dose) 20 ml STK-MED ONCE .ROUTE ; Start 04/14/20 at 09:01; Stop 04/14/20 at 09:01; Status DC Lidocaine/ Epinephrine (LIDOCAINE 1%-EPI 1:100,000 Multi-Dose) 40 ml 1X ONCE INJ Last administered on 04/14/20at 10:00; Start 04/14/20 at 10:00; Stop 04/14/20 at 10:01; Status DC Oxycodone/ Acetaminophen (Percocet 5/325) 1 tab PRN Q4HRS PRN PO PAIN Last administered on 04/15/20at 07:57; Start 04/14/20 at 10:30 Losartan Potassium (Cozaar) 50 mg DAILY PO ; Start 04/15/20 at 16:00 Amlodipine Besylate (Norvasc) 10 mg DAILY PO ; Start 04/16/20 at 09:00 Amlodipine Besylate (Norvasc) 5 mg 1X ONCE PO ; Start 04/15/20 at 15:30; Stop 04/15/20 at 15:32; Status DC Nicardipine HCl 50 mg/Sodium Chloride 250 ml @ 0 mls/hr CONT PRN IV SEE I/O RECORD Last administered on 04/16/20at 06:25; Start 04/15/20 at 17:00 Fentanyl Citrate (Fentanyl 2ml Vial) 25 mcg PRN Q6HRS PRN IVP PAIN Last adm inistered on 04/16/20at 06:19; Start 04/15/20 at 18:45 Fentanyl Citrate (Fentanyl 2ml Vial) 100 mcg STK-MED ONCE .ROUTE ; Start 04/15/20 at 18:42; Stop 04/15/20 at 18:42; Status DC Vitals/I & O Vital Sign - Last 24 Hours 04/15/20 04/15/20 04/15/20 04/15/20 10:00 10:19 10:30 11:00 Temp 98.6 98.6 Pulse 103 98 102 106 Resp 12 12 12 B/P (MAP) 186/67 (106) 186/61 174/60 (98) 178/58 (98) Pulse Ox 98 98 100 O2 Delivery BiPAP/CPAP BiPAP/CPAP trial on vent CPap 04/15/20 04/15/20 04/15/20 04/15/20 12:00 12:00 13:00 13:07 Pulse 100 102 Resp 12 12 B/P (MAP) 182/62 (102) 140/68 (92) Pulse Ox 94 98 98 O2 Delivery Mechanical Ventilator trial on vent CPap trial on vent CPap Vent ilator 04/15/20 04/15/20 04/15/20 04/15/20 14:00 15:00 15:25 15:30 Pulse 108 106 100 102 Resp 12 12 12 B/P (MAP) 166/54 (91) 162/52 (88) 218/64 (115) 199/61 Pulse Ox 98 98 99 O2 Delivery trial on vent CPap trial on vent CPap Nasal Cannula O2 Flow Rate 3.0 04/15/20 04/15/20 04/15/20 04/15/20 15:54 16:00 16:00 16:14 Temp 99.0 99.0 Pulse 104 100 101 Resp 12 B/P (MAP) 199/71 202/56 (104) 207/102 Pulse Ox 98 98 O2 Delivery Nasal Cannula Nasal Cannula O2 Flow Rate 3.0 3.0 04/15/20 04/15/20 04/15/20 04/15/20 17:00 17:00 18:20 19:00 Pulse 106 110 103 102 Resp 20 B/P (MAP) 155/62 (93) 168/52 (90) 154/78 (103) 154/53 (86) Pulse Ox 98 98 98 96 O2 Delivery Nasal Cannula Nasal Cannula Nasal Cannula Nasal Cannula O2 Flow Rate 3.0 3.0 3.0 3.0 04/15/20 04/15/20 04/15/20 04/15/20 19:30 20:00 21:00 22:00 Temp 98.2 98.2 Pulse 103 98 101 Resp 25 B/P (MAP) 163/55 (91) 166/54 (91) 164/59 (94) Pulse Ox 94 96 96 O2 Delivery Nasal Cannula Nasal Cannula Nasal Cannula Nasal Cannula O2 Flow Rate 3.0 3.0 3.0 3.0 04/15/20 04/16/20 04/16/20 04/16/20 23:00 00:00 00:01 00:07 Temp 97.7 97.7 Pulse 98 95 Resp 18 B/P (MAP) 152/53 (86) 150/53 (85) Pulse Ox 97 96 94 O2 Delivery Nasal Cannula Nasal Cannula Nasal Cannula Nasal Cannula O2 Flow Rate 3.0 3.0 3.0 3.0 04/16/20 04/16/20 04/16/20 04/16/20 00:41 01:00 02:00 03:00 Pulse 96 92 99 Resp 20 22 20 22 B/P (MAP) 159/53 (88) 147/51 (83) 159/56 (90) Pulse Ox 96 96 97 96 O2 Delivery Nasal Cannula Nasal Cannula Nasal Cannula Nasal Cannula O2 Flow Rate 3.0 3.0 3.0 3.0 04/16/20 04/16/20 04/16/20 04/16/20 03:30 03:45 04:00 05:00 Temp 97.2 97.2 Pulse 97 100 Resp 18 20 B/P (MAP) 168/54 (92) 158/54 (88) 151/55 (87) Pulse Ox 98 96 O2 Delivery Nasal Cannula Nasal Cannula Nasal Cannula O2 Flow Rate 3.0 3.0 3.0 04/16/20 04/16/20 04/16/20 04/16/20 06:00 06:15 06:19 06:30 Pulse 94 Resp 18 20 B/P (MAP) 161/51 (87) 178/50 (92) 166/52 (90) Pulse Ox 96 97 O2 Delivery Nasal Cannula Nasal Cannula O2 Flow Rate 3.0 3.0 04/16/20 04/16/20 07:02 09:25 Resp 20 Pulse Ox 97 97 O2 Delivery Nasal Cannula Nasal Cannula O2 Flow Rate 3.0 2.0 Intake and Output 04/15/20 04/15/20 04/16/20 15:00 23:00 07:00 Intake Total 100 ml 655 ml 1458 ml Output Total 390 ml 500 ml 600 ml Balance -290 ml 155 ml 858 ml Justicifation of Admission Dx: Justifications for Admission: Justification of Admission Dx: Yes (cardiac arrest) CAMDEN TUCKER MD Apr 16, 2020 09:39
[2020-04-16] MEDS: hydrALAZINE 20 MG/ML VIAL. IVP PRN ×3 (09:44→20:37)
--- NOTE | 2020-04-16 10:34 | PDOC ---
PULMONARY PROGRESS NOTES DATE: 04/16/20 TIME: 10:32 Subjective Patient is now on nasal cannula oxygen, 2 L, extubated 04/15/2020 S/P permanent pacemaker No overnight concerns from nursing Vitals Vital Signs Date Time Temp Pulse Resp B/P (MAP) Pulse Ox O2 Delivery O2 Flow Rate FiO2 04/16/20 09:44 20 Nasal Cannula 2.0 04/16/20 09:44 95 175/50 04/16/20 09:25 97 04/16/20 04:00 97.2 97.2 Comments ROS: No Nausea, No Chest Pain, No Abdominal Pain, No Increase Cough Lungs: Clear Cardiovascular: S1, S2 Abdomen: Soft, Non-tender Neuro Exam: Alert, Oriented Skin: Warm Labs Laboratory Tests Test 04/15/20 10:00 04/15/20 15:10 04/15/20 21:25 04/16/20 06:00 O2 Saturation 97 % (92-99) 97 % (92-99) 93 % (92-99) Arterial Blood pH 7.45 (7.35-7.45) 7.46 (7.35-7.45) 7.44 (7.35-7.45) Arterial Blood pCO2 at Patient Temp 43 mmHg (35-46) 40 mmHg (35-46) 42 mmHg (35-46) Arterial Blood pO2 at Patient Temp 101 mmHg (65-108) 102 mmHg (65-108) 70 mmHg (65-108) Arterial Blood HCO3 29 mmol/L (21-28) 28 mmol/L (21-28) 28 mmol/L (21-28) Arterial Blood Base Excess 4 mmol/L (-3-3) 4 mmol/L (-3-3) 4 mmol/L (-3-3) FiO2 30/cpap 30% ps 10 peep 5 32/ 3lnc White Blood Count 9.2 x10^3/uL (4.0-11.0) Red Blood Count 3.72 x10^6/uL (3.50-5.40) Hemoglobin 10.7 g/dL (12.0-15.5) Hematocrit 31.4 % (36.0-47.0) Mean Corpuscular Volume 84 fL (79-100) Mean Corpuscular Hemoglobin 29 pg (25-35) Mean Corpuscular Hemoglobin Concent 34 g/dL (31-37) Red Cell Distribution Width 14.2 % (11.5-14.5) Platelet Count 161 x10^3/uL (140-400) Neutrophils (%) (Auto) 79 % (31-73) Lymphocytes (%) (Auto) 13 % (24-48) Monocytes (%) (Auto) 7 % (0-9) Eosinophils (%) (Auto) 1 % (0-3) Basophils (%) (Auto) 0 % (0-3) Neutrophils # (Auto) 7.3 x10^3/uL (1.8-7.7) Lymphocytes # (Auto) 1.2 x10^3/uL (1.0-4.8) Monocytes # (Auto) 0.6 x10^3/uL (0.0-1.1) Eosinophils # (Auto) 0.1 x10^3/uL (0.0-0.7) Basophils # (Auto) 0.0 x10^3/uL (0.0-0.2) Sodium Level 142 mmol/L (136-145) Potassium Level 3.8 mmol/L (3.5-5.1) Chloride Level 107 mmol/L (98-107) Carbon Dioxide Level 27 mmol/L (21-32) Anion Gap 8 (6-14) Blood Urea Nitrogen 22 mg/dL (7-20) Creatinine 0.7 mg/dL (0.6-1.0) Estimated GFR (Cockcroft-Gault) 100.4 Glucose Level 120 mg/dL (70-99) Calcium Level 8.8 mg/dL (8.5-10.1) Laboratory Tests Test 04/15/20 15:10 04/15/20 21:25 04/16/20 06:00 O2 Saturation 97 % (92-99) 93 % (92-99) Arterial Blood pH 7.46 (7.35-7.45) 7.44 (7.35-7.45) Arterial Blood pCO2 at Patient Temp 40 mmHg (35-46) 42 mmHg (35-46) Arterial Blood pO2 at Patient Temp 102 mmHg (65-108) 70 mmHg (65-108) Arterial Blood HCO3 28 mmol/L (21-28) 28 mmol/L (21-28) Arterial Blood Base Excess 4 mmol/L (-3-3) 4 mmol/L (-3-3) FiO2 30% ps 10 peep 5 32/ 3lnc White Blood Count 9.2 x10^3/uL (4.0-11.0) Red Blood Count 3.72 x10^6/uL (3.50-5.40) Hemoglobin 10.7 g/dL (12.0-15.5) Hematocrit 31.4 % (36.0-47.0) Mean Corpuscular Volume 84 fL (79-100) Mean Corpuscular Hemoglobin 29 pg (25-35) Mean Corpuscular Hemoglobin Concent 34 g/dL (31-37) Red Cell Distribution Width 14.2 % (11.5-14.5) Platelet Count 161 x10^3/uL (140-400) Neutrophils (%) (Auto) 79 % (31-73) Lymphocytes (%) (Auto) 13 % (24-48) Monocytes (%) (Auto) 7 % (0-9) Eosinophils (%) (Auto) 1 % (0-3) Basophils (%) (Auto) 0 % (0-3) Neutrophils # (Auto) 7.3 x10^3/uL (1.8-7.7) Lymphocytes # (Auto) 1.2 x10^3/uL (1.0-4.8) Monocytes # (Auto) 0.6 x10^3/uL (0.0-1.1) Eosinophils # (Auto) 0.1 x10^3/uL (0.0-0.7) Basophils # (Auto) 0.0 x10^3/uL (0.0-0.2) Sodium Level 142 mmol/L (136-145) Potassium Level 3.8 mmol/L (3.5-5.1) Chloride Level 107 mmol/L (98-107) Carbon Dioxide Level 27 mmol/L (21-32) Anion Gap 8 (6-14) Blood Urea Nitrogen 22 mg/dL (7-20) Creatinine 0.7 mg/dL (0.6-1.0) Estimated GFR (Cockcroft-Gault) 100.4 Glucose Level 120 mg/dL (70-99) Calcium Level 8.8 mg/dL (8.5-10.1) Comments ct of chest reviewed 1. Satisfactory endotracheal intubation with no pneumothorax. 2. Near confluent bilateral airspace opacities with subpleural sparing at the apices. Query pulmonary edema or ARDS. 3. Nondisplaced acute sternal fracture. CXR Impression: Interval placement of a left-sided pacemaker with leads in size slightly position. No acute cardiopulmonary process is detected. Impression . IMPRESSION: 1. Acute hypoxic and hypercapnic respiratory failure secondary to cardiac arrest with complete heart block. She also has diffuse bilateral alveolar infiltrates, likely cardiogenic pulmonary edema,----- significantly improved now extubated on nasal cannula oxygen 2. COVID negative. 3. Abnormal CT chest with diffuse alveolar infiltrates highly likely cardiogenic pulmonary edema. 4. Status post cardiac arrest with 7 minutes of ACLS protocol. She had complete heart block,----S/P PPM 5. Acute kidney injury. 6. Abnormal liver function tests, likely from shock liver. 7. COVID-19 negative. 8. Leukocytosis--resolved 9. Hypernatremia. Plan . RECOMMENDATIONS: Continue supplemental oxygen to keep oxygen saturations greater than 92%, currently on 2 L nasal cannula, wean as tolerated Follow cardiology recommendations now status post permanent pacemaker, diuresis DC Zosyn COVID-19 negative Hypertension per PCP Follow neurology recommendations Will need physical therapy/Occupational Therapy and speech therapy Continue PPN for nutritional support until speech therapy can assess swallow DVT/GI prophylaxis Discussed with RN and RT Okay to transfer out of the intensive care unit if okay with other consultations RODNEY MICHEL MD Apr 16, 2020 10:34
--- NOTE | 2020-04-16 12:05 | PDOC ---
EBER CANALES PANTOGRAPH TRANSFERRER 04/16/20 1205: CARDIO Progress Notes Date and Time Date of Service 04/16/2020 Time of Evaluation 1030 Subjective Subjective: No Chest Pain, No shortness of breath, No Palpitations, Other (wanting to move) Vitals Vitals Vital Signs Date Time Temp Pulse Resp B/P (MAP) Pulse Ox O2 Delivery O2 Flow Rate FiO2 04/16/20 11:15 20 Nasal Cannula 2.0 04/16/20 09:44 95 175/50 04/16/20 09:25 97 04/16/20 04:00 97.2 97.2 Weight Weight [ ] Input and Output Intake and Output Intake and Output 04/16/20 07:00 Intake Total 2213 ml Output Total 1490 ml Balance 723 ml Intake Oral 100 ml IV Total 2113 ml Output Urine Total 1340 ml Gastric Drainage Total 150 ml Laboratory Labs Laboratory Tests Test 04/15/20 15:10 04/15/20 21:25 04/16/20 06:00 O2 Saturation 97 % (92-99) 93 % (92-99) Arterial Blood pH 7.46 (7.35-7.45) 7.44 (7.35-7.45) Arterial Blood pCO2 at Patient Temp 40 mmHg (35-46) 42 mmHg (35-46) Arterial Blood pO2 at Patient Temp 102 mmHg (65-108) 70 mmHg (65-108) Arterial Blood HCO3 28 mmol/L (21-28) 28 mmol/L (21-28) Arterial Blood Base Excess 4 mmol/L (-3-3) 4 mmol/L (-3-3) FiO2 30% ps 10 peep 5 32/ 3lnc White Blood Count 9.2 x10^3/uL (4.0-11.0) Red Blood Count 3.72 x10^6/uL (3.50-5.40) Hemoglobin 10.7 g/dL (12.0-15.5) Hematocrit 31.4 % (36.0-47.0) Mean Corpuscular Volume 84 fL (79-100) Mean Corpuscular Hemoglobin 29 pg (25-35) Mean Corpuscular Hemoglobin Concent 34 g/dL (31-37) Red Cell Distribution Width 14.2 % (11.5-14.5) Platelet Count 161 x10^3/uL (140-400) Neutrophils (%) (Auto) 79 % (31-73) Lymphocytes (%) (Auto) 13 % (24-48) Monocytes (%) (Auto) 7 % (0-9) Eosinophils (%) (Auto) 1 % (0-3) Basophils (%) (Auto) 0 % (0-3) Neutrophils # (Auto) 7.3 x10^3/uL (1.8-7.7) Lymphocytes # (Auto) 1.2 x10^3/uL (1.0-4.8) Monocytes # (Auto) 0.6 x10^3/uL (0.0-1.1) Eosinophils # (Auto) 0.1 x10^3/uL (0.0-0.7) Basophils # (Auto) 0.0 x10^3/uL (0.0-0.2) Sodium Level 142 mmol/L (136-145) Potassium Level 3.8 mmol/L (3.5-5.1) Chloride Level 107 mmol/L (98-107) Carbon Dioxide Level 27 mmol/L (21-32) Anion Gap 8 (6-14) Blood Urea Nitrogen 22 mg/dL (7-20) Creatinine 0.7 mg/dL (0.6-1.0) Estimated GFR (Cockcroft-Gault) 100.4 Glucose Level 120 mg/dL (70-99) Calcium Level 8.8 mg/dL (8.5-10.1) Microbiology Micro Microbiology 04/11/20 Blood Culture - Final, Complete NO GROWTH AFTER 5 DAYS Physical Exam HEENT: Neck Supple W Full Motion Chest: Symmetric LUNGS: Other (diminished bases) Heart: RRR (SR with RBBB) Abdomen: Other (obese) Extremities: Other (1+ bilateral LE pitting edema) Neurology: alert, follow commands, other (periods of confusion) Other Exams left chest surgical dressing replaced and remains D/I Assessment Assessment 1. Presyncope with fall: due to bradyarrhythmia. prior multiple syncope at home 2. Symptomatic third degree heart block: now back in SR with RBBB, first degree AV block 3. Cardiopulmonary arrest: occurred in ED noted with asystole, received ACLS. 7 min to ROSC. Now extubated 4. S/P PPM in situ: Biotronik. No PTX. Repeat interrogation revealed normal functioning device 5. Nondisplaced sternal fracture: likely from CPR 5. HTN urgency: labile 6. ANA: back to baseline 7. Shock liver: better 8. Acute diastolic CHF: EF nml. compensated 9. Acute respiratory failure due to bradyarrhythmia 10. Orthodox 11. NSTEMI: 0.2, demand mediated with above culprits 12. Obesity 13. Hyperglycemia: per PCP 14. Anoxic encephalopathy: now alert follows commands Recommendations 1. Remains NPO, awaiting swallow eval. Meantime continue cardene. Once able to take PO then will restart norvasc/losartan 2. Supportive care. 3. Consider for outpt stress test. 4..Lasix PRN 5. Rehab eval and treat. Arm sling as instructed Justicifation of Admission Dx: Justifications for Admission: Justification of Admission Dx: Yes (cardiac arrest) LILIBETH VÁZQUEZ MD 04/16/20 2015: CARDIO Progress Notes Assessment Assessment Patient seen and examined. Agree with TRANSPORT AIRCREWMAN's assessment and plan. s/p PPM for CHB, device check with normal function and CXR without any pneumothorax Patient extubated but failed swallow study - on IV meds Continue cardene infusion, add labetalol IV for better control of BP Pulm team following EBER CANALES APRN Apr 16, 2020 12:05 LILIBETH VÁZQUEZ MD Apr 16, 2020 20:15
[2020-04-16 12:40] LABS: CHOLESTEROL/HDL RATIO 3.3
--- NOTE | 2020-04-16 12:41 | PDOC ---
[facility] PROGRESS NOTE Date of Service DOS: DATE: 04/16/20 TIME: 12:39 Chief Complaint Chief Complaint syncope and fall, , was pulseless in complete heart block Symptomatic bradycardia with third-degree AV block status post permanent pacemaker placement 04/14/2020 asystolic the ER, CPR for 7 min intubated, sedated now in afib, acute diastolic CHF acute renal failure, vasomotor HTN urgency Obesity, BMI 33 History of Present Illness History of Present Illness 04/16/2020 No acute events overnight. Afebrile. Patient is extubated. Complains of right thigh pain where her cath puncture site was. Pending speech evaluation. Patient's chart, labs, images were reviewed and discussed with RN 04/15/2020 No acute events overnight. Afebrile. Sedation is currently off and currently intubated. Attempting to wean to extubate today. Vent settings currently at 450/50%/PEEP 5. > 50% time spent in patient chart, labs, and imaging review and in discussion with RN and ABI 04/14/2020 No acute events overnight. Attempting to wean off of dopamine drip. Patient is currently heading towards [facility] for pacemaker placement for third-degree AV block. Will attempt to wean off of sedation and next attempt to extubate after procedure.> 50% time spent in patient chart, labs, and imaging review and in discussion with RN and ABI 04/13,. doing well on vent, could wean, might be leaving on until Pacemaker placed tomorrow looks stable CV following, no b-blockers HTN emergency yesterday afternooon vent support CV team discussing pacemaker placemetn with [facility] plan PPM tuesday Vitals/I&O Vitals/I&O: Vital Signs Date Time Temp Pulse Resp B/P (MAP) Pulse Ox O2 Delivery O2 Flow Rate FiO2 04/16/20 11:15 20 Nasal Cannula 2.0 04/16/20 09:44 95 175/50 04/16/20 09:25 97 04/16/20 04:00 97.2 97.2 I & O 04/15/20 04/15/20 04/16/20 15:00 23:00 07:00 Intake Total 100 ml 655 ml 1458 ml Output Total 390 ml 500 ml 600 ml Balance -290 ml 155 ml 858 ml Physical Exam General: Other (Intubated) Heart: Regular rate Lungs: Clear Abdomen: Normal bowel sounds Extremities: No cyanosis, No edema Skin: No rashes, No breakdown, No significant lesion Labs Labs: Laboratory Tests Test 04/15/20 15:10 04/15/20 21:25 04/16/20 06:00 O2 Saturation 97 % (92-99) 93 % (92-99) Arterial Blood pH 7.46 (7.35-7.45) 7.44 (7.35-7.45) Arterial Blood pCO2 at Patient Temp 40 mmHg (35-46) 42 mmHg (35-46) Arterial Blood pO2 at Patient Temp 102 mmHg (65-108) 70 mmHg (65-108) Arterial Blood HCO3 28 mmol/L (21-28) 28 mmol/L (21-28) Arterial Blood Base Excess 4 mmol/L (-3-3) 4 mmol/L (-3-3) FiO2 30% ps 10 peep 5 32/ 3lnc White Blood Count 9.2 x10^3/uL (4.0-11.0) Red Blood Count 3.72 x10^6/uL (3.50-5.40) Hemoglobin 10.7 g/dL (12.0-15.5) Hematocrit 31.4 % (36.0-47.0) Mean Corpuscular Volume 84 fL (79-100) Mean Corpuscular Hemoglobin 29 pg (25-35) Mean Corpuscular Hemoglobin Concent 34 g/dL (31-37) Red Cell Distribution Width 14.2 % (11.5-14.5) Platelet Count 161 x10^3/uL (140-400) Neutrophils (%) (Auto) 79 % (31-73) Lymphocytes (%) (Auto) 13 % (24-48) Monocytes (%) (Auto) 7 % (0-9) Eosinophils (%) (Auto) 1 % (0-3) Basophils (%) (Auto) 0 % (0-3) Neutrophils # (Auto) 7.3 x10^3/uL (1.8-7.7) Lymphocytes # (Auto) 1.2 x10^3/uL (1.0-4.8) Monocytes # (Auto) 0.6 x10^3/uL (0.0-1.1) Eosinophils # (Auto) 0.1 x10^3/uL (0.0-0.7) Basophils # (Auto) 0.0 x10^3/uL (0.0-0.2) Sodium Level 142 mmol/L (136-145) Potassium Level 3.8 mmol/L (3.5-5.1) Chloride Level 107 mmol/L (98-107) Carbon Dioxide Level 27 mmol/L (21-32) Anion Gap 8 (6-14) Blood Urea Nitrogen 22 mg/dL (7-20) Creatinine 0.7 mg/dL (0.6-1.0) Estimated GFR (Cockcroft-Gault) 100.4 Glucose Level 120 mg/dL (70-99) Calcium Level 8.8 mg/dL (8.5-10.1) Comment Review of Relevant I have reviewed the following items donn (where applicable) has been applied. Medications: Current Medications Medications (Trade) Dose Ordered Sig/Marlyn Route PRN Reason Start Time Stop Time Status Last Admin Dose Admin Nicardipine HCl 50 mg/Sodium Chloride 250 ml @ 0 mls/hr CONT PRN IV SEE I/O RECORD 04/15/20 17:00 04/16/20 10:59 Fentanyl Citrate (Fentanyl 2ml Vial) 25 mcg PRN Q6HRS PRN IVP PAIN 04/15/20 18:45 04/16/20 09:44 Fentanyl Citrate (Fentanyl 2ml Vial) 25 mcg PRN Q2HR PRN IVP PAIN 04/16/20 11:00 04/16/20 11:15 Justifications for Admission Other Justification LEA GARCIA MD Apr 16, 2020 12:41
[2020-04-16] MEDS: METOCLOPRAMIDE HCL 10 MG/2 ML VIAL. IVP SCH (15:21)
--- NOTE | 2020-04-16 16:31 | NUR ---
SS following up with discharge planning. SS reviewed pt chart and discussed with pt RN. Pt extubated and is currently requiring oxygen at two liters nasal canula. COVID19 negative. PT/OT ordered. Pt NPO and on PPN. ST following. SS will continue to follow for discharge planning.
[2020-04-16] MEDS: LABETALOL 20 MG/4 ML DISP.SYRIN. IVP PRN ×2 (17:29→23:47)
--- NOTE | 2020-04-16 18:25 | NUR ---
Pt has remained alert but confused but would follow all commands, speak coherently at times, STEVENS and vision appeared intact. Family at bedside and pt rested better. Sore all over, no specific place but moaning on and off freq. fent 25mg q 2hr given with better pain relief. Pt did not pass swallow eval so remains on Cardene gtt and Moreno remains per Dr Lara. Hydralazine and labetolol needed on top of cardene. Pt able to cough own secretions out. Stable on 2l n/c all day. Lt PMR site intact no pacer spikes seen today. Arm in sling
[2020-04-17] VITALS (24 sets, daily range): BP systolic 109–186; BP diastolic 42–87
[2020-04-17 01:14] LABS: HEMOGLOBIN A1C 4.5 % (4.8-5.6)
[2020-04-17] MEDS: hydrALAZINE 20 MG/ML VIAL. IVP PRN ×3 (02:46→19:52)
[2020-04-17] MEDS: AMINO AC 3%/ELECTROLYTE/GLYCER 1,000 ML IV SCH ×2 (03:46→17:02)
[2020-04-17] MEDS: LABETALOL 20 MG/4 ML DISP.SYRIN. IVP PRN ×3 (06:39→23:49)
--- NOTE | 2020-04-17 07:07 | PHYS DOC ---
Past Medical History Past Medical History: Unknown Past Surgical History: Other Additional Past Surgical Histo: unable to obtain Smoking Status: Light Tobacco Smoker Alcohol Use: None Social History Narrative: unable to obtain General Adult EDM: Chief Complaint: CPR/FULL ARREST HPI: HPI: this is a late/delayed note that should have been started on 04/11/20 70-year-old female past medical history of hypertension and hypothyroidism, presents to the ED brought in by EMS, actively transcutaneous pacing, s/p fall in bathroom just prior to arrival. History and ROS unobtainable due to patient's mental status. Review of Systems: Review of Systems: ROS: unobtainable Heart Score: Risk Factors: Risk Factors: DM, Current or recent (<one month) smoker, HTN, HLP, family history of CAD, obesity. Risk Scores: Score 0 - 3: 2.5% MACE over next 6 weeks - Discharge Home Score 4 - 6: 20.3% MACE over next 6 weeks - Admit for Clinical Observation Score 7 - 10: 72.7% MACE over next 6 weeks - Early Invasive Strategies Current Medications: Current Medications Medications (Trade) Dose Ordered Sig/Marlyn Start Time Stop Time Status Last Admin Dose Admin Dexamethasone Sodium Phosphate (Decadron) 10 mg 1X ONCE 04/11/20 04:30 04/11/20 04:31 DC 04/11/20 04:54 10 MG Epinephrine HCl 5 mg/Sodium Chloride 255 ml @ 22.208 mls/ hr CONT PRN 04/11/20 03:15 04/11/20 09:00 DC Fentanyl Citrate (Fentanyl 2ml Vial) 100 mcg STK-MED ONCE 04/11/20 02:53 04/11/20 02:53 DC Furosemide (Lasix) 100 mg 1X ONCE 04/11/20 04:15 04/11/20 04:27 DC 04/11/20 04:32 100 MG Hydromorphone HCl (Dilaudid) 2 mg STK-MED ONCE 04/11/20 02:57 04/11/20 02:57 DC Magnesium Sulfate 50 ml @ 25 mls/hr 1X ONCE 04/11/20 04:30 04/11/20 19:14 DC 04/11/20 04:58 25 MLS/HR Metronidazole (FLAGYL 500Mmg PREMIX) 500 mg STK-MED ONCE 04/11/20 04:00 04/11/20 08:43 DC Midazolam HCl 100 ml @ 1 mls/hr 1X ONCE 04/11/20 03:45 04/12/20 00:39 DC 04/11/20 11:04 5 MLS/HR Piperacillin Sod/ Tazobactam Sod (Zosyn Per Pharmacy) 1 each PRN DAILY PRN 04/11/20 04:00 04/16/20 10:35 DC Piperacillin Sod/ Tazobactam Sod 3.375 gm/Sodium Chloride 50 ml @ 100 mls/hr 1X ONCE 04/11/20 05:00 04/11/20 05:29 DC 04/11/20 05:43 100 MLS/HR Propofol 100 ml @ As Directed STK-MED ONCE 04/11/20 03:14 04/11/20 03:14 DC Vancomycin HCl (Vanco Per Pharmacy) 1 each PRN DAILY PRN 04/11/20 04:00 04/11/20 13:35 DC Vancomycin HCl 1.75 gm/Sodium Chloride 500 ml @ 250 mls/hr 1X ONCE 04/11/20 05:00 04/11/20 06:59 DC Allergies: Allergies: Allergies Coded Allergies Type Severity Reaction Last Updated Verified Unable to Assess 04/11/20 No Physical Exam: PE: Constitutional: obese, grimacing with TVP, requires assistance with gurney/ed stretcher, appears fatigued/weak HENT: Normocephalic, atraumatic, very dry mucous membranes Eyes: EOMI, conjunctiva normal, no discharge. Neck: Normal range of motion, supple, Cardiovascular: S1/2 present, no murmur Lungs & Thorax: no tachypnea or increased work of breathing Abdomen: soft, no tenderness, Skin: Warm, dry, no erythema, no rash. [] Back: No tenderness, no rash or midline deformity Extremities: No tenderness, no pitting edema Neurologic: GCS14 ([id number]), no focal deficits noted, patient is able to nod her head but minimally follow commands and answers questions Psychologic: judgement normal, mood normal. [] Current Patient Data: Labs: Microbiology 04/11/20 Blood Culture - Final, Complete NO GROWTH AFTER 5 DAYS Vital Signs: Vital Signs Date Time Temp Pulse Resp B/P (MAP) Pulse Ox O2 Delivery O2 Flow Rate FiO2 04/17/20 06:39 96 169/56 04/17/20 06:30 22 97 Nasal Cannula 2.0 04/17/20 04:00 98.5 98.5 EKG: EK EKG shows third-degree heart block, sinus rhythm around 80 bpm, ventricular beats are 34 bpm Radiology/Procedures: Radiology/Procedures: Indication: Respiratory failure Consent: Unable to give consent due to emergent nature. Medications Used: see nursing note Procedure: The patient was placed in the appropriate position. Intubation was performed via MAC 4 glide scope, endotracheal tube secured with RT device. Initial confirmation of adequate colorimetry, placement included bilateral breath sounds, tube fogging, adequate chest rise, adequate pulse oximetry reading. A chest x-ray to verify correct placement of the tube showed appropriate tube position. The patient tolerated the procedure well. Complications: none. Indication: For targeted temperature management Consent: The patient provided consent for this procedure. Procedure: The patient was positioned appropriately and the skin over the right femoral vein was prepped and draped in a sterile fashion. Local anesthesia not indicated given unresponsive mental status after cardiac arrest. Ultrasound guidance utilized. A large bore needle was used to identify the vein. A guide wire was then inserted into the vein through the needle. A triple lumen catheter was then inserted into the vessel over the guide wire using the Seldinger technique. All ports showed good, free flowing blood return and were flushed with saline solution. The catheter was then securely fastened to the skin with sutures and covered with a sterile dressing. A post procedure X-ray was ordered. The patient tolerated the procedure well. Complications: none. IMAGING REPORT Signed PATIENT: CHELSEY MASTERS ACCOUNT: [id number] : 1950 LOCATION: ER AGE: 70 SEX: F EXAM STATUS: REG ER ORD. PHYSICIAN: NADYA WATKINS DO REASON: s/p intubation, POST CODE PROCEDURE: PORTABLE CHEST 1V EXAM: XR CHEST 1V 04/11/2020 3:49 AM CLINICAL INDICATION: Status post intubation, post code COMPARISON: None TECHNIQUE: AP supine view the chest FINDINGS: Endotracheal tube terminates 4.5 cm above the ioana. Nasogastric tube terminates in the gastric fundus with the sidehole in the distal esophagus heart is normal in size. There are bilateral consolidative airspace opacities, greatest in the lung bases and greater on the right. No pneumothorax. No acute osseous abnormality. Surgical clips are in the left chest wall. IMPRESSION: 1. Appropriate position of nasogastric tube. 2. High termination of nasogastric tube with sidehole in the distal esophagus, consider advancing 5 cm. 3. Bilateral consolidations throughout the lungs, greater on the right. Small right pleural effusion also possible. Electronically signed by: Henrietta Wood MD (04/11/2020 4:36 AM) [id number] DICTATED and SIGNED BY: HENRIETTA WOOD MD DATE: 04/11/20 [id number] 0 Course & Med Decision Making: Course & Med Decision Making Pertinent Labs and Imaging studies reviewed. (See chart for details) Concern for complete heart block. Transcontinuous pacing active on arrival. Was started on epinephrine drip. Patient went into cardiac arrest for 7 minutes. After ROSC dopamine drip was started and central line placed for targeted temperature management. Labs show renal insufficiency and trans aminitis, troponin is on the upper limit of normal. Son (Kavin Masters) later present in ED and reports patient moved here 01/2020 from [place] to live with family members (declining health). Patient has been passing out frequently and was admitted to [facility] within the past month for syncope. Is pending a "surgery under her chest skin" for her "abnormal heart rhythm" on 04/15 [address] "Dr[address] Merchant" from [facility] - suspect pacemaker. I did speak to Dr. Washburn regarding urgent need for pacemaker placement. Patient accepted by Dr. Long to the ICU. Shortly after admission patient started moving all 4 extremities and attempted to remove her ET tube-sedation was started at this time. I have spoken with the patient and/or caregivers. I have explained the patient's condition, diagnosis and treatment plan based on the information available to me at this time. I have answered the patient's and/or caregivers questions and answered any concerns. The patient and/or caregivers have as good an understanding of the patient's diagnosis, condition and treatment plan as can be expected at this point. The patient has been stabilized within the capability of the emergency department. The patient will be transported for further care and management or will be moved to an observation or inpatient service. I have communicated with the staff or medical practitioner taking over this patient's care. Critical Care: Authorized and Performed by: Nadya Watkins DO Total critical care time: approximately 120 minutes Due to a high probability of clinically significant, life threatening deterioration, the patient required my highest level of preparedness to intervene emergently and I personally spent this critical care time directly and personally managing the patient. This critical care time included obtaining a history; examining the patient; pulse oximetry; ventilator management if necessary; ordering and review of studies; arranging urgent treatment with development of a management plan; evaluation of patient's response to treatment; frequent reassessment; discussion with patient/family; and, discussions with other providers. This critical care time was performed to assess and manage the high probability of imminent, life-threatening deterioration that could result in multi-organ failure. It was exclusive of separately billable procedures and treating other patients and teaching time. Please see MDM section and the rest of the note for further information on patient assessment and treatment. Dragon Disclaimer: Dragon Disclaimer: This electronic medical record was generated, in whole or in part, using a voice recognition dictation system. Departure Departure Impression: Primary Impression: Third degree heart block Additional Impressions: Cardiac arrest Renal insufficiency Transaminitis Disposition: ADMITTED INPT THIS HOSP Admitting Physician: MANJULA (Dr. Long) Condition: CRITICAL Referrals: UNKNOWN PCP NAME (PCP) NADYA WATKINS DO Apr 17, 2020 07:07
--- NOTE | 2020-04-17 07:10 | PDOC5 ---
CODE REPORT CODE REPORT delayed note Patient in third-degree heart block with transcutaneous pacing and started on epi drip. Patient developed PEA (no capture on monitor w/TCP). ACLS protocol started at 318. Epi, calcium, and bicarb given. ROSC obtained at 325. Please see nursing documents for complete details resuscitation. TRAVIS LEONARD DO Apr 17, 2020 07:10
[2020-04-17] MEDS: PANTOPRAZOLE IV PUSH 40 MG VIAL. IVP SCH (07:56)
[2020-04-17] MEDS: METOCLOPRAMIDE HCL 10 MG/2 ML VIAL. IVP SCH (07:59)
[2020-04-17] MEDS: HEPARIN for SUB-Q USE 5,000 UNIT/ML VIAL. SQ SCH ×2 (08:04→21:28)
[2020-04-17] MEDS: LOSARTAN POTASSIUM 50 MG TABLET. PO SCH (08:07)
[2020-04-17] MEDS ORDERED: AMIODARONE HCL 200 MG TABLET. PO SCH (09:00)
[2020-04-17] MEDS ORDERED: POTASSIUM CHLORIDE 20MEQ 100 ML IV ONE (09:00)
[2020-04-17] MEDS: IV 1/2 NORMAL SALINE 1,000 ML IV SCH (09:15)
[2020-04-17 09:41] LABS: CALCIUM 8.8 mg/dL (8.5-10.1); CREATININE 0.8 mg/dL (0.6-1.0); GFR 86.1; POTASSIUM 4.4 mmol/L (3.5-5.1)
--- NOTE | 2020-04-17 10:12 | PDOC ---
PULMONARY PROGRESS NOTES DATE: 04/17/20 TIME: 10:11 Subjective Patient is now on nasal cannula oxygen, 2 L, extubated 04/15/2020 S/P permanent pacemaker No overnight concerns from nursing Vitals Vital Signs Date Time Temp Pulse Resp B/P (MAP) Pulse Ox O2 Delivery O2 Flow Rate FiO2 04/17/20 09:00 83 20 149/87 (107) 98 Nasal Cannula 2.0 04/17/20 07:00 98.8 98.8 Comments ROS: No Nausea, No Chest Pain, No Abdominal Pain, No Increase Cough Lungs: Clear Cardiovascular: S1, S2 Abdomen: Soft, Non-tender Neuro Exam: Alert, Oriented Skin: Warm Labs Laboratory Tests Test 04/15/20 15:10 04/15/20 21:25 04/16/20 06:00 04/17/20 08:40 O2 Saturation 97 % (92-99) 93 % (92-99) Arterial Blood pH 7.46 (7.35-7.45) 7.44 (7.35-7.45) Arterial Blood pCO2 at Patient Temp 40 mmHg (35-46) 42 mmHg (35-46) Arterial Blood pO2 at Patient Temp 102 mmHg (65-108) 70 mmHg (65-108) Arterial Blood HCO3 28 mmol/L (21-28) 28 mmol/L (21-28) Arterial Blood Base Excess 4 mmol/L (-3-3) 4 mmol/L (-3-3) FiO2 30% ps 10 peep 5 32/ 3lnc White Blood Count 9.2 x10^3/uL (4.0-11.0) Red Blood Count 3.72 x10^6/uL (3.50-5.40) Hemoglobin 10.7 g/dL (12.0-15.5) Hematocrit 31.4 % (36.0-47.0) Mean Corpuscular Volume 84 fL (79-100) Mean Corpuscular Hemoglobin 29 pg (25-35) Mean Corpuscular Hemoglobin Concent 34 g/dL (31-37) Red Cell Distribution Width 14.2 % (11.5-14.5) Platelet Count 161 x10^3/uL (140-400) Neutrophils (%) (Auto) 79 % (31-73) Lymphocytes (%) (Auto) 13 % (24-48) Monocytes (%) (Auto) 7 % (0-9) Eosinophils (%) (Auto) 1 % (0-3) Basophils (%) (Auto) 0 % (0-3) Neutrophils # (Auto) 7.3 x10^3/uL (1.8-7.7) Lymphocytes # (Auto) 1.2 x10^3/uL (1.0-4.8) Monocytes # (Auto) 0.6 x10^3/uL (0.0-1.1) Eosinophils # (Auto) 0.1 x10^3/uL (0.0-0.7) Basophils # (Auto) 0.0 x10^3/uL (0.0-0.2) Sodium Level 142 mmol/L (136-145) 142 mmol/L (136-145) Potassium Level 3.8 mmol/L (3.5-5.1) 4.4 mmol/L (3.5-5.1) Chloride Level 107 mmol/L (98-107) 107 mmol/L (98-107) Carbon Dioxide Level 27 mmol/L (21-32) 26 mmol/L (21-32) Anion Gap 8 (6-14) 9 (6-14) Blood Urea Nitrogen 22 mg/dL (7-20) 30 mg/dL (7-20) Creatinine 0.7 mg/dL (0.6-1.0) 0.8 mg/dL (0.6-1.0) Estimated GFR (Cockcroft-Gault) 100.4 86.1 Glucose Level 120 mg/dL (70-99) 108 mg/dL (70-99) Hemoglobin A1c 4.5 % (4.8-5.6) Calcium Level 8.8 mg/dL (8.5-10.1) 8.8 mg/dL (8.5-10.1) Triglycerides Level 132 mg/dL (0-150) Cholesterol Level 182 mg/dL (0-200) LDL Cholesterol, Calculated 101 mg/dL (0-100) VLDL Cholesterol, Calculated 26 mg/dL (0-40) Non-HDL Cholesterol Calculated 127 mg/dL (0-129) HDL Cholesterol 55 mg/dL (40-60) Cholesterol/HDL Ratio 3.3 Laboratory Tests Test 04/17/20 08:40 Sodium Level 142 mmol/L (136-145) Potassium Level 4.4 mmol/L (3.5-5.1) Chloride Level 107 mmol/L (98-107) Carbon Dioxide Level 26 mmol/L (21-32) Anion Gap 9 (6-14) Blood Urea Nitrogen 30 mg/dL (7-20) Creatinine 0.8 mg/dL (0.6-1.0) Estimated GFR (Cockcroft-Gault) 86.1 Glucose Level 108 mg/dL (70-99) Calcium Level 8.8 mg/dL (8.5-10.1) Comments ct of chest reviewed 1. Satisfactory endotracheal intubation with no pneumothorax. 2. Near confluent bilateral airspace opacities with subpleural sparing at the apices. Query pulmonary edema or ARDS. 3. Nondisplaced acute sternal fracture. CXR Impression: Interval placement of a left-sided pacemaker with leads in size slightly position. No acute cardiopulmonary process is detected. Impression . IMPRESSION: 1. Acute hypoxic and hypercapnic respiratory failure secondary to cardiac arrest with complete heart block. She also has diffuse bilateral alveolar infiltrates, likely cardiogenic pulmonary edema,----- significantly improved now extubated on nasal cannula oxygen 2. COVID negative. 3. Abnormal CT chest with diffuse alveolar infiltrates highly likely cardiogenic pulmonary edema. 4. Status post cardiac arrest with 7 minutes of ACLS protocol. She had complete heart block,----S/P PPM 5. Acute kidney injury. 6. Abnormal liver function tests, likely from shock liver. 7. COVID-19 negative. 8. Leukocytosis--resolved 9. Hypernatremia. Plan . Continue supplemental oxygen to keep oxygen saturations greater than 92%, currently on 2 L nasal cannula, wean as tolerated Follow cardiology recommendations now status post permanent pacemaker, diuresis DC Zosyn COVID-19 negative Hypertension per PCP Follow neurology recommendations Will need physical therapy/Occupational Therapy and speech therapy Continue PPN for nutritional support until speech therapy can assess swallow DVT/GI prophylaxis Discussed with RN and RT Okay to transfer out of the intensive care unit if okay with other consultations RODNEY MICHEL MD Apr 17, 2020 10:12
--- NOTE | 2020-04-17 12:00 | PDOC ---
EBER CANALES RETAIL FINANCIAL ANALYST 04/17/20 1200: CARDIO Progress Notes Date and Time Date of Service 04/17/2020 Time of Evaluation 1000 Subjective Subjective: No Chest Pain, No shortness of breath, No Palpitations Vitals Vitals Vital Signs Date Time Temp Pulse Resp B/P (MAP) Pulse Ox O2 Delivery O2 Flow Rate FiO2 04/17/20 11:10 81 170/65 04/17/20 11:08 22 98 Nasal Cannula 2.0 04/17/20 10:00 98.6 98.6 Weight Weight [ ] Input and Output Intake and Output Intake and Output 04/17/20 07:00 Intake Total 4166 ml Output Total 1200 ml Balance 2966 ml IV Total 4166 ml Output Urine Total 1200 ml Laboratory Labs Laboratory Tests Test 04/17/20 08:40 Sodium Level 142 mmol/L (136-145) Potassium Level 4.4 mmol/L (3.5-5.1) Chloride Level 107 mmol/L (98-107) Carbon Dioxide Level 26 mmol/L (21-32) Anion Gap 9 (6-14) Blood Urea Nitrogen 30 mg/dL (7-20) Creatinine 0.8 mg/dL (0.6-1.0) Estimated GFR (Cockcroft-Gault) 86.1 Glucose Level 108 mg/dL (70-99) Calcium Level 8.8 mg/dL (8.5-10.1) Microbiology Micro Microbiology 04/11/20 Blood Culture - Final, Complete NO GROWTH AFTER 5 DAYS Physical Exam HEENT: Neck Supple W Full Motion Chest: Symmetric LUNGS: Other (diminished bases) Heart: RRR (SR with RBBB) Abdomen: Other (obese) Extremities: Other (1+ bilateral LE pitting edema) Neurology: other (sedated currently just got ativan otherwise alert and follows commands per staff prior ) Assessment Assessment 1. Presyncope with fall: due to bradyarrhythmia. prior multiple syncope at home 2. Symptomatic third degree heart block: Maintaining SR with RBBB, first degree AV block 3. Cardiopulmonary arrest: occurred in ED noted with asystole, received ACLS. 7 min to ROSC. Now extubated 4. S/P PPM in situ: Biotronik. No PTX. Repeat interrogation revealed normal functioning device. sling in place 5. Nondisplaced sternal fracture: likely from CPR 5. HTN urgency: better controlled 6. ANA: back to baseline 7. Shock liver: better 8. Acute diastolic CHF: EF nml. compensated 9. Acute respiratory failure due to bradyarrhythmia 10. Voodoo 11. NSTEMI: 0.2, demand mediated with above culprits 12. Obesity 13. Hyperglycemia: per PCP 14. Anoxic encephalopathy: improved 15. Dysphagia: remains NPO Recommendations 1. Remains NPO, awaiting repeat swallow eval. Off cardene with BP noted to be low marginal. Currently on procalamine. Continue PRN BP regimen. Once able to take PO then will restart norvasc/losartan pending BP trend 2. Supportive care. 3. Consider for outpt stress test. 4..Lasix PRN 5. Rehab eval and treat. Arm sling as instructed Justicifation of Admission Dx: Justifications for Admission: Justification of Admission Dx: Yes (cardiac arrest) LILIBETH VÁZQUEZ MD 04/17/20 2020: CARDIO Progress Notes Assessment Assessment Patient seen and examined. Agree with TRACTOR ENGINE ASSEMBLER's assessment and plan. s/p PPM for CHB, device check with normal function and CXR without any pneumothorax ARF, s/p extubation, failed swallow study - on IV meds BP better controlled, off cardene gtt, will start PO meds when able OK for transfer to tele unit EBER CANALES APRN Apr 17, 2020 12:00 LILIBETH VÁZQUEZ MD Apr 17, 2020 20:20
--- NOTE | 2020-04-17 12:57 | PDOC ---
PROGRESS NOTES Date of Service DATE: 04/17/20 TIME: 12:55 Assessment Problems Medical Problems: (1) Renal insufficiency Status: Acute (2) Third degree heart block Status: Acute (3) Transaminitis Status: Acute Anoxic encephalopathy, improving AV ventricular block, status-post pacemaker, congestive heart failure, hyper tensive urgency Plan No need for repeat head CT or EEG Continue medical management. Subjective None Objective Vital Signs Date Time Temp Pulse Resp B/P (MAP) Pulse Ox O2 Delivery O2 Flow Rate FiO2 04/17/20 11:10 81 170/65 04/17/20 11:08 22 98 Nasal Cannula 2.0 04/17/20 10:00 98.6 98.6 Intake and Output 04/17/20 07:00 Intake Total 4166 ml Output Total 1200 ml Balance 2966 ml IV Total 4166 ml Output Urine Total 1200 ml PHYSICAL EXAM Just received sedation PERRL. EOMI. CN: no focal findings. Muscle tone: normal. Muscle strength: 3/5 DTR: 1+ Plantar reflex: Silent Gait: not examined in bed. Sensory exam: Not cooperative Cerebellar: Not cooperative Review of Relevant I have reviewed the following items donn (where applicable) has been applied. Labs Laboratory Tests Test 04/15/20 15:10 04/15/20 21:25 04/16/20 06:00 04/17/20 08:40 O2 Saturation 97 % (92-99) 93 % (92-99) Arterial Blood pH 7.46 (7.35-7.45) 7.44 (7.35-7.45) Arterial Blood pCO2 at Patient Temp 40 mmHg (35-46) 42 mmHg (35-46) Arterial Blood pO2 at Patient Temp 102 mmHg (65-108) 70 mmHg (65-108) Arterial Blood HCO3 28 mmol/L (21-28) 28 mmol/L (21-28) Arterial Blood Base Excess 4 mmol/L (-3-3) 4 mmol/L (-3-3) FiO2 30% ps 10 peep 5 32/ 3lnc White Blood Count 9.2 x10^3/uL (4.0-11.0) Red Blood Count 3.72 x10^6/uL (3.50-5.40) Hemoglobin 10.7 g/dL (12.0-15.5) Hematocrit 31.4 % (36.0-47.0) Mean Corpuscular Volume 84 fL (79-100) Mean Corpuscular Hemoglobin 29 pg (25-35) Mean Corpuscular Hemoglobin Concent 34 g/dL (31-37) Red Cell Distribution Width 14.2 % (11.5-14.5) Platelet Count 161 x10^3/uL (140-400) Neutrophils (%) (Auto) 79 % (31-73) Lymphocytes (%) (Auto) 13 % (24-48) Monocytes (%) (Auto) 7 % (0-9) Eosinophils (%) (Auto) 1 % (0-3) Basophils (%) (Auto) 0 % (0-3) Neutrophils # (Auto) 7.3 x10^3/uL (1.8-7.7) Lymphocytes # (Auto) 1.2 x10^3/uL (1.0-4.8) Monocytes # (Auto) 0.6 x10^3/uL (0.0-1.1) Eosinophils # (Auto) 0.1 x10^3/uL (0.0-0.7) Basophils # (Auto) 0.0 x10^3/uL (0.0-0.2) Sodium Level 142 mmol/L (136-145) 142 mmol/L (136-145) Potassium Level 3.8 mmol/L (3.5-5.1) 4.4 mmol/L (3.5-5.1) Chloride Level 107 mmol/L (98-107) 107 mmol/L (98-107) Carbon Dioxide Level 27 mmol/L (21-32) 26 mmol/L (21-32) Anion Gap 8 (6-14) 9 (6-14) Blood Urea Nitrogen 22 mg/dL (7-20) 30 mg/dL (7-20) Creatinine 0.7 mg/dL (0.6-1.0) 0.8 mg/dL (0.6-1.0) Estimated GFR (Cockcroft-Gault) 100.4 86.1 Glucose Level 120 mg/dL (70-99) 108 mg/dL (70-99) Hemoglobin A1c 4.5 % (4.8-5.6) Calcium Level 8.8 mg/dL (8.5-10.1) 8.8 mg/dL (8.5-10.1) Triglycerides Level 132 mg/dL (0-150) Cholesterol Level 182 mg/dL (0-200) LDL Cholesterol, Calculated 101 mg/dL (0-100) VLDL Cholesterol, Calculated 26 mg/dL (0-40) Non-HDL Cholesterol Calculated 127 mg/dL (0-129) HDL Cholesterol 55 mg/dL (40-60) Cholesterol/HDL Ratio 3.3 Laboratory Tests Test 04/17/20 08:40 Sodium Level 142 mmol/L (136-145) Potassium Level 4.4 mmol/L (3.5-5.1) Chloride Level 107 mmol/L (98-107) Carbon Dioxide Level 26 mmol/L (21-32) Anion Gap 9 (6-14) Blood Urea Nitrogen 30 mg/dL (7-20) Creatinine 0.8 mg/dL (0.6-1.0) Estimated GFR (Cockcroft-Gault) 86.1 Glucose Level 108 mg/dL (70-99) Calcium Level 8.8 mg/dL (8.5-10.1) Microbiology 04/11/20 Blood Culture - Final, Complete NO GROWTH AFTER 5 DAYS Medications Current Medications Fentanyl Citrate (Fentanyl 2ml Vial) 100 mcg STK-MED ONCE .ROUTE ; Start 04/11/20 at 02:53; Stop 04/11/20 at 02:53; Status DC Hydromorphone HCl (Dilaudid) 2 mg STK-MED ONCE .ROUTE ; Start 04/11/20 at 02:57; Stop 04/11/20 at 02:57; Status DC Epinephrine HCl 5 mg/Sodium Chloride 255 ml @ 22.208 mls/ hr CONT PRN IV SEE I/O RECORD; Start 04/11/20 at 03:15; Stop 04/11/20 at 09:00; Status DC Propofol 100 ml @ As Directed STK-MED ONCE IV ; Start 04/11/20 at 03:14; Stop 04/11/20 at 03:14; Status DC Midazolam HCl 100 ml @ 1 mls/hr 1X ONCE IV Last administered on 04/11/20at 11:04; Start 04/11/20 at 03:45; Stop 04/12/20 at 00:39; Status DC Piperacillin Sod/ Tazobactam Sod (Zosyn Per Pharmacy) 1 each PRN DAILY PRN MC SEE COMMENTS; Start 04/11/20 at 04:00; Stop 04/16/20 at 10:35; Status DC Vancomycin HCl (Vanco Per Pharmacy) 1 each PRN DAILY PRN MC SEE COMMENTS; Start 04/11/20 at 04:00; Stop 04/11/20 at 13:35; Status DC Metronidazole 100 ml @ 100 mls/hr 1X ONCE IV ; Start 04/11/20 at 04:30; Stop 04/11/20 at 05:29; Status DC Dexamethasone Sodium Phosphate (Decadron) 10 mg 1X ONCE IV Last administered on 04/11/20at 04:54; Start 04/11/20 at 04:30; Stop 04/11/20 at 04:31; Status DC Magnesium Sulfate 50 ml @ 25 mls/hr 1X ONCE IV Last administered on 04/11/20at 04:58; Start 04/11/20 at 04:30; Stop 04/11/20 at 19:14; Status DC Furosemide (Lasix) 100 mg 1X ONCE IVP Last administered on 04/11/20at 04:32; Start 04/11/20 at 04:15; Stop 04/11/20 at 04:27; Status DC Vancomycin HCl 1.75 gm/Sodium Chloride 500 ml @ 250 mls/hr 1X ONCE IV ; Start 04/11/20 at 05:00; Stop 04/11/20 at 06:59; Status DC Piperacillin Sod/ Tazobactam Sod 3.375 gm/Sodium Chloride 50 ml @ 100 mls/hr 1X ONCE IV Last administered on 04/11/20at 05:43; Start 04/11/20 at 05:00; Stop 04/11/20 at 05:29; Status DC Dopamine HCl/ Dextrose 250 ml @ 19.561 mls/ hr CONT PRN IV SEE I/O RECORD Last administered on 04/13/20at 07:22; Start 04/11/20 at 06:15; Stop 04/14/20 at 18:24; Status DC Hydromorphone HCl (Dilaudid) 2 mg 1X ONCE IVP ; Start 04/11/20 at 06:15; Stop 04/11/20 at 06:27; Status DC Fentanyl Citrate (Fentanyl 2ml Vial) 100 mcg 1X ONCE IVP ; Start 04/11/20 at 06:15; Stop 04/11/20 at 06:27; Status DC Etomidate (Amidate) 20 mg 1X ONCE IV Last administered on 04/11/20at 03:12; Start 04/11/20 at 06:15; Stop 04/11/20 at 06:27; Status DC Succinylcholine Chloride (Anectine) 100 mg 1X ONCE IV Last administered on 04/11/20at 03:13; Start 04/11/20 at 06:15; Stop 04/11/20 at 06:27; Status DC Piperacillin Sod/ Tazobactam Sod 2.25 gm/Sodium Chloride 50 ml @ 100 mls/hr Q6HRS IV Last administered on 04/16/20at 06:19; Start 04/11/20 at 12:00; Stop 04/16/20 at 10:35; Status DC Fentanyl Citrate (Fentanyl 2ml Vial) 100 mcg 1X ONCE IV ; Start 04/11/20 at 07:00; Stop 04/11/20 at 19:40; Status DC Magnesium Sulfate/ Dextrose 100 ml @ 100 mls/hr 1X ONCE IV ; Start 04/11/20 at 07:30; Stop 04/11/20 at 14:52; Status DC Buspirone HCl (Buspar) 30 mg Q8H NG Last administered on 04/11/20at 15:30; Start 04/11/20 at 08:00; Stop 04/11/20 at 19:40; Status DC Acetaminophen (Tylenol) 650 mg Q4H NG Last administered on 04/11/20at 15:29; Start 04/11/20 at 07:00; Stop 04/11/20 at 19:40; Status DC Glycerin/ Hypromellose/ Polyethylene (Artificial Tears) 1 drop Q6HRS OU Last administered on 04/11/20at 13:30; Start 04/11/20 at 12:00; Stop 04/11/20 at 19:40; Status DC Glycerin/ Hypromellose/ Polyethylene (Artificial Tears) 1 drop PRN Q15MIN PRN OU DRY EYE; Start 04/11/20 at 07:00; Stop 04/11/20 at 19:40; Status DC Pantoprazole Sodium (PROTONIX VIAL for IV PUSH) 40 mg DAILY IVP ; Start 04/11/20 at 09:00; Stop 04/11/20 at 07:31; Status DC Fentanyl Citrate 30 ml @ 2.5 mls/hr CONT PRN IV PER PROTOCOL. Last administered on 04/14/20at 06:42; Start 04/11/20 at 07:00; Stop 04/14/20 at 18:24; Status DC Propofol 100 ml @ 6.258 mls/ hr CONT PRN IV PER PROTOCOL. Last administered on 04/14/20at 21:44; Start 04/11/20 at 07:00 Norepinephrine Bitartrate 32 mg/ Dextrose 250 ml @ 4.889 mls/ hr CONT PRN IV SEE I/O RECORD; Start 04/11/20 at 07:15; Stop 04/14/20 at 18:24; Status DC Fentanyl Citrate (Fentanyl 2ml Vial) 100 mcg 1X ONCE IV ; Start 04/11/20 at 07:15; Stop 04/11/20 at 07:30; Status DC Heparin Sodium (Porcine) (Heparin Sodium) 5,000 unit BID SQ Last administered on 04/17/20at 08:04; Start 04/11/20 at 09:00 Pantoprazole Sodium (PROTONIX VIAL for IV PUSH) 40 mg DAILY IVP Last administe red on 04/17/20at 07:56; Start 04/11/20 at 09:00 Fentanyl Citrate 30 ml @ 0 mls/hr CONT PRN IV PER PROTOCOL.; Start 04/11/20 at 07:15; Stop 04/11/20 at 07:31; Status DC Propofol 100 ml @ 0 mls/hr CONT PRN IV PER PROTOCOL.; Start 04/11/20 at 07:15; Stop 04/11/20 at 07:31; Status DC Midazolam HCl 100 ml @ 2 mls/hr CONT PRN IV PER PROTOCOL; Start 04/11/20 at 07:15; Status Cancel Epinephrine HCl 10 mg/Sodium Chloride 250 ml @ 15.645 mls/ hr CONT PRN IV SEE I/O RECORD; Start 04/11/20 at 07:30; Stop 04/14/20 at 18:24; Status DC Metronidazole (FLAGYL 500Mmg PREMIX) 500 mg STK-MED ONCE IV ; Start 04/11/20 at 04:00; Stop 04/11/20 at 08:43; Status DC Sodium Chloride 1,000 ml @ 10 mls/hr Q24H IV Last administered on 04/13/20at 08:27; Start 04/11/20 at 09:15 Potassium Chloride/Water 100 ml @ 100 mls/hr 1X ONCE IV Last administered on 04/11/20at 13:27; Start 04/11/20 at 10:00; Stop 04/11/20 at 10:59; Status DC Potassium Chloride (Klor-Con) 40 meq 1X ONCE PO ; Start 04/11/20 at 10:45; Stop 04/11/20 at 10:46; Status UNV Potassium Chloride (Klor-Con) 40 meq Q2H PO ; Start 04/11/20 at 10:45; Stop 04/11/20 at 12:46; Status UNV Magnesium Sulfate 100 ml @ 50 mls/hr DAILY IV ; Start 04/12/20 at 09:00; Stop 04/15/20 at 08:59; Status UNV Info (Icu Electrolyte Protocol) 1 ea CONT PRN PRN MC PER PROTOCOL; Start 04/11/20 at 10:45 Furosemide (Lasix) 40 mg 1X ONCE IVP Last administered on 04/11/20at 13:29; Start 04/11/20 at 11:00; Stop 04/11/20 at 11:01; Status DC Linezolid/Dextrose 300 ml @ 300 mls/hr Q12HR IV Last administered on 04/14/20at 08:18; Start 04/11/20 at 14:00; Stop 04/14/20 at 12:48; Status DC Metoprolol Tartrate (Lopressor Vial) 5 mg 1X ONCE IVP ; Start 04/11/20 at 14:45; Stop 04/11/20 at 14:52; Status DC Metoprolol Tartrate (Lopressor Vial) 5 mg PRN Q5MIN PRN IVP TACHYCARDIA; Start 04/11/20 at 14:45; Stop 04/11/20 at 14:52; Status DC Enalaprilat (Vasotec Inj) 1.25 mg PRN Q6HRS PRN IVP HYPERTENSION; Start 04/11/20 at 15:15; Stop 04/11/20 at 19:14; Status DC Amlodipine Besylate (Norvasc) 5 mg DAILY PO Last administered on 04/15/20at 07:56; Start 04/12/20 at 09:00; Stop 04/15/20 at 15:31; Status DC Amlodipine Besylate (Norvasc) 5 mg 1X ONCE PO ; Start 04/11/20 at 15:15; Stop 04/11/20 at 15:16; Status Cancel Amlodipine Besylate (Norvasc) 10 mg 1X ONCE NG Last administered on 04/11/20at 15:28; Start 04/11/20 at 15:15; Stop 04/11/20 at 15:18; Status DC Calcium Chloride (Calcium Chloride) 1,000 mg STK-MED ONCE .ROUTE ; Start 04/11/20 at 12:00; Stop 04/11/20 at 16:17; Status DC Epinephrine HCl (EPINEPHrine SYRINGE) 2 mg STK-MED ONCE .ROUTE ; Start 04/11/20 at 12:00; Stop 04/11/20 at 16:17; Status DC Sodium Bicarbonate (Sodium Bicarb Adult 8.4% Syr) 100 meq STK-MED ONCE .ROUTE ; Start 04/11/20 at 12:00; Stop 04/11/20 at 16:17; Status DC Dopamine HCl/ Dextrose (DOPamine 400MG/ 250ML PREMIX) 400 mg STK-MED ONCE IV ; Start 04/11/20 at 12:00; Stop 04/11/20 at 16:17; Status DC Midazolam HCl 100 ml @ 0 mls/hr CONT PRN IV SEE I/O RECORD; Start 04/11/20 at 17:30; Status Cancel Hydralazine HCl (Apresoline Inj) 10 mg PRN Q4HRS PRN IVP ELEVATED BP, SEE COMMENTS Last administered on 04/17/20at 11:10; Start 04/11/20 at 18:45 Midazolam HCl 100 ml @ 1 mls/hr CONT PRN IV SEE I/O RECORD Last administered on 04/14/20at 06:41; Start 04/12/20 at 00:30; Stop 04/14/20 at 18:24; Status DC Potassium Chloride/Water 100 ml @ 100 mls/hr Q1H IV Last administered on 04/13/20at 09:20; Start 04/13/20 at 06:30; Stop 04/13/20 at 10:29; Status DC Amino Acids/ Glycerin/ Electrolytes 1,000 ml @ 80 mls/hr [id number] IV Last administered on 04/17/20at 03:46; Start 04/13/20 at 10:15 Metoclopramide HCl (Reglan Vial) 10 mg DAILY IVP Last administered on 04/17/20at 07:59; Start 04/13/20 at 10:15 Bacitracin 88327 unit/Sodium Chloride 250 ml @ 250 mls/hr 1X ONCE IRR Last administered on 04/14/20at 06:00; Start 04/14/20 at 06:00; Stop 04/14/20 at 08:26; Status DC Lidocaine/ Epinephrine (LIDOCAINE 2%-EPI 1:100,000 multi-dose) 20 ml STK-MED ONCE .ROUTE ; Start 04/14/20 at 09:01; Stop 04/14/20 at 09:01; Status DC Lidocaine/ Epinephrine (LIDOCAINE 1%-EPI 1:100,000 Multi-Dose) 40 ml 1X ONCE INJ Last administered on 04/14/20at 10:00; Start 04/14/20 at 10:00; Stop 04/14/20 at 10:01; Status DC Oxycodone/ Acetaminophen (Percocet 5/325) 1 tab PRN Q4HRS PRN PO PAIN Last administered on 04/15/20at 07:57; Start 04/14/20 at 10:30 Losartan Potassium (Cozaar) 50 mg DAILY PO ; Start 04/15/20 at 16:00 Amlodipine Besylate (Norvasc) 10 mg DAILY PO ; Start 04/16/20 at 09:00 Amlodipine Besylate (Norvasc) 5 mg 1X ONCE PO ; Start 04/15/20 at 15:30; Stop 04/15/20 at 15:32; Status DC Nicardipine HCl 50 mg/Sodium Chloride 250 ml @ 0 mls/hr CONT PRN IV SEE I/O RECORD Last administered on 04/17/20at 03:01; Start 04/15/20 at 17:00 Fentanyl Citrate (Fentanyl 2ml Vial) 25 mcg PRN Q6HRS PRN IVP PAIN Last administered on 04/16/20at 09:44; Start 04/15/20 at 18:45 Fentanyl Citrate (Fentanyl 2ml Vial) 100 mcg STK-MED ONCE .ROUTE ; Start 04/15/20 at 18:42; Stop 04/15/20 at 18:42; Status DC Fentanyl Citrate (Fentanyl 2ml Vial) 25 mcg PRN Q2HR PRN IVP PAIN Last administered on 04/16/20at 20:57; Start 04/16/20 at 11:00 Fentanyl Citrate (Fentanyl 2ml Vial) 100 mcg STK-MED ONCE .ROUTE ; Start 04/15/20 at 19:00; Stop 04/16/20 at 11:20; Status DC Labetalol HCl (Normodyne Iv Push) 10 mg PRN Q6HRS PRN IVP HYPERTENSION Last administered on 04/17/20at 10:14; Start 04/16/20 at 15:45 Lorazepam (Ativan Inj) 2 mg PRN Q4HRS PRN IVP ANXIETY / AGITATION Last administered on 04/17/20at 08:05; Start 04/16/20 at 19:15 Amiodarone HCl (Cordarone) 400 mg DAILY PO ; Start 04/17/20 at 09:00; Stop 04/17/20 at 08:25; Status DC Potassium Chloride/Water 100 ml @ 100 mls/hr 1X ONCE IV ; Start 04/17/20 at 09:00; Stop 04/17/20 at 08:25; Status DC Vitals/I & O Vital Sign - Last 24 Hours 04/16/20 04/16/20 04/16/20 04/16/20 13:00 13:15 13:19 13:30 Pulse 96 98 98 Resp B/P (MAP) 162/52 (88) 166/50 (88) 166/50 (88) Pulse Ox 96 98 96 O2 Delivery Nasal Cannula Nasal Cannula Nasal Cannula Nasal Cannula O2 Flow Rate 2.0 2.0 2.0 2.0 04/16/20 04/16/20 04/16/20 04/16/20 13:45 14:00 14:15 14:26 Pulse 102 100 100 Resp B/P (MAP) 166/50 (88) 194/60 (104) 174/54 (94) Pulse Ox 95 95 96 96 O2 Delivery Nasal Cannula Nasal Cannula Nasal Cannula Nasal Cannula O2 Flow Rate 2.0 2.0 2.0 2.0 04/16/20 04/16/20 04/16/20 04/16/20 14:30 14:45 15:00 15:22 Pulse 98 98 98 97 Resp B/P (MAP) 170/44 (86) 170/48 (88) 174/54 (94) 182/67 Pulse Ox 95 95 97 O2 Delivery Nasal Cannula Nasal Cannula Nasal Cannula O2 Flow Rate 2.0 2.0 2.0 04/16/20 04/16/20 04/16/20 04/16/20 16:00 16:00 16:30 16:31 Pulse 98 102 Resp B/P (MAP) 182/54 (96) 164/52 (89) Pulse Ox 97 97 96 O2 Delivery Nasal Cannula Nasal Cannula Nasal Cannula Nasal Cannula O2 Flow Rate 2.0 2.0 2.0 2.0 04/16/20 04/16/20 04/16/20 04/16/20 17:00 17:01 17:29 17:30 Pulse 96 97 100 Resp B/P (MAP) 182/50 (94) 182/67 164/48 (86) Pulse Ox 97 97 O2 Delivery Nasal Cannula Nasal Cannula Nasal Cannula O2 Flow Rate 2.0 2.0 2.0 04/16/20 04/16/20 04/16/20 04/16/20 18:00 18:42 19:00 19:30 Pulse 88 96 94 Resp B/P (MAP) 166/54 (91) 138/48 (78) 140/46 (77) Pulse Ox 97 96 95 O2 Delivery Nasal Cannula Nasal Cannula Nasal Cannula Nasal Cannula O2 Flow Rate 2.0 2.0 2.0 2.0 04/16/20 04/16/20 04/16/20 04/16/20 20:00 20:00 20:30 20:37 Temp 98.9 98.9 Pulse 92 94 95 Resp B/P (MAP) 162/48 (86) 170/49 (89) 170/49 Pulse Ox 95 97 O2 Delivery Nasal Cannula Nasal Cannula Nasal Cannula O2 Flow Rate 2.0 2.0 2.0 04/16/20 04/16/20 04/16/20 04/16/20 20:57 21:00 21:27 21:30 Pulse 94 92 Resp B/P (MAP) 138/44 (75) 138/44 (75) Pulse Ox 96 96 98 97 O2 Delivery Nasal Cannula Nasal Cannula Nasal Cannula Nasal Cannula O2 Flow Rate 2.0 2.0 2.0 2.0 04/16/20 04/16/20 04/16/20 04/16/20 22:00 22:30 23:00 23:30 Pulse 88 88 86 88 Resp 20 20 18 18 B/P (MAP) 126/42 (70) 128/42 (70) 148/46 (80) 153/47 (82) Pulse Ox 97 98 98 98 O2 Delivery Nasal Cannula Nasal Cannula Nasal Cannula Nasal Cannula O2 Flow Rate 2.0 2.0 2.0 2.0 04/16/20 04/16/20 04/17/20 04/17/20 23:47 23:59 00:00 00:30 Temp 98.7 98.7 Pulse 89 74 80 Resp 18 18 B/P (MAP) 179/54 128/42 (70) 146/46 (79) Pulse Ox 97 96 O2 Delivery Nasal Cannula Nasal Cannula Nasal Cannula O2 Flow Rate 2.0 2.0 2.0 04/17/20 04/17/20 04/17/20 04/17/20 01:00 01:30 02:00 02:30 Pulse 82 82 82 88 Resp 20 20 20 20 B/P (MAP) 138/44 (75) 134/42 (72) 138/44 (75) 146/44 (78) Pulse Ox 96 97 97 97 O2 Delivery Nasal Cannula Nasal Cannula Nasal Cannula Nasal Cannula O2 Flow Rate 2.0 2.0 2.0 2.0 04/17/20 04/17/20 04/17/20 04/17/20 02:46 03:00 03:30 04:00 Pulse 85 84 84 Resp 20 20 B/P (MAP) 161/45 152/44 (80) 134/42 (72) Pulse Ox 98 97 O2 Delivery Nasal Cannula Nasal Cannula Nasal Cannula O2 Flow Rate 2.0 2.0 2.0 04/17/20 04/17/20 04/17/20 04/17/20 04:00 04:30 05:00 05:30 Temp 98.5 98.5 Pulse 86 86 88 84 Resp 18 18 18 18 B/P (MAP) 140/42 (74) 134/42 (72) 152/44 (80) 142/42 (75) Pulse Ox 97 97 97 98 O2 Delivery Nasal Cannula Nasal Cannula Nasal Cannula Nasal Cannula O2 Flow Rate 2.0 2.0 2.0 2.0 04/17/20 04/17/20 04/17/20 04/17/20 06:00 06:30 06:39 07:00 Temp 98.8 98.8 Pulse 86 96 96 81 Resp 18 22 22 B/P (MAP) 168/48 (88) 161/55 (90) 169/56 109/54 (72) Pulse Ox 98 97 97 O2 Delivery Nasal Cannula Nasal Cannula Nasal Cannula O2 Flow Rate 2.0 2.0 2.0 04/17/20 04/17/20 04/17/20 04/17/20 08:00 08:02 09:00 10:00 Temp 98.6 98.6 Pulse 82 83 83 Resp 22 20 20 B/P (MAP) 148/65 (92) 149/87 (107) 166/70 (102) Pulse Ox 97 98 97 O2 Delivery Nasal Cannula Nasal Cannula Nasal Cannula Nasal Cannula O2 Flow Rate 2.0 2.0 2.0 2.0 04/17/20 04/17/20 04/17/20 04/17/20 10:14 10:24 11:08 11:10 Pulse 83 75 81 81 Resp 22 B/P (MAP) 166/70 142/62 (88) 170/65 (100) 170/65 Pulse Ox 98 O2 Delivery Nasal Cannula O2 Flow Rate 2.0 Intake and Output 04/16/20 04/16/20 04/17/20 15:00 23:00 07:00 Intake Total 50 ml 2257 ml 1859 ml Output Total 425 ml 425 ml 350 ml Balance -375 ml 1832 ml 1509 ml Justicifation of Admission Dx: Justifications for Admission: Justification of Admission Dx: Yes (cardiac arrest) CAMDEN TUCKER MD Apr 17, 2020 12:57
--- NOTE | 2020-04-17 13:29 | PDOC ---
[facility] PROGRESS NOTE Date of Service DOS: DATE: 04/17/20 TIME: 13:23 Chief Complaint Chief Complaint syncope and fall, , was pulseless in complete heart block Symptomatic bradycardia with third-degree AV block status post permanent pacemaker placement 04/14/2020 asystolic the ER, CPR for 7 min intubated, sedated now in afib, acute diastolic CHF acute renal failure, vasomotor HTN urgency Obesity, BMI 33 History of Present Illness History of Present Illness 04/17/2020 No acute events overnight. Patient was extubated yesterday as tolerated extubation well. Blood pressures been well controlled off of Cardene drip and only on IV antihypertensives. Current blood pressure is 148/65. Heart rate is stable in the 80s beats per minute. Okay for transfer out of the ICU. Patient's chart, labs, images were reviewed and discussed with RN 04/16/2020 No acute events overnight. Afebrile. Patient is extubated. Complains of right thigh pain where her cath puncture site was. Pending speech evaluation. Patient's chart, labs, images were reviewed and discussed with RN 04/15/2020 No acute events overnight. Afebrile. Sedation is currently off and currently intubated. Attempting to wean to extubate today. Vent settings currently at 450/50%/PEEP 5. > 50% time spent in patient chart, labs, and imaging review and in discussion with RN and SW 04/14/2020 No acute events overnight. Attempting to wean off of dopamine drip. Patient is currently heading towards the Plate Sensitizer for pacemaker placement for third-degree AV block. Will attempt to wean off of sedation and next attempt to extubate after procedure.> 50% time spent in patient chart, labs, and imaging review and in discussion with RN and SW 04/13,. doing well on vent, could wean, might be leaving on until Pacemaker placed tomorrow looks stable CV following, no b-blockers HTN emergency yesterday afternooon vent support CV team discussing pacemaker placemetn with nikky sofia PPM tuesday Vitals/I&O Vitals/I&O: Vital Signs Date Time Temp Pulse Resp B/P (MAP) Pulse Ox O2 Delivery O2 Flow Rate FiO2 04/17/20 11:10 81 170/65 04/17/20 11:08 22 98 Nasal Cannula 2.0 04/17/20 10:00 98.6 98.6 I & O 04/16/20 04/16/20 04/17/20 15:00 23:00 07:00 Intake Total 50 ml 2257 ml 1859 ml Output Total 425 ml 425 ml 350 ml Balance -375 ml 1832 ml 1509 ml Physical Exam General: Other (Intubated) Heart: Regular rate Lungs: Clear Abdomen: Normal bowel sounds Extremities: No cyanosis, No edema Skin: No rashes, No breakdown, No significant lesion Labs Labs: Laboratory Tests Test 04/17/20 08:40 Sodium Level 142 mmol/L (136-145) Potassium Level 4.4 mmol/L (3.5-5.1) Chloride Level 107 mmol/L (98-107) Carbon Dioxide Level 26 mmol/L (21-32) Anion Gap 9 (6-14) Blood Urea Nitrogen 30 mg/dL (7-20) Creatinine 0.8 mg/dL (0.6-1.0) Estimated GFR (Cockcroft-Gault) 86.1 Glucose Level 108 mg/dL (70-99) Calcium Level 8.8 mg/dL (8.5-10.1) Assessment and Plan Assessmemt and Plan Problems Medical Problems: (1) Renal insufficiency Status: Acute (2) Third degree heart block Status: Acute (3) Transaminitis Status: Acute Comment Review of Relevant I have reviewed the following items donn (where applicable) has been applied. Medications: Current Medications Medications (Trade) Dose Ordered Sig/Marlyn Route PRN Reason Start Time Stop Time Status Last Admin Dose Admin Labetalol HCl (Normodyne Iv Push) 10 mg PRN Q6HRS PRN IVP HYPERTENSION 04/16/20 15:45 04/17/20 10:14 Lorazepam (Ativan Inj) 2 mg PRN Q4HRS PRN IVP ANXIETY / AGITATION 04/16/20 19:15 04/17/20 08:05 Justifications for Admission Other Justification LEA GARCIA MD Apr 17, 2020 13:29
--- NOTE | 2020-04-17 14:10 | NUR ---
Patient transferred to room 203 from ICU around 1410. Patient placed on 2L O2 NC, suction set up. Patient A&OX2, forgetful/confused at times. Will continue to monitor
--- NOTE | 2020-04-17 14:18 | NUR ---
Patient was transferred up to room 203 around 1410. Report called to Stacy REHMAN. Echols still in place and working properly. PICC line intact with PPN running. Patients family (daughter and son) were called to notify of patients transfer to a new unit. Patient awake upon transfer and ALOx3. Belongings all moved with the patient. Transfer of care to Stacy REHMAN who is aware of patients arrival to the floor.
--- NOTE | 2020-04-17 15:36 | NUR ---
SS following up with discharge planning. SS reviewed pt chart and discussed with pt RN. Pt is currently requiring oxygen at two liters nasal canula. COVID19 negative. Pt NPO and on PPN. ST following. PT/OT ordered and recommending acute rehabilitation. Pt transferred to room 203 today. SS will continue to follow for discharge planning.
[2020-04-17] MEDS: fentaNYL PF VIAL 100 MCG/2 ML VIAL IVP PRN (21:21)
[2020-04-18] VITALS (15 sets, daily range): BP systolic 136–202; BP diastolic 60–98
[2020-04-18] MEDS: hydrALAZINE 20 MG/ML VIAL. IVP PRN (03:44)
[2020-04-18] MEDS: AMINO AC 3%/ELECTROLYTE/GLYCER 1,000 ML IV SCH ×2 (06:56→18:29)
[2020-04-18] MEDS: LABETALOL 20 MG/4 ML DISP.SYRIN. IVP PRN (07:24)
--- NOTE | 2020-04-18 08:46 | PDOC ---
EBER CANALES C[employer]ORES ATTENDANT 04/18/20 0846: CARDIO Progress Notes Date and Time Date of Service 04/18/2020 Time of Evaluation 1000 Subjective Subjective: No Chest Pain, No shortness of breath, No Palpitations Vitals Vitals Vital Signs Date Time Temp Pulse Resp B/P (MAP) Pulse Ox O2 Delivery O2 Flow Rate FiO2 04/18/20 07:24 104 202/83 04/18/20 07:00 98.7 28 94 Room Air 98.7 04/17/20 21:51 2.0 Weight Weight [ ] Input and Output Intake and Output Intake and Output 04/18/20 07:00 Intake Total 665 ml Output Total 2355 ml Balance -1690 ml Intake Oral 0 ml IV Total 665 ml Output Urine Total 2355 ml # Bowel Movements 1 Microbiology Micro Microbiology 04/11/20 Blood Culture - Final, Complete NO GROWTH AFTER 5 DAYS Physical Exam HEENT: Neck Supple W Full Motion Chest: Symmetric LUNGS: Other (diminished bases) Heart: RRR (SR with RBBB) Abdomen: Other (obese) Extremities: Other (1+ bilateral LE pitting edema) Neurology: confused Other Exams Left chest surgical incision intact with steri strips, no oozing or heamtoma. Neurovascular status to LUE intact. Assessment Assessment 1. Presyncope with fall: due to bradyarrhythmia. prior multiple syncope at home 2. Symptomatic third degree heart block: Maintaining SR with RBBB, first degree AV block 3. Cardiopulmonary arrest: occurred in ED noted with asystole, received ACLS. 7 min to ROSC. Now extubated 4. S/P PPM in situ: Biotronik. No PTX. Repeat interrogation revealed normal functioning device. sling in place 5. Nondisplaced sternal fracture: likely from CPR 5. HTN urgency: labile despite PRN labetolol and hydralazine, remains NPO 6. ANA: back to baseline 7. Shock liver: better 8. Acute diastolic CHF: EF nml. compensated 9. Acute respiratory failure due to bradyarrhythmia 10. Christianity 11. NSTEMI: 0.2, demand mediated with above culprits 12. Obesity 13. Hyperglycemia: per PCP 14. Anoxic encephalopathy: remains confused but cooperative 15. Dysphagia: remains NPO 16. NSVT vs PMT: x1 Recommendations 1. Remains NPO, awaiting repeat swallow eval. Restart cardene. Once able to take PO then will restart norvasc/losartan pending BP trend 2. Supportive care. 3. Consider for outpt stress test. 4..Lasix PRN. x1 today. BMP and Mg 5. Rehab eval and treat. Arm sling as instructed Justicifation of Admission Dx: Justifications for Admission: Justification of Admission Dx: Yes (cardiac arrest) LILIBETH VÁZQUEZ MD 04/19/20 0909: CARDIO Progress Notes Assessment Assessment Patient seen and examined 04/18/20. Agree with MEDICAL ART THERAPIST's assessment and plan. s/p permanent pacemaker implantation with repeat interrogation showing normal function. Telemetry showed brief NSVT. Magnesium level normal. We will continue to monitor and plan outpatient ischemic evaluation. Blood pressure poorly controlled, unable to start p.o. meds since she failed swallow study. Agree with restarting Cardene for better blood pressure control. EBER CANALES APRN Apr 18, 2020 08:46 LILIBETH VÁZQUEZ MD Apr 19, 2020 09:09
[2020-04-18] MEDS: LOSARTAN POTASSIUM 50 MG TABLET. PO SCH (09:00)
--- NOTE | 2020-04-18 09:10 | PDOC ---
PROGRESS NOTES Date of Service DATE: 04/18/20 TIME: 09:09 Assessment Problems Medical Problems: (1) Renal insufficiency Status: Acute (2) Third degree heart block Status: Acute (3) Transaminitis Status: Acute Anoxic encephalopathy, improving. Has some emotional lability AV ventricular block, status-post pacemaker, congestive heart failure, hypertensive urgency Plan No need for repeat head CT or EEG Continue medical management. Subjective Complains of leg pain Objective Vital Signs Date Time Temp Pulse Resp B/P (MAP) Pulse Ox O2 Delivery O2 Flow Rate FiO2 04/18/20 07:24 104 202/83 04/18/20 07:00 98.7 28 94 Room Air 98.7 04/17/20 21:51 2.0 Intake and Output 04/18/20 07:00 Intake Total 665 ml Output Total 2355 ml Balance -1690 ml Intake Oral 0 ml IV Total 665 ml Output Urine Total 2355 ml # Bowel Movements 1 PHYSICAL EXAM Alert, knows name of the hospital, off on date, follows commands Emotionally labile PERRL. EOMI. CN: no focal findings. Muscle tone: normal. Muscle strength: 3/5 DTR: 1+ Plantar reflex: Silent Gait: not examined in bed. Sensory exam: No focal findings Cerebellar: No focal findings Review of Relevant I have reviewed the following items donn (where applicable) has been applied. Labs Laboratory Tests Test 04/17/20 08:40 Sodium Level 142 mmol/L (136-145) Potassium Level 4.4 mmol/L (3.5-5.1) Chloride Level 107 mmol/L (98-107) Carbon Dioxide Level 26 mmol/L (21-32) Anion Gap 9 (6-14) Blood Urea Nitrogen 30 mg/dL (7-20) Creatinine 0.8 mg/dL (0.6-1.0) Estimated GFR (Cockcroft-Gault) 86.1 Glucose Level 108 mg/dL (70-99) Calcium Level 8.8 mg/dL (8.5-10.1) Microbiology 04/11/20 Blood Culture - Final, Complete NO GROWTH AFTER 5 DAYS Medications Current Medications Fentanyl Citrate (Fentanyl 2ml Vial) 100 mcg STK-MED ONCE .ROUTE ; Start 04/11 at 02:53; Stop 04/11/20 at 02:53; Status DC Hydromorphone HCl (Dilaudid) 2 mg STK-MED ONCE .ROUTE ; Start 04/11/20 at 02:57; Stop 04/11/20 at 02:57; Status DC Epinephrine HCl 5 mg/Sodium Chloride 255 ml @ 22.208 mls/ hr CONT PRN IV SEE I/O RECORD; Start 04/11/20 at 03:15; Stop 04/11/20 at 09:00; Status DC Propofol 100 ml @ As Directed STK-MED ONCE IV ; Start 04/11/20 at 03:14; Stop 04/11/20 at 03:14; Status DC Midazolam HCl 100 ml @ 1 mls/hr 1X ONCE IV Last administered on 04/11/20at 11:04; Start 04/11/20 at 03:45; Stop 04/12/20 at 00:39; Status DC Piperacillin Sod/ Tazobactam Sod (Zosyn Per Pharmacy) 1 each PRN DAILY PRN MC SEE COMMENTS; Start 04/11/20 at 04:00; Stop 04/16/20 at 10:35; Status DC Vancomycin HCl (Vanco Per Pharmacy) 1 each PRN DAILY PRN MC SEE COMMENTS; Start 04/11/20 at 04:00; Stop 04/11/20 at 13:35; Status DC Metronidazole 100 ml @ 100 mls/hr 1X ONCE IV ; Start 04/11/20 at 04:30; Stop 04/11/20 at 05:29; Status DC Dexamethasone Sodium Phosphate (Decadron) 10 mg 1X ONCE IV Last administered on 04/11/20at 04:54; Start 04/11/20 at 04:30; Stop 04/11/20 at 04:31; Status DC Magnesium Sulfate 50 ml @ 25 mls/hr 1X ONCE IV Last administered on 04/11/20at 04:58; Start 04/11/20 at 04:30; Stop 04/11/20 at 19:14; Status DC Furosemide (Lasix) 100 mg 1X ONCE IVP Last administered on 04/11/20at 04:32; Start 04/11/20 at 04:15; Stop 04/11/20 at 04:27; Status DC Vancomycin HCl 1.75 gm/Sodium Chloride 500 ml @ 250 mls/hr 1X ONCE IV ; Start 04/11/20 at 05:00; Stop 04/11/20 at 06:59; Status DC Piperacillin Sod/ Tazobactam Sod 3.375 gm/Sodium Chloride 50 ml @ 100 mls/hr 1X ONCE IV Last administered on 04/11/20at 05:43; Start 04/11/20 at 05:00; Stop 04/11/20 at 05:29; Status DC Dopamine HCl/ Dextrose 250 ml @ 19.561 mls/ hr CONT PRN IV SEE I/O RECORD Last administered on 04/13/20at 07:22; Start 04/11/20 at 06:15; Stop 04/14/20 at 18:24; Status DC Hydromorphone HCl (Dilaudid) 2 mg 1X ONCE IVP ; Start 04/11/20 at 06:15; Stop 04/11/20 at 06:27; Status DC Fentanyl Citrate (Fentanyl 2ml Vial) 100 mcg 1X ONCE IVP ; Start 04/11/20 at 06:15; Stop 04/11/20 at 06:27; Status DC Etomidate (Amidate) 20 mg 1X ONCE IV Last administered on 04/11/20at 03:12; Start 04/11/20 at 06:15; Stop 04/11/20 at 06:27; Status DC Succinylcholine Chloride (Anectine) 100 mg 1X ONCE IV Last administered on 04/11/20at 03:13; Start 04/11/20 at 06:15; Stop 04/11/20 at 06:27; Status DC Piperacillin Sod/ Tazobactam Sod 2.25 gm/Sodium Chloride 50 ml @ 100 mls/hr Q6HRS IV Last administered on 04/16/20at 06:19; Start 04/11/20 at 12:00; Stop 04/16/20 at 10:35; Status DC Fentanyl Citrate (Fentanyl 2ml Vial) 100 mcg 1X ONCE IV ; Start 04/11/20 at 07:00; Stop 04/11/20 at 19:40; Status DC Magnesium Sulfate/ Dextrose 100 ml @ 100 mls/hr 1X ONCE IV ; Start 04/11/20 at 07:30; Stop 04/11/20 at 14:52; Status DC Buspirone HCl (Buspar) 30 mg Q8H NG Last administered on 04/11/20at 15:30; Start 04/11/20 at 08:00; Stop 04/11/20 at 19:40; Status DC Acetaminophen (Tylenol) 650 mg Q4H NG Last administered on 04/11/20at 15:29; Start 04/11/20 at 07:00; Stop 04/11/20 at 19:40; Status DC Glycerin/ Hypromellose/ Polyethylene (Artificial Tears) 1 drop Q6HRS OU Last administered on 04/11/20at 13:30; Start 04/11/20 at 12:00; Stop 04/11/20 at 19:40; Status DC Glycerin/ Hypromellose/ Polyethylene (Artificial Tears) 1 drop PRN Q15MIN PRN OU DRY EYE; Start 04/11/20 at 07:00; Stop 04/11/20 at 19:40; Status DC Pantoprazole Sodium (PROTONIX VIAL for IV PUSH) 40 mg DAILY IVP ; Start 04/11/20 at 09:00; Stop 04/11/20 at 07:31; Status DC Fentanyl Citrate 30 ml @ 2.5 mls/hr CONT PRN IV PER PROTOCOL. Last administered on 04/14/20at 06:42; Start 04/11/20 at 07:00; Stop 04/14/20 at 18:24; Status DC Propofol 100 ml @ 6.258 mls/ hr CONT PRN IV PER PROTOCOL. Last administered on 04/14/20at 21:44; Start 04/11/20 at 07:00 Norepinephrine Bitartrate 32 mg/ Dextrose 250 ml @ 4.889 mls/ hr CONT PRN IV SEE I/O RECORD; Start 04/11/20 at 07:15; Stop 04/14/20 at 18:24; Status DC Fentanyl Citrate (Fentanyl 2ml Vial) 100 mcg 1X ONCE IV ; Start 04/11/20 at 07:15; Stop 04/11/20 at 07:30; Status DC Heparin Sodium (Porcine) (Heparin Sodium) 5,000 unit BID SQ Last administered on 04/17/20at 21:28; Start 04/11/20 at 09:00 Pantoprazole Sodium (PROTONIX VIAL for IV PUSH) 40 mg DAILY IVP Last administered on 04/17/20at 07:56; Start 04/11/20 at 09:00 Fentanyl Citrate 30 ml @ 0 mls/hr CONT PRN IV PER PROTOCOL.; Start 04/11/20 at 07:15; Stop 04/11/20 at 07:31; Status DC Propofol 100 ml @ 0 mls/hr CONT PRN IV PER PROTOCOL.; Start 04/11/20 at 07:15; Stop 04/11/20 at 07:31; Status DC Midazolam HCl 100 ml @ 2 mls/hr CONT PRN IV PER PROTOCOL; Start 04/11/20 at 07:15; Status Cancel Epinephrine HCl 10 mg/Sodium Chloride 250 ml @ 15.645 mls/ hr CONT PRN IV SEE I/O RECORD; Start 04/11/20 at 07:30; Stop 04/14/20 at 18:24; Status DC Metronidazole (FLAGYL 500Mmg PREMIX) 500 mg STK-MED ONCE IV ; Start 04/11/20 at 04:00; Stop 04/11/20 at 08:43; Status DC Sodium Chloride 1,000 ml @ 10 mls/hr Q24H IV Last administered on 04/13/20at 08:27; Start 04/11/20 at 09:15 Potassium Chloride/Water 100 ml @ 100 mls/hr 1X ONCE IV Last administered on 04/11/20at 13:27; Start 04/11/20 at 10:00; Stop 04/11/20 at 10:59; Status DC Potassium Chloride (Klor-Con) 40 meq 1X ONCE PO ; Start 04/11/20 at 10:45; Stop 04/11/20 at 10:46; Status UNV Potassium Chloride (Klor-Con) 40 meq Q2H PO ; Start 04/11/20 at 10:45; Stop 04/11/20 at 12:46; Status UNV Magnesium Sulfate 100 ml @ 50 mls/hr DAILY IV ; Start 04/12/20 at 09:00; Stop 04/15/20 at 08:59; Status UNV Info (Icu Electrolyte Protocol) 1 ea CONT PRN PRN MC PER PROTOCOL; Start 04/11/20 at 10:45 Furosemide (Lasix) 40 mg 1X ONCE IVP Last administered on 04/11/20at 13:29; Start 04/11/20 at 11:00; Stop 04/11/20 at 11:01; Status DC Linezolid/Dextrose 300 ml @ 300 mls/hr Q12HR IV Last administered on 04/14/20at 08:18; Start 04/11/20 at 14:00; Stop 04/14/20 at 12:48; Status DC Metoprolol Tartrate (Lopressor Vial) 5 mg 1X ONCE IVP ; Start 04/11/20 at 14:45; Stop 04/11/20 at 14:52; Status DC Metoprolol Tartrate (Lopressor Vial) 5 mg PRN Q5MIN PRN IVP TACHYCARDIA; Start 04/11/20 at 14:45; Stop 04/11/20 at 14:52; Status DC Enalaprilat (Vasotec Inj) 1.25 mg PRN Q6HRS PRN IVP HYPERTENSION; Start 04/11/20 at 15:15; Stop 04/11/20 at 19:14; Status DC Amlodipine Besylate (Norvasc) 5 mg DAILY PO Last administered on 04/15/20at 07:56; Start 04/12/20 at 09:00; Stop 04/15/20 at 15:31; Status DC Amlodipine Besylate (Norvasc) 5 mg 1X ONCE PO ; Start 04/11/20 at 15:15; Stop 04/11/20 at 15:16; Status Cancel Amlodipine Besylate (Norvasc) 10 mg 1X ONCE NG Last administered on 04/11/20at 15:28; Start 04/11/20 at 15:15; Stop 04/11/20 at 15:18; Status DC Calcium Chloride (Calcium Chloride) 1,000 mg STK-MED ONCE .ROUTE ; Start 04/11/20 at 12:00; Stop 04/11/20 at 16:17; Status DC Epinephrine HCl (EPINEPHrine SYRINGE) 2 mg STK-MED ONCE .ROUTE ; Start 04/11/20 at 12:00; Stop 04/11/20 at 16:17; Status DC Sodium Bicarbonate (Sodium Bicarb Adult 8.4% Syr) 100 meq STK-MED ONCE .ROUTE ; Start 04/11/20 at 12:00; Stop 04/11/20 at 16:17; Status DC Dopamine HCl/ Dextrose (DOPamine 400MG/ 250ML PREMIX) 400 mg STK-MED ONCE IV ; Start 04/11/20 at 12:00; Stop 04/11/20 at 16:17; Status DC Midazolam HCl 100 ml @ 0 mls/hr CONT PRN IV SEE I/O RECORD; Start 04/11/20 at 17:30; Status Cancel Hydralazine HCl (Apresoline Inj) 10 mg PRN Q4HRS PRN IVP ELEVATED BP, SEE COMMENTS Last administered on 04/18/20at 03:44; Start 04/11/20 at 18:45 Midazolam HCl 100 ml @ 1 mls/hr CONT PRN IV SEE I/O RECORD Last administered on 04/14/20at 06:41; Start 04/12/20 at 00:30; Stop 04/14/20 at 18:24; Status DC Potassium Chloride/Water 100 ml @ 100 mls/hr Q1H IV Last administered on 04/13/20at 09:20; Start 04/13/20 at 06:30; Stop 04/13/20 at 10:29; Status DC Amino Acids/ Glycerin/ Electrolytes 1,000 ml @ 80 mls/hr [id number] IV Last administered on 04/18/20at 06:56; Start 04/13/20 at 10:15 Metoclopramide HCl (Reglan Vial) 10 mg DAILY IVP Last administered on 04/17/20at 07:59; Start 04/13/20 at 10:15 Bacitracin 52326 unit/Sodium Chloride 250 ml @ 250 mls/hr 1X ONCE IRR Last administered on 04/14/20at 06:00; Start 04/14/20 at 06:00; Stop 04/14/20 at 08:26; Status DC Lidocaine/ Epinephrine (LIDOCAINE 2%-EPI 1:100,000 multi-dose) 20 ml STK-MED ONCE .ROUTE ; Start 04/14/20 at 09:01; Stop 04/14/20 at 09:01; Status DC Lidocaine/ Epinephrine (LIDOCAINE 1%-EPI 1:100,000 Multi-Dose) 40 ml 1X ONCE INJ Last administered on 04/14/20at 10:00; Start 04/14/20 at 10:00; Stop 04/14/20 at 10:01; Status DC Oxycodone/ Acetaminophen (Percocet 5/325) 1 tab PRN Q4HRS PRN PO PAIN Last administered on 04/15/20at 07:57; Start 04/14/20 at 10:30 Losartan Potassium (Cozaar) 50 mg DAILY PO ; Start 04/15/20 at 16:00 Amlodipine Besylate (Norvasc) 10 mg DAILY PO ; Start 04/16/20 at 09:00 Amlodipine Besylate (Norvasc) 5 mg 1X ONCE PO ; Start 04/15/20 at 15:30; Stop 04/15/20 at 15:32; Status DC Nicardipine HCl 50 mg/Sodium Chloride 250 ml @ 0 mls/hr CONT PRN IV SEE I/O RECORD Last administered on 04/17/20at 03:01; Start 04/15/20 at 17:00 Fentanyl Citrate (Fentanyl 2ml Vial) 25 mcg PRN Q6HRS PRN IVP PAIN Last administered on 04/16/20at 09:44; Start 04/15/20 at 18:45 Fentanyl Citrate (Fentanyl 2ml Vial) 100 mcg STK-MED ONCE .ROUTE ; Start 04/15/20 at 18:42; Stop 04/15/20 at 18:42; Status DC Fentanyl Citrate (Fentanyl 2ml Vial) 25 mcg PRN Q2HR PRN IVP PAIN Last administered on 04/17/20at 21:21; Start 04/16/20 at 11:00 Fentanyl Citrate (Fentanyl 2ml Vial) 100 mcg STK-MED ONCE .ROUTE ; Start 04/15/20 at 19:00; Stop 04/16/20 at 11:20; Status DC Labetalol HCl (Normodyne Iv Push) 10 mg PRN Q6HRS PRN IVP HYPERTENSION Last administered on 04/18/20at 07:24; Start 04/16/20 at 15:45 Lorazepam (Ativan Inj) 2 mg PRN Q4HRS PRN IVP ANXIETY / AGITATION Last administered on 04/18/20at 00:15; Start 04/16/20 at 19:15 Amiodarone HCl (Cordarone) 400 mg DAILY PO ; Start 04/17/20 at 09:00; Stop 04/17/20 at 08:25; Status DC Potassium Chloride/Water 100 ml @ 100 mls/hr 1X ONCE IV ; Start 04/17/20 at 09:00; Stop 04/17/20 at 08:25; Status DC Vitals/I & O Vital Sign - Last 24 Hours 04/17/20 04/17/20 04/17/20 04/17/20 10:00 10:14 10:24 11:08 Temp 98.6 98.6 Pulse 83 83 75 81 Resp 20 22 B/P (MAP) 166/70 (102) 166/70 142/62 (88) 170/65 (100) Pulse Ox 97 98 O2 Delivery Nasal Cannula Nasal Cannula O2 Flow Rate 2.0 2.0 04/17/20 04/17/20 04/17/20 04/17/20 11:10 14:00 14:30 14:44 Temp 98.8 98.1 98.8 98.1 Pulse 81 82 93 Resp 22 B/P (MAP) 170/65 148/62 (90) 172/73 (106) Pulse Ox 98 99 O2 Delivery Nasal Cannula Nasal Cannula Nasal Cannula O2 Flow Rate 2.0 2.0 2.0 04/17/20 04/17/20 04/17/20 04/17/20 19:20 19:52 20:00 21:21 Temp 98.3 98.3 Pulse 102 100 Resp 20 B/P (MAP) 186/75 (112) 186/72 Pulse Ox 98 98 O2 Delivery Nasal Cannula Nasal Cannula Nasal Cannula O2 Flow Rate 2.0 2.0 3.0 04/17/20 04/17/20 04/17/20 04/18/20 21:51 23:20 23:49 03:35 Temp 98.3 98.2 98.3 98.2 Pulse 102 100 104 Resp 28 B/P (MAP) 181/70 (107) 181/70 188/89 (122) Pulse Ox 98 94 94 O2 Delivery Nasal Cannula Room Air Room Air O2 Flow Rate 2.0 04/18/20 04/18/20 04/18/20 03:44 07:00 07:24 Temp 98.7 98.7 Pulse 100 106 104 Resp 28 B/P (MAP) 188/89 202/83 (122) 202/83 Pulse Ox 94 O2 Delivery Room Air Intake and Output 04/17/20 04/17/20 04/18/20 15:00 23:00 07:00 Intake Total 0 ml 665 ml Output Total 450 ml 600 ml 1305 ml Balance -450 ml -600 ml -640 ml Justicifation of Admission Dx: Justifications for Admission: Justification of Admission Dx: Yes (cardiac arrest) CAMDEN TUCKER MD Apr 18, 2020 09:10
[2020-04-18] MEDS: IV 1/2 NORMAL SALINE 1,000 ML IV SCH (09:15)
[2020-04-18] MEDS: METOCLOPRAMIDE HCL 10 MG/2 ML VIAL. IVP SCH (09:22)
[2020-04-18] MEDS: PANTOPRAZOLE IV PUSH 40 MG VIAL. IVP SCH (09:22)
[2020-04-18] MEDS: HEPARIN for SUB-Q USE 5,000 UNIT/ML VIAL. SQ SCH ×2 (09:31→20:59)
--- NOTE | 2020-04-18 09:42 | PDOC ---
PULMONARY PROGRESS NOTES DATE: 04/18/20 TIME: 09:41 Subjective nasal cannula oxygen, 2 L, extubated 04/15/2020 S/P permanent pacemaker Hypertensive No overnight concerns from nursing Vitals Vital Signs Date Time Temp Pulse Resp B/P (MAP) Pulse Ox O2 Delivery O2 Flow Rate FiO2 04/18/20 09:00 104 202/83 04/18/20 07:00 98.7 28 94 Room Air 98.7 04/17/20 21:51 2.0 Comments ROS: No Nausea, No Chest Pain, No Abdominal Pain, No Increase Cough Lungs: Clear Cardiovascular: S1, S2 Abdomen: Soft, Non-tender Neuro Exam: Alert, Oriented Skin: Warm Labs Laboratory Tests Test 04/17/20 08:40 Sodium Level 142 mmol/L (136-145) Potassium Level 4.4 mmol/L (3.5-5.1) Chloride Level 107 mmol/L (98-107) Carbon Dioxide Level 26 mmol/L (21-32) Anion Gap 9 (6-14) Blood Urea Nitrogen 30 mg/dL (7-20) Creatinine 0.8 mg/dL (0.6-1.0) Estimated GFR (Cockcroft-Gault) 86.1 Glucose Level 108 mg/dL (70-99) Calcium Level 8.8 mg/dL (8.5-10.1) Comments ct of chest reviewed 1. Satisfactory endotracheal intubation with no pneumothorax. 2. Near confluent bilateral airspace opacities with subpleural sparing at the apices. Query pulmonary edema or ARDS. 3. Nondisplaced acute sternal fracture. CXR Impression: Interval placement of a left-sided pacemaker with leads in size slightly position. No acute cardiopulmonary process is detected. Impression . IMPRESSION: 1. Acute hypoxic and hypercapnic respiratory failure secondary to cardiac arrest with complete heart block. She also has diffuse bilateral alveolar infiltrates, likely cardiogenic pulmonary edema,----- significantly improved now extubated on nasal cannula oxygen 2. COVID negative. 3. Abnormal CT chest with diffuse alveolar infiltrates highly likely cardiogenic pulmonary edema. 4. Status post cardiac arrest with 7 minutes of ACLS protocol. She had complete heart block,----S/P PPM 5. Acute kidney injury. 6. Abnormal liver function tests, likely from shock liver. 7. COVID-19 negative. 8. Leukocytosis--resolved 9. Hypernatremia. Plan . Continue supplemental oxygen to keep oxygen saturations greater than 92%, currently on 2 L nasal cannula, wean as tolerated Follow cardiology recommendations now status post permanent pacemaker, diuresis DC Zosyn COVID-19 negative Hypertension per PCP Follow neurology recommendations physical therapy/Occupational Therapy and speech therapy Patient failed swallow study yesterday, reevaluate per speech DVT/GI prophylaxis Discussed with RN and RT Patient is stable from a pulmonary standpoint, we will sign off at this time please call with any questions or concerns thank you JOELLE WELLINGTON MD Apr 18, 2020 09:42
[2020-04-18] MEDS ORDERED: FUROSEMIDE 40 MG/4 ML VIAL. IVP ONE (10:15)
--- NOTE | 2020-04-18 11:44 | PDOC ---
[facility] [facility] PROGRESS NOTE Date of Service DOS: DATE: 04/18/20 TIME: 11:43 Chief Complaint Chief Complaint syncope and fall, , was pulseless in complete heart block Symptomatic bradycardia with third-degree AV block status post permanent pacemaker placement 04/14/2020 asystolic the ER, CPR for 7 min intubated, sedated now in afib, acute diastolic CHF acute renal failure, vasomotor HTN urgency Obesity, BMI 33 History of Present Illness History of Present Illness 04/18/2020 No acute events overnight. Patient is feeling better but only complains of some pain around the [place] site. Patient is thirsty and has appetite to eat. Pending speech evaluation for proper diet. If patient's passes speech evaluation we can advance diet as tolerated. Patient's chart, labs, images were reviewed and discussed with RN 04/17/2020 No acute events overnight. Patient was extubated yesterday as tolerated extub ation well. Blood pressures been well controlled off of Cardene drip and only on IV antihypertensives. Current blood pressure is 148/65. Heart rate is stable in the 80s beats per minute. Okay for transfer out of the ICU. Patient's chart, labs, images were reviewed and discussed with RN 04/16/2020 No acute events overnight. Afebrile. Patient is extubated. Complains of right thigh pain where her cath puncture site was. Pending speech evaluation. Patient's chart, labs, images were reviewed and discussed with RN 04/15/2020 No acute events overnight. Afebrile. Sedation is currently off and currently intubated. Attempting to wean to extubate today. Vent settings currently at 450/50%/PEEP 5. > 50% time spent in patient chart, labs, and imaging review and in discussion with RN and SW 04/14/2020 No acute events overnight. Attempting to wean off of dopamine drip. Patient is currently heading towards the [facility] for pacemaker placement for third-degree AV block. Will attempt to wean off of sedation and next attempt to extubate after procedure.> 50% time spent in patient chart, labs, and imaging review and in discussion with RN and SW 04/13,. doing well on vent, could wean, might be leaving on until Pacemaker placed tomorrow looks stable CV following, no b-blockers HTN emergency yesterday afternooon vent support CV team discussing pacemaker placemetn with nikky sofia PPM tuesday Vitals/I&O Vitals/I&O: Vital Signs Date Time Temp Pulse Resp B/P (MAP) Pulse Ox O2 Delivery O2 Flow Rate FiO2 04/18/20 11:00 99 199/98 (131) 04/18/20 10:48 97.3 28 98 Room Air 97.3 04/17/20 21:51 2.0 I & O 04/17/20 04/17/20 04/18/20 15:00 23:00 07:00 Intake Total 0 ml 665 ml Output Total 450 ml 600 ml 1305 ml Balance -450 ml -600 ml -640 ml Physical Exam General: Other (Intubated) Heart: Regular rate Lungs: Clear Abdomen: Normal bowel sounds Extremities: No cyanosis, No edema Skin: No rashes, No breakdown, No significant lesion Assessment and Plan Assessmemt and Plan Problems Medical Problems: (1) Renal insufficiency Status: Acute (2) Third degree heart block Status: Acute (3) Transaminitis Status: Acute Comment Review of Relevant I have reviewed the following items donn (where applicable) has been applied. Medications: Current Medications Medications (Trade) Dose Ordered Sig/Marlyn Route PRN Reason Start Time Stop Time Status Last Admin Dose Admin Furosemide (Lasix) 40 mg 1X ONCE IVP 04/18/20 10:15 04/18/20 10:16 DC 04/18/20 10:19 Justifications for Admission Other Justification LEA GARCIA MD Apr 18, 2020 11:44
--- NOTE | 2020-04-18 14:36 | NUR ---
SS following up with discharge planning. SS reviewed pt chart and discussed with pt RN. Pt is from home with family and is currently on room air. Pt restarted on Cardene drip due to blood pressure. Pt NPO and on PPN. PT/OT recommended acute rehabilitation. Request made for referral to LTACH due to pt's medical needs. SS contacted pt's son, Kavin, and discussed discharge planning and LTACH. SS provided pt's son with options for LTACH to include [facility], [facility], and [facility]. Pt's son reported that he would discuss with family and would notify SS of family decision. SS will continue to follow for discharge planning.
[2020-04-18 15:58] LABS: CALCIUM 8.7 mg/dL (8.5-10.1); CREATININE 0.9 mg/dL (0.6-1.0); GFR 75.1; POTASSIUM 3.9 mmol/L (3.5-5.1)
[2020-04-18] MEDS ORDERED: HALOPERIDOL LACTATE 5 MG/ML VIAL. IVP ONE (21:00)
[2020-04-19] VITALS (20 sets, daily range): BP systolic 138–180; BP diastolic 64–95
[2020-04-19] MEDS: AMINO AC 3%/ELECTROLYTE/GLYCER 1,000 ML IV SCH ×2 (05:06→18:07)
[2020-04-19] MEDS: HEPARIN for SUB-Q USE 5,000 UNIT/ML VIAL. SQ SCH ×2 (08:45→21:43)
[2020-04-19] MEDS: PANTOPRAZOLE IV PUSH 40 MG VIAL. IVP SCH (08:45)
[2020-04-19] MEDS: LOSARTAN POTASSIUM 50 MG TABLET. PO SCH ×2 (08:46→12:42)
[2020-04-19] MEDS: METOCLOPRAMIDE HCL 10 MG/2 ML VIAL. IVP SCH (08:46)
[2020-04-19] MEDS: IV 1/2 NORMAL SALINE 1,000 ML IV SCH (08:47)
[2020-04-19 10:32] LABS: BASO # 0.1 x10^3/uL (0.0-0.2); BASO % 1 % (0-3); EOS # 0.1 x10^3/uL (0.0-0.7); EOS % 1 % (0-3); HEMATOCRIT 28.5 % (36.0-47.0); HEMOGLOBIN 9.5 g/dL (12.0-15.5); LYMPH # 1.5 x10^3/uL (1.0-4.8); LYMPH % 17 % (24-48); MEAN CORPUSCULAR HEMOGLOBIN 29 pg (25-35); MEAN CORPUSCULAR HGB CONC 33 g/dL (31-37); MEAN CORPUSCULAR VOLUME 87 fL (79-100); MONO # 0.9 x10^3/uL (0.0-1.1); MONO % 10 % (0-9); NEUT # 6.4 x10^3/uL (1.8-7.7); NEUT % 72 % (31-73); PLATELET COUNT 197 x10^3/uL (140-400); RED BLOOD COUNT 3.28 x10^6/uL (3.50-5.40); RED CELL DISTRIBUTION WIDTH 14.8 % (11.5-14.5); WHITE BLOOD COUNT 8.9 x10^3/uL (4.0-11.0)
[2020-04-19 10:40] LABS: CALCIUM 8.2 mg/dL (8.5-10.1); CREATININE 0.6 mg/dL (0.6-1.0); GFR 119.9; MAGNESIUM 2.3 mg/dL (1.8-2.4); POTASSIUM 5.7 mmol/L (3.5-5.1)
--- NOTE | 2020-04-19 11:27 | PDOC ---
[facility] [facility] PROGRESS NOTE Date of Service DOS: DATE: 04/19/20 TIME: 11:24 Chief Complaint Chief Complaint syncope and fall, , was pulseless in complete heart block Symptomatic bradycardia with third-degree AV block status post permanent pacemaker placement 04/14/2020 asystolic the ER, CPR for 7 min intubated, sedated now in afib, acute diastolic CHF acute renal failure, vasomotor HTN urgency Obesity, BMI 33 History of Present Illness History of Present Illness 04/19/2020 No acute events overnight. Hyperkalemia and hyponatremia. We will repeat chemistries. Patient continues to be somewhat confused and states that there are bugs in the room that she is unable to see. No SI or HI or aggression. DC Echols today. Patient's chart, labs, images were reviewed and discussed with RN 04/18/2020 No acute events overnight. Patient is feeling better but only complains of some pain around the Echols site. Patient is thirsty and has appetite to eat. Pending speech evaluation for proper diet. If patient's passes speech evalu ation we can advance diet as tolerated. Patient's chart, labs, images were reviewed and discussed with RN 04/17/2020 No acute events overnight. Patient was extubated yesterday as tolerated extubation well. Blood pressures been well controlled off of Cardene drip and only on IV antihypertensives. Current blood pressure is 148/65. Heart rate is stable in the 80s beats per minute. Okay for transfer out of the ICU. Patient's chart, labs, images were reviewed and discussed with RN 04/16/2020 No acute events overnight. Afebrile. Patient is extubated. Complains of right thigh pain where her cath puncture site was. Pending speech evaluation. Patient's chart, labs, images were reviewed and discussed with RN 04/15/2020 No acute events overnight. Afebrile. Sedation is currently off and currently intubated. Attempting to wean to extubate today. Vent settings currently at 450/50%/PEEP 5. > 50% time spent in patient chart, labs, and imaging review and in discussion with RN and SW 04/14/2020 No acute events overnight. Attempting to wean off of dopamine drip. Patient is currently heading towards the Sales Performance Manager for pacemaker placement for third-degree AV block. Will attempt to wean off of sedation and next attempt to extubate after procedure.> 50% time spent in patient chart, labs, and imaging review and in discussion with RN and SW 04/13,. doing well on vent, could wean, might be leaving on until Pacemaker placed tomorrow looks stable CV following, no b-blockers HTN emergency yesterday afternooon vent support CV team discussing pacemaker placemetn with bismark, plan PPM tuesday Vitals/I&O Vitals/I&O: Vital Signs Date Time Temp Pulse Resp B/P (MAP) Pulse Ox O2 Delivery O2 Flow Rate FiO2 04/19/20 08:05 Nasal Cannula 2.0 04/19/20 07:00 98.0 101 24 177/69 (105) 94 98.0 I & O 04/18/20 04/18/20 04/19/20 15:00 23:00 07:00 Intake Total 1260 ml 0 ml Output Total 3000 ml 1200 ml Balance -1740 ml -1200 ml Physical Exam General: Other (Intubated) Heart: Regular rate Lungs: Clear Abdomen: Normal bowel sounds Extremities: No cyanosis, No edema Skin: No rashes, No breakdown, No significant lesion Labs Labs: Laboratory Tests Test 04/18/20 15:20 04/19/20 10:10 Sodium Level 144 mmol/L (136-145) 133 mmol/L (136-145) Potassium Level 3.9 mmol/L (3.5-5.1) 5.7 mmol/L (3.5-5.1) Chloride Level 107 mmol/L (98-107) 101 mmol/L (98-107) Carbon Dioxide Level 30 mmol/L (21-32) 25 mmol/L (21-32) Anion Gap 7 (6-14) 7 (6-14) Blood Urea Nitrogen 22 mg/dL (7-20) 18 mg/dL (7-20) Creatinine 0.9 mg/dL (0.6-1.0) 0.6 mg/dL (0.6-1.0) Estimated GFR (Cockcroft-Gault) 75.1 119.9 Glucose Level 102 mg/dL (70-99) 95 mg/dL (70-99) Calcium Level 8.7 mg/dL (8.5-10.1) 8.2 mg/dL (8.5-10.1) Magnesium Level 1.9 mg/dL (1.8-2.4) 2.3 mg/dL (1.8-2.4) White Blood Count 8.9 x10^3/uL (4.0-11.0) Red Blood Count 3.28 x10^6/uL (3.50-5.40) Hemoglobin 9.5 g/dL (12.0-15.5) Hematocrit 28.5 % (36.0-47.0) Mean Corpuscular Volume 87 fL (79-100) Mean Corpuscular Hemoglobin 29 pg (25-35) Mean Corpuscular Hemoglobin Concent 33 g/dL (31-37) Red Cell Distribution Width 14.8 % (11.5-14.5) Platelet Count 197 x10^3/uL (140-400) Neutrophils (%) (Auto) 72 % (31-73) Lymphocytes (%) (Auto) 17 % (24-48) Monocytes (%) (Auto) 10 % (0-9) Eosinophils (%) (Auto) 1 % (0-3) Basophils (%) (Auto) 1 % (0-3) Neutrophils # (Auto) 6.4 x10^3/uL (1.8-7.7) Lymphocytes # (Auto) 1.5 x10^3/uL (1.0-4.8) Monocytes # (Auto) 0.9 x10^3/uL (0.0-1.1) Eosinophils # (Auto) 0.1 x10^3/uL (0.0-0.7) Basophils # (Auto) 0.1 x10^3/uL (0.0-0.2) Assessment and Plan Assessmemt and Plan Problems Medical Problems: (1) Renal insufficiency Status: Acute (2) Third degree heart block Status: Acute (3) Transaminitis Status: Acute Comment Review of Relevant I have reviewed the following items donn (where applicable) has been applied. Medications: Current Medications Medications (Trade) Dose Ordered Sig/Marlyn Route PRN Reason Start Time Stop Time Status Last Admin Dose Admin Lorazepam (Ativan Inj) 1 mg PRN Q6HRS PRN IVP ANXIETY / AGITATION 04/18/20 18:15 04/18/20 22:15 Haloperidol Lactate (Haldol Inj) 5 mg 1X ONCE IVP 04/18/20 21:00 04/18/20 21:01 DC 04/18/20 20:52 Justifications for Admission Other Justification LEA GARCIA MD Apr 19, 2020 11:27
--- NOTE | 2020-04-19 12:28 | PDOC ---
PROGRESS NOTES Date of Service: DATE: 04/19/20 TIME: 12:23 Subjective Subjective Patient remains confused. No new symptoms. Objective Objective Vital Signs Date Time Temp Pulse Resp B/P (MAP) Pulse Ox O2 Delivery O2 Flow Rate FiO2 04/19/20 11:00 96.9 97 22 163/73 (103) 93 Nasal Cannula 2.0 96.9 Intake and Output 04/19/20 07:00 Intake Total 1260 ml Output Total 4200 ml Balance -2940 ml Intake Oral 0 ml IV Total 1260 ml Output Urine Total 4200 ml # Bowel Movements 3 Physical Exam Abdomen: Normal bowel sounds Heart: Regular rate Extremities: No cyanosis, No edema General: Other (Confused) HEENT: Atraumatic, PERRLA Lungs: Other (Mildly decreased breath sounds) Neuro: Other Psych/Mental Status: Other Skin: No significant lesion Assessment Assessment 1. Presyncope with fall: due to bradyarrhythmia. prior multiple syncope at home 2. Symptomatic third degree heart block: s.p PPM implantation, currently maintaining SR with RBBB, first degree AV block. Device interrogation showed normal function. No further NSVT noted on tele. 3. Cardiopulmonary arrest: occurred in ED noted with asystole, received ACLS. 7 min to ROSC. Now extubated 4. Nondisplaced sternal fracture: likely from CPR 5. HTN urgency: On Cardene infusion since patient was n.p.o. She passed swallow study. We will resume losartan and start Norvasc for better control. We will wean Cardene off as tolerated. 6. ANA: back to baseline 7. Shock liver: better 8. Acute on chronic diastolic CHF: EF nml. Better compensated 9. NSTEMI: 0.2, was probably demand ischemia. 2D echo did not show any wall motion abnormalities. 10. Anoxic encephalopathy: remains confused but cooperative Plan Plan of Care Problems Medical Problems: (1) Renal insufficiency Status: Acute (2) Third degree heart block Status: Acute (3) Transaminitis Status: Acute Comment Review of Relevant I have reviewed the following items donn (where applicable) has been applied. Labs Laboratory Tests Test 04/18/20 15:20 04/19/20 10:10 Sodium Level 144 mmol/L (136-145) 133 mmol/L (136-145) Potassium Level 3.9 mmol/L (3.5-5.1) 5.7 mmol/L (3.5-5.1) Chloride Level 107 mmol/L (98-107) 101 mmol/L (98-107) Carbon Dioxide Level 30 mmol/L (21-32) 25 mmol/L (21-32) Anion Gap 7 (6-14) 7 (6-14) Blood Urea Nitrogen 22 mg/dL (7-20) 18 mg/dL (7-20) Creatinine 0.9 mg/dL (0.6-1.0) 0.6 mg/dL (0.6-1.0) Estimated GFR (Cockcroft-Gault) 75.1 119.9 Glucose Level 102 mg/dL (70-99) 95 mg/dL (70-99) Calcium Level 8.7 mg/dL (8.5-10.1) 8.2 mg/dL (8.5-10.1) Magnesium Level 1.9 mg/dL (1.8-2.4) 2.3 mg/dL (1.8-2.4) White Blood Count 8.9 x10^3/uL (4.0-11.0) Red Blood Count 3.28 x10^6/uL (3.50-5.40) Hemoglobin 9.5 g/dL (12.0-15.5) Hematocrit 28.5 % (36.0-47.0) Mean Corpuscular Volume 87 fL (79-100) Mean Corpuscular Hemoglobin 29 pg (25-35) Mean Corpuscular Hemoglobin Concent 33 g/dL (31-37) Red Cell Distribution Width 14.8 % (11.5-14.5) Platelet Count 197 x10^3/uL (140-400) Neutrophils (%) (Auto) 72 % (31-73) Lymphocytes (%) (Auto) 17 % (24-48) Monocytes (%) (Auto) 10 % (0-9) Eosinophils (%) (Auto) 1 % (0-3) Basophils (%) (Auto) 1 % (0-3) Neutrophils # (Auto) 6.4 x10^3/uL (1.8-7.7) Lymphocytes # (Auto) 1.5 x10^3/uL (1.0-4.8) Monocytes # (Auto) 0.9 x10^3/uL (0.0-1.1) Eosinophils # (Auto) 0.1 x10^3/uL (0.0-0.7) Basophils # (Auto) 0.1 x10^3/uL (0.0-0.2) Microbiology 04/11/20 Blood Culture - Final, Complete NO GROWTH AFTER 5 DAYS Medications Current Medications Haloperidol Lactate (Haldol Inj) 5 mg 1X ONCE IVP Last administered on 04/18/20at 20:52; Start 04/18/20 at 21:00; Stop 04/18/20 at 21:01; Status DC Lorazepam (Ativan Inj) 1 mg PRN Q6HRS PRN IVP ANXIETY / AGITATION Last administered on 04/18/20at 22:15; Start 04/18/20 at 18:15 Vitals/I & O Vital Sign - Last 24 Hours 04/18/20 04/18/20 04/18/20 04/18/20 13:00 14:00 14:48 17:00 Temp 99.0 99.0 Pulse 98 105 101 101 Resp 28 B/P (MAP) 156/65 (95) 140/95 (110) 171/75 (107) 146/77 (100) Pulse Ox 97 O2 Delivery Room Air 04/18/20 04/18/20 04/18/20 04/18/20 18:00 19:00 19:42 19:45 Temp 99.2 99.2 Pulse 102 110 102 Resp 20 B/P (MAP) 165/66 (99) 194/79 (117) 148/68 (94) Pulse Ox 99 O2 Delivery Nasal Cannula Nasal Cannula O2 Flow Rate 2.0 2.0 04/18/20 04/18/20 04/18/20 04/19/20 21:00 22:35 23:00 00:01 Temp 99.1 99.1 Pulse 104 109 104 92 Resp B/P (MAP) 148/60 (89) 141/66 (91) 136/82 (100) 163/65 (97) Pulse Ox 97 O2 Delivery Nasal Cannula O2 Flow Rate 2.0 04/19/20 04/19/20 04/19/20 04/19/20 01:00 02:00 03:00 03:38 Temp 98.4 98.4 Pulse 106 90 110 103 Resp 22 B/P (MAP) 155/64 (94) 159/65 (96) 151/69 (96) 144/77 (99) Pulse Ox 98 O2 Delivery Nasal Cannula O2 Flow Rate 2.0 04/19/20 04/19/20 04/19/20 04/19/20 05:00 06:00 07:00 08:05 Temp 98.0 98.0 Pulse 104 100 101 Resp 24 B/P (MAP) 148/67 (94) 176/69 (104) 177/69 (105) Pulse Ox 94 O2 Delivery Nasal Cannula Nasal Cannula O2 Flow Rate 2.0 2.0 04/19/20 11:00 Temp 96.9 96.9 Pulse 97 Resp 22 B/P (MAP) 163/73 (103) Pulse Ox 93 O2 Delivery Nasal Cannula O2 Flow Rate 2.0 Intake and Output 04/18/20 04/18/20 04/19/20 15:00 23:00 07:00 Intake Total 1260 ml 0 ml Output Total 3000 ml 1200 ml Balance -1740 ml -1200 ml LILIBETH VÁZQUEZ MD Apr 19, 2020 12:28
[2020-04-19] MEDS: IV NORMAL SALINE 1000ML BAG 1,000 ML IV SCH (21:34)
[2020-04-20] VITALS (13 sets, daily range): BP systolic 140–254; BP diastolic 70–107
[2020-04-20] MEDS: METOCLOPRAMIDE HCL 10 MG/2 ML VIAL. IVP SCH (08:28)
[2020-04-20] MEDS: PANTOPRAZOLE IV PUSH 40 MG VIAL. IVP SCH (08:28)
[2020-04-20] MEDS: LOSARTAN POTASSIUM 50 MG TABLET. PO SCH (08:29)
[2020-04-20] MEDS: HEPARIN for SUB-Q USE 5,000 UNIT/ML VIAL. SQ SCH ×2 (08:33→20:43)
--- NOTE | 2020-04-20 10:40 | PDOC ---
PROGRESS NOTES Date of Service: DATE: 04/20/20 TIME: 10:40 Subjective Subjective No new complaints. Confusion improved. Objective Objective Vital Signs Date Time Temp Pulse Resp B/P (MAP) Pulse Ox O2 Delivery O2 Flow Rate FiO2 04/20/20 08:29 98 170/84 04/20/20 08:00 Room Air 04/20/20 07:00 97.5 18 95 97.5 04/19/20 15:00 2.0 Intake and Output 04/20/20 07:00 Intake Total 280 ml Output Total 1600 ml Balance -1320 ml Intake Oral 280 ml Output Urine Total 1600 ml Physical Exam Abdomen: Normal bowel sounds Heart: Regular rate Extremities: No cyanosis, No edema General: Other (Confused) HEENT: Atraumatic, PERRLA Lungs: Other (Mildly decreased breath sounds) Neuro: Other Psych/Mental Status: Other Skin: No significant lesion Assessment Assessment 1. Presyncope with fall: due to bradyarrhythmia. prior multiple syncope at home 2. Symptomatic third degree heart block: s.p PPM implantation, currently maintaining SR with RBBB, first degree AV block. Device interrogation showed normal function. No further NSVT noted on tele. 3. Cardiopulmonary arrest: occurred in ED noted with asystole, received ACLS. 7 min to ROSC. Now extubated 4. Nondisplaced sternal fracture: likely from CPR 5. HTN urgency: Blood pressure better controlled after initiating oral medications. Cardene being weaned off. 6. ANA: back to baseline 7. Shock liver: better 8. Acute on chronic diastolic CHF: EF nml. Better compensated 9. NSTEMI: 0.2, was probably demand ischemia. 2D echo did not show any wall motion abnormalities. 10. Anoxic encephalopathy: remains confused but cooperative Plan Plan of Care Problems Medical Problems: (1) Renal insufficiency Status: Acute (2) Third degree heart block Status: Acute (3) Transaminitis Status: Acute Comment Review of Relevant I have reviewed the following items donn (where applicable) has been applied. Labs Microbiology 04/11/20 Blood Culture - Final, Complete NO GROWTH AFTER 5 DAYS Medications Current Medications Amlodipine Besylate (Norvasc) 10 mg DAILY PO Last administered on 04/20/20at 08:29; Start 04/19/20 at 12:30 Pantoprazole Sodium (Protonix) 40 mg DAILYAC PO ; Start 04/21/20 at 07:30 Sodium Chloride 1,000 ml @ 40 mls/hr Q24H IV Last administered on 04/19/20at 21:34; Start 04/19/20 at 19:15 Vitals/I & O Vital Sign - Last 24 Hours 04/19/20 04/19/20 04/19/20 04/19/20 11:00 12:00 12:42 12:42 Temp 96.9 96.9 Pulse 97 98 101 101 Resp 22 B/P (MAP) 163/73 (103) 168/73 (104) Pulse Ox 93 O2 Delivery Nasal Cannula O2 Flow Rate 2.0 04/19/20 04/19/20 04/19/20 04/19/20 13:00 14:00 15:00 15:00 Temp 98.8 98.8 Pulse 98 96 99 97 Resp 22 B/P (MAP) 165/76 (105) 144/64 (90) 171/83 (112) 157/81 (106) Pulse Ox 94 O2 Delivery Nasal Cannula O2 Flow Rate 2.0 04/19/20 04/19/20 04/19/20 04/19/20 16:00 17:00 18:00 19:10 Temp 98.4 98.4 Pulse 100 98 102 101 Resp 24 B/P (MAP) 171/83 (112) 153/85 (107) 171/95 (120) 165/85 (111) Pulse Ox 94 O2 Delivery Room Air 04/19/20 04/19/20 04/20/20 04/20/20 20:00 23:35 03:15 07:00 Temp 98.1 97.8 97.5 98.1 97.8 97.5 Pulse 69 97 96 Resp 20 26 18 B/P (MAP) 180/69 (106) 184/86 (118) 181/77 (111) Pulse Ox 93 95 95 O2 Delivery Room Air Room Air Room Air Room Air 04/20/20 04/20/20 04/20/20 08:00 08:29 08:29 Pulse 98 98 B/P (MAP) 170/84 170/84 O2 Delivery Room Air Intake and Output 04/19/20 04/19/20 04/20/20 15:00 23:00 07:00 Intake Total 0 ml 280 ml Output Total 600 ml 1000 ml Balance -600 ml 280 ml -1000 ml LILIBETH VÁZQUEZ MD 31, 2021 10:40
--- NOTE | 2020-04-20 11:39 | PDOC ---
[facility] [facility] PROGRESS NOTE Date of Service DOS: DATE: 04/20/20 TIME: 11:37 Chief Complaint Chief Complaint syncope and fall, , was pulseless in complete heart block Symptomatic bradycardia with third-degree AV block status post permanent pacemaker placement 04/14/2020 asystolic the ER, CPR for 7 min intubated, sedated now in afib, acute diastolic CHF acute renal failure, vasomotor HTN urgency Obesity, BMI 33 History of Present Illness History of Present Illness 04/20/2020 No acute events overnight. Patient was able to pass speech evaluation and started on dysphagia diet. Pending repeat chemistries. Confusion is improved and patient is able to have appropriate conversation. Tolerating breakfast today. Patient's chart, labs, images were reviewed and discussed with RN 04/19/2020 No acute events overnight. Hyperkalemia and hyponatremia. We will repeat chemistries. Patient continues to be somewhat confused and states that there are bugs in the room that she is unable to see. No SI or HI or aggression. DC Echols today. Patient's chart, labs, images were reviewed and discussed with RN 04/18/2020 No acute events overnight. Patient is feeling better but only complains of some pain around the Echols site. Patient is thirsty and has appetite to eat. Pending speech evaluation for proper diet. If patient's passes speech evaluation we can advance diet as tolerated. Patient's chart, labs, images were reviewed and discussed with RN 04/17/2020 No acute events overnight. Patient was extubated yesterday as tolerated extuba tion well. Blood pressures been well controlled off of Cardene drip and only on IV antihypertensives. Current blood pressure is 148/65. Heart rate is stable in the 80s beats per minute. Okay for transfer out of the ICU. Patient's chart, labs, images were reviewed and discussed with RN 04/16/2020 No acute events overnight. Afebrile. Patient is extubated. Complains of right thigh pain where her cath puncture site was. Pending speech evaluation. Patient's chart, labs, images were reviewed and discussed with RN 04/15/2020 No acute events overnight. Afebrile. Sedation is currently off and currently intubated. Attempting to wean to extubate today. Vent settings currently at 450/50%/PEEP 5. > 50% time spent in patient chart, labs, and imaging review and in discussion with RN and SW 04/14/2020 No acute events overnight. Attempting to wean off of dopamine drip. Patient is currently heading towards the Buckle Wire Inserter for pacemaker placement for third-degree AV block. Will attempt to wean off of sedation and next attempt to extubate after procedure.> 50% time spent in patient chart, labs, and imaging review and in discussion with RN and SW 04/13,. doing well on vent, could wean, might be leaving on until Pacemaker placed tomorrow looks stable CV following, no b-blockers HTN emergency yesterday afternon vent support CV team discussing pacemaker placemetn with bismark, nikky PPM tuesday Vitals/I&O Vitals/I&O: Vital Signs Date Time Temp Pulse Resp B/P (MAP) Pulse Ox O2 Delivery O2 Flow Rate FiO2 04/20/20 08:29 98 170/84 04/20/20 08:00 Room Air 04/20/20 07:00 97.5 18 95 97.5 04/19/20 15:00 2.0 I & O 04/19/20 04/19/20 04/20/20 15:00 23:00 07:00 Intake Total 0 ml 280 ml Output Total 600 ml 1000 ml Balance -600 ml 280 ml -1000 ml Physical Exam General: Other (Confused) Heart: Regular rate Lungs: Clear Abdomen: Normal bowel sounds Extremities: No cyanosis, No edema Skin: No significant lesion Assessment and Plan Assessmemt and Plan Problems Medical Problems: (1) Renal insufficiency Status: Acute (2) Third degree heart block Status: Acute (3) Transaminitis Status: Acute Comment Review of Relevant I have reviewed the following items donn (where applicable) has been applied. Medications: Current Medications Medications (Trade) Dose Ordered Sig/Marlyn Route PRN Reason Start Time Stop Time Status Last Admin Dose Admin Amlodipine Besylate (Norvasc) 10 mg DAILY PO 04/19/20 12:30 04/20/20 08:29 Sodium Chloride 1,000 ml @ 40 mls/hr Q24H IV 04/19/20 19:15 04/19/20 21:34 Justifications for Admission Other Justification LEA GARCIA MD Apr 20, 2020 11:39
[2020-04-20 14:43] LABS: CALCIUM 8.8 mg/dL (8.5-10.1); CREATININE 0.9 mg/dL (0.6-1.0); GFR 75.1; POTASSIUM 3.6 mmol/L (3.5-5.1)
[2020-04-20] MEDS: hydrALAZINE 20 MG/ML VIAL. IVP PRN (15:10)
[2020-04-20] MEDS: LABETALOL HCL 200 MG TABLET PO SCH (16:20)
[2020-04-20] MEDS: IV NORMAL SALINE 1000ML BAG 1,000 ML IV SCH (20:41)
[2020-04-21] VITALS (9 sets, daily range): BP systolic 126–187; BP diastolic 64–89
[2020-04-21] MEDS: hydrALAZINE 20 MG/ML VIAL. IVP PRN ×3 (03:58→15:54)
--- NOTE | 2020-04-21 07:54 | PDOC ---
[facility] [facility] PROGRESS NOTE Date of Service DOS: DATE: 04/21/20 TIME: 07:53 Chief Complaint Chief Complaint syncope and fall, , was pulseless in complete heart block Symptomatic bradycardia with third-degree AV block status post permanent pacemaker placement 04/14/2020 asystolic the ER, CPR for 7 min intubated, sedated now in afib, acute diastolic CHF acute renal failure, vasomotor HTN urgency Obesity, BMI 33 History of Present Illness History of Present Illness Ms Javed is a 70-year-old female w/ PMHx HTN, multiple presyncopal events in the past, history of breast cancer who was admitted 04/11/20. She was found in the bathroom after she felt dizzy and fell. She was able to crawl and called 911. When the EMS arrived, her heart rate was in the 20s. She was noted to be in third-degree heart block. External pacemaker was initiated. In the ER, she was able to communicate, but then went into asystole and given epinephrine, bicarbonate, calcium, and also had CPR. She had 7 minutes of ACLS before she had return of spontaneous circulation, was intubated and underwent hypothermia protocol. Found with diffuse alveolar infiltrates on CT and nondisplaced acute sternal fracture, no pneumothorax, was negative for COVID 19. Consults: Pulm, Cardiology, Neurology 04/13:. doing well on vent, could wean, might be leaving on until Pacemaker placed tomorrow 04/14: No acute events overnight. Attempting to wean off of dopamine drip. Patient is currently heading towards the Collection Systems Consultant for pacemaker placement for third-degree AV block. 04/15: No acute events overnight. Afebrile. Sedation is currently off and currently intubated. Attempting to wean to extubate today. Vent settings currently at 450/50%/PEEP 5. 04/16: No acute events overnight. Afebrile. Patient is extubated. Complains of right thigh pain where her cath puncture site was. Pending speech evaluation. Patient's chart, labs, images were reviewed and discussed with RN 04/17: No acute events overnight. Patient was extubated yesterday as tolerated extubation well. Blood pressures been well controlled off of Cardene drip and only on IV antihypertensives. Current blood pressure is 148/65. xfer from ICU 04/18: No acute events overnight. Patient is feeling better but only complains of some pain around the Echols site. Patient is thirsty and has appetite to eat. Pending speech evaluation for proper diet. 04/19: No acute events overnight. Hyperkalemia and hyponatremia. We will repeat chemistries. Patient continues to be somewhat confused and states that there are bugs in the room that she is unable to see. No SI or HI or aggression. 04/20: No acute events overnight. Patient was able to pass speech evaluation and started on dysphagia diet. Pending repeat chemistries. Confusion is improved and patient is able to have appropriate conversation. Tolerating breakfast Afebrile. Still with some hoarseness. She is asking if she can have some beets to eat. Worried about amlodipine, noted she previously experienced difficulty swallowing and swelling and was instructed to stop this med. Vitals/I&O Vitals/I&O: Vital Signs Date Time Temp Pulse Resp B/P (MAP) Pulse Ox O2 Delivery O2 Flow Rate FiO2 04/21/20 04:30 90 162/74 (103) 04/21/20 03:50 98.0 22 96 Room Air 98.0 I & O 04/20/20 04/20/20 04/21/20 15:00 23:00 07:00 Intake Total 50 ml Balance 50 ml Physical Exam General: Alert, Cooperative, Other (Confused) Heart: Regular rate Lungs: Clear Abdomen: Normal bowel sounds Extremities: No cyanosis, No edema Skin: No significant lesion Labs Labs: Laboratory Tests Test 04/20/20 14:15 Sodium Level 145 mmol/L (136-145) Potassium Level 3.6 mmol/L (3.5-5.1) Chloride Level 109 mmol/L (98-107) Carbon Dioxide Level 28 mmol/L (21-32) Anion Gap 8 (6-14) Blood Urea Nitrogen 19 mg/dL (7-20) Creatinine 0.9 mg/dL (0.6-1.0) Estimated GFR (Cockcroft-Gault) 75.1 Glucose Level 114 mg/dL (70-99) Calcium Level 8.8 mg/dL (8.5-10.1) Magnesium Level 2.0 mg/dL (1.8-2.4) Assessment and Plan Assessmemt and Plan Problems Medical Problems: (1) Renal insufficiency Status: Acute (2) Third degree heart block Status: Acute (3) Transaminitis Status: Acute Comment Review of Relevant I have reviewed the following items donn (where applicable) has been applied. Medications: Current Medications Medications (Trade) Dose Ordered Sig/Marlyn Route PRN Reason Start Time Stop Time Status Last Admin Dose Admin Labetalol HCl (Trandate) 200 mg BID PO 04/20/20 17:00 04/20/20 16:20 Justifications for Admission Other Justification ZAIRA MOSES MD Apr 21, 2020 07:54
[2020-04-21] MEDS: PANTOPRAZOLE 40 MG TABLET.DR. PO SCH (09:13)
[2020-04-21] MEDS: LABETALOL HCL 200 MG TABLET PO SCH ×2 (09:13→20:47)
[2020-04-21] MEDS: LOSARTAN POTASSIUM 50 MG TABLET. PO SCH (09:13)
[2020-04-21] MEDS: METOCLOPRAMIDE HCL 10 MG/2 ML VIAL. IVP SCH (09:13)
[2020-04-21] MEDS: HEPARIN for SUB-Q USE 5,000 UNIT/ML VIAL. SQ SCH ×2 (09:15→20:52)
--- NOTE | 2020-04-21 09:26 | PDOC ---
PROGRESS NOTES Date of Service DATE: 04/21/20 TIME: 09:24 Assessment Problems Medical Problems: (1) Renal insufficiency Status: Acute (2) Third degree heart block Status: Acute (3) Transaminitis Status: Acute Anoxic encephalopathy, improving. Has had some emotional lability AV ventricular block, status-post pacemaker, congestive heart failure, hypertensive urgency Passed swallow evaluation, on dysphagia I Plan No need for repeat head CT or EEG Continue medical management. Transfer to [facility] anytime Subjective No complaints Objective Vital Signs Date Time Temp Pulse Resp B/P (MAP) Pulse Ox O2 Delivery O2 Flow Rate FiO2 04/21/20 09:13 96 187/70 04/21/20 07:00 98.1 22 96 Room Air 98.1 Intake and Output 04/21/20 07:00 Intake Total 50 ml Balance 50 ml Intake Oral 50 ml # Voids 4 PHYSICAL EXAM Alert, knows name of the hospital, date, follows commands No emotional lability today PERRL. EOMI. CN: no focal findings. Muscle tone: normal. Muscle strength: 3/5 DTR: 1+ Plantar reflex: Silent Gait: not examined in bed. Sensory exam: No focal findings Cerebellar: No focal findings Review of Relevant I have reviewed the following items donn (where applicable) has been applied. Labs Laboratory Tests Test 04/19/20 10:10 04/20/20 14:15 White Blood Count 8.9 x10^3/uL (4.0-11.0) Red Blood Count 3.28 x10^6/uL (3.50-5.40) Hemoglobin 9.5 g/dL (12.0-15.5) Hematocrit 28.5 % (36.0-47.0) Mean Corpuscular Volume 87 fL (79-100) Mean Corpuscular Hemoglobin 29 pg (25-35) Mean Corpuscular Hemoglobin Concent 33 g/dL (31-37) Red Cell Distribution Width 14.8 % (11.5-14.5) Platelet Count 197 x10^3/uL (140-400) Neutrophils (%) (Auto) 72 % (31-73) Lymphocytes (%) (Auto) 17 % (24-48) Monocytes (%) (Auto) 10 % (0-9) Eosinophils (%) (Auto) 1 % (0-3) Basophils (%) (Auto) 1 % (0-3) Neutrophils # (Auto) 6.4 x10^3/uL (1.8-7.7) Lymphocytes # (Auto) 1.5 x10^3/uL (1.0-4.8) Monocytes # (Auto) 0.9 x10^3/uL (0.0-1.1) Eosinophils # (Auto) 0.1 x10^3/uL (0.0-0.7) Basophils # (Auto) 0.1 x10^3/uL (0.0-0.2) Sodium Level 133 mmol/L (136-145) 145 mmol/L (136-145) Potassium Level 5.7 mmol/L (3.5-5.1) 3.6 mmol/L (3.5-5.1) Chloride Level 101 mmol/L (98-107) 109 mmol/L (98-107) Carbon Dioxide Level 25 mmol/L (21-32) 28 mmol/L (21-32) Anion Gap 7 (6-14) 8 (6-14) Blood Urea Nitrogen 18 mg/dL (7-20) 19 mg/dL (7-20) Creatinine 0.6 mg/dL (0.6-1.0) 0.9 mg/dL (0.6-1.0) Estimated GFR (Cockcroft-Gault) 119.9 75.1 Glucose Level 95 mg/dL (70-99) 114 mg/dL (70-99) Calcium Level 8.2 mg/dL (8.5-10.1) 8.8 mg/dL (8.5-10.1) Magnesium Level 2.3 mg/dL (1.8-2.4) 2.0 mg/dL (1.8-2.4) Laboratory Tests Test 04/20/20 14:15 Sodium Level 145 mmol/L (136-145) Potassium Level 3.6 mmol/L (3.5-5.1) Chloride Level 109 mmol/L (98-107) Carbon Dioxide Level 28 mmol/L (21-32) Anion Gap 8 (6-14) Blood Urea Nitrogen 19 mg/dL (7-20) Creatinine 0.9 mg/dL (0.6-1.0) Estimated GFR (Cockcroft-Gault) 75.1 Glucose Level 114 mg/dL (70-99) Calcium Level 8.8 mg/dL (8.5-10.1) Magnesium Level 2.0 mg/dL (1.8-2.4) Microbiology 04/11/20 Blood Culture - Final, Complete NO GROWTH AFTER 5 DAYS Medications Current Medications Fentanyl Citrate (Fentanyl 2ml Vial) 100 mcg STK-MED ONCE .ROUTE ; Start 04/11/20 at 02:53; Stop 04/11/20 at 02:53; Status DC Hydromorphone HCl (Dilaudid) 2 mg STK-MED ONCE .ROUTE ; Start 04/11/20 at 02:57; Stop 04/11/20 at 02:57; Status DC Epinephrine HCl 5 mg/Sodium Chloride 255 ml @ 22.208 mls/ hr CONT PRN IV SEE I/O RECORD; Start 04/11/20 at 03:15; Stop 04/11/20 at 09:00; Status DC Propofol 100 ml @ As Directed STK-MED ONCE IV ; Start 04/11/20 at 03:14; Stop 04/11/20 at 03:14; Status DC Midazolam HCl 100 ml @ 1 mls/hr 1X ONCE IV Last administered on 04/11/20at 11:04; Start 04/11/20 at 03:45; Stop 04/12/20 at 00:39; Status DC Piperacillin Sod/ Tazobactam Sod (Zosyn Per Pharmacy) 1 each PRN DAILY PRN MC SEE COMMENTS; Start 04/11/20 at 04:00; Stop 04/16/20 at 10:35; Status DC Vancomycin HCl (Vanco Per Pharmacy) 1 each PRN DAILY PRN MC SEE COMMENTS; Start 04/11/20 at 04:00; Stop 04/11/20 at 13:35; Status DC Metronidazole 100 ml @ 100 mls/hr 1X ONCE IV ; Start 04/11/20 at 04:30; Stop 04/11/20 at 05:29; Status DC Dexamethasone Sodium Phosphate (Decadron) 10 mg 1X ONCE IV Last administered on 04/11/20at 04:54; Start 04/11/20 at 04:30; Stop 04/11/20 at 04:31; Status DC Magnesium Sulfate 50 ml @ 25 mls/hr 1X ONCE IV Last administered on 04/11/20at 04:58; Start 04/11/20 at 04:30; Stop 04/11/20 at 19:14; Status DC Furosemide (Lasix) 100 mg 1X ONCE IVP Last administered on 04/11/20at 04:32; Start 04/11/20 at 04:15; Stop 04/11/20 at 04:27; Status DC Vancomycin HCl 1.75 gm/Sodium Chloride 500 ml @ 250 mls/hr 1X ONCE IV ; Start 04/11/20 at 05:00; Stop 04/11/20 at 06:59; Status DC Piperacillin Sod/ Tazobactam Sod 3.375 gm/Sodium Chloride 50 ml @ 100 mls/hr 1X ONCE IV Last administered on 04/11/20at 05:43; Start 04/11/20 at 05:00; Stop 04/11/20 at 05:29; Status DC Dopamine HCl/ Dextrose 250 ml @ 19.561 mls/ hr CONT PRN IV SEE I/O RECORD Last administered on 04/13/20at 07:22; Start 04/11/20 at 06:15; Stop 04/14/20 at 18:24; Status DC Hydromorphone HCl (Dilaudid) 2 mg 1X ONCE IVP ; Start 04/11/20 at 06:15; Stop 04/11/20 at 06:27; Status DC Fentanyl Citrate (Fentanyl 2ml Vial) 100 mcg 1X ONCE IVP ; Start 04/11/20 at 06:15; Stop 04/11/20 at 06:27; Status DC Etomidate (Amidate) 20 mg 1X ONCE IV Last administered on 04/11/20at 03:12; Start 04/11/20 at 06:15; Stop 04/11/20 at 06:27; Status DC Succinylcholine Chloride (Anectine) 100 mg 1X ONCE IV Last administered on 04/11/20at 03:13; Start 04/11/20 at 06:15; Stop 04/11/20 at 06:27; Status DC Piperacillin Sod/ Tazobactam Sod 2.25 gm/Sodium Chloride 50 ml @ 100 mls/hr Q6HRS IV Last administered on 04/16/20at 06:19; Start 04/11/20 at 12:00; Stop 04/16/20 at 10:35; Status DC Fentanyl Citrate (Fentanyl 2ml Vial) 100 mcg 1X ONCE IV ; Start 04/11/20 at 07:00; Stop 04/11/20 at 19:40; Status DC Magnesium Sulfate/ Dextrose 100 ml @ 100 mls/hr 1X ONCE IV ; Start 04/11/20 at 07:30; Stop 04/11/20 at 14:52; Status DC Buspirone HCl (Buspar) 30 mg Q8H NG Last administered on 04/11/20at 15:30; Start 04/11/20 at 08:00; Stop 04/11/20 at 19:40; Status DC Acetaminophen (Tylenol) 650 mg Q4H NG Last administered on 04/11/20at 15:29; Start 04/11/20 at 07:00; Stop 04/11/20 at 19:40; Status DC Glycerin/ Hypromellose/ Polyethylene (Artificial Tears) 1 drop Q6HRS OU Last administered on 04/11/20at 13:30; Start 04/11/20 at 12:00; Stop 04/11/20 at 19:40; Status DC Glycerin/ Hypromellose/ Polyethylene (Artificial Tears) 1 drop PRN Q15MIN PRN OU DRY EYE; Start 04/11/20 at 07:00; Stop 04/11/20 at 19:40; Status DC Pantoprazole Sodium (PROTONIX VIAL for IV PUSH) 40 mg DAILY IVP ; Start 04/11/20 at 09:00; Stop 04/11/20 at 07:31; Status DC Fentanyl Citrate 30 ml @ 2.5 mls/hr CONT PRN IV PER PROTOCOL. Last ad ministered on 04/14/20at 06:42; Start 04/11/20 at 07:00; Stop 04/14/20 at 18:24; Status DC Propofol 100 ml @ 6.258 mls/ hr CONT PRN IV PER PROTOCOL. Last administered on 04/14/20at 21:44; Start 04/11/20 at 07:00; Stop 04/18/20 at 22:04; Status DC Norepinephrine Bitartrate 32 mg/ Dextrose 250 ml @ 4.889 mls/ hr CONT PRN IV SEE I/O RECORD; Start 04/11/20 at 07:15; Stop 04/14/20 at 18:24; Status DC Fentanyl Citrate (Fentanyl 2ml Vial) 100 mcg 1X ONCE IV ; Start 04/11/20 at 07:15; Stop 04/11/20 at 07:30; Status DC Heparin Sodium (Porcine) (Heparin Sodium) 5,000 unit BID SQ Last administered on 04/21/20at 09:15; Start 04/11/20 at 09:00 Pantoprazole Sodium (PROTONIX VIAL for IV PUSH) 40 mg DAILY IVP Last administered on 04/20/20at 08:28; Start 04/11/20 at 09:00; Stop 04/20/20 at 10:34; Status DC Fentanyl Citrate 30 ml @ 0 mls/hr CONT PRN IV PER PROTOCOL.; Start 04/11/20 at 07:15; Stop 04/11/20 at 07:31; Status DC Propofol 100 ml @ 0 mls/hr CONT PRN IV PER PROTOCOL.; Start 04/11/20 at 07:15; Stop 04/11/20 at 07:31; Status DC Midazolam HCl 100 ml @ 2 mls/hr CONT PRN IV PER PROTOCOL; Start 04/11/20 at 07:15; Status Cancel Epinephrine HCl 10 mg/Sodium Chloride 250 ml @ 15.645 mls/ hr CONT PRN IV SEE I/O RECORD; Start 04/11/20 at 07:30; Stop 04/14/20 at 18:24; Status DC Metronidazole (FLAGYL 500Mmg PREMIX) 500 mg STK-MED ONCE IV ; Start 04/11/20 at 04:00; Stop 04/11/20 at 08:43; Status DC Sodium Chloride 1,000 ml @ 10 mls/hr Q24H IV Last administered on 04/13/20at 08:27; Start 04/11/20 at 09:15; Stop 04/19/20 at 19:08; Status DC Potassium Chloride/Water 100 ml @ 100 mls/hr 1X ONCE IV Last administered on 04/11/20at 13:27; Start 04/11/20 at 10:00; Stop 04/11/20 at 10:59; Status DC Potassium Chloride (Klor-Con) 40 meq 1X ONCE PO ; Start 04/11/20 at 10:45; Stop 04/11/20 at 10:46; Status UNV Potassium Chloride (Klor-Con) 40 meq Q2H PO ; Start 04/11/20 at 10:45; Stop 04/11/20 at 12:46; Status UNV Magnesium Sulfate 100 ml @ 50 mls/hr DAILY IV ; Start 04/12/20 at 09:00; Stop 04/15/20 at 08:59; Status UNV Info (Icu Electrolyte Protocol) 1 ea CONT PRN PRN MC PER PROTOCOL; Start 04/11/20 at 10:45 Furosemide (Lasix) 40 mg 1X ONCE IVP Last administered on 04/11/20at 13:29; Start 04/11/20 at 11:00; Stop 04/11/20 at 11:01; Status DC Linezolid/Dextrose 300 ml @ 300 mls/hr Q12HR IV Last administered on 04/14/20at 08:18; Start 04/11/20 at 14:00; Stop 04/14/20 at 12:48; Status DC Metoprolol Tartrate (Lopressor Vial) 5 mg 1X ONCE IVP ; Start 04/11/20 at 14:45; Stop 04/11/20 at 14:52; Status DC Metoprolol Tartrate (Lopressor Vial) 5 mg PRN Q5MIN PRN IVP TACHYCARDIA; Start 04/11/20 at 14:45; Stop 04/11/20 at 14:52; Status DC Enalaprilat (Vasotec Inj) 1.25 mg PRN Q6HRS PRN IVP HYPERTENSION; Start 04/11/20 at 15:15; Stop 04/11/20 at 19:14; Status DC Amlodipine Besylate (Norvasc) 5 mg DAILY PO Last administered on 04/15/20at 07:56; Start 04/12/20 at 09:00; Stop 04/15/20 at 15:31; Status DC Amlodipine Besylate (Norvasc) 5 mg 1X ONCE PO ; Start 04/11/20 at 15:15; Stop 04/11/20 at 15:16; Status Cancel Amlodipine Besylate (Norvasc) 10 mg 1X ONCE NG Last administered on 04/11/20at 15:28; Start 04/11/20 at 15:15; Stop 04/11/20 at 15:18; Status DC Calcium Chloride (Calcium Chloride) 1,000 mg STK-MED ONCE .ROUTE ; Start 04/11/20 at 12:00; Stop 04/11/20 at 16:17; Status DC Epinephrine HCl (EPINEPHrine SYRINGE) 2 mg STK-MED ONCE .ROUTE ; Start 04/11/20 at 12:00; Stop 04/11/20 at 16:17; Status DC Sodium Bicarbonate (Sodium Bicarb Adult 8.4% Syr) 100 meq STK-MED ONCE .ROUTE ; Start 04/11/20 at 12:00; Stop 04/11/20 at 16:17; Status DC Dopamine HCl/ Dextrose (DOPamine 400MG/ 250ML PREMIX) 400 mg STK-MED ONCE IV ; Start 04/11/20 at 12:00; Stop 04/11/20 at 16:17; Status DC Midazolam HCl 100 ml @ 0 mls/hr CONT PRN IV SEE I/O RECORD; Start 04/11/20 at 17:30; Status Cancel Hydralazine HCl (Apresoline Inj) 10 mg PRN Q4HRS PRN IVP ELEVATED BP, SEE COMMENTS Last administered on 04/21/20at 03:58; Start 04/11/20 at 18:45 Midazolam HCl 100 ml @ 1 mls/hr CONT PRN IV SEE I/O RECORD Last administered on 04/14/20at 06:41; Start 04/12/20 at 00:30; Stop 04/14/20 at 18:24; Status DC Potassium Chloride/Water 100 ml @ 100 mls/hr Q1H IV Last administered on 04/13/20at 09:20; Start 04/13/20 at 06:30; Stop 04/13/20 at 10:29; Status DC Amino Acids/ Glycerin/ Electrolytes 1,000 ml @ 80 mls/hr [id number] IV Last administered on 04/19/20at 18:07; Start 04/13/20 at 10:15; Stop 04/19/20 at 19:08; Status DC Metoclopramide HCl (Reglan Vial) 10 mg DAILY IVP Last administered on 04/21/20at 09:13; Start 04/13/20 at 10:15 Bacitracin 50121 unit/Sodium Chloride 250 ml @ 250 mls/hr 1X ONCE IRR Last administered on 04/14/20at 06:00; Start 04/14/20 at 06:00; Stop 04/14/20 at 08:26; Status DC Lidocaine/ Epinephrine (LIDOCAINE 2%-EPI 1:100,000 multi-dose) 20 ml STK-MED ONCE .ROUTE ; Start 04/14/20 at 09:01; Stop 04/14/20 at 09:01; Status DC Lidocaine/ Epinephrine (LIDOCAINE 1%-EPI 1:100,000 Multi-Dose) 40 ml 1X ONCE INJ Last administered on 04/14/20at 10:00; Start 04/14/20 at 10:00; Stop 04/14/20 at 10:01; Status DC Oxycodone/ Acetaminophen (Percocet 5/325) 1 tab PRN Q4HRS PRN PO PAIN Last administered on 04/15/20at 07:57; Start 04/14/20 at 10:30 Losartan Potassium (Cozaar) 50 mg DAILY PO Last administered on 04/21/20at 09:13; Start 04/15/20 at 16:00 Amlodipine Besylate (Norvasc) 10 mg DAILY PO ; Start 04/16/20 at 09:00; Stop 04/19/20 at 06:12; Status DC Amlodipine Besylate (Norvasc) 5 mg 1X ONCE PO ; Start 04/15/20 at 15:30; Stop 04/15/20 at 15:32; Status DC Nicardipine HCl 50 mg/Sodium Chloride 250 ml @ 0 mls/hr CONT PRN IV SEE I/O RECORD Last administered on 04/19/20at 18:08; Start 04/15/20 at 17:00 Fentanyl Citrate (Fentanyl 2ml Vial) 25 mcg PRN Q6HRS PRN IVP PAIN Last administered on 04/16/20at 09:44; Start 04/15/20 at 18:45; Stop 04/18/20 at 22:05; Status DC Fentanyl Citrate (Fentanyl 2ml Vial) 100 mcg STK-MED ONCE .ROUTE ; Start 04/15/20 at 18:42; Stop 04/15/20 at 18:42; Status DC Fentanyl Citrate (Fentanyl 2ml Vial) 25 mcg PRN Q2HR PRN IVP PAIN Last administered on 04/17/20at 21:21; Start 04/16/20 at 11:00 Fentanyl Citrate (Fentanyl 2ml Vial) 100 mcg STK-MED ONCE .ROUTE ; Start 04/15/20 at 19:00; Stop 04/16/20 at 11:20; Status DC Labetalol HCl (Normodyne Iv Push) 10 mg PRN Q6HRS PRN IVP HYPERTENSION Last administered on 04/18/20at 07:24; Start 04/16/20 at 15:45 Lorazepam (Ativan Inj) 2 mg PRN Q4HRS PRN IVP ANXIETY / AGITATION Last administered on 04/18/20at 10:59; Start 04/16/20 at 19:15; Stop 04/18/20 at 18:13; Status DC Amiodarone HCl (Cordarone) 400 mg DAILY PO ; Start 04/17/20 at 09:00; Stop 04/17/20 at 08:25; Status DC Potassium Chloride/Water 100 ml @ 100 mls/hr 1X ONCE IV ; Start 04/17/20 at 09:00; Stop 04/17/20 at 08:25; Status DC Furosemide (Lasix) 40 mg 1X ONCE IVP Last administered on 04/18/20at 10:19; Start 04/18/20 at 10:15; Stop 04/18/20 at 10:16; Status DC Lorazepam (Ativan Inj) 1 mg PRN Q6HRS PRN IVP ANXIETY / AGITATION Last administered on 04/20/20at 23:17; Start 04/18/20 at 18:15 Haloperidol Lactate (Haldol Inj) 5 mg 1X ONCE IVP Last administered on 04/18/20at 20:52; Start 04/18/20 at 21:00; Stop 04/18/20 at 21:01; Status DC Amlodipine Besylate (Norvasc) 10 mg DAILY PO Last administered on 04/20/20at 08:29; Start 04/19/20 at 12:30; Stop 04/21/20 at 07:50; Status DC Sodium Chloride 1,000 ml @ 40 mls/hr Q24H IV Last administered on 04/20/20at 20:41; Start 04/19/20 at 19:15 Pantoprazole Sodium (Protonix) 40 mg DAILYAC PO Last administered on 04/21/20at 09:13; Start 04/21/20 at 07:30 Labetalol HCl (Trandate) 200 mg BID PO Last administered on 04/21/20at 09:13; Start 04/20/20 at 17:00 Vitals/I & O Vital Sign - Last 24 Hours 04/20/20 04/20/20 04/20/20 04/20/20 10:00 11:00 11:00 12:00 Temp 98.2 98.2 Pulse 98 94 100 94 Resp 20 B/P (MAP) 155/70 (98) 158/83 (108) 140/75 (96) 164/75 (104) Pulse Ox 96 O2 Delivery Room Air 04/20/20 04/20/20 04/20/20 04/20/20 13:00 14:00 15:00 15:00 Temp 98.1 98.1 Pulse 97 98 97 98 Resp 20 B/P (MAP) 174/84 (114) 206/75 (118) 196/95 (128) 166/78 (107) Pulse Ox 97 O2 Delivery Room Air 04/20/20 04/20/20 04/20/20 04/20/20 15:10 16:00 16:20 19:20 Temp 97.8 97.8 Pulse 100 98 100 92 Resp 22 B/P (MAP) 184/81 201/82 (121) 184/81 180/84 (116) Pulse Ox 98 O2 Delivery Room Air 04/20/20 04/20/20 04/21/20 04/21/20 19:46 23:15 03:50 03:58 Temp 98.1 98.0 98.1 98.0 Pulse 93 94 94 Resp 22 22 B/P (MAP) 160/100 (120) 183/86 (118) 186/86 Pulse Ox 97 96 O2 Delivery Room Air Room Air Room Air 04/21/20 04/21/20 04/21/20 04/21/20 04:30 07:00 09:13 09:13 Temp 98.1 98.1 Pulse 90 96 96 96 Resp 22 B/P (MAP) 162/74 (103) 187/70 (109) 187/70 187/70 Pulse Ox 96 O2 Delivery Room Air Intake and Output 04/20/20 04/20/20 04/21/20 15:00 23:00 07:00 Intake Total 50 ml Balance 50 ml Justicifation of Admission Dx: Justifications for Admission: Justification of Admission Dx: Yes (cardiac arrest) CAMDEN TUCKER MD Apr 21, 2020 09:26
--- NOTE | 2020-04-21 11:23 | PDOC ---
ABDIEL SERRA [employer] 04/21/20 1123: CARDIO Progress Notes Date and Time Date of Service 04/21/20 Time of Evaluation 1120 Subjective Subjective: No Chest Pain, No shortness of breath, No Palpitations Vitals Vitals Vital Signs Date Time Temp Pulse Resp B/P (MAP) Pulse Ox O2 Delivery O2 Flow Rate FiO2 04/21/20 10:57 87 173/73 04/21/20 08:00 Room Air 04/21/20 07:00 98.1 22 96 98.1 Weight Weight [ ] Input and Output Intake and Output Intake and Output 04/21/20 07:00 Intake Total 50 ml Balance 50 ml Intake Oral 50 ml # Voids 4 Laboratory Labs Laboratory Tests Test 04/20/20 14:15 Sodium Level 145 mmol/L (136-145) Potassium Level 3.6 mmol/L (3.5-5.1) Chloride Level 109 mmol/L (98-107) Carbon Dioxide Level 28 mmol/L (21-32) Anion Gap 8 (6-14) Blood Urea Nitrogen 19 mg/dL (7-20) Creatinine 0.9 mg/dL (0.6-1.0) Estimated GFR (Cockcroft-Gault) 75.1 Glucose Level 114 mg/dL (70-99) Calcium Level 8.8 mg/dL (8.5-10.1) Magnesium Level 2.0 mg/dL (1.8-2.4) Microbiology Micro Microbiology 04/11/20 Blood Culture - Final, Complete NO GROWTH AFTER 5 DAYS Physical Exam HEENT: Neck Supple W Full Motion Chest: Symmetric LUNGS: Other (diminished bases) Heart: RRR (SR with RBBB) Abdomen: Other (obese) Extremities: Other (1+ bilateral LE pitting edema) Neurology: alert, follow commands, confused, other (drowsy ) Assessment Assessment 1. Presyncope with fall: due to bradyarrhythmia. prior multiple syncope at home 2. Symptomatic third degree heart block: s/p PPM implantation. currently maintaining SR with RBBB, first degree AV block. Device interrogation showed normal function. No further NSVT noted on tele. 3. Cardiopulmonary arrest: occurred in ED noted with asystole, received ACLS. 7 min to ROSC. Now extubated 4. Nondisplaced sternal fracture: likely from CPR 5. HTN urgency: remains labile. off Cardene 6. ANA: back to baseline 7. Shock liver: improved 8. Acute on chronic diastolic CHF: EF nml. Better compensated 9. NSTEMI: 0.2, was probably demand ischemia. 2D echo did not show any wall motion abnormalities. 10. Anoxic encephalopathy: improved Recommendations Continue labetalol, losartan. Discontinue amlodipine as patient reporting allergy with cough Add hydralazine Consider outpatient ischemic evaluation Supportive care Justicifation of Admission Dx: Justifications for Admission: Justification of Admission Dx: Yes (cardiac arrest) LILIBETH VÁZQUEZ MD 04/21/20 1421: CARDIO Progress Notes Assessment Assessment Patient seen and examined. Agree with SENIOR HR MANAGER's assessment and plan. s/p permanent pacemaker implantation for complete heart block, stable. Telemetry showed 1 brief episode of NSVT. Blood pressure better controlled. Continue current medical regimen. Plan outpatient ischemic evaluation. ABDIEL SERRA APRN Apr 21, 2020 11:23 LILIBETH VÁZQUEZ MD Apr 21, 2020 14:21
--- NOTE | 2020-04-21 11:39 | NUR ---
SS following up with discharge planning. SS reviewed pt chart and discussed with pt RN. Pt is currently on room air. Blood pressure being monitored but pt now off of drip. COVID19 negative. Pt on Dysphagia I diet with honey thick liquids. PT/OT recommended acute rehabilitation. SS met with pt and discussed acute rehabilitation. Pt agreeable to acute rehabilitation but requested that SS contact her son to make decision regarding facility. SS contacted pt's son and daughter in law and discussed acute rehabilitation. Pt's son and daughter in law agreeable to acute rehabilitation and reported that they will decide between [facility] in [place], ; fax [phone], and [facility], ; [phone]. Pt's family reported that they will contact SS today with decision. SS will continue to follow for discharge planning.
[2020-04-21] MEDS ORDERED: ELECTROLYTE (NON-ICU) PROTOCOL. MC PRN (14:30)
[2020-04-21] MEDS: LABETALOL 20 MG/4 ML DISP.SYRIN. IVP PRN (16:53)
[2020-04-21 21:20] LABS: BILIRUBIN,URINE NEGATIVE (NEG); CLARITY,URINE TURBID; COLOR,URINE AMBER; NITRITE,URINE NEGATIVE (NEG); PROTEIN,URINE >=300 mg/dL (NEG-TRACE)
[2020-04-21 21:34] LABS: BACTERIA,URINE FEW /HPF (0-FEW); WBC,URINE TNTC /HPF (0-4)
[2020-04-22] MEDS: IV NORMAL SALINE 1000ML BAG 1,000 ML IV SCH ×2 (00:57→19:15)
[2020-04-22 03:05] VITALS: BP 173/78
[2020-04-22 05:56] LABS: ALBUMIN 2.4 g/dL (3.4-5.0); ALBUMIN/GLOBULIN RATIO 0.6 (1.0-1.7); CREATININE 0.9 mg/dL (0.6-1.0); GFR 75.1; POTASSIUM 3.7 mmol/L (3.5-5.1); TOTAL BILIRUBIN 0.8 mg/dL (0.2-1.0); TOTAL PROTEIN 6.3 g/dL (6.4-8.2)
[2020-04-22 07:00] VITALS: BP 179/77
[2020-04-22] MEDS: PANTOPRAZOLE 40 MG TABLET.DR. PO SCH (08:38)
[2020-04-22] MEDS: LOSARTAN POTASSIUM 50 MG TABLET. PO SCH (08:38)
[2020-04-22] MEDS: LABETALOL HCL 200 MG TABLET PO SCH ×2 (08:39→21:15)
[2020-04-22] MEDS: HEPARIN for SUB-Q USE 5,000 UNIT/ML VIAL. SQ SCH ×2 (08:39→21:16)
[2020-04-22] MEDS: METOCLOPRAMIDE HCL 10 MG/2 ML VIAL. IVP SCH (08:39)
[2020-04-22 10:04] VITALS: BP 118/49
--- NOTE | 2020-04-22 10:23 | PDOC ---
[employer] PROGRESS NOTE Date of Service DOS: DATE: 04/22/20 TIME: 10:23 Chief Complaint Chief Complaint A/P: Syncope and fall, , was pulseless in complete heart block Symptomatic bradycardia with third-degree AV block status post permanent pacemaker placement 04/14/2020 asystolic the ER, CPR for 7 min intubated, sedated now in afib, acute diastolic CHF acute renal failure, vasomotor HTN urgency Obesity, BMI 33 History of Present Illness History of Present Illness Ms Javed is a 70-year-old female w/ PMHx HTN, multiple presyncopal events in the past, history of breast cancer who was admitted 04/11/20. She was found in the bathroom after she felt dizzy and fell. She was able to crawl and called 911. When the EMS arrived, her heart rate was in the 20s. She was noted to be in third-degree heart block. External pacemaker was initiated. In the ER, she was able to communicate, but then went into asystole and given epinephrine, bicarbonate, calcium, and also had CPR. She had 7 minutes of ACLS before she had return of spontaneous circulation, was intubated and underwent hypothermia protocol. Found with diffuse alveolar infiltrates on CT and nondis placed acute sternal fracture, no pneumothorax, was negative for COVID 19. Consults: Pulm, Cardiology, Neurology 04/13:. doing well on vent, could wean, might be leaving on until Pacemaker placed tomorrow 04/14: No acute events overnight. Attempting to wean off of dopamine drip. Patient is currently heading towards the Forensic Chemist for pacemaker placement for third-degree AV block. 04/15: No acute events overnight. Afebrile. Sedation is currently off and currently intubated. Attempting to wean to extubate today. Vent settings currently at 450/50%/PEEP 5. 04/16: No acute events overnight. Afebrile. Patient is extubated. Complains of right thigh pain where her cath puncture site was. Pending speech evaluation. Patient's chart, labs, images were reviewed and discussed with RN 04/17: No acute events overnight. Patient was extubated yesterday as tolerated extubation well. Blood pressures been well controlled off of Cardene drip and only on IV antihypertensives. Current blood pressure is 148/65. xfer from ICU 04/18: No acute events overnight. Patient is feeling better but only complains of some pain around the Echols site. Patient is thirsty and has appetite to eat. Pending speech evaluation for proper diet. 04/19: No acute events overnight. Hyperkalemia and hyponatremia. We will repeat chemistries. Patient continues to be somewhat confused and states that there are bugs in the room that she is unable to see. No SI or HI or aggression. 04/20: No acute events overnight. Patient was able to pass speech evaluation and started on dysphagia diet. Pending repeat chemistries. Confusion is improved and patient is able to have appropriate conversation. Tolerating breakfast 04/21: Afebrile. Still with some hoarseness. She is asking if she can have some beets to eat. Worried about amlodipine, noted she previously experienced difficulty swallowing and swelling and was instructed to stop this med. Afebrile. Still with weakness and hoarseness. Plan for video swallow today after discussion with AUTO ENGINE MECHANIC. Vitals/I&O Vitals/I&O: Vital Signs Date Time Temp Pulse Resp B/P (MAP) Pulse Ox O2 Delivery O2 Flow Rate FiO2 04/22/20 10:04 97.8 62 18 118/49 (72) 97 Room Air 97.8 I & O 04/21/20 04/21/20 04/22/20 15:00 23:00 07:00 Intake Total 240 ml Output Total 250 ml Balance -10 ml Physical Exam General: Alert, Cooperative, Other (Confused) Heart: Regular rate Lungs: Clear Abdomen: Normal bowel sounds Extremities: No cyanosis, No edema Skin: No significant lesion Labs Labs: Laboratory Tests Test 04/21/20 21:00 04/22/20 05:30 Urine Collection Type Unknown Urine Color Vanessa Urine Clarity Turbid Urine pH 6.0 (<5.0-8.0) Urine Specific [place] 1.020 (1.000-1.030) Urine Protein >=300 mg/dL (NEG-TRACE) Urine Glucose (UA) Negative mg/dL (NEG) Urine Ketones (Stick) Negative mg/dL (NEG) Urine Blood Large (NEG) Urine Nitrite Negative (NEG) Urine Bilirubin Negative (NEG) Urine Urobilinogen Dipstick 1.0 mg/dL (0.2 mg/dL) Urine Leukocyte Esterase Large (NEG) Urine RBC 6-10 /HPF (0-2) Urine WBC Tntc /HPF (0-4) Urine Squamous Epithelial Cells Few /LPF Urine Bacteria Few /HPF (0-FEW) Sodium Level 144 mmol/L (136-145) Potassium Level 3.7 mmol/L (3.5-5.1) Chloride Level 109 mmol/L (98-107) Carbon Dioxide Level 27 mmol/L (21-32) Anion Gap 8 (6-14) Blood Urea Nitrogen 18 mg/dL (7-20) Creatinine 0.9 mg/dL (0.6-1.0) Estimated GFR (Cockcroft-Gault) 75.1 BUN/Creatinine Ratio 20 (6-20) Glucose Level 93 mg/dL (70-99) Calcium Level 9.0 mg/dL (8.5-10.1) Total Bilirubin 0.8 mg/dL (0.2-1.0) Aspartate Amino Transf (AST/SGOT) 34 U/L (15-37) Alanine Aminotransferase (ALT/SGPT) 70 U/L (14-59) Alkaline Phosphatase 108 U/L (46-116) Total Protein 6.3 g/dL (6.4-8.2) Albumin 2.4 g/dL (3.4-5.0) Albumin/Globulin Ratio 0.6 (1.0-1.7) Assessment and Plan Assessmemt and Plan Problems Medical Problems: (1) Renal insufficiency Status: Acute (2) Third degree heart block Status: Acute (3) Transaminitis Status: Acute Comment Review of Relevant I have reviewed the following items donn (where applicable) has been applied. Medications: Current Medications Medications (Trade) Dose Ordered Sig/Marlyn Route PRN Reason Start Time Stop Time Status Last Admin Dose Admin Hydralazine HCl (Apresoline) 50 mg BID PO 04/21/20 21:00 04/22/20 08:38 Justifications for Admission Other Justification ZAIRA MOSES MD Apr 22, 2020 10:23
--- NOTE | 2020-04-22 12:09 | NUR ---
SS following up with discharge planning. SS reviewed pt chart and discussed with pt RN. Pt is currently on room air. COVID19 negative. PT/OT recommended acute rehabilitation. Video swallow scheduled for today. SS contacted pt's son to discuss discharge planning. SS was notified to send referral to [facility], ; fax [phone], and if not accepted to [facility], ; fax [phone]. SS phoned and faxed referral as requested to [facility]. SS currently awaiting acceptance decision and insurance determination. SS will continue to follow for discharge planning.
--- NOTE | 2020-04-22 12:54 | PDOC ---
ABDIEL SERRA OPERATIONAL INTELLIGENCE OFFICER 04/22/20 1254: CARDIO Progress Notes Date and Time Date of Service 04/22/20 Time of Evaluation 1250 Subjective Subjective: No Chest Pain, No shortness of breath, No Palpitations, Other (productive cough) Vitals Vitals Vital Signs Date Time Temp Pulse Resp B/P (MAP) Pulse Ox O2 Delivery O2 Flow Rate FiO2 04/22/20 10:04 97.8 62 18 118/49 (72) 97 Room Air 97.8 Weight Weight [ ] Input and Output Intake and Output Intake and Output 04/22/20 07:00 Intake Total 240 ml Output Total 250 ml Balance -10 ml Intake Oral 240 ml Output Urine Total 250 ml # Voids 6 Laboratory Labs Laboratory Tests Test 04/21/20 21:00 04/22/20 05:30 Urine Collection Type Unknown Urine Color Vanessa Urine Clarity Turbid Urine pH 6.0 (<5.0-8.0) Urine Specific [place] 1.020 (1.000-1.030) Urine Protein >=300 mg/dL (NEG-TRACE) Urine Glucose (UA) Negative mg/dL (NEG) Urine Ketones (Stick) Negative mg/dL (NEG) Urine Blood Large (NEG) Urine Nitrite Negative (NEG) Urine Bilirubin Negative (NEG) Urine Urobilinogen Dipstick 1.0 mg/dL (0.2 mg/dL) Urine Leukocyte Esterase Large (NEG) Urine RBC 6-10 /HPF (0-2) Urine WBC Tntc /HPF (0-4) Urine Squamous Epithelial Cells Few /LPF Urine Bacteria Few /HPF (0-FEW) Sodium Level 144 mmol/L (136-145) Potassium Level 3.7 mmol/L (3.5-5.1) Chloride Level 109 mmol/L (98-107) Carbon Dioxide Level 27 mmol/L (21-32) Anion Gap 8 (6-14) Blood Urea Nitrogen 18 mg/dL (7-20) Creatinine 0.9 mg/dL (0.6-1.0) Estimated GFR (Cockcroft-Gault) 75.1 BUN/Creatinine Ratio 20 (6-20) Glucose Level 93 mg/dL (70-99) Calcium Level 9.0 mg/dL (8.5-10.1) Total Bilirubin 0.8 mg/dL (0.2-1.0) Aspartate Amino Transf (AST/SGOT) 34 U/L (15-37) Alanine Aminotransferase (ALT/SGPT) 70 U/L (14-59) Alkaline Phosphatase 108 U/L (46-116) Total Protein 6.3 g/dL (6.4-8.2) Albumin 2.4 g/dL (3.4-5.0) Albumin/Globulin Ratio 0.6 (1.0-1.7) Microbiology Micro Microbiology 04/11/20 Blood Culture - Final, Complete NO GROWTH AFTER 5 DAYS Physical Exam HEENT: Neck Supple W Full Motion Chest: Symmetric LUNGS: Other (diminished bases) Heart: RRR (SR with RBBB) Abdomen: Soft N/T, Other (obese) Extremities: Other (1+ bilateral LE pitting edema) Neurology: alert, oriented, follow commands Assessment Assessment 1. Presyncope with fall: due to bradyarrhythmia. prior multiple syncope at home 2. Symptomatic third degree heart block: s/p PPM implantation. currently maintaining SR with RBBB, first degree AV block. Device interrogation showed normal function. No further NSVT noted on tele. 3. Cardiopulmonary arrest: occurred in ED noted with asystole, received ACLS. 7 min to ROSC. Now extubated 4. Nondisplaced sternal fracture: likely from CPR 5. HTN urgency: better controlled 6. ANA: back to baseline 7. Shock liver: improved 8. Acute on chronic diastolic CHF: EF nml. appears compensated 9. NSTEMI: 0.2, was probably demand ischemia. 2D echo did not show any wall motion abnormalities. 10. Anoxic encephalopathy: improved 11. Arrhythmia; brief episode of NSVT on tele overnight 04/20. None further 12. Dysphagia; video swallow today Recommendations Continue labetalol, losartan, hydralazine for BP control. Will increase hydralazine to TID Amlodipine allergy Add ASA Will plan for outpatient ischemic evaluation Supportive care Justicifation of Admission Dx: Justifications for Admission: Justification of Admission Dx: Yes (cardiac arrest) LILIBETH VÁZQUEZ MD 04/22/201849: CARDIO Progress Notes Assessment Assessment Patient seen and examined. Agree with NURSE PRACTITIONER HOME ASSESSMENTS's assessment and plan. s/p permanent pacemaker implantation for complete heart block, stable. Agree with increasing hydralazine dose for better BP control Plan outpatient ischemic evaluation. ABDIEL SERRA APRN Apr 22, 2020 12:54 LILIBETH VÁZQUEZ MD Apr 22, 2020 18:50
[2020-04-22] MEDS ORDERED: BARIUM SULFATE 40% (APPLE) 148 GM PWD. PO ONE (13:30)
--- NOTE | 2020-04-22 14:30 | NUR ---
SS following up with discharge planning. Pt accepted at [facility], ; fax [phone], pending insurance authorization. Facility does require COVID19 test within 24 hours of discharge and reported that they will accept rapid test. Pt's RN notified. SS will continue to follow for discharge planning.
[2020-04-22 14:41] VITALS: BP 173/71
--- NOTE | 2020-04-22 17:32 | RAD ---
PROCEDURE: DG VIDEO SWALLOW STUDY STUDY DATE: 04/22/2020 CLINICAL INDICATION / HISTORY: Reason: dysphagia 2.3 MINUTES FLUORO TIME / Spl. Instructions: / Hist ory: . TECHNIQUE: Real-time fluoroscopic imaging examination was performed in conjunction with speech therap y. The patient was administered barium labeled thin liquids, pudding, mixed consistency and solid con sistency compounds. FLUOROSCOPY TIME: 2.3 minutes. Number of Images: 0 COMPARISON: Chest x-ray 04/15/2020 FINDINGS: Minimal delayed transit. In the oral phase. Pharyngeal phase showed laryngeal excursion and closure s lightly reduced and some pooling of residue post swallow in the valleculae. Transient penetration wit h thin liquids with small volumes and deeper laryngeal penetration with average to large sized drinks of thin liquid was observed.. IMPRESSION: Dysphagia of the primarily pharyngeal phases with no aspiration. However laryngeal penet ration was observed with thin liquids. Please refer to speech pathology notes for complete details a nd recommendations. Electronically signed by: Aleena Kirk MD (04/22/2020 5:30 PM) [id number]
[2020-04-22 19:13] VITALS: BP 199/92
[2020-04-22] MEDS ORDERED: ATORVASTATIN CALCIUM 10 MG TABLET. PO SCH (21:00)
[2020-04-22 22:47] VITALS: BP 134/66
[2020-04-23] MEDS: oxyCODONE/APAP 5/325 1 TAB TABLET PO PRN (01:52)
[2020-04-23 02:20] VITALS: BP 152/78
[2020-04-23 07:00] VITALS: BP 141/63
[2020-04-23] MEDS ORDERED: ASPIRIN ENTERIC COATED 81 MG TABLET.DR. PO SCH (08:00)
[2020-04-23] MEDS: PANTOPRAZOLE 40 MG TABLET.DR. PO SCH (09:33)
[2020-04-23] MEDS: LABETALOL HCL 200 MG TABLET PO SCH (09:34)
[2020-04-23] MEDS: LOSARTAN POTASSIUM 50 MG TABLET. PO SCH (09:35)
[2020-04-23] MEDS: METOCLOPRAMIDE HCL 10 MG/2 ML VIAL. IVP SCH (09:35)
[2020-04-23] MEDS: HEPARIN for SUB-Q USE 5,000 UNIT/ML VIAL. SQ SCH (09:36)
[2020-04-23] MEDS ORDERED: METOCLOPRAMIDE ORAL SOLN 10 MG/10 ML SOLUTION. PO PRN (09:45)
--- NOTE | 2020-04-23 09:46 | PDOC ---
[employer] PROGRESS NOTE Date of Service DOS: DATE: 04/23/20 TIME: 09:41 Chief Complaint Chief Complaint A/P: Syncope and fall, was pulseless in complete heart block,prior multiple syncope at home Symptomatic bradycardia with third-degree AV block status post permanent pacemaker placement 04/14/2020. maintaining SR with RBBB, first degree AV block. Device interrogation showed normal function. No further NSVT noted on tele. Cardiopulmonary arrest: occurred in ED noted with asystole, received ACLS. 7 min to ROSC. Now extubated Hypoxic respiratory failure - due to above, improved NSVT - resolved quickly Acute diastolic CHF Acute renal failure, vasomotor nephropathy HTN urgency Obesity, BMI 33 Nondisplaced sternal fracture: likely from CPR Shock liver -resolved NSTEMI - trop 0.2, was probably demand ischemia. 2D echo did not show any wall motion abnormalities. Anoxic encephalopathy: improved Dysphagia - Dysphagia III with thin liquid sips, no straws. pureed meds Consults: Pulm, cardiology, Neurology History of Present Illness History of Present Illness Ms Javed is a 70-year-old female w/ PMHx HTN, multiple presyncopal events in the past, history of breast cancer who was admitted 04/11/20. She was found in the bathroom after she felt dizzy and fell. She was able to crawl and called 911. When the EMS arrived, her heart rate was in the 20s. She was noted to be in third-degree heart block. External pacemaker was initiated. In the ER, she was able to communicate, but then went into asystole and given epinephrine, bicarbonate, calcium, and also had CPR. She had 7 minutes of ACLS before she had return of spontaneous circulation, was intubated and underwent hypothermia protocol. Found with diffuse alveolar infiltrates on CT and nondisplaced acute sternal fracture, no pneumothorax, was negative for COVID 19. Consults: Pulm, Cardiology, Neurology 04/13:. doing well on vent, could wean, might be leaving on until Pacemaker placed tomorrow 04/14: No acute events overnight. Attempting to wean off of dopamine drip. Patient is currently heading towards the Finance Lead for pacemaker placement for third-degree AV block. 04/15: No acute events overnight. Afebrile. Sedation is currently off and currently intubated. Attempting to wean to extubate today. Vent settings currently at 450/50%/PEEP 5. 04/16: No acute events overnight. Afebrile. Patient is extubated. Complains of right thigh pain where her cath puncture site was. Pending speech evaluation. Patient's chart, labs, images were reviewed and discussed with RN 04/17: No acute events overnight. Patient was extubated yesterday as tolerated extubation well. Blood pressures been well controlled off of Cardene drip and only on IV antihypertensives. Current blood pressure is 148/65. xfer from ICU 04/18: No acute events overnight. Patient is feeling better but only complains of some pain around the Echols site. Patient is thirsty and has appetite to eat. Pending speech evaluation for proper diet. 04/19: No acute events overnight. Hyperkalemia and hyponatremia. We will repeat chemistries. Patient continues to be somewhat confused and states that there are bugs in the room that she is unable to see. No SI or HI or aggression. 04/20: No acute events overnight. Patient was able to pass speech evaluation and started on dysphagia diet. Pending repeat chemistries. Confusion is improved and patient is able to have appropriate conversation. Tolerating breakfast 04/21: Afebrile. Still with some hoarseness. She is asking if she can have some beets to eat. Worried about amlodipine, noted she previously experienced difficulty swallowing and swelling and was instructed to stop this med. 04/22: Afebrile. Still with weakness and hoarseness. Plan for video swallow today after discussion with SALES AND MARKETING ANALYST - Dysphagia III, advance to thin liquids. NO ST RAWS. Cue pt to use small sips. Not feasible for pt to take meds w/thin given need for small sips.Meds in puree Afebrile. Hoarseness improved. Tolerating small sips of thin liquids well. Still weak today. Vitals/I&O Vitals/I&O: Vital Signs Date Time Temp Pulse Resp B/P (MAP) Pulse Ox O2 Delivery O2 Flow Rate FiO2 04/23/20 09:35 86 141/63 04/23/20 07:00 98.5 19 97 Room Air 98.5 04/23/20 02:52 2.0 I & O 04/22/20 04/22/20 04/23/20 14:59 22:59 06:59 Intake Total 0 ml 360 ml Output Total 150 ml Balance 0 ml 210 ml Physical Exam General: Alert, Cooperative, Other (Confused) Heart: Regular rate Lungs: Clear Abdomen: Normal bowel sounds Extremities: No cyanosis, No edema Skin: No significant lesion Labs Labs: Laboratory Tests Test 04/22/20 15:40 SARS-CoV-2 Antigen (Rapid) Negative (NEGATIVE) Assessment and Plan Assessmemt and Plan Problems Medical Problems: (1) Renal insufficiency Status: Acute (2) Third degree heart block Status: Acute (3) Transaminitis Status: Acute Comment Review of Relevant I have reviewed the following items donn (where applicable) has been applied. Medications: Current Medications Medications (Trade) Dose Ordered Sig/Marlyn Route PRN Reason Start Time Stop Time Status Last Admin Dose Admin Barium Sulfate (Varibar Thin Liquid Apple) 148 gm 1X ONCE PO 04/22/20 13:30 04/22/20 13:31 DC 04/22/20 13:37 Hydralazine HCl (Apresoline) 50 mg TID PO 04/22/20 15:30 04/23/20 09:34 Aspirin (Ecotrin) 81 mg DAILYWBKFT PO 04/23/20 08:00 04/23/20 09:33 Atorvastatin Calcium (Lipitor) 10 mg QHS PO 04/22/20 21:00 04/22/20 21:17 Justifications for Admission Other Justification ZAIRA MOSES MD Apr 23, 2020 09:46
[2020-04-23] MEDS ORDERED: ATOR10TA60 PO (09:50)
[2020-04-23] MEDS ORDERED: OXYC1TAB15 PO (09:50)
[2020-04-23] MEDS ORDERED: LOSA-73 PO (09:50)
[2020-04-23] MEDS ORDERED: PANT40TA77 PO (09:50)
[2020-04-23] MEDS ORDERED: HYDR-2869 PO (09:50)
[2020-04-23] MEDS ORDERED: ASPI-886 PO (09:50)
[2020-04-23] MEDS ORDERED: LABE200T4 PO (09:50)
--- NOTE | 2020-04-23 09:51 | SNU/HH DC ---
DISCHARGE ORDERS DISCHARGE INFORMATION: DISCHARGE DATE: Apr 23, 2020 FINAL DIAGNOSIS Problems Medical Problems: (1) Renal insufficiency Status: Acute (2) Third degree heart block Status: Acute (3) Transaminitis Status: Acute CONDITION ON DISCHARGE: Stable CODE STATUS: Code Status: Full RESIDENTIAL: SNF STAY <30 DAYS: Yes POST DISCHARGE ORDERS: ACTIVITY ORDERS: Resume previous activity WEIGHT BEARING STATUS: Full weight bearing, Other, see below (Left arm no overhead movement) DIET AFTER DISCHARGE: Cardiac WOUND/INCISION CARE: Ice to area for comfort, Keep wound elevated, Change dressing CHECKS AFTER DISCHARGE: CHECKS AFTER DISCHARGE: Check blood press - daily, Check your Temp as needed FOLLOW-UP: PHYSICIAN FOLLOW-UP: Cardiology - [place] TREATMENT/EQUIPMENT ORDERS: Physical Therapy For: Evalulation/Treatment Occupational Therapy For: Evaluation/Treatment Speech Language Pathology For: Evaluation/Treatment DISCHARGE MEDICATIONS: Home Meds Active Scripts Nitrofurantoin Monohyd/M-Cryst (MACROBID 100 MG CAPSULE) 100 Mg Capsule, 1 CAP PO BID for UTI for 5 Days, #10 CAP 0 Refills Prov:ZAIRA MOSES MD 04/23/20 Oxycodone/Apap 5-325 (PERCOCET 5-325 MG TABLET ) 1 Each Tablet, 1 TAB PO PRN Q6HRS PRN for PAIN for 6 Days, #24 TAB Prov:ZAIRA MOSES MD 04/23/20 Pantoprazole Sodium (PANTOPRAZOLE SODIUM ) 40 Mg Tablet., 40 MG PO DAILYAC for GERD for 90 Days, #90 TAB.SR 1 Refill Prov:ZAIRA MOSES MD 04/23/20 Aspirin (ASPIRIN EC) 81 Mg Tablet., 81 MG PO DAILYWBKFT for CAD for 90 Days, #90 TAB.SR 1 Refill Prov:ZAIRA MOSES MD 04/23/20 Losartan Potassium (COZAAR ) 50 Mg Tablet, 50 MG PO DAILY for HTN for 90 Days, #90 TAB 1 Refill Prov:ZAIRA MOSES MD 04/23/20 Labetalol Hcl (LABETALOL HCL) 200 Mg Tablet, 200 MG PO BID for HTN for 90 Days, #180 TAB 1 Refill Prov:ZAIRA MOSES MD 2/3/21 Hydralazine Hcl (HYDRALAZINE HCL) 50 Mg Tablet, 50 MG PO TID for HTN for 90 Days, #270 TAB 1 Refill Prov:ZAIRA MOSES MD 04/23/20 Atorvastatin Calcium (ATORVASTATIN CALCIUM) 10 Mg Tablet, 10 MG PO QHS for HLD, CHF for 90 Days, #90 TAB 1 Refill Prov:ZAIRA MOSES MD 04/23/20 ZAIRA MOSES MD Apr 23, 2020 09:51
--- NOTE | 2020-04-23 09:53 | PDOC3 ---
Discharge Summary Visit Information Date of Admission: Apr 11, 2020 Date of Discharge: Apr 23, 2020 Admitting Diagnosis: Third degree heart block Final Diagnosis Problems Medical Problems: (1) Renal insufficiency Status: Acute (2) Third degree heart block Status: Acute (3) Transaminitis Status: Acute Brief Hospital Course Allergies Allergies Coded Allergies Type Severity Reaction Last Updated Verified amlodipine Allergy Severe Rash 04/19/20 Yes tramadol Allergy Intermediate Itchy 04/21/20 Yes Vital Signs Vital Signs Date Time Temp Pulse Resp B/P (MAP) Pulse Ox O2 Delivery O2 Flow Rate FiO2 04/23/20 09:35 86 141/63 04/23/20 07:00 98.5 19 97 Room Air 98.5 04/23/20 02:52 2.0 Lab Results Laboratory Tests Test 04/21/20 21:00 04/22/20 05:30 04/22/20 15:40 Urine Collection Type Unknown Urine Color Vanessa Urine Clarity Turbid Urine pH 6.0 (<5.0-8.0) Urine Specific [place] 1.020 (1.000-1.030) Urine Protein >=300 mg/dL (NEG-TRACE) Urine Glucose (UA) Negative mg/dL (NEG) Urine Ketones (Stick) Negative mg/dL (NEG) Urine Blood Large (NEG) Urine Nitrite Negative (NEG) Urine Bilirubin Negative (NEG) Urine Urobilinogen Dipstick 1.0 mg/dL (0.2 mg/dL) Urine Leukocyte Esterase Large (NEG) Urine RBC 6-10 /HPF (0-2) Urine WBC Tntc /HPF (0-4) Urine Squamous Epithelial Cells Few /LPF Urine Bacteria Few /HPF (0-FEW) Sodium Level 144 mmol/L (136-145) Potassium Level 3.7 mmol/L (3.5-5.1) Chloride Level 109 mmol/L (98-107) Carbon Dioxide Level 27 mmol/L (21-32) Anion Gap 8 (6-14) Blood Urea Nitrogen 18 mg/dL (7-20) Creatinine 0.9 mg/dL (0.6-1.0) Estimated GFR (Cockcroft-Gault) 75.1 BUN/Creatinine Ratio 20 (6-20) Glucose Level 93 mg/dL (70-99) Calcium Level 9.0 mg/dL (8.5-10.1) Total Bilirubin 0.8 mg/dL (0.2-1.0) Aspartate Amino Transf (AST/SGOT) 34 U/L (15-37) Alanine Aminotransferase (ALT/SGPT) 70 U/L (14-59) Alkaline Phosphatase 108 U/L (46-116) Total Protein 6.3 g/dL (6.4-8.2) Albumin 2.4 g/dL (3.4-5.0) Albumin/Globulin Ratio 0.6 (1.0-1.7) SARS-CoV-2 Antigen (Rapid) Negative (NEGATIVE) Laboratory Tests Test 04/22/20 15:40 SARS-CoV-2 Antigen (Rapid) Negative (NEGATIVE) Brief Hospital Course Ms Javed is a 70-year-old female w/ PMHx HTN, multiple presyncopal events in the past, history of breast cancer who was admitted 04/11/20. She was found in the bathroom after she felt dizzy and fell. She was able to crawl and called 911. When the EMS arrived, her heart rate was in the 20s. She was noted to be in third-degree heart block. External pacemaker was initiated. In the ER, she was able to communicate, but then went into asystole and given epinephrine, bicarbonate, calcium, and also had CPR. She had 7 minutes of ACLS before she had return of spontaneous circulation, was intubated and underwent hypothermia protocol. Found with diffuse alveolar infiltrates on CT and nondisplaced acute sternal fracture, no pneumothorax, was negative for COVID 19. Consults: Pulm, Cardiology, Neurology 04/13:. doing well on vent, could wean, might be leaving on until Pacemaker placed tomorrow 04/14: No acute events overnight. Attempting to wean off of dopamine drip. Patient is currently heading towards the [facility] [employer] [facility] for pacemaker placement for third-degree AV block. 04/15: No acute events overnight. Afebrile. Sedation is currently off and currently intubated. Attempting to wean to extubate today. Vent settings currently at 450/50%/PEEP 5. 04/16: No acute events overnight. Afebrile. Patient is extubated. Complains of right thigh pain where her cath puncture site was. Pending speech evaluation. Patient's chart, labs, images were reviewed and discussed with RN 04/17: No acute events overnight. Patient was extubated yesterday as tolerated extubation well. Blood pressures been well controlled off of Cardene drip and only on IV antihypertensives. Current blood pressure is 148/65. xfer from ICU 04/18: No acute events overnight. Patient is feeling better but only complains of some pain around the [place] site. Patient is thirsty and has appetite to eat. Pending speech evaluation for proper diet. 04/19: No acute events overnight. Hyperkalemia and hyponatremia. We will repeat chemistries. Patient continues to be somewhat confused and states that there are bugs in the room that she is unable to see. No SI or HI or aggression. 04/20: No acute events overnight. Patient was able to pass speech evaluation and started on dysphagia diet. Pending repeat chemistries. Confusion is improved and patient is able to have appropriate conversation. Tolerating breakfast 04/21: Afebrile. Still with some hoarseness. She is asking if she can have some beets to eat. Worried about amlodipine, noted she previously experienced difficulty swallowing and swelling and was instructed to stop this med. 04/22: Afebrile. Still with weakness and hoarseness. Plan for video swallow today after discussion with [employer] - Dysphagia III, advance to thin liquids. NO STRAWS. Cue pt to use small sips. Not feasible for pt to take meds w/thin given need for small sips.Meds in puree Afebrile. Hoarseness improved. Tolerating small sips of thin liquids well. Still weak today. Plan to discharge to rehab. She has long-term plans to move in with her daughter in [place]. No telemetry events. Pacer site looks stable. Problem list: Syncope and fall, was pulseless in complete heart block,prior multiple syncope at home Symptomatic bradycardia with third-degree AV block status post permanent pacemaker placement 04/14/2020. maintaining SR with RBBB, first degree AV block. Device interrogation showed normal function. No further NSVT noted on tele. Cardiopulmonary arrest: occurred in ED noted with asystole, received ACLS. 7 min to ROSC. Now extubated Hypoxic respiratory failure - due to above, improved NSVT - resolved quickly Acute diastolic CHF Acute renal failure, vasomotor nephropathy HTN urgency Obesity, BMI 33 Nondisplaced sternal fracture: likely from CPR Shock liver -resolved NSTEMI - trop 0.2, was probably demand ischemia. 2D echo did not show any wall motion abnormalities. Anoxic encephalopathy: improved Dysphagia - Dysphagia III with thin liquid sips, no straws. pureed meds Consults: Pulm, cardiology, Neurology Greater than 30 minutes spent on d/c to SNF Discharge Information Condition at Discharge: Improved Follow Up: Weeks (1) Disposition/Orders: D/C to Another Facility Scheduled Aspirin (Aspirin Ec) 81 Mg Tablet., 81 MG PO [id number] for CAD for 90 Days, #90 Ref 1 Prescribed by: ZAIRA MOSES MD on 04/23/20 0950 Atorvastatin Calcium (Atorvastatin Calcium) 10 Mg Tablet, 10 MG PO QHS for HLD, CHF for 90 Days, #90 Ref 1 Prescribed by: ZAIRA MOSES MD on 04/23/20 0950 Hydralazine Hcl (Hydralazine Hcl) 50 Mg Tablet, 50 MG PO TID for HTN for 90 Days, #270 Ref 1 Prescribed by: ZAIRA MOSES MD on 04/23/20 0950 Labetalol Hcl (Labetalol Hcl) 200 Mg Tablet, 200 MG PO BID for HTN for 90 Days, #180 Ref 1 Prescribed by: ZAIRA MOSES MD on 04/23/20 0950 Losartan Potassium (Cozaar ) 50 Mg Tablet, 50 MG PO DAILY for HTN for 90 Days, #90 Ref 1 Prescribed by: ZAIRA MOSES MD on 04/23/20 0950 Pantoprazole Sodium (Pantoprazole Sodium ) 40 Mg Tablet., 40 MG PO DAILYAC for GERD for 90 Days, #90 Ref 1 Prescribed by: ZAIRA MOSES MD on 04/23/20 0950 Scheduled PRN Oxycodone/Apap 5-325 (Percocet 5-325 Mg Tablet ) 1 Each Tablet, 1 TAB PO PRN Q6HRS PRN for PAIN for 6 Days, #24 Prescribed by: ZAIRA MOSES MD on 04/23/20 0950 Justicifation of Admission Dx: Justifications for Admission: Justification of Admission Dx: Yes (cardiac arrest) ZAIRA MOSES MD Apr 23, 2020 09:53
[2020-04-23 10:33] VITALS: BP 152/68
--- NOTE | 2020-04-23 10:42 | NUR ---
SS following up with discharge planning. SS reviewed pt chart and discussed with pt RN. Pt is currently on room air. COVID19 negative. PT/OT recommended acute rehabilitation. Pt accepted at [facility], ; fax [phone]. SS received notification that [employer] denied authorization to acute. Peer to peer scheduled with Dr. Villar at 1345. SS met with pt and contacted pt's son and daughter in law to discuss chcf unit in the event that denial is not overturned. Pt requesting that her son and daughter in law provide choice of location for chcf unit. Pt's son and daughter in law provided with options for chcf unit and reported that they would contact SS with decision. SS will continue to follow for discharge planning.
--- NOTE | 2020-04-23 10:51 | PDOC ---
ABDIEL SERRA SOA INTEGRATION ARCHITECT 04/23/20 1051: CARDIO Progress Notes Date and Time Date of Service 04/23/20 Time of Evaluation 1030 Subjective Subjective: No Chest Pain, No shortness of breath, No Palpitations, Other (ambulated in [place] with PT this am) Vitals Vitals Vital Signs Date Time Temp Pulse Resp B/P (MAP) Pulse Ox O2 Delivery O2 Flow Rate FiO2 04/23/20 10:33 98.4 81 19 152/68 (96) 93 Room Air 98.4 04/23/20 02:52 2.0 Weight Weight [ ] Input and Output Intake and Output Intake and Output 04/23/20 07:00 Intake Total 360 ml Output Total 150 ml Balance 210 ml Intake Oral 360 ml Output Urine Total 150 ml # Voids 3 # Bowel Movements 2 Laboratory Labs Laboratory Tests Test 04/22/20 15:40 SARS-CoV-2 Antigen (Rapid) Negative (NEGATIVE) Microbiology Micro Microbiology 04/21/20 Urine Culture - Preliminary, Resulted 04/11/20 Blood Culture - Final, Complete NO GROWTH AFTER 5 DAYS Physical Exam HEENT: Neck Supple W Full Motion Chest: Symmetric LUNGS: Other (diminished bases) Heart: RRR (SR with RBBB) Abdomen: Soft N/T, Other (obese) Extremities: Other (trace bilateral LE edema) Neurology: alert, oriented, follow commands Assessment Assessment 1. Presyncope with fall: due to bradyarrhythmia. prior multiple syncope at home 2. Symptomatic third degree heart block: s/p PPM implantation. maintaining SR with RBBB, first degree AV block. Device interrogation showed normal function. No further NSVT noted on tele. 3. Cardiopulmonary arrest: occurred in ED noted with asystole, received ACLS. 7 min to ROSC. extubated 4. Nondisplaced sternal fracture: from CPR 5. HTN urgency: now controlled 6. ANA: back to baseline 7. Shock liver: resolved 8. Acute on chronic diastolic CHF: EF nml. appears compensated 9. NSTEMI: 0.2, was probably demand ischemia. 2D echo without WMA 10. Anoxic encephalopathy: improved 11. Dysphagia; passed video swallow. Recommendations Continue labetalol, losartan, hydralazine for BP control. Amlodipine allergy ASA, statin therapy Will plan for outpatient ischemic evaluation Follow up in our office with Dr. Pollard as scheduled Supportive care Justicifation of Admission Dx: Justifications for Admission: Justification of Admission Dx: Yes (cardiac arrest) LILIBETH POLLARD MD 04/23/20 1548: CARDIO Progress Notes Assessment Assessment Patient seen and examined. Agree with MACHINE FUR CLEANER's assessment and plan. Blood pressure better controlled. CHB s/p PPM stable No further NSVT noted on telemetry Anoxic encephalopathy improved Slight troponin elevation probably demand ischemia Plan for ischemic evaluation as an outpatient ABDIEL SERRA APRN Apr 23, 2020 10:51 LILIBETH POLLARD MD Apr 23, 2020 15:48
[2020-04-23] MEDS ORDERED: cefTRIAXone IV Push 1 GM VIAL. IVP SCH (11:00)
--- NOTE | 2020-04-23 11:03 | PDOC ---
PROGRESS NOTES Date of Service DATE: 04/23/20 TIME: 11:02 Assessment Problems Medical Problems: (1) Renal insufficiency Status: Acute (2) Third degree heart block Status: Acute (3) Transaminitis Status: Acute Anoxic encephalopathy, improving. Has had some emotional lability AV ventricular block, status-post pacemaker, congestive heart failure, hypertensive urgency Passed swallow evaluation, on dysphagia I Plan No need for repeat head CT or EEG Continue medical management. Transfer to correction anytime Subjective No complaints, denies depression Objective Vital Signs Date Time Temp Pulse Resp B/P (MAP) Pulse Ox O2 Delivery O2 Flow Rate FiO2 04/23/20 10:33 98.4 81 19 152/68 (96) 93 Room Air 98.4 04/23/20 02:52 2.0 Intake and Output 04/23/20 07:00 Intake Total 360 ml Output Total 150 ml Balance 210 ml Intake Oral 360 ml Output Urine Total 150 ml # Voids 3 # Bowel Movements 2 PHYSICAL EXAM Alert, knows name of the hospital, date, follows commands No emotional lability today PERRL. EOMI. CN: no focal findings. Muscle tone: normal. Muscle strength: 5/5 except left shoulder limited DTR: 1+ Plantar reflex: Silent Gait: not examined in bed. Sensory exam: No focal findings Cerebellar: No focal findings Review of Relevant I have reviewed the following items donn (where applicable) has been applied. Labs Laboratory Tests Test 04/21/20 21:00 04/22/20 05:30 04/22/20 15:40 Urine Collection Type Unknown Urine Color Vanessa Urine Clarity Turbid Urine pH 6.0 (<5.0-8.0) Urine Specific [place] 1.020 (1.000-1.030) Urine Protein >=300 mg/dL (NEG-TRACE) Urine Glucose (UA) Negative mg/dL (NEG) Urine Ketones (Stick) Negative mg/dL (NEG) Urine Blood Large (NEG) Urine Nitrite Negative (NEG) Urine Bilirubin Negative (NEG) Urine Urobilinogen Dipstick 1.0 mg/dL (0.2 mg/dL) Urine Leukocyte Esterase Large (NEG) Urine RBC 6-10 /HPF (0-2) Urine WBC Tntc /HPF (0-4) Urine Squamous Epithelial Cells Few /LPF Urine Bacteria Few /HPF (0-FEW) Sodium Level 144 mmol/L (136-145) Potassium Level 3.7 mmol/L (3.5-5.1) Chloride Level 109 mmol/L (98-107) Carbon Dioxide Level 27 mmol/L (21-32) Anion Gap 8 (6-14) Blood Urea Nitrogen 18 mg/dL (7-20) Creatinine 0.9 mg/dL (0.6-1.0) Estimated GFR (Cockcroft-Gault) 75.1 BUN/Creatinine Ratio 20 (6-20) Glucose Level 93 mg/dL (70-99) Calcium Level 9.0 mg/dL (8.5-10.1) Total Bilirubin 0.8 mg/dL (0.2-1.0) Aspartate Amino Transf (AST/SGOT) 34 U/L (15-37) Alanine Aminotransferase (ALT/SGPT) 70 U/L (14-59) Alkaline Phosphatase 108 U/L (46-116) Total Protein 6.3 g/dL (6.4-8.2) Albumin 2.4 g/dL (3.4-5.0) Albumin/Globulin Ratio 0.6 (1.0-1.7) SARS-CoV-2 Antigen (Rapid) Negative (NEGATIVE) Laboratory Tests Test 04/22/20 15:40 SARS-CoV-2 Antigen (Rapid) Negative (NEGATIVE) Microbiology 04/21/20 Urine Culture - Preliminary, Resulted 04/11/20 Blood Culture - Final, Complete NO GROWTH AFTER 5 DAYS Medications Current Medications Fentanyl Citrate (Fentanyl 2ml Vial) 100 mcg STK-MED ONCE .ROUTE ; Start 04/11/20 at 02:53; Stop 04/11/20 at 02:53; Status DC Hydromorphone HCl (Dilaudid) 2 mg STK-MED ONCE .ROUTE ; Start 04/11/20 at 02:57; Stop 04/11/20 at 02:57; Status DC Epinephrine HCl 5 mg/Sodium Chloride 255 ml @ 22.208 mls/ hr CONT PRN IV SEE I/O RECORD; Start 04/11/20 at 03:15; Stop 04/11/20 at 09:00; Status DC Propofol 100 ml @ As Directed STK-MED ONCE IV ; Start 04/11/20 at 03:14; Stop 04/11/20 at 03:14; Status DC Midazolam HCl 100 ml @ 1 mls/hr 1X ONCE IV Last administered on 04/11/20at 11:04; Start 04/11/20 at 03:45; Stop 04/12/20 at 00:39; Status DC Piperacillin Sod/ Tazobactam Sod (Zosyn Per Pharmacy) 1 each PRN DAILY PRN MC SEE COMMENTS; Start 04/11/20 at 04:00; Stop 04/16/20 at 10:35; Status DC Vancomycin HCl (Vanco Per Pharmacy) 1 each PRN DAILY PRN MC SEE COMMENTS; Start 04/11/20 at 04:00; Stop 04/11/20 at 13:35; Status DC Metronidazole 100 ml @ 100 mls/hr 1X ONCE IV ; Start 04/11/20 at 04:30; Stop 04/11/20 at 05:29; Status DC Dexamethasone Sodium Phosphate (Decadron) 10 mg 1X ONCE IV Last administered on 04/11/20at 04:54; Start 04/11/20 at 04:30; Stop 04/11/20 at 04:31; Status DC Magnesium Sulfate 50 ml @ 25 mls/hr 1X ONCE IV Last administered on 04/11/20at 04:58; Start 04/11/20 at 04:30; Stop 04/11/20 at 19:14; Status DC Furosemide (Lasix) 100 mg 1X ONCE IVP Last administered on 04/11/20at 04:32; Start 04/11/20 at 04:15; Stop 04/11/20 at 04:27; Status DC Vancomycin HCl 1.75 gm/Sodium Chloride 500 ml @ 250 mls/hr 1X ONCE IV ; Start 04/11/20 at 05:00; Stop 04/11/20 at 06:59; Status DC Piperacillin Sod/ Tazobactam Sod 3.375 gm/Sodium Chloride 50 ml @ 100 mls/hr 1X ONCE IV Last administered on 04/11/20at 05:43; Start 04/11/20 at 05:00; Stop 04/11/20 at 05:29; Status DC Dopamine HCl/ Dextrose 250 ml @ 19.561 mls/ hr CONT PRN IV SEE I/O RECORD Last administered on 04/13/20at 07:22; Start 04/11/20 at 06:15; Stop 04/14/20 at 18:24; Status DC Hydromorphone HCl (Dilaudid) 2 mg 1X ONCE IVP ; Start 04/11/20 at 06:15; Stop 04/11/20 at 06:27; Status DC Fentanyl Citrate (Fentanyl 2ml Vial) 100 mcg 1X ONCE IVP ; Start 04/11/20 at 06:15; Stop 04/11/20 at 06:27; Status DC Etomidate (Amidate) 20 mg 1X ONCE IV Last administered on 04/11/20at 03:12; Start 04/11/20 at 06:15; Stop 04/11/20 at 06:27; Status DC Succinylcholine Chloride (Anectine) 100 mg 1X ONCE IV Last administered on 04/11/20at 03:13; Start 04/11/20 at 06:15; Stop 04/11/20 at 06:27; Status DC Piperacillin Sod/ Tazobactam Sod 2.25 gm/Sodium Chloride 50 ml @ 100 mls/hr Q6HRS IV Last administered on 04/16/20at 06:19; Start 04/11/20 at 12:00; Stop 04/16/20 at 10:35; Status DC Fentanyl Citrate (Fentanyl 2ml Vial) 100 mcg 1X ONCE IV ; Start 04/11/20 at 07:00; Stop 04/11/20 at 19:40; Status DC Magnesium Sulfate/ Dextrose 100 ml @ 100 mls/hr 1X ONCE IV ; Start 04/11/20 at 07:30; Stop 04/11/20 at 14:52; Status DC Buspirone HCl (Buspar) 30 mg Q8H NG Last administered on 04/11/20at 15:30; Start 04/11/20 at 08:00; Stop 04/11/20 at 19:40; Status DC Acetaminophen (Tylenol) 650 mg Q4H NG Last administered on 04/11/20at 15:29; Start 04/11/20 at 07:00; Stop 04/11/20 at 19:40; Status DC Glycerin/ Hypromellose/ Polyethylene (Artificial Tears) 1 drop Q6HRS OU Last administered on 04/11/20at 13:30; Start 04/11/20 at 12:00; Stop 04/11/20 at 19:40; Status DC Glycerin/ Hypromellose/ Polyethylene (Artificial Tears) 1 drop PRN Q15MIN PRN OU DRY EYE; Start 04/11/20 at 07:00; Stop 04/11/20 at 19:40; Status DC Pantoprazole Sodium (PROTONIX VIAL for IV PUSH) 40 mg DAILY IVP ; Start 04/11/20 at 09:00; Stop 04/11/20 at 07:31; Status DC Fentanyl Citrate 30 ml @ 2.5 mls/hr CONT PRN IV PER PROTOCOL. Last administered on 04/14/20at 06:42; Start 04/11/20 at 07:00; Stop 04/14/20 at 18:24; Status DC Propofol 100 ml @ 6.258 mls/ hr CONT PRN IV PER PROTOCOL. Last administered on 04/14/20at 21:44; Start 04/11/20 at 07:00; Stop 04/18/20 at 22:04; Status DC Norepinephrine Bitartrate 32 mg/ Dextrose 250 ml @ 4.889 mls/ hr CONT PRN IV SEE I/O RECORD; Start 04/11/20 at 07:15; Stop 04/14/20 at 18:24; Status DC Fentanyl Citrate (Fentanyl 2ml Vial) 100 mcg 1X ONCE IV ; Start 04/11/20 at 07:15; Stop 04/11/20 at 07:30; Status DC Heparin Sodium (Porcine) (Heparin Sodium) 5,000 unit BID SQ Last administered on 04/23/20at 09:36; Start 04/11/20 at 09:00 Pantoprazole Sodium (PROTONIX VIAL for IV PUSH) 40 mg DAILY IVP Last administered on 04/20/20at 08:28; Start 04/11/20 at 09:00; Stop 04/20/20 at 10:34; Status DC Fentanyl Citrate 30 ml @ 0 mls/hr CONT PRN IV PER PROTOCOL.; Start 04/11/20 at 07:15; Stop 04/11/20 at 07:31; Status DC Propofol 100 ml @ 0 mls/hr CONT PRN IV PER PROTOCOL.; Start 04/11/20 at 07:15; Stop 04/11/20 at 07:31; Status DC Midazolam HCl 100 ml @ 2 mls/hr CONT PRN IV PER PROTOCOL; Start 04/11/20 at 07:15; Status Cancel Epinephrine HCl 10 mg/Sodium Chloride 250 ml @ 15.645 mls/ hr CONT PRN IV SEE I/O RECORD; Start 04/11/20 at 07:30; Stop 04/14/20 at 18:24; Status DC Metronidazole (FLAGYL 500Mmg PREMIX) 500 mg STK-MED ONCE IV ; Start 04/11/20 at 04:00; Stop 04/11/20 at 08:43; Status DC Sodium Chloride 1,000 ml @ 10 mls/hr Q24H IV Last administered on 04/13/20at 08:27; Start 04/11/20 at 09:15; Stop 04/19/20 at 19:08; Status DC Potassium Chloride/Water 100 ml @ 100 mls/hr 1X ONCE IV Last administered on 04/11/20at 13:27; Start 04/11/20 at 10:00; Stop 04/11/20 at 10:59; Status DC Potassium Chloride (Klor-Con) 40 meq 1X ONCE PO ; Start 04/11/20 at 10:45; Stop 04/11/20 at 10:46; Status UNV Potassium Chloride (Klor-Con) 40 meq Q2H PO ; Start 04/11/20 at 10:45; Stop 04/11/20 at 12:46; Status UNV Magnesium Sulfate 100 ml @ 50 mls/hr DAILY IV ; Start 04/12/20 at 09:00; Stop 04/15/20 at 08:59; Status UNV Info (Icu Electrolyte Protocol) 1 ea CONT PRN PRN MC PER PROTOCOL; Start 04/11/20 at 10:45; Stop 04/21/20 at 14:19; Status DC Furosemide (Lasix) 40 mg 1X ONCE IVP Last administered on 04/11/20at 13:29; Start 04/11/20 at 11:00; Stop 04/11/20 at 11:01; Status DC Linezolid/Dextrose 300 ml @ 300 mls/hr Q12HR IV Last administered on 04/14/20at 08:18; Start 04/11/20 at 14:00; Stop 04/14/20 at 12:48; Status DC Metoprolol Tartrate (Lopressor Vial) 5 mg 1X ONCE IVP ; Start 04/11/20 at 14:45; Stop 04/11/20 at 14:52; Status DC Metoprolol Tartrate (Lopressor Vial) 5 mg PRN Q5MIN PRN IVP TACHYCARDIA; Start 04/11/20 at 14:45; Stop 04/11/20 at 14:52; Status DC Enalaprilat (Vasotec Inj) 1.25 mg PRN Q6HRS PRN IVP HYPERTENSION; Start 04/11/20 at 15:15; Stop 04/11/20 at 19:14; Status DC Amlodipine Besylate (Norvasc) 5 mg DAILY PO Last administered on 04/15/20at 07:56; Start 04/12/20 at 09:00; Stop 04/15/20 at 15:31; Status DC Amlodipine Besylate (Norvasc) 5 mg 1X ONCE PO ; Start 04/11/20 at 15:15; Stop 04/11/20 at 15:16; Status Cancel Amlodipine Besylate (Norvasc) 10 mg 1X ONCE NG Last administered on 04/11/20at 15:28; Start 04/11/20 at 15:15; Stop 04/11/20 at 15:18; Status DC Calcium Chloride (Calcium Chloride) 1,000 mg STK-MED ONCE .ROUTE ; Start at 12:00; Stop 04/11/20 at 16:17; Status DC Epinephrine HCl (EPINEPHrine SYRINGE) 2 mg STK-MED ONCE .ROUTE ; Start 04/11/20 at 12:00; Stop 04/11/20 at 16:17; Status DC Sodium Bicarbonate (Sodium Bicarb Adult 8.4% Syr) 100 meq STK-MED ONCE .ROUTE ; Start 04/11/20 at 12:00; Stop 04/11/20 at 16:17; Status DC Dopamine HCl/ Dextrose (DOPamine 400MG/ 250ML PREMIX) 400 mg STK-MED ONCE IV ; Start 04/11/20 at 12:00; Stop 04/11/20 at 16:17; Status DC Midazolam HCl 100 ml @ 0 mls/hr CONT PRN IV SEE I/O RECORD; Start 04/11/20 at 17:30; Status Cancel Hydralazine HCl (Apresoline Inj) 10 mg PRN Q4HRS PRN IVP ELEVATED BP, SEE COMMENTS Last administered on 04/21/20at 15:54; Start 04/11/20 at 18:45 Midazolam HCl 100 ml @ 1 mls/hr CONT PRN IV SEE I/O RECORD Last administered on 04/14/20at 06:41; Start 04/12/20 at 00:30; Stop 04/14/20 at 18:24; Status DC Potassium Chloride/Water 100 ml @ 100 mls/hr Q1H IV Last administered on 04/13/20at 09:20; Start 04/13/20 at 06:30; Stop 04/13/20 at 10:29; Status DC Amino Acids/ Glycerin/ Electrolytes 1,000 ml @ 80 mls/hr [id number] IV Last administered on 04/19/20at 18:07; Start 04/13/20 at 10:15; Stop 04/19/20 at 19:08; Status DC Metoclopramide HCl (Reglan Vial) 10 mg DAILY IVP Last administered on 04/23/20at 09:35; Start 04/13/20 at 10:15; Stop 04/23/20 at 09:41; Status DC Bacitracin 95032 unit/Sodium Chloride 250 ml @ 250 mls/hr 1X ONCE IRR Last administered on 04/14/20at 06:00; Start 04/14/20 at 06:00; Stop 04/14/20 at 08:26; Status DC Lidocaine/ Epinephrine (LIDOCAINE 2%-EPI 1:100,000 multi-dose) 20 ml STK-MED ONCE .ROUTE ; Start 04/14/20 at 09:01; Stop 04/14/20 at 09:01; Status DC Lidocaine/ Epinephrine (LIDOCAINE 1%-EPI 1:100,000 Multi-Dose) 40 ml 1X ONCE INJ Last administered on 04/14/20at 10:00; Start 04/14/20 at 10:00; Stop 04/14/20 at 10:01; Status DC Oxycodone/ Acetaminophen (Percocet 5/325) 1 tab PRN Q4HRS PRN PO PAIN Last administered on 04/23/20at 01:52; Start 04/14/20 at 10:30 Losartan Potassium (Cozaar) 50 mg DAILY PO Last administered on 04/23/20at 09:35; Start 04/15/20 at 16:00 Amlodipine Besylate (Norvasc) 10 mg DAILY PO ; Start 04/16/20 at 09:00; Stop 04/19/20 at 06:12; Status DC Amlodipine Besylate (Norvasc) 5 mg 1X ONCE PO ; Start 04/15/20 at 15:30; Stop 04/15/20 at 15:32; Status DC Nicardipine HCl 50 mg/Sodium Chloride 250 ml @ 0 mls/hr CONT PRN IV SEE I/O RECORD Last administered on 04/19/20at 18:08; Start 04/15/20 at 17:00; Stop at 14:22; Status DC Fentanyl Citrate (Fentanyl 2ml Vial) 25 mcg PRN Q6HRS PRN IVP PAIN Last administered on 04/16/20at 09:44; Start 04/15/20 at 18:45; Stop 04/18/20 at 22:05; Status DC Fentanyl Citrate (Fentanyl 2ml Vial) 100 mcg STK-MED ONCE .ROUTE ; Start 04/15/20 at 18:42; Stop 04/15/20 at 18:42; Status DC Fentanyl Citrate (Fentanyl 2ml Vial) 25 mcg PRN Q2HR PRN IVP PAIN Last administered on 04/17/20at 21:21; Start 04/16/20 at 11:00; Stop 04/23/20 at 09:41; Status DC Fentanyl Citrate (Fentanyl 2ml Vial) 100 mcg STK-MED ONCE .ROUTE ; Start 04/15/20 at 19:00; Stop 04/16/20 at 11:20; Status DC Labetalol HCl (Normodyne Iv Push) 10 mg PRN Q6HRS PRN IVP HYPERTENSION Last administered on 04/21/20at 16:53; Start 04/16/20 at 15:45 Lorazepam (Ativan Inj) 2 mg PRN Q4HRS PRN IVP ANXIETY / AGITATION Last administered on 04/18/20at 10:59; Start 04/16/20 at 19:15; Stop 04/18/20 at 18:13 ; Status DC Amiodarone HCl (Cordarone) 400 mg DAILY PO ; Start 04/17/20 at 09:00; Stop 04/17/20 at 08:25; Status DC Potassium Chloride/Water 100 ml @ 100 mls/hr 1X ONCE IV ; Start 04/17/20 at 09:00; Stop 04/17/20 at 08:25; Status DC Furosemide (Lasix) 40 mg 1X ONCE IVP Last administered on 04/18/20at 10:19; Start 04/18/20 at 10:15; Stop 04/18/20 at 10:16; Status DC Lorazepam (Ativan Inj) 1 mg PRN Q6HRS PRN IVP ANXIETY / AGITATION Last administered on 04/20/20at 23:17; Start 04/18/20 at 18:15; Stop 04/23/20 at 09:41; Status DC Haloperidol Lactate (Haldol Inj) 5 mg 1X ONCE IVP Last administered on 04/18/20at 20:52; Start 04/18/20 at 21:00; Stop 04/18/20 at 21:01; Status DC Amlodipine Besylate (Norvasc) 10 mg DAILY PO Last administered on 04/20/20at 08 :29; Start 04/19/20 at 12:30; Stop 04/21/20 at 07:50; Status DC Sodium Chloride 1,000 ml @ 40 mls/hr Q24H IV Last administered on 04/22/20at 19:15; Start 04/19/20 at 19:15; Stop 04/23/20 at 09:41; Status DC Pantoprazole Sodium (Protonix) 40 mg DAILYAC PO Last administered on 04/23/20at 09:33; Start 04/21/20 at 07:30 Labetalol HCl (Trandate) 200 mg BID PO Last administered on 04/23/20at 09:34; Start 04/20/20 at 17:00 Info (Non-Icu Electrolyte Protocol) 1 ea CONT PRN PRN MC SEE COMMENTS; Start 04/21/20 at 14:30 Hydralazine HCl (Apresoline) 50 mg BID PO Last administered on 04/22/20at 08:38; Start 04/21/20 at 21:00; Stop 04/22/20 at 15:28; Status DC Barium Sulfate (Varibar Thin Liquid Apple) 148 gm 1X ONCE PO Last administered on 04/22/20at 13:37; Start 04/22/20 at 13:30; Stop 04/22/20 at 13:31; Status DC Hydralazine HCl (Apresoline) 50 mg TID PO Last administered on 04/23/20at 09:34; Start 04/22/20 at 15:30 Aspirin (Ecotrin) 81 mg DAILYWBKFT PO Last administered on 04/23/20at 09:33; Start 04/23/20 at 08:00 Atorvastatin Calcium (Lipitor) 10 mg QHS PO Last administered on 04/22/20at 21:17; Start 04/22/20 at 21:00 Metoclopramide HCl (Reglan Oral Solution) 5 mg PRN Q6HRS PRN PO NAUSEA/VOMITING; Start 04/23/20 at 09:45 Ceftriaxone Sodium (Rocephin) 1 gm Q24H IVP ; Start 04/23/20 at 11:00 Active Scripts Active Percocet 5-325 Mg Tablet (Oxycodone/Acetaminophen) 1 Each Tablet 1 Tab PO PRN Q6HRS PRN 6 Days Pantoprazole Sodium (Pantoprazole Sodium) 40 Mg Tablet. 40 Mg PO DAILYAC 90 Days Aspirin Ec (Aspirin) 81 Mg Tablet. 81 Mg PO DAILYWBKFT 90 Days Cozaar (Losartan Potassium) 50 Mg Tablet 50 Mg PO DAILY 90 Days Labetalol Hcl 200 Mg Tablet 200 Mg PO BID 90 Days Hydralazine Hcl 50 Mg Tablet 50 Mg PO TID 90 Days Atorvastatin Calcium 10 Mg Tablet 10 Mg PO QHS 90 Days Vitals/I & O Vital Sign - Last 24 Hours 04/22/20 04/22/20 04/22/20 04/22/20 14:41 15:41 19:13 20:00 Temp 98.3 98.2 98.3 98.2 Pulse 88 80 90 Resp 18 18 B/P (MAP) 173/71 (105) 199/92 (127) Pulse Ox 98 97 O2 Delivery Room Air Room Air Room Air 04/22/20 04/22/20 04/22/20 04/23/20 21:15 21:18 22:47 01:52 Temp 98.1 98.1 Pulse 90 90 76 Resp 19 16 B/P (MAP) 199/92 199/92 134/66 (88) Pulse Ox 98 98 O2 Delivery Room Air Room Air O2 Flow Rate 2.0 04/23/20 04/23/20 04/23/20 04/23/20 02:20 02:52 07:00 07:30 Temp 98.1 98.5 98.1 98.5 Pulse 78 86 Resp 19 24 19 B/P (MAP) 152/78 (102) 141/63 (89) Pulse Ox 97 97 97 O2 Delivery Room Air Room Air Room Air Room Air O2 Flow Rate 2.0 04/23/20 04/23/20 04/23/20 04/23/20 09:34 09:34 09:35 10:33 Temp 98.4 98.4 Pulse 86 86 86 81 Resp 19 B/P (MAP) 141/63 141/63 141/63 152/68 (96) Pulse Ox 93 O2 Delivery Room Air Intake and Output 04/22/20 04/22/20 04/23/20 15:00 23:00 07:00 Intake Total 0 ml 360 ml Output Total 150 ml Balance 0 ml 210 ml Justicifation of Admission Dx: Justifications for Admission: Justification of Admission Dx: Yes (cardiac arrest) CAMDEN TUCKER MD Apr 23, 2020 11:03
--- NOTE | 2020-04-23 11:44 | NUR ---
SS following up with discharge planning. SS received phone contact from pt's son and daughter in law requesting referral be phoned and faxed to [facility], ; fax [phone]. SS phoned and faxed referral as requested. SS will continue to follow for discharge planning.
--- NOTE | 2020-04-23 14:02 | NUR ---
SS following up with discharge planning. SS was notified that denial for acute rehabilitation facility was upheld after peer to peer was completed. SS currently awaiting on acceptance decision from [facility] and will proceed accordingly.
[2020-04-23 14:34] VITALS: BP_SYST 156; BP_SYST 162; BP_DIAS 64; BP_DIAS 72
--- NOTE | 2020-04-23 15:16 | NUR ---
SS following up with discharge planning. Pt accepted at [facility] but no beds available at [facility]. SS was notified that bed is available at [facility], ; fax [phone]. Pt and pt's son notified and agreeable with [facility] location. Discharge orders phoned and faxed to [facility]. Pt will discharge today and go to [facility] at 1630. [facility] to provide transportation. Pt, pt's RN, and pt's son notified.
[2020-04-23] MEDS ORDERED: NITR100C62 PO (15:47)
--- NOTE | 2020-04-23 19:17 | NUR ---
Discharge Note: [facility] Discharge instructions and discharge home medications reviewed with Other facility and a copy given. All questions have been answered and understanding verbalized. The following instructions and handouts were given: medications, mobility, diet, post ppm care. Discontinued lines and drains: PICC removed, no lines present at [place]. Patient discharged to [facility], report given to Anisha at 1630 and patient picked up by their transport at 1645. Son, Kavin here at [place].
[2020-07-22] MEDS ORDERED: FURO40TA4 PO (09:33)
[2020-07-22] MEDS ORDERED: LEVO-101 PO (09:33)
[2020-07-23] MEDS ORDERED: ACET325T21 PO (11:28)
== END 2020-04-23 16:45 | DRG 242 ==
LOC: ER 02:46 → 1 WEST ICU 05:40 → 2 NORTH 04-17 14:20
PROVIDERS: ADMIT Internal Medicine; ATTEND Internal Medicine
PROC: 5A1955Z Respiratory Ventilation, Greater than 96 Consecutive Hours (ICD-10-PCS; principal; 2020-04-11)
PROC: 0BH17EZ Insertion of Endotracheal Airway into Trachea, Via Natural or Artificial Opening (ICD-10-PCS; 2020-04-11)
PROC: 0JH606Z Insertion of Pacemaker, Dual Chamber into Chest Subcutaneous Tissue and Fascia, Open Approach (ICD-10-PCS; 2020-04-14)
PROC: 02H63JZ Insertion of Pacemaker Lead into Right Atrium, Percutaneous Approach (ICD-10-PCS; 2020-04-14)
PROC: 02HK3JZ Insertion of Pacemaker Lead into Right Ventricle, Percutaneous Approach (ICD-10-PCS; 2020-04-14)
PROC: 02HV33Z Insertion of Infusion Device into Superior Vena Cava, Percutaneous Approach (ICD-10-PCS; 2020-04-14)
DX: I21.4 Non-ST elevation (NSTEMI) myocardial infarction (principal); N17.0 Acute kidney failure with tubular necrosis; J96.01 Acute respiratory failure with hypoxia; I50.33 Acute on chronic diastolic (congestive) heart failure; K72.00 Acute and subacute hepatic failure without coma; I46.9 Cardiac arrest, cause unspecified; J96.02 Acute respiratory failure with hypercapnia; S22.20XA Unspecified fracture of sternum, initial encounter for closed fracture; E87.0 Hyperosmolality and hypernatremia; E87.1 Hypo-osmolality and hyponatremia; G93.1 Anoxic brain damage, not elsewhere classified; I16.1 Hypertensive emergency; I44.2 Atrioventricular block, complete; I47.2 Ventricular tachycardia; D72.829 Elevated white blood cell count, unspecified; E03.9 Hypothyroidism, unspecified; E66.9 Obesity, unspecified; E78.5 Hyperlipidemia, unspecified; E87.5 Hyperkalemia; I11.0 Hypertensive heart disease with heart failure; I25.10 Atherosclerotic heart disease of native coronary artery without angina pectoris; I25.2 Old myocardial infarction; I48.91 Unspecified atrial fibrillation; I49.8 Other specified cardiac arrhythmias; M48.02 Spinal stenosis, cervical region; R13.10 Dysphagia, unspecified; Z20.822 Contact with and (suspected) exposure to COVID-19; R94.5 Abnormal results of liver function studies; R73.9 Hyperglycemia, unspecified; X58.XXXA Exposure to other specified factors, initial encounter; Y93.89 Activity, other specified; Z68.33 Body mass index [BMI] 33.0-33.9, adult; Z85.3 Personal history of malignant neoplasm of breast; Z87.891 Personal history of nicotine dependence; Z95.0 Presence of cardiac pacemaker; Y92.89 Other specified places as the place of occurrence of the external cause; Y99.8 Other external cause status
CPT/HCPCS: 33208; 36415; 36569; 36600; 70450; 71045; 71250; 72125; 74018; 74230; 80048; 80053; 80061; 80076; 80307; 80329; 81001; 82140; 82550; 82805; 82962; 83036; 83605; 83735; 83880; 84100; 84443; 84484; 85007; 85025; 85610; 85730; 87040; 87077; 87086; 87186; 87426; 93005; 93306; 94002; 94003; 99152; 99153; 99285; C1785; C9113; J0171; J0330; J0360; J0696; J1100; J1265; J1630; J1644; J1940; J2020; J2060; J2250; J2543; J2704; J2765; J3010; J3475; J3480; J3490; J7030; J7050; U0003; 92526-GN; 92610-GN; 92611-GN; 97110-GO; 97110-GP; 97116-GP; 97530-GO; 97530-GP; 97535-GO; G0378; G0480

== ENCOUNTER → 2020-07-10 | Outpatient (CLI) | payer MEDICARE ==
[2020-04-23 14:34] VITALS: BP 162/72
[~2020-07-10] MED LIST: ASPI-886 PO; ATOR10TA60 PO; HYDR-2869 PO; LABE200T4 PO; LOSA-73 PO; NITR100C62 PO; OXYC1TAB15 PO; PANT40TA77 PO; REGADENOSON 0.4 MG/5 ML DISP.SYRIN. IV ONE
--- NOTE | 2020-07-10 17:23 | RAD ---
MR#: [id number] Date of Study: 07/10/2020 Ordering Physician: LILIBETH VÁZQUEZ, Referring Physician: PERRY RIOS Tech: RT Romeo Bishop) (N) APPROVED REPORT Test Type: Pharmacological Stress Nurse/Tech: Karen Osullivan RN Test Indications: chest pain Cardiac History: Post cardiac arrest Mar 2020, HTN, PPM Medications: See Electronic Medical Record Medical History: See Electronic Medical Record Resting ECG: AV paced Resting Heart Rate: 62 bpm Resting Blood Pressure: 137/70mmHg Pretest Chest Pain: None Nurse/Tech Notes Lungs CTA, Rapid heart rate noted at times. OK to procede with test per Dr. Vázquez. Pt resumed home medications after exam completed. Patient tolerated well. Consent: The procedure was explained to the patient in lay terms. Informed consent was witnessed. Ludwin eout was entered into [facility]. History and Stress Test performed by RT Romeo Bishop) (N) Pharm. Details Pharmacologic stress testing was performed using 0.4mg per 5ml of regadenoson given intravenously ove r 7-10 seconds. Stress Symptoms No chest pain or symptoms. POST EXERCISE Reason for Termination: Infusion complete Max HR: 174 bpm Max Blood Pressure: 133/49mmHg Blood Pressure response to exercise: Normal blood pressure response during stress. Heart Rate response to exercise: normal response Chest Pain: No. Arrhythmia: No. ST Change: No. INTERPRETATION Stress EKG Conclusion: Non diagnostic EKG due to pacing artifact. Imaging Protocol IMAGE PROTOCOL: Rest Tc-99m/stress Tc-99m 1 day Rest: Stress: Viability: Radiopharm.Tc99m [id number] Sestamibi [id number] 30.2mCi Duration 15min. 15min. Img Date 07/10/2020 07/10/2020 Inj-Img [id number]. 60min. Rest Admin Site:IV - Right AntecubitalAdministrator:RT Luis BishopR)(N) Stress Admin Site: IV - Right AntecubitalAdministrator: RT Romeo Mirza)(N) STRESS DATA End Diast. Vol.144.0mlLVEDV index BSA65.0ml End Syst. Vol.83.0mlLVESV index BSA37.0ml Myocardial Ckar964.0gEject. Katgtfkp49.0% Stress Scores Regional WT2.00Summed WT19.00 Regional WM0.00Summed WM16.00 LV Perfusion There is a large sized FIXED anterior and inferior wall defect suggestive of prior infarct w/o active ischemia. This pattern may also be consisent with a non-ischemic process. Wall Motion Moderate LV dysfunction. EF 42% LV Perf. Quant 17 Seg. SSS15.00 17 Seg. SRS18.00 17 Seg. SDS1.00 Stress Defect Extent (% LAD)35.60Rest Defect Extent (% LAD)29.40Rev. Defect Extent (% LAD)12.50 Stress Defect Extent (% LCX) 28.80Rest Defect Extent (% LCX)18.80Rev. Defect Extent (% LCX)2.50 Stress Defect Extent (% RCA)32.20Rest Defect Extent (% RCA)52.20Rev. Defect Extent (% RCA)0.00 Stress Defect Extent (% PAOLA)34.10Rest Defect Extent (% PAOLA)37.80Rev. Defect Extent (% PAOLA)7.00 Other Information Quality:Fair Risk Assessment: Moderate Risk Conclusion 1. Non-diagnostic EKG due to pacing artifact. 2. Large FIXED anterior and inferior wall defects suggestive of prior infarct without ischemia or non -ischemic process. 3. Moderate LV dysfunction. EF 40% 4. Moderate risk for future CV events. Signed by : Luciano Fortune, Electronically Approved : 07/10/2020 17:22:47
== END ==
LOC: NM 09:26
PROVIDERS: ATTEND Internal Medicine Cardiovascular Disease
DX: R07.9 Chest pain, unspecified (principal); I10 Essential (primary) hypertension
CPT/HCPCS: 78452; 93017; A9500; J2785

== ENCOUNTER → 2020-07-18 | Outpatient (CLI) | payer MEDICARE ==
[2020-04-23 14:34] VITALS: BP 162/72
[~2020-07-18] MED LIST changes: +ACET325T21 PO; +FURO40TA4 PO; +LEVO-101 PO; -REGADENOSON 0.4 MG/5 ML DISP.SYRIN. IV ONE
== END ==
LOC: LAB 11:44
PROVIDERS: ATTEND Internal Medicine Cardiovascular Disease
DX: Z01.812 Encounter for preprocedural laboratory examination (principal); R07.9 Chest pain, unspecified; Z20.822 Contact with and (suspected) exposure to COVID-19
CPT/HCPCS: U0003; U0005

== ENCOUNTER → 2020-10-07 | Outpatient (CLI) | payer MEDICARE, OTHER ==
[2020-07-23 14:48] VITALS: BP 144/62
--- NOTE | 2020-10-08 18:28 | RAD ---
MR#: [id number] Date of Study: 10/07/2020 Ordering Physician: LILIBETH VÁZQUEZ, Referring Physician: LILIBETH VÁZQUEZ, Tech: Adelia Mendosa, DEAN, RVT, RTR APPROVED REPORT Patient Location: OUT-PATIENT Indications Uncontrolled HTN Renal Artery Doppler Right Renal Artery Left Renal Arter y Proximal 74.8/20.7 cm/secProximal 143.8/44.5 cm/sec Mid 108.2/23.9 cm/secMid 135.4/31.8 cm/sec Distal 64.4/18.3 cm/secDistal 46.3/15.3 cm/sec Renal/Aorta Ratio 0.87Renal/Aorta Ratio 1.15 Prox. Resistive Index 0.72Prox. Resistive Index 0.69 Mid Resistive Index 0.78Mid Resistive Index 0.77 Distal Resistive Index 0.72Distal Resistive Index 0.67 Rt. Segmental A. 20.3/5.9 cm/secLt. Segmental A. 23.4/6.1 cm/sec Renal Measurements RightLeft Kidney Tegtjp76 cm 4 cmKidney Rxrztu87 cm 4.8 cm Right Additional FindingsLeft Additional Findings Structure:CYST1.4/1.2 cm/sStructure: CYST1.3/1.4 cm/s Incidental Finding Right Lobe Hepatic Mass/Hemangioma? 3.46 x 3 x 3.27 cm Aortic Doppler VelocityWaveform Mid. Aorta 124.2 cm/sec Findings Grayscale images the bilateral kidneys are grossly unremarkable. There are bilateral renal cysts measuring 1.4 x 1.3 x 1.3 on the right kidney in the mid segment and the left kidney has a superior mid cyst measuring 1.3 x 1.4 x 1.1 cm. These are likely benign simple cysts but they are not well visualized on this current study. Of note there is also a incidental hepatic mass most consistent with a hemangioma at approximately 3. 5 x 3 x 3.3 cm. Consider further dedicated CT of the abdomen pelvis for further evaluation given hawkins ited evaluation on this current study. Spectral waveforms and color Doppler of the proximal, mid and distal bilateral renal arteries are parminder ssly unremarkable with normal renal to aortic ratios. No significant renal artery stenosis is identi fied bilaterally. Normal resistive indices bilaterally. Critical Notification Critical Value: No <Conclusion> 1. No significant renal artery stenosis bilaterally 2. Incidental hepatic and renal masses noted most likely benign in nature but given limited evaluati on on this study consider further dedicated imaging with a CT of the abdomen pelvis with contrast. Signed by : Luciano Fortune, Electronically Approved : 10/08/2020 18:28:19
== END ==
LOC: US 09:24
PROVIDERS: ATTEND Internal Medicine Cardiovascular Disease
DX: N28.89 Other specified disorders of kidney and ureter (principal); I10 Essential (primary) hypertension; R16.0 Hepatomegaly, not elsewhere classified
CPT/HCPCS: 76770

== ENCOUNTER → 2021-05-22 | Outpatient (CLI) | payer MEDICARE, OTHER ==
[2021-02-15 14:23] VITALS: BP 138/67
[~2021-05-22] MED LIST changes: +POTA20TA4 PO
--- NOTE | 2021-05-22 16:52 | CARD ---
MR#: [id number] Date of Study: 05/22/2021 Ordering Physician: LILIBETH VÁZQUEZ, Referring Physician: LILIBETH VÁZQUEZ Tech: Amy Leiva [facility] APPROVED REPORT EXAM: Two-dimensional and M-mode echocardiogram with Doppler and color Doppler. Other Information Quality : AverageHR: 77bpm Rhythm : NSR INDICATION Cardiomyopathy Congestive Heart Failure RISK FACTORS Hypertension Hyperlipidemia 2D DIMENSIONS RVDd4.1 (2.9-3.5cm)IVSd1.2 (0.7-1.1cm) LVDd5.3 (3.9-5.9cm)PWd1.1 (0.7-1.1cm) IVSs1.6 (0.8-1.2cm)LVDs3.3 (2.5-4.0cm) FS (%) 37.0 %PWs1.7 (0.8-1.2cm) SV88.7 ml Aortic Valve AoV Peak Moise.171.1cm/Jennifer Peak GR.11.7mmHg LVOT Peak Moise.114.9cm/sLVOT VTI 21.95cm Mitral Valve MV E Xvcaxozq474.4cm/sMV A Wwepmhek56.9cm/s E/A Ratio1.2 TDI E/Lateral E'20.0E/Medial E'19.2 Pulmonary Valve PV Peak Lhbceufx987.4cm/sPV Peak Grad.5mmHg Tricuspid Valve TR P. Rynwzdng807di/sTR Peak Gr.33mmHg LEFT VENTRICLE The Left Ventricle is borderline dilated. There is mild concentric left ventricular hypertrophy. The ejection fraction is significantly impaired. LV ejection fraction is estimated at 35%. There is glob al hypokinesis of the left ventricle. RIGHT VENTRICLE The right ventricle is normal size. There is normal right ventricular wall thickness. The right ventr icular systolic function is normal. ATRIA The left atrium size is normal. The right atrium is mildly dilated. The interatrial septum is intact with no evidence for an atrial septal defect or patent foramen ovale as noted on 2-D or Doppler imagi ng. AORTIC VALVE The aortic valve is normal in structure and function. Doppler and Color Flow revealed mild aortic reg urgitation. There is no significant aortic valvular stenosis. MITRAL VALVE The mitral valve is normal in structure and function. There is no evidence of mitral valve prolapse. There is no mitral valve stenosis. Doppler and Color-flow revealed mild mitral regurgitation. TRICUSPID VALVE The tricuspid valve is normal in structure and function. Doppler and Color Flow revealed mild tricusp id regurgitation. Estimated PAP 35-40 mmHg. There is no tricuspid valve stenosis. PULMONIC VALVE The pulmonary valve is normal in structure and function. Doppler and Color Flow revealed mild pulmoni c valvular regurgitation. GREAT VESSELS The aortic root is normal in size. The ascending aorta is normal in size. The IVC is normal in size a nd collapses >50% with inspiration. PERICARDIAL EFFUSION There is no evidence of significant pericardial effusion. Critical Notification Critical Value: No <Conclusion> The Left Ventricle is borderline dilated. The ejection fraction is significantly impaired. LV ejection fraction is estimated at 35%. There is global hypokinesis of the left ventricle. There is mild concentric left ventricular hypertrophy. Doppler and Color Flow revealed mild aortic regurgitation. There is no significant aortic valvular stenosis. Doppler and Color-flow revealed mild mitral regurgitation. Doppler and Color Flow revealed mild tricuspid regurgitation. Estimated PAP 35-40 mmHg. Signed by : Saravanan Shah MD Electronically Approved : 05/22/2021 16:51:31
== END ==
LOC: ECHO 14:16
PROVIDERS: ATTEND Internal Medicine Cardiovascular Disease
DX: I08.8 Other rheumatic multiple valve diseases (principal); I50.32 Chronic diastolic (congestive) heart failure
CPT/HCPCS: 93306; C8929